=== PATIENT | male | born 1940 | race Caucasian/White ===

== ENCOUNTER 2023-07-31 11:50 | Outpatient (REF) | payer MEDICARE, SELFPAY ==
[2023-07-31 13:52] LABS: Anion Gap 11 (12-20); Blood Urea Nitrogen 22 mg/dL (9-16); Calcium 8.9 mg/dL (8.4-10.2); Carbon Dioxide 36 mmol/L (22-29); Chloride 100 mmol/L (96-108); Estimated Glomerular Filt Rate 47; Glucose Random 103 mg/dL (60-115); Potassium 3.1 mmol/L (3.3-5.1); Sodium 144 mmol/L (135-145)
== END 2023-07-31 11:51 | disposition home or self-care (01) ==
LOC: HO.HMGCLDS 11:50
PROVIDERS: PCP Internal Medicine; Visit Provider Nurse Practitioner Family
DX: N18.2 Chronic kidney disease, stage 2 (mild) (principal)
CPT/HCPCS: 36415; 80048

== ENCOUNTER 2023-11-15 10:14 | Outpatient (REF) | payer MEDICARE, SELFPAY ==
[2023-11-15 13:12] LABS: MANUAL DIFF FLAG NO
[2023-11-15 13:29] LABS: Basophils Absolute Auto 0.1 X10*3/uL (0.0-0.2); Basophils Percent Auto 1.1 % (0-2); Eosinophils Absolute Auto 0.1 X10*3/uL (0.0-0.4); Eosinophils Percent Auto 1.8 % (0-4); Hematocrit 43.6 % (42.0-52.0); Hemoglobin 14.3 g/dl (14.0-18.0); Imm Gran Abs Auto 0.01 X10*3/uL (0.00-0.03); Imm Gran Pct Auto 0.2 % (0.0-0.4); Lymphocytes Absolute Auto 1.7 X10*3/uL (1.2-4.9); Lymphocytes Percent Auto 38.5 % (20-40); Mean Corpuscular HGB Conc 32.8 g/dl (31.0-36.0); Mean Corpuscular Hemoglobin 28.9 pg (27.0-33.0); Mean Corpuscular Volume 88.3 fL (80.0-98.0); Mean Platelet Volume 10.6 fL (9.4-12.4); Monocytes Absolute Auto 0.5 X10*3/uL (0.1-1.2); Monocytes Percent Auto 11.1 % (2-11); Neutrophils Absolute Auto 2.1 x10*3/uL (2.0-8.3); Neutrophils Percent Auto 47.3 % (45-73); Platelet Count 214 X10*3/uL (160-400); Red Blood Count 4.94 X10*6/uL (4.60-5.80); White Blood Count 4.5 X10*3/uL (4.8-10.8)
[2023-11-15 13:40] LABS: Estimated Average Glucose 117 mg/dL; Hemoglobin A1c % 5.7 % (<6.0)
[2023-11-15 13:43] LABS: Anion Gap 12 (12-20); Blood Urea Nitrogen 27 mg/dL (9-16); Calcium 9.5 mg/dL (8.4-10.2); Carbon Dioxide 31 mmol/L (22-29); Chloride 104 mmol/L (96-108); Estimated Glomerular Filt Rate 31; Glucose Random 97 mg/dL (60-115); Potassium 4.5 mmol/L (3.3-5.1); Sodium 142 mmol/L (135-145)
== END 2023-11-15 10:15 | disposition home or self-care (01) ==
LOC: HO.HMGCLDS 10:14
PROVIDERS: PCP Internal Medicine; Visit Provider Internal Medicine
DX: E11.22 Type 2 diabetes mellitus with diabetic chronic kidney disease (principal); N18.9 Chronic kidney disease, unspecified; R53.83 Other fatigue
CPT/HCPCS: 36415; 80048; 83036; 85025

== ENCOUNTER 2024-08-04 06:41 | Outpatient (REF) | payer MEDICARE, SELFPAY ==
[2024-08-04 10:01] LABS: MANUAL DIFF FLAG NO
[2024-08-04 10:08] LABS: Basophils Absolute Auto 0.1 X10*3/uL (0.0-0.2); Basophils Percent Auto 1.4 % (0-2); Eosinophils Absolute Auto 0.2 X10*3/uL (0.0-0.4); Eosinophils Percent Auto 4.3 % (0-4); Hematocrit 41.9 % (42.0-52.0); Hemoglobin 13.5 g/dl (14.0-18.0); Imm Gran Abs Auto 0.01 X10*3/uL (0.00-0.03); Imm Gran Pct Auto 0.2 % (0.0-0.4); Lymphocytes Absolute Auto 1.9 X10*3/uL (1.2-4.9); Mean Corpuscular HGB Conc 32.2 g/dl (31.0-36.0); Mean Corpuscular Hemoglobin 29.2 pg (27.0-33.0); Mean Corpuscular Volume 90.5 fL (80.0-98.0); Monocytes Absolute Auto 0.5 X10*3/uL (0.1-1.2); Monocytes Percent Auto 9.9 % (2-11); Neutrophils Absolute Auto 2.5 x10*3/uL (2.0-8.3); Neutrophils Percent Auto 48.2 % (45-73); Platelet Count 294 X10*3/uL (160-400); Red Blood Count 4.63 X10*6/uL (4.60-5.80); Red Cell Distribution Width 13.3 % (11.0-16.0); White Blood Count 5.2 X10*3/uL (4.8-10.8)
[2024-08-04 10:32] LABS: Alanine Aminotransferase 11 U/L (0-40); Albumin Level 3.7 g/dL (3.5-5.0); Alkaline Phosphatase 80 U/L (39-117); Anion Gap 13 (12-20); Aspartate Amino Transferase 23 U/L (5-37); Bilirubin Total 0.6 mg/dL (0.0-1.0); Blood Urea Nitrogen 30 mg/dL (9-16); Calcium 8.8 mg/dL (8.4-10.2); Carbon Dioxide 31 mmol/L (22-29); Chloride 103 mmol/L (96-108); Cholesterol 155 mg/dL (<200); Estimated Glomerular Filt Rate 36; Glucose Fasting 109 mg/dL (60-99); HDL Cholesterol 37 mg/dL (>40); LDL Cholesterol Calculated 101 mg/dL (<100); Potassium 4.1 mmol/L (3.3-5.1); Sodium 143 mmol/L (135-145); Total Protein 7.5 g/dL (6.5-8.0); Triglycerides 87 mg/dL (<150)
[2024-08-04 10:40] LABS: Prostate Specific Antigen 2.93 ng/mL (<0.05-4.0)
[2024-08-04 10:47] LABS: Estimated Average Glucose 120 mg/dL; Hemoglobin A1C 138.1743 umol/L; Hemoglobin A1c % 5.8 % (<6.0); Total Hemoglobin (HGBA1C) 3475.3078 umol/L
== END 2024-08-04 06:42 | disposition home or self-care (01) ==
LOC: HO.HMGCLDS 06:41
PROVIDERS: PCP Internal Medicine; Visit Provider Internal Medicine
DX: E78.5 Hyperlipidemia, unspecified (principal); R53.83 Other fatigue; Z12.5 Encounter for screening for malignant neoplasm of prostate; Z13.1 Encounter for screening for diabetes mellitus
CPT/HCPCS: 36415; 80053; 80061; 83036; 84153; 85025

== ENCOUNTER 2024-10-14 09:29 | Outpatient (AMB) | payer MEDICARE, SELFPAY ==
--- NOTE | 2024-10-14 09:30 | MHC.PC.OV ---
Vital Signs 10/14/24 09:39 10/14/24 09:56 Height 5 ft 8.5 in Weight 222 lb BMI 33.3 BP 187/90 H 148/84 H Respiration 14 Pulse 70 Pulse Source Pulse Oximeter Temp 98.0 F Temp Source Temporal Artery Scan Pulse Oximetry (%) 95 Oxygen Delivery Method Room Air Intake Visit Reasons: establish care Septic Tank Installer Required: No Accompanied by: Spouse Allergies cephalexin (From KEFLEX) Allergy (Unknown, Unverified 10/14/24 09:30) UNKNOWN metformin (METFORMIN) Allergy (Unknown, Unverified 10/14/24 09:30) SHAKY , swelling silodosin (From RAPAFLO) Allergy (Unknown, Unverified 10/14/24 09:30) UNKNOWN tamsulosin (From FLOMAX) Allergy (Unknown, Unverified 10/14/24 09:30) UNKNOWN Pt states no known allergy to Allergy (Mild, Uncoded 10/14/24 09:30) Unknown Rapaflo Allergy (Unknown, Uncoded 10/14/24 09:30) hives Tobacco use date assessed: 10/14/24 Fall risk assessment: No Falls in past year Dental Screening Dental Screen Date: 10/14/24 Did you have a dental visit in the last 12 months?: Yes Did you have a dental problem in the last 6 months where you did not have access to dental care?: No Was dental information given to patient?: Patient has dentist [facility] Medical History (Updated 10/14/24 @ 10:16 by Kane Plunkett MD) Chronic pain syndrome Family History (Updated 10/14/24 @ 09:49 by CINDY Whittington) Father Prostate cancer Bone cancer Mother BP (high blood pressure) Social History (Updated 10/14/24 @ 09:48 by CINDY Whittington) Housing: House Alcohol intake: current Alcohol intake frequency: does not drink Patient Tobacco Use Status: Never used Tobacco service: Yes Current occupational status: retired Cognitive needs: No Hearing needs: No Vision needs: No Questionnaire PHQ-9 Over the last 2 weeks, how often have you been bothered by any of the following problems? 1. Little interest or pleasure in doing things: not at all 2. Feeling down, depressed, or hopeless: not at all 3. Trouble falling or staying asleep, or sleeping too much: not at all 4. Feeling tired or having little energy: not at all 5. Poor appetite or overeating: not at all 6. Feeling bad about yourself - or that you are a failure or have let yourself or your family down: not at all 7. Trouble concentrating on things, such as reading the newspaper or watching television: not at all 8. Moving or speaking so slowly that other people could have noticed. Or the opposite - being so fidgety or restless that you have been moving around a lot more than usual: not at all 9. Thoughts that you would be better off or of hurting yourself in some way: not at all Total score: 0 Depression Screening Interpretation: Negative Depression Screening Done: Yes Source: Developed by Drs. Chad Garcia, Yadira Abbasi, Ramon Sneed and colleagues, with an educational lee from [employer]. Thrive Questionnaire Date Thrive assessed: 10/14/24 I am a: Patient What is your living situation today?: I have a steady place to live Within the past 12 months, did the food you bought not last and you didn't have the money to get more?: Never true Within the past 12 months, did you worry whether your food would run out before you got money to buy more?: Never true Do you have trouble paying for medicines?: No Do you have trouble getting transportation to medical appointments?: No Do you have trouble paying your heating and electricity bill?: No Do you have trouble taking care of your child, family member or friend?: No Do you have trouble with day-to-day activities such as bathing, preparing meals, shopping, managing finances, etc.?: No Are you currently unemployed and looking for a job?: No Are you interested in more education?: No Please select the resources that you would like help with: None THRIVE Score: 0 AUDIT C Alcohol Use Questionnaire (AUDIT-C) 1. How often do you have a drink containing alcohol?: Never 3. How often do you have six or more drinks on one occasion?: Never Total Score: 0 TRESA-7 AMB Questionnaire TRESA-7 Date TRESA - 7 assessed: 10/14/24 Feeling nervous, anxious, or on edge: 0 = Not at all Not being able to stop or control worryin = Not at all Worrying too much about different things: 0 = Not at all Trouble relaxin = Not at all Being so restless that it is hard to sit still: 0 = Not at all Becoming easily annoyed or irritable: 0 = Not at all Feeling afraid as if something awful might happen: 0 = Not at all Total TRESA-7 score (0-4 normal; 5-9 mild; 10-14 moderate; 15-21 severe): 0 Source: Developed by Drs. Chad Garcia, Yadira Abbasi, Ramon Sneed and colleagues, with an educational lee from [employer]. Physical exam (Primary Care) Vital Signs: Last Vital Signs Temp 98.0 F 10/14/24 09:39 Pulse 70 10/14/24 09:39 Resp 14 10/14/24 09:39 BP 187/90 H 10/14/24 09:39 Pulse Ox 95 10/14/24 09:39 Oxygen Delivery Method Room Air 10/14/24 09:39 BMI result Body Mass Index 33.3 Tobacco/Smoking Status: Tobacco use Status Tobacco use date assessed 10/14/24 10/14/24 09:36 Patient Tobacco Use Status Never used Tobacco 10/14/24 09:48 PHQ-9: PHQ-9 Score PHQ-9: Total score 0 10/14/24 09:36 Depression Screening Interpretation: Negative Thrive Assessment: Date of Thrive Assessment Date Thrive assessed 10/14/24 10/14/24 09:36 Advance Care Planning discussion: Exists, not on file Date of discussion: 10/14/24 Forms completed: Health Care Proxy and MOLST Time spent: 1-15 minutes, not on file Coding Level of Care Code New Pt Level 4 (55612) Complex EM visit Add On G2211 Diagnoses Chronic pain syndrome G89.4 Additional Codes Vital Signs *Quality* - Advance Care Planning discussion: Exists, not on file ([id number]) Vital Signs *Quality* - Time spent: 1-15 minutes, not on file ([id number]) Assessment & Plan Assessment & Plan (1) Chronic pain syndrome: Code(s): G89.4 - Chronic pain syndrome Category: Medical Plan: Patient has been taking 300 mg a day in divided doses of Tramadol. The dosage has been reduced to 150 mg in divided doses. Patient has agreed. Will continue the diazepam an gabapentin at same dosage for now. Plan History of Present Illness - The patient is an 83-year-old male presenting with medication management and review. - Neuropathy: The patient has been experiencing neuropathy for approximately 10 years, primarily affecting his feet, causing pain and numbness. - He has been taking tramadol, 6 pills a day, for neuropathy management, but the dosage is being reduced to 3 pills a day due to concerns about addiction and age-related risks. - Type 2 Diabetes Mellitus: The patient has a history of type 2 diabetes, which may contribute to his neuropathy. - Back Pain: The patient has a history of multiple back surgeries and continues to experience back pain. - He has received epidural injections in the past, which were ineffective. - Dry Eye Syndrome: The patient has dry eyes and is under the care of Dr. Villegas for this condition. - History of Heart Attack: The patient has experienced two heart attacks in the past year and is on multiple heart medications. 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 Review of Systems - Neurological: Reports numbness and pain in feet due to neuropathy. - Cardiovascular: Reports history of heart attacks; denies current chest pain. - Ophthalmologic: Reports dry eyes. Physical Exam General: Cooperative and healthy appearing Nutritional Appearance: Well nourished Orientation/consciousness: Patient oriented x3 Limitations: No limitations Head: Normal to inspection General: Appearance normal, both eyes and all related structures Neck: Normal visual inspection Chest: Normal palpation of entire chest wall Respiratory: N ormal respiratory effort Neurology: Patient oriented x3, but reports neuropathy and back pain. Results Plan 1. Neuropathy - Reduce tramadol dosage to 3 pills per day due to concerns about addiction and age-related risks. 2. Type 2 Diabetes Mellitus - Continue current management and monitor for neuropathy progression. 3. Back Pain - No new interventions discussed; continue current management. 4. Dry Eye Syndrome - Continue care under Dr. Villegas. 5. History Of Heart Attack - Continue current heart medications as prescribed. Discussion Notes During the visit, we discussed the need to reduce the tramadol dosage to three pills per day due to concerns about addiction and age-related risks. We also reviewed the patient's current heart medications and confirmed that they should be continued as prescribed. The patient was advised to continue care for dry eye syndrome under Dr. Villegas. No new interventions were discussed for back pain, and current management for type 2 diabetes mellitus should continue with monitoring for neuropathy progression. Patient Instructions - Take tramadol three times a day as prescribed. - Continue taking heart medications as directed. - Follow up with Dr. Villegas for dry eye management. - Monitor blood sugar levels and report any changes in neuropathy symptoms. Orders: Orders Thyroid Stimulating Hormone Today G89.4 - Chronic pain syndrome UA and rflx microscopic Today G89.4 - Chronic pain syndrome Basic Metabolic Panel Today G89.4 - Chronic pain syndrome Complete Blood Count no Diff Today G89.4 - Chronic pain syndrome Lipid Panel Today G89.4 - Chronic pain syndrome Liver Panel Today G89.4 - Chronic pain syndrome Prostate Specific Antigen Scr Today G89.4 - Chronic pain syndrome Medications: New tramadol 50 mg PO Q8H 90 tabs 0RF 30 days gabapentin 200 mg (2 x 100 mg) PO TID 540 tabs 1RF 90 days
[2024-10-14 09:39] VITALS: BP 187/90; PULSE 70; RESP 14; TEMP 36.7; O2SAT 95; BMI 33.3
--- OUTSIDE RECORDS SUMMARY | 2024-10-14 09:55 | XMS_ITS | Patient Health Record ---
Author Organization [facility] Address [address] [place] [address] Care Team Providers Care Program Clerk Name Role Phone Donald Mayberry MD Primary Care Provider Unavailab Michela Tubbs Unavailable [phone] Jason Treviño Unavailable [phone] Allergies No Known Allergies Results Component Value Reference Range Notes HEMOGLOBIN A1C (GLYCOHEMOGLO BIN) Reviewed date:07/31/2024 11:03:22 AM Interpretation: Performing Lab: Notes/Report: HEMOGLOBIN A1C % (HH) 5.9 Reason For Referral No Information Medications Medication SIG (Take, Route, Frequency, Duration) Notes Start Date End Date Status Vitamin D3 Not-Ian Goss Active Extra Depth Orthopedic Shoes (1 Pair) with Customized Heat Molded Multidensity Innersoles (3 Pair) as directed Dx: NIDDM/Polyneuropathy (E11.42), Hammertoe Foot Deformity (M20.41,M20.42), Preulcerative Skin Lesion(s) (L85.1 06/20/2017 Not-Taking Extra Depth Orthopedic Shoes (1 Pair) with Customized Heat Molded Multidensity Innersoles (3 Pair) as directed Dx: NIDDM/Polyneuropathy (E11.42), Hammertoe Foot Deformity (M20.41,M20.42), Preulcerative Skin Lesion(s) (L85.1 06/26/2016 Not-Taking PreserVision AREDS A ctive Farxiga 10 MG 1 tablet Orally Once a day; Duration: 30 day(s) Active Enalapril Maleate 20 MG 1 tablet Orally Twice a day Not-Taking Potassium 1 tab Oral; Duration : 14 days Active Extra-Depth Diabetic Shoes with 3 Pair Custom heat-molded multi-density innersoles . for 1 year . Dx:Niddm with neuropathy, foot deformity and preulcerative skin lesions; Duration: . 05/04/2014 Not-Taking Eliquis 2.5 MG as directed Orally Active diazePAM Not-Taking Metoprolol Tartrate 50 MG 1 tablet with food Orally Twice a day; Duration: 30 day(s) Active Pantoprazole Sodium Not-Taking Centrum Silver Activ e Valium Not-Taking CeleBREX 200 MG Orally Acti ve Nifedical XL 60 MG 1 tablet Orally Once a day Not-Taking Gabapentin 100 MG Orally Ac tive Detrol LA 4 MG 1 capsule Orally Onc e a day Active Eye Lubricant Not-Ta nickie Omeprazole Not-Takin g Cephalexin Not-Takin g Restasis Active Aspir-81 Not-Taking traMADol HCl 50 MG Orally A ctive Vitamin B Complex No t-Taking Furosemide 20 MG 2 mL Orally Once a day Active Enulose Not-Taking Extra Depth Orthopedic Shoes (1 Pair) with Customized Heat Molded Multidensity Innersoles (3 Pair) as directed Dx: NIDDM/Polyneuropathy (E11.42), Hammertoe Foot Deformity (M20.41,M20.42), Preulcerative Skin Lesion(s) (L85.1 06/16/2019 Active Clobetasol Propionate Not-Taking Ciclopirox Olamine 0.77 % 1 application Externally Twice a day to skin of feet including between the toes; Duration: 30 days Active metFORMIN HCl Not-Ta nickie Extra Depth Orthopedic Shoes (1 Pair) with Customized Heat Molded Multidensity Innersoles (3 Pair) as directed Dx: NIDDM/Polyneuropathy (E11.42), Hammertoe Foot Deformity (M20.41,M20.42), Preulcerative Skin Lesion(s) (L85.1 03/26/2024 Active oxyCODONE HCl Not-Ta nickie NIFEdipine 60mg Not- Taking zzzExtra Depth Orthopedic Shoes (1 Pair) with Customized Heat Molded Multidensity Innersoles (3 Pair) . . . Dx: NIDDM (E11.9), Hammertoe Foot Deformity (M20.41,M20.42), Preulcerative Skin Lesion(s) (L85.1); Duration: . 06/03/2015 Not-Taking glipiZIDE Not-Taking OxyCONTIN Not-Taking Vitamin B 12 Not-Alexandre ing Vitamin B1 Not-Takin g Immunizations Vaccine Route Administration Date Status Comme nts COVID-19 Moderna Vaccine Unknown 12/09/2021 Administere d 1st 06/03/2020,07/01/2020 02/08/2021, Flu vaccine no Preserv 3 and > Unknown 01/18/2015 Administered Influenza Unknown 01/10/2016 Administered Influenza Unknown 12/18/2016 Administered Influenza Unknown 01/07/2018 Administered Influenza Unknown 12/08/2021 Administered Influenza Unknown 12/08/2022 Administered Pneumococcal Unknown 02/07/2017 Administered Social History Tobacco Use: Social History Observation Description Date Details (start date - stop date) Never Smoker NA - NA Tobacco use other than smoking: Question Answer Notes Are you an other tobacco user? No Tobacco Control (Standard) Question Answer Notes Tobacco use: Nonsmoker Additional Findings: Tobacco non-user Current no nsmoker AUDIT-C (Standard) Question Answer Notes Did you have a drink containing alcohol in the p ast year? No Points 0 Interpretation Negative Problems Problem Type SNOMED Code ICD Code Onset Dates Problem Status W/U Status Risk Notes Problem Acquired hammer toe of right foot (4004167152769941 ) Other hammer toe(s) (acquired), right foot (M20.41) Active confirmed Response to treatment, Improvemen t Problem Acquired hammer toe of left foot (2845198615721577 ) Other hammer toe(s) (acquired), left foot (M20.42) Active confirmed Response to treatment, Improvemen t Problem Polyneuropathy due to type 2 diabetes mellitus (661761140) Type 2 diabetes mellitus with diabetic polyneuropathy (E11.42) Active confirmed Vital Signs Blood pressure diastolic 80 mm Hg 07/31/2024 Height 5 ft 10 in in 07/31/2024 Blood pressure systolic 130 mm Hg 07/31/2024 Weight 218 lbs 07/31/2024 BMI 31.28 kg/m2 07/31/2024 Procedures Procedure Date Ordered Date Performed Result Body Sit e 00544-DADBRVH NAIL, 6 OR MORE 03/26/2024 N/A 54013-JXLF SKIN LESIONS, OVER 4 03/26/2024 N/A 90126-MIWDIYG NAIL, 6 OR MORE 07/31/2024 N/A 53555-HAPA SKIN LESIONS, OVER 4 07/31/2024 N/A Encounters Encounter Location Date Provider Diagnosis [address] [address] 12/20/2023 Jason Treviño Tinea unguium B35.1 ; Ingrowing nail L60.0 ; Type 2 diabetes mellitus with diabetic polyneuropathy E11.42 ; Pain in right toe(s) M79.674 ; Pain in left toe(s) M79.675 ; Hallux valgus (acquired), right foot M20.11 ; Other hammer toe(s) (acquired), left foot M20.42 ; Other hammer toe(s) (acquired), right foot M20.41 ; Venous insufficiency of both lower extremities I87.2 and Subungual hematoma of toenail of left foot, initial encounter S90.222A [address] [address] 03/26/2024 Michela Hirsch Other hammer toe(s) (acquired), right foot M20.41 ; Other hammer toe(s) (acquired), left foot M20.42 ; Type 2 diabetes mellitus with diabetic polyneuropathy E11.42 ; Tinea unguium B35.1 and Tinea pedis of both feet B35.[address] [address] 07/31/2024 Michela Hirsch Type 2 diabetes mellitus with diabetic polyneuropathy E11.42 ; Tinea unguium B35.1 ; Other hammer toe(s) (acquired), right foot M20.41 and Other hammer toe(s) (acquired), left foot M20.[address] [address] 03/27/2024 Michela Hirsch Assessments Encounter Date Diagnosis (ICD Code) Assessment Notes Treatment Notes Treatment Clinical Notes Section Notes 12/20/2023 Tinea unguium (ICD-10 - B35.1) 12/20/2023 Ingrowing nail (ICD-10 - L60.0) 03/26/2024 Other hammer toe(s) (acquired), right foot (ICD-10 - M20.41) Patient Educated with: DIABETIC FOOT CARE INSTRUCTIONS. pdf (DIABETIC FOOT CARE INSTRUCTIONS. pdf) 03/26/2024 Other hammer toe(s) (acquired), left foot (ICD-10 - M20.42) 07/31/2024 Type 2 diabetes mellitus with diabetic polyneuropathy (ICD-10 - E11.42) 07/31/2024 Tinea unguium (ICD-10 - B35.1) 07/31/2024 Other hammer toe(s) (acquired), right foot (ICD-10 - M20.41) Response to treatment,Impro vement 03/26/2024 Type 2 diabetes mellitus with diabetic polyneuropathy (ICD-10 - E11.42) 12/20/2023 Type 2 diabetes mellitus with diabetic polyneuropathy (ICD-10 - E11.42) 12/20/2023 Pain in right toe(s) (ICD-10 - M79.674) 03/26/2024 Tinea unguium (ICD-10 - B35.1) 07/31/2024 Other hammer toe(s) (acquired), left foot (ICD-10 - M20.42) Response to treatment,Impro vement 12/20/2023 Pain in left toe(s) (ICD-10 - M79.675) 12/20/2023 Hallux valgus (acquired), right foot (ICD-10 - M20.11) 03/26/2024 Tinea pedis of both feet (ICD-10 - B35.3) 12/20/2023 Other hammer toe(s) (acquired), left foot (ICD-10 - M20.42) 12/20/2023 Other hammer toe(s) (acquired), right foot (ICD-10 - M20.41) 12/20/2023 Venous insufficiency of both lower extremities (ICD-10 - I87.2) 12/20/2023 Subungual hematoma of toenail of left foot, initial encounter (ICD-10 - S90.222A) Plan Of Treatment Pending Test Test Name Order Date 01968-PGVGENX NAIL, 6 OR MORE 05/04/2014 66808-RORJMWH NAIL, 6 OR MORE 07/22/2014 69884-UBFVDOP NAIL, 6 OR MORE 10/21/2014 65351-SDGSXTJ NAIL, 6 OR MORE 12/30/2014 93363-UOGHGEZ NAIL, 6 OR MORE 03/03/2015 68757-YGSKVQO NAIL, 6 OR MORE 06/03/2015 36618-SCGWCPS NAIL, 6 OR MORE 08/16/2015 87469-HQTZAPS NAIL, 6 OR MORE 11/08/2015 98252-UZKKNLP NAIL, 6 OR MORE 01/31/2016 74729-DJUALYG NAIL, 6 OR MORE 04/17/2016 85740-JLXCLAG NAIL, 6 OR MORE 06/26/2016 81891-POQVAWT NAIL, 6 OR MORE 09/18/2016 95387-JBOUXCF NAIL, 6 OR MORE 11/27/2016 67859-ZLXTEUT NAIL, 6 OR MORE 01/29/2017 53863-AWYPXYP NAIL, 6 OR MORE 04/11/2017 21151-SVWGTFA NAIL, 6 OR MORE 06/20/2017 65401-EVHKVLC NAIL, 6 OR MORE 08/29/2017 12193-SQWPUKO NAIL, 6 OR MORE 11/19/2017 88234-SFUAYKN NAIL, 6 OR MORE 02/13/2018 46360-YGZIIKL NAIL, 6 OR MORE 03/26/2024 15491-EQHQNNO NAIL, 6 OR MORE 07/31/2024 72357-Egcimnzq Plate 12/30/2014 81102-CDTS SKIN LESIONS, OVER 4 10/01/19 19 32590-NYRJ SKIN LESIONS, OVER 4 08/01/19 25 68711-EGDJ SKIN LESIONS, OVER 4 03/26/20 24 18477-EYSD SKIN LESIONS, OVER 4 05/08/19 19 10020-TOPZ SKIN LESIONS, OVER 4 07/11/19 19 00658-GVRV SKIN LESIONS, OVER 4 02/14/20 18 74529-IDES SKIN LESIONS, OVER 4 11/20/19 18 67160-DKFW SKIN LESIONS, OVER 4 12/26/19 19 89784-HDPP SKIN LESIONS, OVER 4 03/24/20 19 17864-TISN SKIN LESIONS, OVER 4 06/16/19 20 19007-KJKA SKIN LESIONS, OVER 4 08/17/19 21 12205-OARD SKIN LESIONS, OVER 4 10/26/19 21 05210-FOPY SKIN LESIONS, OVER 4 12/28/19 21 58161-QLPI SKIN LESIONS, OVER 4 02/29/20 21 92823-HXNH SKIN LESIONS, OVER 4 05/09/19 22 69059-DNYQ SKIN LESIONS, OVER 4 08/30/19 18 28309-TUOE SKIN LESIONS, OVER 4 06/21/19 18 35003-CASK SKIN LESIONS, OVER 4 04/11/19 18 94567-TNVS SKIN LESIONS, OVER 4 01/30/20 17 90802-JCNV SKIN LESIONS, OVER 4 11/28/19 17 15843-ZFMF SKIN LESIONS, OVER 4 06/27/19 17 83953-TCZE SKIN LESIONS, OVER 4 09/19/19 17 32343-OCSV SKIN LESIONS, OVER 4 04/17/19 17 99004-SKSZ SKIN LESIONS, OVER 4 01/31/20 16 70272-YLIK SKIN LESIONS, OVER 4 11/08/19 16 94771-EFWD SKIN LESIONS, OVER 4 08/16/19 16 13481-SIWO SKIN LESIONS, OVER 4 06/03/19 16 38601-AVYG SKIN LESIONS, OVER 4 03/03/20 15 58656-MKPQ SKIN LESIONS, OVER 4 12/31/19 15 52049-DQQT SKIN LESIONS, OVER 4 10/22/19 15 25639-UBZR SKIN LESIONS, OVER 4 07/23/19 15 58838-DJQX SKIN LESIONS, OVER 4 05/04/19 15 21525-Asbz. Subungual Hematoma 4 68201-BTYAGCMP OF HEMATOMA/FLUID 019 75524-YWZUFTRA OF HEMATOMA/FLUID 022 30615-WVSPELOB OF HEMATOMA/FLUID 023 99035-PILFYHPX OF HEMATOMA/FLUID 021 55837-ELZHEPGO OF HEMATOMA/FLUID 019 HEMOGLOBIN A1C (GLYCOHEMOGLOBIN) 024 Next Appt Details Provider Name:Michela Ceballos nuris, 10/23/2024 03:45:00 PM, [address], [place], [address], Insurance Providers Payer Name Payer Address Payer Phone Subscriber Number Group Number Insured Name Patient Relationship to Insured Coverage Start Date Coverage End Date [employer] Medicare [id number] [address] [address] [place] [address] [id number] [employer], Aaron Self - patient is the insured Medical (General) History Medical History History ICD Code Arthritis Back,Hip,and Knee pain type II diabetes High blood pressure Neuropathy Chicken pox Surgical History Surgery Date(Month/Year) lumbar surgery 06/20/2013 cervical 11/29/2009 knee surgery, left 09/15/2015 gastric sleeve 03/08/17 cataract surgery- Bilateral 10/2017 Hospitalization History Reason Date(Month/Year) Heart attack- [facility] 08/2023
[2024-10-14 09:56] VITALS: BP 148/84
== END 2024-10-14 10:38 | disposition home or self-care (01) ==
LOC: HO.HMCSH 09:29
PROVIDERS: PCP Internal Medicine; Visit Provider Internal Medicine
DX: G89.4 Chronic pain syndrome (principal); Z00.00 Encounter for general adult medical examination without abnormal findings

== ENCOUNTER → 2024-10-14 09:29 | Outpatient (BNVA) | payer MEDICARE, SELFPAY | PROVIDERS: PCP Internal Medicine; Visit Provider Internal Medicine | DX: G89.4 Chronic pain syndrome (principal) | CPT/HCPCS: 99202 ==

== ENCOUNTER 2024-10-15 10:42 | Outpatient (REF) | payer MEDICARE, SELFPAY ==
--- OUTSIDE RECORDS SUMMARY | 2024-10-15 11:44 | XMS_ITS | Patient Health Record ---
[facility] Organization [facility] brijesh Michele Address [address] [facility] [place] [address] Care Team Providers Care Senior Media Planner Name Role Phone Donald Mayberry MD Primary Care Provider Unavailab Michela Tubbs Unavailable [phone] Jason Treviño Unavailable [phone] Allergies No Known Allergies Results Component Value [...] Problem Acquired hammer toe of right foot (7568611007958752 ) Other hammer toe(s) (acquired), right foot (M20.41) Active confirmed Response to treatment, Improvemen t Problem Acquired hammer toe of left foot (4286069306958266 ) Other hammer toe(s) (acquired), left foot (M20.42) Active confirmed Response to treatment, Improvemen t Problem Polyneuropathy due to type 2 diabetes mellitus (053207534) Type 2 diabetes mellitus with diabetic polyneuropathy (E11.42) Active confirmed Vital Signs Blood pressure diastolic 80 mm Hg 07/31/2024 Height 5 ft 10 in in 07/31/2024 Blood pressure systolic 130 mm Hg 07/31/2024 Weight 218 lbs 07/31/2024 BMI 31.28 kg/m2 07/31/2024 Procedures Procedure Date Ordered Date Performed Result Body Sit e 85415-FSADVQA NAIL, 6 OR MORE 03/26/2024 N/A 88759-LMEQ SKIN LESIONS, OVER 4 03/26/2024 N/A 33786-YMBHVPS NAIL, 6 OR MORE 07/31/2024 N/A 72035-LWSW SKIN LESIONS, OVER 4 07/31/2024 N/A Encounters Encounter Location Date Provider Diagnosis [address] [address] 12/20/2023 Jason Treviño Tinea unguium B35.1 ; [...] toenail of left foot, initial encounter S90.222A [address] [address] 03/26/2024 Mcihela Hirsch Other hammer toe(s) (acquired), right foot M20.41 ; Other hammer toe(s) (acquired), left foot M20.42 ; Type 2 diabetes mellitus with diabetic polyneuropathy E11.42 ; Tinea unguium B35.1 and Tinea pedis of both feet B35.[address] [address] 07/31/2024 Michela Hirsch Type 2 diabetes mellitus with diabetic polyneuropathy E11.42 ; Tinea unguium B35.1 ; Other hammer toe(s) (acquired), right foot M20.41 and Other hammer toe(s) (acquired), left foot M20.[address] [address] 03/27/2024 Michela Hirsch Assessments Encounter Date Diagnosis [...] Treatment Pending Test Test Name Order Date 16317-VJZCJRQ NAIL, 6 OR MORE 05/04/2014 47802-VMSWEGJ NAIL, 6 OR MORE 07/22/2014 74129-EZVVREK NAIL, 6 OR MORE 10/21/2014 64991-GKUZBON NAIL, 6 OR MORE 12/30/2014 66695-FDVATGP NAIL, 6 OR MORE 03/03/2015 36606-YOSSUOT NAIL, 6 OR MORE 06/03/2015 38607-YSZKQKF NAIL, 6 OR MORE 08/16/2015 45136-PEXRFBV NAIL, 6 OR MORE 11/08/2015 33463-UZMAZJP NAIL, 6 OR MORE 01/31/2016 71498-BDZQHWC NAIL, 6 OR MORE 04/17/2016 93541-KBQBCUG NAIL, 6 OR MORE 06/26/2016 33297-OGESUFB NAIL, 6 OR MORE 09/18/2016 36198-PLQJVTD NAIL, 6 OR MORE 11/27/2016 22158-SNUXLIG NAIL, 6 OR MORE 01/29/2017 83844-YRMPBHB NAIL, 6 OR MORE 04/11/2017 18562-ZGYKYXV NAIL, 6 OR MORE 06/20/2017 99062-PKSFGMT NAIL, 6 OR MORE 08/29/2017 18856-EPWEJBO NAIL, 6 OR MORE 11/19/2017 65042-UYCKJCB NAIL, 6 OR MORE 02/13/2018 18055-SWOTUGD NAIL, 6 OR MORE 03/26/2024 51601-UHQBLJC NAIL, 6 OR MORE 07/31/2024 48110-Itssjgpe Plate 12/30/2014 14980-MGNJ SKIN LESIONS, OVER 4 10/01/19 19 42111-XXKT SKIN LESIONS, OVER 4 08/01/19 25 92678-SAKN SKIN LESIONS, OVER 4 03/26/20 24 09174-CORP SKIN LESIONS, OVER 4 05/08/19 19 89080-WTDG SKIN LESIONS, OVER 4 07/11/19 19 30813-EIFQ SKIN LESIONS, OVER 4 02/14/20 18 14301-NIPC SKIN LESIONS, OVER 4 11/20/19 18 14102-OLCR SKIN LESIONS, OVER 4 12/26/19 19 06232-EDMD SKIN LESIONS, OVER 4 03/24/20 19 00977-RQRT SKIN LESIONS, OVER 4 06/16/19 20 29188-NTKE SKIN LESIONS, OVER 4 08/17/19 21 24754-CRKA SKIN LESIONS, OVER 4 10/26/19 21 06513-ZKCK SKIN LESIONS, OVER 4 12/28/19 21 81157-JHGL SKIN LESIONS, OVER 4 02/29/20 21 62136-JDOC SKIN LESIONS, OVER 4 05/09/19 22 91022-FDCN SKIN LESIONS, OVER 4 08/30/19 18 82130-OJXW SKIN LESIONS, OVER 4 06/21/19 18 77246-BSIP SKIN LESIONS, OVER 4 04/11/19 18 12254-JBPL SKIN LESIONS, OVER 4 01/30/20 17 83642-SYDG SKIN LESIONS, OVER 4 11/28/19 17 43319-FQCF SKIN LESIONS, OVER 4 06/27/19 17 70501-WFSQ SKIN LESIONS, OVER 4 09/19/19 17 69008-FBOC SKIN LESIONS, OVER 4 04/17/19 17 14200-HRVJ SKIN LESIONS, OVER 4 01/31/20 16 37714-VFCD SKIN LESIONS, OVER 4 11/08/19 16 32847-QWDP SKIN LESIONS, OVER 4 08/16/19 16 59669-SJUZ SKIN LESIONS, OVER 4 06/03/19 16 60358-OJCL SKIN LESIONS, OVER 4 03/03/20 15 56893-DAIE SKIN LESIONS, OVER 4 12/31/19 15 28978-FHFB SKIN LESIONS, OVER 4 10/22/19 15 85498-OJGO SKIN LESIONS, OVER 4 07/23/19 15 98892-YLFG SKIN LESIONS, OVER 4 05/04/19 15 25734-Wtfy. Subungual Hematoma 4 67369-LNYGRHBG OF HEMATOMA/FLUID 019 13197-WRBNGCPD OF HEMATOMA/FLUID 022 43329-IOZXOTKF OF HEMATOMA/FLUID 023 20469-ZEOBYXNA OF HEMATOMA/FLUID 021 48578-VCQVNAGU OF HEMATOMA/FLUID 019 HEMOGLOBIN A1C (GLYCOHEMOGLOBIN) 024 Next Appt Details Provider Name:Michela Ceballos nuris, 10/23/2024 03:45:00 PM, [address], [place], [address], Insurance Providers Payer Name Payer Address Payer Phone Subscriber Number Group Number Insured Name Patient Relationship to Insured Coverage Start Date Coverage End Date [employer] Medicare [id number] [address] [address] [place] [address] [phone] [id number] [employer], Aaron Self - patient is the insured Medical (General) History Medical History History ICD Code Arthritis Back,Hip,and Knee pain type II diabetes High blood pressure Neuropathy Chicken pox Surgical History Surgery Date(Month/Year) lumbar surgery 06/20/2013 cervical 11/29/2009 knee surgery, left 09/15/2015 gastric sleeve 03/08/17 cataract surgery- Bilateral 10/2017 Hospitalization History Reason Date(Month/Year) Heart attack- [facility] 08/2023
[2024-10-15 16:18] LABS: Appearance Urine Cloudy; Glucose Urine UA 500 mg/dL (Negative); PH 6.5 (5.0-9.0); Specific Gravity - Urine 1.015 (1.005-1.025); UMIC TRIGGER UA YES
[2024-10-15 16:20] LABS: Hematocrit 39.2 % (42.0-52.0); Hemoglobin 13.0 g/dl (14.0-18.0); Mean Corpuscular HGB Conc 33.2 g/dl (31.0-36.0); Mean Corpuscular Hemoglobin 29.4 pg (27.0-33.0); Mean Corpuscular Volume 88.7 fL (80.0-98.0); NRBC Abs Auto 0.000 X10*3/uL (0.0-0.012); NRBC Pct Auto 0.0 /100WBC (0.0-0.2); Platelet Count 309 X10*3/uL (160-400); Red Blood Count 4.42 X10*6/uL (4.60-5.80); White Blood Count 6.8 X10*3/uL (4.8-10.8)
[2024-10-15 16:42] LABS: Hemoglobin A1C 136.2891 umol/L; Total Hemoglobin (HGBA1C) 3511.0709 umol/L
[2024-10-15 16:47] LABS: Alanine Aminotransferase < 6 U/L (0-40); Albumin Level 3.8 g/dL (3.5-5.0); Alkaline Phosphatase 75 U/L (39-117); Anion Gap 13 (12-20); Aspartate Amino Transferase 26 U/L (5-37); Blood Urea Nitrogen 33 mg/dL (9-16); Calcium 9.1 mg/dL (8.4-10.2); Carbon Dioxide 28 mmol/L (22-29); Chloride 104 mmol/L (96-108); Cholesterol 139 mg/dL (<200); Estimated Glomerular Filt Rate 36; HDL Cholesterol 33 mg/dL (>40); Potassium 4.5 mmol/L (3.3-5.1); Sodium 140 mmol/L (135-145); Total Protein 7.9 g/dL (6.5-8.0); Triglycerides 59 mg/dL (<150)
[2024-10-15 16:51] LABS: Thyroid Stimulating Hormone 0.97 uIU/mL (0.32-4.0)
== END 2024-10-15 10:43 | disposition home or self-care (01) ==
LOC: HO.HMGCLDS 10:42
PROVIDERS: PCP Internal Medicine; Visit Provider Internal Medicine
DX: G89.4 Chronic pain syndrome (principal)
CPT/HCPCS: 36415; 80048; 80061; 80076; 81001; 83036; 84153; 84443; 85027

== ENCOUNTER 2024-11-13 14:51 | Outpatient (AMB) | payer MEDICARE, SELFPAY ==
[2024-11-13 14:51] VITALS: BP 162/90; PULSE 75; O2SAT 96; BMI 33.1
--- NOTE | 2024-11-13 14:51 | HO.NEPHOV ---
Vital Signs 11/13/24 14:51 Height 5 ft 8.5 in Weight 221 lb BMI 33.1 BP 162/90 H Blood Pressure Location Lt brachial Position Sitting Pulse 75 Pulse Source Pulse Oximeter Pulse Oximetry (%) 96 Oxygen Delivery Method Room Air Intake Visit Reasons: INP: CKD-Conf Student Life Dean Required: No Accompanied by: Spouse Allergies cephalexin (From KEFLEX) Allergy (Unknown, Verified 11/13/24 14:54) UNKNOWN metformin (METFORMIN) Allergy (Unknown, Verified 11/13/24 14:54) SHAKY , swelling silodosin (From RAPAFLO) Allergy (Unknown, Verified 11/13/24 14:54) UNKNOWN tamsulosin (From FLOMAX) Allergy (Unknown, Verified 11/13/24 14:54) UNKNOWN Pt states no known allergy to Allergy (Mild, Uncoded 10/14/24 09:30) Unknown Rapaflo Allergy (Unknown, Uncoded 10/14/24 09:30) hives Medication List - Last Reconciled 11/13/24 by Franklyn Pearl MD apixaban (Eliquis) 2.5 mg PO BID aspirin 81 mg PO DAILY blood sugar diagnostic (Accu-Chek Guide test strips) As directed- daily blood sugar diagnostic (OneTouch Ultra Test strips) As directed blood-glucose meter (Accu-Chek Guide Me Glucose Meter) As directed- daily dapagliflozin propanediol (Farxiga) 10 mg PO QAM diazepam 10 mg (2 x 5 mg) PO BEDTIME furosemide 20 mg PO DAILY gabapentin 200 mg (2 x 100 mg) PO TID 90 days lancets (Accu-Chek Softclix Lancets) As directed- daily lancets (OneTouch UltraSoft 2 Lancet) As directed metoprolol succinate ER 100 mg (2 x 50 mg) PO DAILY potassium chloride ER 10 mEq PO DAILY sacubitril-valsartan 97-103 mg (Entresto) 1 tab PO BID tolterodine ER 4 mg PO BID tramadol 50 mg PO Q8H 30 days triamcinolone acetonide 0.025% topical BID HPI Comments Details: The patient is an 84-year-old male referred for evaluation of chronic kidney disease. He has a longstanding history of diabetes mellitus. History of congestive heart failure status post DC. He has multiple somatic complaints. He reports a decline in balance and leg strength since the spring, with symptoms worsening over time, leading to difficulty walking and increased fatigue. He experiences dyspnea with minimal exertion, such as walking to the mailbox or climbing stairs, and reports a heavy sensation in his lungs. The patient has a history of heart failure, He underwent cardioversion for atrial fibrillation and has been hospitalized for cardiac care. The patient has a longstanding history of type 2 diabetes mellitus, which has contributed to his chronic kidney disease and peripheral neuropathy. He reports dizziness and neuropathic symptoms, which are attributed to diabetes. The patient has a history of prostate surgery complications, including a staph infection and prolonged catheter use, which have resolved. He also reports a history of hypertension, which is currently being managed with medication adjustments. [facility] Medical History (Updated 11/13/24 @ 15:16 by Franklyn Pearl MD) Chronic renal failure Chronic pain syndrome Family History Father Prostate cancer Bone cancer Mother BP (high blood pressure) Social History Housing: House Alcohol intake: current Alcohol intake frequency: does not drink Patient Tobacco Use Status: Never used Tobacco service: Yes Current occupational status: retired Cognitive needs: No Hearing needs: No Vision needs: No Review of Systems Const Denies anorexia, Denies fever(s) and Reports weakness Eyes Denies blurry vision Card Denies no additional complaints Resp Denies cough GI Denies melena and Denies diarrhea Denies hematuria and Reports difficulty urinating Musc Reports arthralgias and Denies tingling Skin/Breast Denies rash Neuro Denies focal weakness, Denies tingling, Denies tremor(s) and Reports weakness Physical Exam Vital Signs: Last Vital Signs Pulse 75 11/13/24 14:51 BP 162/90 H 11/13/24 14:51 Pulse Ox 96 11/13/24 14:51 Oxygen Delivery Method Room Air 11/13/24 14:51 BMI result Body Mass Index 33.1 Const General: comfortable Nutritional Appearance: well nourished Orientation/consciousness: patient oriented x3 HEENT Head: No normal to inspection Mouth: moist mucous membranes Neck Neck: Yes supple and Yes no JVD Resp Auscultation: clear to auscultation bilaterally, no rales and rub present Cardio Jugular venous distension: no JVD Palpation: no palpable S3 and no palpable S4 Heart sounds: no rubs GI Palpation (GI): Soft to palpation and nontender Percussion: No Fluid wave present General: Yes no CVA tenderness Back/Spine/Pelvis Back: no CVA tenderness Skin General skin exam: no rashes or lesions noted Neuro General: patient oriented x3 Extrem General: Yes no pedal edema and No clubbing Results Reviewed Nephrology Results: Hgb, (14.0-18.0) 13.0 g/dl L 10/15/24 WBC, (4.8-10.8) 6.8 X10*3/uL 10/15/24 Plt Count, (160-400) 309 X10*3/uL 10/15/24 Sodium, (135-145) 140 mmol/L 10/15/24 Potassium, (3.3-5.1) 4.5 mmol/L 10/15/24 Chloride, (96-108) 104 mmol/L 10/15/24 Carbon Dioxide, (22-29) 28 mmol/L 10/15/24 BUN, (9-16) 33 mg/dL H 10/15/24 Creatinine, (0.5-1.4) 1.83 mg/dL H 10/15/24 Calcium, (8.4-10.2) 9.1 mg/dL 10/15/24 Urine Protein, (Neg-Trace) 30 (1+) mg/dL H 10/15/24 Assessment & Plan Assessment & Plan (1) Chronic renal failure: Code(s): N18.9 - Chronic kidney disease, unspecified Category: Medical (2) CHF (congestive heart failure): Code(s): I50.9 - Heart failure, unspecified Category: Medical Plan 84-year-old man with stage III CKD in the setting of longstanding diabetes mellitus and congestive heart failure. Over the last 6 months renal function has been relatively stable with a creatinine of 1.8 Na EGFR about 36 mL/minute. At the present time fluid status seems acceptable. No evidence of overt fluid overload. No signs or symptoms of uremia. 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 Obstructive uropathy should be ruled out. No reason to believe that he has any active glomerular nephritis or interstitial disease at this time. Recommendations Renal ultrasonogram Chest x-ray Basic urine studies including urine protein creatinine ratio. Optimize blood pressure. With your permission I will add amlodipine 5 mg once a day. Continue with the Entresto. Continue to avoid nephrotoxic agents including NSAIDs. Encouraged him to stay on a low-sodium diet. I have answered all his questions he returned to the office in the next few weeks. Orders: Orders Comprehensive Met. Panel 4 Weeks N18.9 - Chronic kidney disease, unspecified Parathyroid Hormone Intact 4 Weeks N18.9 - Chronic kidney disease, unspecified US renal BI Today I50.9 - Heart failure, unspecified, N18.9 - Chronic kidney disease, unspecified XR chest 2V Today I50.9 - Heart failure, unspecified, N18.9 - Chronic kidney disease, unspecified Complete Blood Count Auto Diff 4 Weeks N18.9 - Chronic kidney disease, unspecified Total Protein Urine Random 4 Weeks N18.9 - Chronic kidney disease, unspecified UA and rflx microscopic 4 Weeks N18.9 - Chronic kidney disease, unspecified Creatinine Urine 4 Weeks N18.9 - Chronic kidney disease, unspecified Medications: New amlodipine 5 mg PO DAILY 30 tabs 1RF Coding Level of Care Code New Pt Level 4 (81569) Diagnoses Chronic renal failure N18.9 CHF (congestive heart failure) I50.9
--- OUTSIDE RECORDS SUMMARY | 2024-11-13 14:55 | XMS_ITS | Encounter Summary ---
Author Organization [facility] Address [address] [facility] [address] [place] [id number] Phone Care Team Providers Care Pasteurizing Supervisor Name Role Phone Donald Mayberry MD Primary Care Provider [phone] Kane Plunkett MD Primary Care Provid er Encounter Details Date Type Department Care Team (Late st Contact Info) Description 07/25/2023 Procedure Pass Echo [facility] [address] [place] [address] Social History Tobacco Use Types Packs/Day Years Used Date Smoking Tobacco: Never Assessed Education Answer Date Recorded Are you interested in more education? Not on geovanny e 07/25/2023 Are you concerned about learning? Not on file 07/25/2023 No 07/25/2023 No 07/25/2023 Digital Access Answer Date Recorded No 07/25/2023 No 07/25/2023 Reliable internet access at home? Not on file 07/25/2023 Device with a working camera? Not on file Sex and Gender Information Value Date Recorded Sex Assigned at Not on file Legal Sex Male 10:12 PM EDT Gender Identity Not on file Sexual Orientation Not on file documented as of this encounter Plan of Treatment Upcoming Encounters Date Type Department Care Team (Late st Contact Info) Description 08/27/2024 Procedure Pass Echo Lab [place] [address] [place] [address] 01/01/2025 10:15 AM EDT Appointment [facility] [place] [address] [place] [address] Harriet Yang PA-C [address] [place] [phone] 02/11/2025 11:00 AM EST Office Visit [facility] [address] [facility] [address], [address] [place] [address] Hood Breen MD [address] [facility], [address] [place] [address] [email or web address] documented as of this encounter Visit Diagnoses Not on filedocumented in this encounter Care Teams Pasteurizing Supervisor Relationship Specialty Start Date End Date Donald Mayberry MD [address] [place] [id number] PCP - General Internal Medicine 08/07/23 10/15/24 Kane Plunkett MD [address] [place] [address] PCP - General Internal Medicine 10/16/24 documented as of this encounter Additional Source Comments The information contained in this document represents components of the legal health record. It is not the complete legal health record.[facility]
--- OUTSIDE RECORDS SUMMARY | 2024-11-13 14:55 | XMS_ITS | Patient Health Record ---
[facility] Organization [facility] brijesh Michele Address [address] [facility] [place] [address] Care Team Providers Care Narrow [employer]oom Fixer Name Role Phone Kane Plunkett Primary Care Provider Michela Hirsch Unavailable [phone] Jason Treviño Unavailable [phone] Allergies No Known Allergies Results Component Value Reference Range Notes HEMOGLOBIN A1C (GLYCOHEMOGLO BIN) Reviewed date:07/31/2024 11:03:22 AM Interpretation: Performing Lab: Notes/Report: HEMOGLOBIN A1C % (HH) 5.9 Reason For Referral No Information Medications Medication SIG (Take, Route, Frequency, Duration) Notes Start Date End Date Status Detrol LA 4 MG 1 capsule Orally Onc e a day Active Centrum Silver Activ e CeleBREX 200 MG Orally Acti ve Nifedical XL 60 MG 1 tablet Orally Once a day Not-Taking Eliquis 2.5 MG as directed Orally Active diazePAM Not-Taking Ciclopirox Olamine 0.77 % 1 application Externally Twice a day to skin of feet including between the toes; Duration: 30 days Active zzzExtra Depth Orthopedic Shoes (1 Pair) with Customized Heat Molded Multidensity Innersoles (3 Pair) . . . Dx: NIDDM (E11.9), Hammertoe Foot Deformity (M20.41,M20.42), Preulcerative Skin Lesion(s) (L85.1); Duration: . 06/03/2015 Not-Taking OxyCONTIN Not-Taking Metoprolol Tartrate 50 MG 1 tablet with food Orally Twice a day; Duration: 30 day(s) Active Pantoprazole Sodium Not-Taking Farxiga 10 MG 1 tablet Orally Once a day; Duration: 30 day(s) Active Enalapril Maleate 20 MG 1 tablet Orally Twice a day Not-Taking Potassium 1 tab Oral; Duration : 14 days Active Extra-Depth Diabetic Shoes with 3 Pair Custom heat-molded multi-density innersoles . for 1 year . Dx:Niddm with neuropathy, foot deformity and preulcerative skin lesions; Duration: . 05/04/2014 Not-Taking Entresto Active Extra Depth Orthopedic Shoes (1 Pair) with Customized Heat Molded Multidensity Innersoles (3 Pair) as directed Dx: NIDDM/Polyneuropathy (E11.42), Hammertoe Foot Deformity (M20.41,M20.42), Preulcerative Skin Lesion(s) (L85.1 06/20/2017 Not-Taking Extra Depth Orthopedic Shoes (1 Pair) with Customized Heat Molded Multidensity Innersoles (3 Pair) as directed Dx: NIDDM/Polyneuropathy (E11.42), Hammertoe Foot Deformity (M20.41,M20.42), Preulcerative Skin Lesion(s) (L85.1 06/26/2016 Not-Taking Vitamin D3 Not-Takin g Vitamin B 12 Not-Alexandre ing Vitamin B1 Not-Takin g NIFEdipine 60mg Not- Taking glipiZIDE Not-Taking metFORMIN HCl Not-Ta nickie Valium Not-Taking Extra Depth Orthopedic Shoes (1 Pair) with Customized Heat Molded Multidensity Innersoles (3 Pair) as directed Dx: NIDDM/Polyneuropathy (E11.42), Hammertoe Foot Deformity (M20.41,M20.42), Preulcerative Skin Lesion(s) (L85.1 03/26/2024 Active oxyCODONE HCl Not-Ta nickie Furosemide 20 MG 2 mL Orally Once a day Active Enulose Not-Taking Extra Depth Orthopedic Shoes (1 Pair) with Customized Heat Molded Multidensity Innersoles (3 Pair) as directed Dx: NIDDM/Polyneuropathy (E11.42), Hammertoe Foot Deformity (M20.41,M20.42), Preulcerative Skin Lesion(s) (L85.1 06/16/2019 Active Clobetasol Propionate Not-Taking Restasis Active Aspir-81 Not-Taking traMADol HCl 50 MG Orally A ctive Vitamin B Complex No t-Taking PreserVision AREDS A ctive Omeprazole Not-Takin g Gabapentin 100 MG Orally Ac tive Cephalexin Not-Takin g Eye Lubricant Not-Ta nickie Immunizations Vaccine Route Administration Date Status Comme nts Influenza Unknown 01/10/2016 Administered Influenza Unknown 12/18/2016 Administered Influenza Unknown 01/07/2018 Administered Influenza Unknown 12/08/2021 Administered Influenza Unknown 12/08/2022 Administered Influenza Unknown 01/08/2024 Administered Pneumococcal Unknown 02/07/2017 Administered Flu vaccine no Preserv 3 and > Unknown 01/18/2015 Administered COVID-19 Moderna Vaccine Unknown 12/09/2021 Administere d 1st 06/03/2020,07/01/2020 02/08/2021, Social History Tobacco Use: Social History Observation [...] Problem Acquired hammer toe of right foot (2561419330366851 ) Other hammer toe(s) (acquired), right foot (M20.41) Active confirmed Response to treatment, Improvemen t Problem Acquired hammer toe of left foot (4330697578971634 ) Other hammer toe(s) (acquired), left foot (M20.42) Active confirmed Response to treatment, Improvemen t Problem Polyneuropathy due to type 2 diabetes mellitus (606117286) Type 2 diabetes mellitus with diabetic polyneuropathy (E11.42) Active confirmed Vital Signs Blood pressure diastolic 65 mm Hg 10/23/2024 Height 5 ft 10 in in 10/23/2024 Blood pressure systolic 128 mm Hg 10/23/2024 Weight 218 lbs 10/23/2024 BMI 31.28 kg/m2 10/23/2024 Procedures Procedure Date Ordered Date Performed Result Body Sit e 75650-ZAOMLII NAIL, 6 OR MORE 03/26/2024 N/A 65817-WOLW SKIN LESIONS, OVER 4 03/26/2024 N/A 51615-AOGJYYD NAIL, 6 OR MORE 07/31/2024 N/A 28987-XNSC SKIN LESIONS, OVER 4 07/31/2024 N/A Encounters Encounter Location Date Provider Diagnosis [address] [address] 12/20/2023 Jason Treviño Tinea unguium B35.1 ; [...] toenail of left foot, initial encounter S90.222A [address] [address] 03/26/2024 Michela Hirsch Other hammer toe(s) (acquired), right foot M20.41 ; Other hammer toe(s) (acquired), left foot M20.42 ; Type 2 diabetes mellitus with diabetic polyneuropathy E11.42 ; Tinea unguium B35.1 and Tinea pedis of both feet B35.[address] [address] 07/31/2024 Michela Hirsch Type 2 diabetes mellitus with diabetic polyneuropathy E11.42 ; Tinea unguium B35.1 ; Other hammer toe(s) (acquired), right foot M20.41 and Other hammer toe(s) (acquired), left foot M20.[address] [address] 10/23/2024 Michela Hirsch Type 2 diabetes mellitus with diabetic polyneuropathy E11.42 and Tinea unguium B35.[address] [address] 03/27/2024 [facility] [address] [address] 11/04/2024 Michela Hirsch Tinea pedis of both feet B35.3 Assessments Encounter Date Diagnosis (ICD Code) Assessment [...] E11.42) 07/31/2024 Tinea unguium (ICD-10 - B35.1) 10/23/2024 Type 2 diabetes mellitus with diabetic polyneuropathy (ICD-10 - E11.42) 10/23/2024 Tinea unguium (ICD-10 - B35.1) 11/04/2024 Tinea pedis of both feet (ICD-10 - B35.3) 03/26/2024 Type 2 diabetes mellitus with diabetic polyneuropathy (ICD-10 - E11.42) 07/31/2024 Other hammer toe(s) (acquired), right foot (ICD-10 - M20.41) Response to treatment,Impro vement 12/20/2023 Type 2 diabetes mellitus with diabetic polyneuropathy (ICD-10 - E11.42) 12/20/2023 Pain in right toe(s) (ICD-10 - M79.674) 07/31/2024 Other hammer toe(s) (acquired), left foot (ICD-10 - M20.42) Response to treatment,Impro vement 03/26/2024 Tinea unguium (ICD-10 - B35.1) 12/20/2023 Pain in left toe(s) (ICD-10 - [...] Treatment Pending Test Test Name Order Date 68254-VDTUMIM NAIL, 6 OR MORE 05/04/2014 46187-MAARJZB NAIL, 6 OR MORE 07/22/2014 96622-PHLIAFC NAIL, 6 OR MORE 10/21/2014 91186-ZTWUZJS NAIL, 6 OR MORE 12/30/2014 06970-IPWVBFN NAIL, 6 OR MORE 03/03/2015 46936-WNILERV NAIL, 6 OR MORE 06/03/2015 21305-WYRDPOO NAIL, 6 OR MORE 08/16/2015 14845-PMSKVOK NAIL, 6 OR MORE 11/08/2015 69578-PULDLUO NAIL, 6 OR MORE 01/31/2016 45289-BBGXPSQ NAIL, 6 OR MORE 04/17/2016 21482-LOSWCQA NAIL, 6 OR MORE 06/26/2016 01753-PETGFSO NAIL, 6 OR MORE 09/18/2016 72077-DZWYCDM NAIL, 6 OR MORE 11/27/2016 57935-JUMNYTP NAIL, 6 OR MORE 01/29/2017 23671-ORMBHCL NAIL, 6 OR MORE 04/11/2017 96353-PFTNMFB NAIL, 6 OR MORE 06/20/2017 87849-NTEQBOS NAIL, 6 OR MORE 08/29/2017 76559-TXBHAYN NAIL, 6 OR MORE 11/19/2017 89657-UDWFWDE NAIL, 6 OR MORE 02/13/2018 91032-QPBXPUY NAIL, 6 OR MORE 03/26/2024 80387-ZXMJODS NAIL, 6 OR MORE 07/31/2024 20015-Myfbqwfg Plate 12/30/2014 73287-VZVI SKIN LESIONS, OVER 4 10/01/19 19 85476-LCZR SKIN LESIONS, OVER 4 04/24/20 25 25622-IAEX SKIN LESIONS, OVER 4 03/26/20 24 14326-HSZP SKIN LESIONS, OVER 4 05/08/19 19 26741-EABK SKIN LESIONS, OVER 4 07/11/19 19 18394-RGCQ SKIN LESIONS, OVER 4 02/14/20 18 98828-AZQH SKIN LESIONS, OVER 4 11/20/19 18 74676-QPBU SKIN LESIONS, OVER 4 12/26/19 19 93745-ONDR SKIN LESIONS, OVER 4 03/24/20 19 27670-RRUQ SKIN LESIONS, OVER 4 06/16/19 37007-RGUR SKIN LESIONS, OVER 4 08/17/19 72845-GYYN SKIN LESIONS, OVER 4 10/26/19 33733-VENG SKIN LESIONS, OVER 4 12/28/19 59840-CLBK SKIN LESIONS, OVER 4 02/29/20 21 40530-ALTV SKIN LESIONS, OVER 4 05/09/19 11846-LGTD SKIN LESIONS, OVER 4 08/30/19 18 08217-WCUH SKIN LESIONS, OVER 4 06/21/19 18 29925-JQEH SKIN LESIONS, OVER 4 04/11/19 18 07119-FJOE SKIN LESIONS, OVER 4 01/30/20 17 94859-FXHE SKIN LESIONS, OVER 4 11/28/19 17 84043-DLZF SKIN LESIONS, OVER 4 06/27/19 17 84686-AOYB SKIN LESIONS, OVER 4 09/19/19 17 12742-NYXW SKIN LESIONS, OVER 4 04/17/19 17 34355-NKMH SKIN LESIONS, OVER 4 01/31/20 16 58976-HITA SKIN LESIONS, OVER 4 11/08/19 16 14982-OIMT SKIN LESIONS, OVER 4 08/16/19 16 81779-RLWD SKIN LESIONS, OVER 4 06/03/19 16 04174-JRIC SKIN LESIONS, OVER 4 03/03/20 15 16695-GMUP SKIN LESIONS, OVER 4 12/31/19 15 23430-QHXQ SKIN LESIONS, OVER 4 10/22/19 15 92996-XKIL SKIN LESIONS, OVER 4 07/23/19 15 71483-PEXR SKIN LESIONS, OVER 4 05/04/19 15 64162-Fkuy. Subungual Hematoma 4 01391-QRXLEXSF OF HEMATOMA/FLUID 019 02230-ORQQMADP OF HEMATOMA/FLUID 022 25036-XTUBGPGB OF HEMATOMA/FLUID 023 91909-PAUVLDBR OF HEMATOMA/FLUID 021 93009-MQXDRATJ OF HEMATOMA/FLUID 019 HEMOGLOBIN A1C (GLYCOHEMOGLOBIN) 024 Next Appt Details Provider Name:Michela lawler, 01/22/2025 02:45:00 PM, [address] [place], [address], Insurance Providers Payer Name Payer Address Payer Phone Subscriber Number Group Number Insured Name Patient Relationship to Insured Coverage Start Date Coverage End Date [employer] Medicare Adv-[id number] [address] [address] [place] [address] [id number] Aaron Huston Self - patient is the insured Medical (General) History Medical History History ICD Code Arthritis Back,Hip,and Knee pain type II diabetes High blood pressure Neuropathy Chicken pox Surgical History Surgery Date(Month/Year) lumbar surgery 06/20/2013 cervical 11/29/2009 knee surgery, left 09/15/2015 gastric sleeve 03/08/17 cataract surgery- Bilateral 10/2017 Hospitalization History Reason Date(Month/Year) Heart attack- [facility] 08/2023
== END 2024-11-13 15:30 | disposition home or self-care (01) ==
LOC: HO.HKA 14:52
PROVIDERS: PCP Internal Medicine; Referring Provider Internal Medicine; Visit Provider Internal Medicine Hypertension Specialist
DX: N18.9 Chronic kidney disease, unspecified (principal); I50.9 Heart failure, unspecified
CPT/HCPCS: 99204

== ENCOUNTER 2024-11-13 14:51 | Outpatient (REF) | payer MEDICARE, SELFPAY ==
--- NOTE | ~2024-11-13 | XR_ITS ---
EXAMINATION: XR CHEST CLINICAL INFORMATION: N18.9 - Chronic kidney disease, unspecified COMPARISON: Chest x-ray 03/09/2017. TECHNIQUE: 2 views of the chest were obtained. FINDINGS: There is moderate opacity of left lung base secondary to pleural effusion and underlying atelectasis. Rest of lungs are clear. The heart size and pulmonary vascularity is normal. No gross bony abnormality seen. XR/XR chest 2V IMPRESSION: New moderate left pleural effusion with underlying atelectasis, less likely consolidation. If clinically indicated ultrasound guided diagnostic thoracentesis can be performed. Electronically signed by: Natan Brady MD 11/13/2024 04:31 PM EDT
== END 2024-11-13 14:52 | disposition home or self-care (01) ==
LOC: HO.XRAY 14:51
PROVIDERS: PCP Internal Medicine; Referring Provider Internal Medicine; Visit Provider Internal Medicine Hypertension Specialist
DX: E11.22 Type 2 diabetes mellitus with diabetic chronic kidney disease (principal); N18.30 Chronic kidney disease, stage 3 unspecified; I13.0 Hypertensive heart and chronic kidney disease with heart failure and stage 1 through stage 4 chronic kidney disease, or unspecified chronic kidney disease; E11.40 Type 2 diabetes mellitus with diabetic neuropathy, unspecified; I50.9 Heart failure, unspecified; Z79.82 Long term (current) use of aspirin; Z79.1 Long term (current) use of non-steroidal anti-inflammatories (NSAID); Z79.899 Other long term (current) drug therapy; I25.2 Old myocardial infarction; Z79.84 Long term (current) use of oral hypoglycemic drugs
CPT/HCPCS: 71046; 99202

== ENCOUNTER → 2024-11-13 15:57 | Outpatient (BNV) | payer MEDICARE, SELFPAY | PROVIDERS: PCP Internal Medicine; Referring Provider Internal Medicine; Visit Provider Radiology Diagnostic Radiology | DX: J18.9 Pneumonia, unspecified organism (principal); I25.10 Atherosclerotic heart disease of native coronary artery without angina pectoris; J90 Pleural effusion, not elsewhere classified | CPT/HCPCS: 71046; 71250 ==

== ENCOUNTER 2024-11-13 16:35 | Inpatient (IN) | payer MEDICARE, SELFPAY ==
[2024-11-13] VITALS (10 sets, daily range): BP systolic 149–229; BP diastolic 84–129; PULSE 64–94; RESP 11–22; TEMP 36.7–36.8; O2SAT 94–97; BMI 30.9
--- NOTE | ~2024-11-13 | US_ITS ---
EXAMINATION: US KIDNEY BILATERAL HISTORY: CKD TECHNIQUE: Real-time grayscale ultrasound imaging of the kidneys was performed and images were reviewed. COMPARISON: Correlation is made with a CT of the abdomen with contrast dated 03/13/2017. FINDINGS: Right kidney: The right kidney measures 10.6 x 5.1 x 6.6 cm. There is renal cortical thinning. There is a 4.6 x 5.8 x 4.7 cm simple cyst at the lower pole. There is no hydronephrosis or renal calculi. Left Kidney: The left kidney measures 9.9 x 6.8 x 6.3 cm. There is renal cortical thinning. There is a 1.9 x 1.5 x 1.5 cm hypoechoic lesion at the upper pole which may represent a cyst. There is no hydronephrosis or renal calculi. US/US renal BI IMPRESSION: 1. Bilateral renal cortical thinning. 2. 4.6 x 5.8 x 4.7 cm right lower pole renal cyst. 3. 1.9 x 1.5 x 1.5 cm possible cyst at the upper pole of the left kidney. Follow-up is recommended. Electronically signed by: Chad Rosario MD 11/17/2024 07:01 AM EDT
--- NOTE | ~2024-11-13 | CT_ITS ---
EXAMINATION: CT CHEST WITHOUT CONTRAST CLINICAL INFORMATION: Headache. Pneumonia and effusion, left-sided. COMPARISON: November 13, 2024, one day apart. TECHNIQUE: Multidetector volumetric CT imaging of the chest was done. Axial MIP volume rendering provided. Sagittal and coronal reformatted images were obtained. This CT examination was performed using dose optimization techniques as appropriate, variously including the following: *Automated exposure control *Adjustment of mA and/or kV according to patient size (this includes techniques or standardized protocols for targeted exams where dose is matched to indication/reason for exam; i.e. extremities or head) *Use of iterative reconstruction technique DLP: 471.81 mGy centimeter. FINDINGS: TAR DISTILLATION SUPERVISOR: S shaped opacity left lower hemithorax. Hyperinflated lungs. Cardiomediastinal silhouette shifted towards the medial aspect left hemithorax. Multilevel spondylosis. LUNGS: There is a confluent opacity with minimal air bronchograms, left lower lung lobe and to a lesser extent lingula. Linear attenuation abnormalities in the right lower lung lobe, lingula and right upper lung lobe. No bronchiectasis. No honeycombing. No gross pulmonary nodules. No gross secretions within the airway. There is a nodularity of the wall of the trachea. MEDIASTINUM: No gross lymphadenopathy. Calcified plaques throughout the thoracic aorta wall and its main branches. No gross aneurysm, thoracic aorta. Calcified plaques in the coronary arteries. Small trace pericardial effusion. No hemopericardium. No pneumomediastinum. The heart is not enlarged. Probable heart valve, aorta. The thyroid gland is not enlarged. CORONARY ARTERY CALCIFICATION: Calcifications PLEURA: There is a lobulated slightly increased density moderate volume left-sided pleural effusion with questionable thickened wall. Focal calcified pleural plaques, left hemithorax. No pneumothorax. AXILLA: No lymphadenopathy. UPPER ABDOMEN: Postsurgical changes in the gastroesophageal junction. Abundant stool, large intestine. Gas and fluid-filled mildly prominent small bowel loops. Renal cortical thinning, bilaterally. Cystic lesions in the kidneys. Calcified plaques in the abdominal aorta wall mesenteric arteries and main renal arteries. No gross ascites in the upper abdomen. No gross pneumoperitoneum, upper abdomen. OSSEOUS STRUCTURES: Multilevel spondylosis with syndesmophyte formation and marginal osteophyte formation incomplete ankylosis from T7 T9. No acute cortical disruption or gross malalignment. There is a focal skin breakthrough/volume loss in the posterior left hemithorax at T8-9 level without extending into the muscular plane. CT/CT chest wo IV con IMPRESSION: Concerning loculated empyema versus hemothorax, left side. Compression atelectasis versus pneumonia, left lung base. 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 Electronically signed by: Jhoan Espinosa MD 11/14/2024 10:36 AM EDT
--- NOTE | ~2024-11-13 | CT_ITS ---
EXAMINATION: CT HEAD WITHOUT CONTRAST CLINICAL INFORMATION: Headaches COMPARISON: None available. TECHNIQUE: Contiguous axial imaging was performed from the skull base to vertex without intravenous administration of contrast. This CT examination was performed using dose optimization techniques as appropriate, variously including the following: *Automated exposure control *Adjustment of mA and/or kV according to patient size (this includes techniques or standardized protocols for targeted exams where dose is matched to indication/reason for exam; i.e. extremities or head) *Use of iterative reconstruction technique DLP: 666.08 mGy-cm FINDINGS: Prominence of the extra-axial CSF spaces cerebral sulci and ventricles likely central volume loss. Extra-axial CSF prominence along the frontotemporal convexities probably related to volume loss versus chronic subdural hemorrhage/hygromas. No acute intracranial hemorrhage, mass effect, midline shift, hydrocephalus or herniation. Bilateral multifocal patchy and confluent deep periventricular white matter hypodensities involving centrum semiovale and alvarado radiata most conspicuous in the right frontal lobe. Calcified plaques in the cavernous supraclinoid segments both ICAs. Shields-white matter differentiation is normal. Sellar/suprasellar region demonstrated no gross masses. Normal position of the cerebellar tonsils. No air-fluid levels in the paranasal sinuses. Questionable 9 dehiscence the versus bone defect versus artifact and the anterior inferior left nasal cavity/anterior hard palate. Tympanic cavities and mastoid cells are aerated. Pneumatized left petrous apex, congenital. CT/CT head/brain wo IV con IMPRESSION: No acute intracranial hemorrhage. Extensive white matter disease likely related to small vessel occlusive disease. Superimposed acute nonhemorrhagic ischemia right frontal lobe cannot be excluded. Global cerebral atrophy. Electronically signed by: Jhoan Espinosa MD 11/14/2024 10:21 AM EDT
--- NOTE | ~2024-11-13 | US_ITS ---
EXAMINATION: ULTRASOUND-GUIDED THORACENTESIS CLINICAL INFORMATION: Left moderate pleural effusion with hypoxia. COMPARISON: CT chest with and without contrast and chest x-ray 11/13/2024. TECHNIQUE: Following explaining ultrasound-guided left thoracentesis procedure, benefits and risk, a written consent was obtained. Patient was placed sitting upright on TR bed and preliminary ultrasound imaging was obtained through left posterior chest. An optimal site was selected on the skin and marked for thoracentesis . The marked site was cleaned and draped in usual sterile manner. 1% lidocaine was administered puncture site. Through a small skin incision a short 4 Maori catheter was advanced from the skin into the left pleural space. After observing fluid return, stylet was withdrawn and catheter connected to vacuum bottle. After obtaining as with air-fluid and patient observing some left chest pain, the catheter was withdrawn making sure no airleak been. Sterile applied complete hemostasis was achieved at puncture site and a sterile dressing applied. Patient tolerated procedure well. Patient was monitored by ER nurse during exam. FINDINGS: Preliminary ultrasound imaging imaging there is moderate left pleural effusion with echogenic debris. Approximately 1.3 L of hemorrhagic fluid was drained from left pleural space. Part of this fluid was sent to lab for cytology and other things as requested by referring physician. US/US thoracentesis IMPRESSION: Successful ultrasound-guided left thoracentesis performed without immediate complications. Electronically signed by: Natan Brady MD 11/14/2024 10:39 AM EDT
--- NOTE | ~2024-11-13 | MR_ITS ---
CLINICAL HISTORY: ? CVA MR Brain without gadolinium Comparison: CT/SR - CT HEAD WITHOUT IV CONTRAST - 11/14/24 10:00 EDT Findings: No restricted diffusion. No intra-axial mass or hemorrhage. Age appropriate cerebral volume loss. Patchy high FLAIR signal within the periventricular and subcortical white matter. No midline shift. No hydrocephalus. Vascular flow voids are intact. The orbits are normal. The sinuses and mastoid air cells are clear. No focal bone lesion. IMPRESSION: Unremarkable brain MRI. This document has been electronically signed by: Lucy Hernandez MD on 11/14/2024 18:27:50
--- NOTE | ~2024-11-13 | CT_ITS ---
CLINICAL HISTORY: large L pl effusion, sob CT chest without contrast Comparison: None provided Findings: The heart is normal size. Calcification of the coronary vasculature. The visualized thyroid and mediastinum are unremarkable. Moderate left pleural effusion which appears partially loculated and thick walled. Moderate airspace opacity within the left lung base. The visualized upper abdomen is unremarkable. No acute fractures. IMPRESSION: 1. Left basilar pneumonia with parapneumonic effusion as described above, possibly indicating an empyema. 2. Coronary artery disease. This document has been electronically signed by: Lucy Hernandez MD on 11/13/2024 19:33:21
--- NOTE | ~2024-11-13 | XR_ITS ---
CLINICAL HISTORY: Status post thoracentesis 1 view chest x-ray Comparison: CT/REG/MI/SR - CT CHEST WITHOUT IV CONTRAST - 11/14/24 10:00 EDT Findings: Continued dense consolidation of the left lung base with left pleural effusion. The appearance is similar to that seen on the patient's chest CT from 1 day prior. Right lung is clear. Overall heart size within normal limits. IMPRESSION: Unchanged left basilar consolidation with left pleural effusion. This document has been electronically signed by: Manny Tristan MD on 11/15/2024 12:00:18
--- NOTE | 2024-11-13 16:44 | ED.GENADULT ---
HPI - General Adult General Chief complaint: Recheck/Abnormal Lab/Rx Stated complaint: fluid in left lung sent from xray Time Seen by Provider: 11/13/24 17:22 History of Present Illness ED Provider: Damir Reece MD HPI narrative: 84-year-old male sent in after large left pleural effusion noted. The patient himself is a poor historian him and his report some increased shortness of breath occasional unsteadiness due to shortness of breath on exertion. No cough no fever reported Related Data Home Medications ?Medication ?Instructions ?Recorded ?Confirmed apixaban 2.5 mg tablet (Eliquis) 2.5 mg PO BID 10/14/24 11/13/24 aspirin 81 mg tablet 81 mg PO DAILY 10/14/24 11/13/24 blood sugar diagnostic (OneTouch #10 ea 10/14/24 Ultra Test strips) dapagliflozin propanediol 10 mg 10 mg PO DAILY 10/14/24 11/13/24 tablet (Farxiga) lancets 30 gauge (OneTouch #100 ea 10/14/24 UltraSoft 2 Lancet) potassium chloride 10 mEq 10 meq PO DAILY 10/14/24 11/13/24 tablet,extended release sacubitril 97 mg-valsartan 103 mg 1 tab PO BID 10/14/24 11/13/24 tablet (Entresto) tolterodine 4 mg capsule,extended 4 mg PO BID 10/14/24 11/13/24 release 24 hr triamcinolone acetonide 0.025 % 1 appl topical BID 10/14/24 11/13/24 lotion ciclopirox 0.77 % topical cream 1 appl topical BID 11/13/24 11/13/24 cyclosporine 0.05 % eye drops in a 1 drp ophthalmic (eye) Q12H 11/13/24 11/13/24 dropperette (Restasis) furosemide 20 mg tablet 20 mg PO DAILY 11/13/24 11/13/24 vitamins A,C,P-dqsb-jfxwpm 2,148 1 tab PO BID 11/13/24 11/13/24 mcg-113 mg-45 mg-17.4 mg tablet (PreserVision AREDS) Previous Rx's ?Medication ?Instructions ?Recorded gabapentin 100 mg capsule 200 mg (2 x 100 mg) PO TID 90 days 10/15/24 #540 caps blood sugar diagnostic (Accu-Chek #100 ea 10/28/24 Guide test strips) blood-glucose meter (Accu-Chek #1 ea 10/28/24 Guide Me Glucose Meter) diazepam 5 mg tablet 10 mg (2 x 5 mg) PO BEDTIME #60 10/28/24 tabs lancets (Accu-Chek Softclix #100 ea 10/28/24 Lancets) metoprolol succinate 50 mg 100 mg (2 x 50 mg) PO DAILY #90 10/28/24 tablet,extended release 24 hr tabs tramadol 50 mg tablet 50 mg PO Q8H 30 days #90 tabs 10/28/24 Allergies Allergy/AdvReac Type Severity Reaction Status Date / Time cephalexin (From KEFLEX) Allergy Unknown UNKNOWN Verified 11/13/24 16:47 metformin (METFORMIN) Allergy Unknown SHAKY , Verified 11/13/24 16:47 swelling silodosin (From RAPAFLO) Allergy Unknown UNKNOWN Verified 11/13/24 16:47 tamsulosin (From FLOMAX) Allergy Unknown UNKNOWN Verified 11/13/24 16:47 Pt states no known allergy to Allergy Mild Unknown Uncoded 11/13/24 16:47 Rapaflo Allergy Unknown hives Uncoded 11/13/24 16:47 [facility] Past Medical History Medical History CKD (chronic kidney disease) stage 3, GFR 30-59 ml/min NSTEMI (non-ST elevated myocardial infarction) Failed total left knee replacement HFrEF (heart failure with reduced ejection fraction) GERD (gastroesophageal reflux disease) Chronic renal failure Chronic pain syndrome Surgical History H/O gastric bypass Previous back surgery H/O inguinal hernia repair Family History Family History Father Prostate cancer Bone cancer Mother BP (high blood pressure) Social History Social History Housing: House Alcohol intake: current Alcohol intake frequency: does not drink Patient Tobacco Use Status: Never used Tobacco Advance Directives: No Advance Directives Information Provided: No Nutrition Risks: No Nutritional Risk service: Yes Current occupational status: retired Cognitive needs: No Hearing needs: No Vision needs: No Physical Exam ED Exam Exam: EXAM: Gen: Alert, awake, well appearing, well hydrated. Head: Atraumatic Eyes: Anicteric, Normal conjunctiva. ENT: Moist mucosa, no pallor. ? Neck: Supple. Skin: ?No observable rash or bruising on exposed or examined skin Respiratory: Breathing comfortably, No distress. Decreased air entry left side no wheeze no rales Cardiovascular: Regular rate and rhythm. No murmurs or rub. Well perfused periphery, warm extremities. No edema. ? Abdominal: No focal tenderness. Soft, no objective distension. No palpable masses or obvious organomegaly. ?No guarding, no rebound tenderness or other peritoneal findings. : No flank tenderness. Neuro: Alert. Gross movement of all extremities intact. ? Psych: Calm. Cooperative. MSK: No grossly visible deformity. Vital signs: See flowsheet Vital Signs: Vital Signs - 24 hr 11/13/24 16:46 11/13/24 17:17 Temperature 98.1 F 98.3 F Pulse Rate 73 70 Respiratory Rate 16 11 L Blood Pressure 209/103 H 176/91 H Pulse Oximetry 95 96 Oxygen Delivery Method Room Air Room Air BMI result Body Mass Index 30.9 Course Course Course Narrative: This is a rapid medical exam performed by Wan Moreno NP: Additional HPI, ROS, PE not included below will be deferred to primary provider. Patient is an 84-year-old male with history of T2DM, CHF, chronic renal failure, chronic pain syndrome presenting from x-ray after he was noted to have a new moderate L pleural effusion. Patient complains of fatigue, dizziness, and left sided chest pain. Plan: EKG, labs Medications Administered Generic Name Dose Route Start Last Admin Trade Name Freq PRN Reason Stop Dose Admin Diazepam 10 mg 11/13/24 21:15 11/13/24 21:46 Diazepam 5 Mg Tablet PO 10 mg BEDTIME KANWAL Administration Gabapentin 200 mg 11/13/24 21:00 11/13/24 21:46 Gabapentin 100 Mg Capsule PO 200 mg TID KANWAL Administration Hydralazine HCl 10 mg 11/13/24 20:06 11/13/24 20:52 Hydralazine Hcl 20 Mg/Ml Vial IVPUSH 10 mg Q6H PRN Administration SBP > 160 Protocol Ampicillin Sodium/Sulbactam 100 mls @ 200 mls/hr 11/13/24 21:00 11/13/24 21:38 Sodium 3 gm/ Sodium Chloride IV Infused Q6H KANWAL Infusion Insulin Human Lispro 0 unit 11/13/24 21:00 11/13/24 20:00 Insulin Lispro 100 Unit/Ml 3 Ml Vial SUBCUT Not Given QIDACHS KANWAL Protocol Metoprolol Succinate 100 mg 11/13/24 21:00 11/13/24 23:11 Metoprolol Succinate Er 100 Mg Tab.Er.24h PO 100 mg DAILY KANWAL Administration Protocol Sacubitril/Valsartan 1 tab 11/13/24 21:00 11/13/24 21:54 Sacubitril/Valsartan 97/103 1 Tab Tablet PO 1 tab BID KANWAL Administration Protocol Senna 17.2 mg 11/13/24 21:00 11/13/24 20:51 Sennosides 8.6 Mg Tablet PO 17.2 mg BEDTIME KANWAL Administration Sodium Chloride 3 ml 11/14/24 00:00 11/13/24 23:12 0.9 % Sodium Chloride Flush 3 Ml Syringe IVFLUSH 3 ml QSHIFT KANWAL Administration Tolterodine Tartrate 4 mg 11/13/24 21:00 11/13/24 21:54 Tolterodine Tartrate La 4 Mg Cap.Er.24h PO 4 mg BID KANWAL Administration Procedures Procedure Narrative Procedure Narrative: EMERGENCY ULTRASOUND INTERPRETATION-Point of Care Thoracic: IMPRESSION: Large left simple appearing pleural effusion Indication: Dyspnea Findings: Left PLAPS: Large left simple appearing effusion Performed by: Damir Reece MD ? Images were stored CPT: 34535,33030,[id number]] Medical Decision Making Medical Decision Making MDM Narrative: Medical Decision Making: [age] male with CHF prior ND with atraumatic moderate to large left pleural effusion seen on outpatient x-ray sent here. Apparently plan has been established for IR guided thoracentesis for tomorrow morning. No distress here no emergent or actionable findings on workup. Preliminary Favored Differential Diagnosis: CHF exacerbation, simple reactive pleural effusion, malignant pleural effusion among additional considered etiologies Testing Interpreted Independently: Sinus rhythm rate 67 QTC 450 no acute ischemic changes. Artifact in V4 Radiology or Lab testing Results Reviewed: CT reading possible parapneumonic effusion left side. Patient however has no cough fever or leukocytosis to suggest infectious etiology Consults: Not Applicable Independent Historians/External Chart Reviews: Not Applicable Social Determinants of Health Impacting MDM/Planning: Not Applicable Lab Data 11/13/24 17:33 11/13/24 17:33 Labs: Lab Results 11/13/24 11/13/24 Range/Units 17:33 17:50 WBC 6.1 (4.8-10.8) X10*3/uL RBC 4.38 L (4.60-5.80) X10*6/uL Hgb 13.0 L (14.0-18.0) g/dl Hct 38.5 L (42.0-52.0) % MCV 87.9 (80.0-98.0) fL MCH 29.7 (27.0-33.0) pg MCHC 33.8 (31.0-36.0) g/dl RDW 14.1 (11.0-16.0) % Plt Count 245 (160-400) X10*3/uL MPV 9.4 (9.4-12.4) fL Immature Gran % (Auto) 0.3 (0.0-0.4) % Neut % (Auto) 66.0 (45-73) % Lymph % (Auto) 21.9 (20-40) % [place] % (Auto) 8.9 (2-11) % Eos % (Auto) 2.1 (0-4) % Baso % (Auto) 0.8 (0-2) % Lymph # (Auto) 1.3 (1.2-4.9) X10*3/uL [place] # (Auto) 0.5 (0.1-1.2) X10*3/uL Eos # (Auto) 0.1 (0.0-0.4) X10*3/uL Baso # (Auto) 0.1 (0.0-0.2) X10*3/uL Abs Immat Gran (auto) 0.02 (0.00-0.03) X10*3/uL Absolute Neuts (auto) 4.0 (2.0-8.3) x10*3/uL Absolute Nucleated RBC 0.000 (0.0-0.012) X10*3/uL Nucleated RBC % (auto) 0.0 (0.0-0.2) /100WBC PT 15.1 H (10.9-12.4) SEC INR 1.3 H (0.9-1.1) Sodium 141 (135-145) mmol/L Potassium 3.8 (3.3-5.1) mmol/L Chloride 104 (96-108) mmol/L Carbon Dioxide 28 (22-29) mmol/L Anion Gap 13 (12-20) BUN 26 H (9-16) mg/dL Creatinine 1.80 H (0.5-1.4) mg/dL Estim Creat Clear Calc 36.8 Estimated GFR 36 Random Glucose 112 (60-115) mg/dL Calcium 8.5 D (8.4-10.2) mg/dL Magnesium 2.2 (1.6-2.6) mg/dL Total Bilirubin 0.5 (0.0-1.0) mg/dL AST 29 (5-37) U/L ALT 9 (0-40) U/L Alkaline Phosphatase 79 (39-117) U/L Troponin I High Sens 8.5 (<3.5-35.0) ng/L B-Natriuretic Peptide 299 H (<100) pg/mL Total Protein 7.5 (6.5-8.0) g/dL Albumin 3.5 (3.5-5.0) g/dL Influenza Type A (PCR) NEGATIVE (Negative) Influenza Type B (PCR) NEGATIVE (Negative) RSV RNA Qual (PCR) NEGATIVE (Negative) SARS-CoV-2 RNA (RT-PCR) NEGATIVE (Negative) Discharge Plan Discharge Patient Disposition: Admitted As Inpatient Interventions: Admission Worksheet (ED) Last Done: 11/13/24 23:28
--- NOTE | 2024-11-13 16:48 | ECG_ITS ---
Test Reason : DYSPNEA Blood Pressure : */* mmHG Vent. Rate : 67 BPM Atrial Rate : 67 BPM P-R Int : 182 ms QRS Dur : 100 ms QT Int : 426 ms P-R-T Axes : 29 5 25 degrees QTcB Int : 450 ms Normal sinus rhythm Septal infarct , age undetermined Abnormal ECG When compared with ECG of 10-Nov-2016 09:39, Septal infarct is now Present Nonspecific T wave abnormality now evident in Inferior leads Nonspecific T wave abnormality now evident in Anterolateral leads Referred By: Mayra Moreno Electronically Signed By: JENSEN EARL
[2024-11-13 17:39] LABS: MANUAL DIFF FLAG NO
[2024-11-13 17:57] LABS: INTERNATIONAL NORM RATIO 1.3 (0.9-1.1); Prothrombin Time 15.1 SEC (10.9-12.4)
[2024-11-13 17:58] LABS: Hematocrit 38.5 % (42.0-52.0); Hemoglobin 13.0 g/dl (14.0-18.0); Imm Gran Abs Auto 0.02 X10*3/uL (0.00-0.03); Imm Gran Pct Auto 0.3 % (0.0-0.4); Lymphocytes Absolute Auto 1.3 X10*3/uL (1.2-4.9); Mean Corpuscular HGB Conc 33.8 g/dl (31.0-36.0); Mean Corpuscular Hemoglobin 29.7 pg (27.0-33.0); Mean Corpuscular Volume 87.9 fL (80.0-98.0); NRBC Abs Auto 0.000 X10*3/uL (0.0-0.012); NRBC Pct Auto 0.0 /100WBC (0.0-0.2); Platelet Count 245 X10*3/uL (160-400); Red Blood Count 4.38 X10*6/uL (4.60-5.80); White Blood Count 6.1 X10*3/uL (4.8-10.8)
[2024-11-13 17:59] LABS: Alanine Aminotransferase 9 U/L (0-40); Albumin Level 3.5 g/dL (3.5-5.0); Alkaline Phosphatase 79 U/L (39-117); Anion Gap 13 (12-20); Aspartate Amino Transferase 29 U/L (5-37); Blood Urea Nitrogen 26 mg/dL (9-16); Calcium 8.5 mg/dL (8.4-10.2); Carbon Dioxide 28 mmol/L (22-29); Chloride 104 mmol/L (96-108); Creatinine Clr Calc Pharmacy 36.8; Estimated Glomerular Filt Rate 36; Magnesium 2.2 mg/dL (1.6-2.6); Potassium 3.8 mmol/L (3.3-5.1); Sodium 141 mmol/L (135-145); Total Protein 7.5 g/dL (6.5-8.0)
[2024-11-13 18:00] LABS: B Type Natriuretic Peptide 299 pg/mL (<100)
[2024-11-13 18:01] LABS: Troponin-I High Sensitivity 8.5 ng/L (<3.5-35.0)
--- NOTE | 2024-11-13 18:07 | PC.NURSE ---
patient present with pleural effusion confirmed by xray. patient states that he has been having increased weakness and chest pressure, and today has been the worse day of them all. patient states that he can normally ambulate without assistive devices, and he has been having weakness causing him not to be able to ambulate. patient placed on tele monitor, IV placed in the right AC#20
[2024-11-13 18:33] LABS: Resp Syncy Virus RNA Qual PCR NEGATIVE (Negative); SARS COV2 PCR INHOUSE NEGATIVE (Negative)
--- NOTE | 2024-11-13 19:03 | PM.IMHP ---
History of Present Illness Date of Service: 11/13/24 Attending physician on admission: Shira Davey Chief Complaint: dyspnea Pt is an 84 yo male with PMH HFrEF, , hypertension, GERD, KS, CAD, pleural effusion, chronic kidney disease, inguinal hernia status post repair, back disease with back surgical history, left knee replacement, gastric bypass, left collar bone removed presents to the emergency department from his delivery engineer outpatient appointment for concerns of diminished lung sounds with generalized weakness and shortness of breath with the chest heaviness that has been persisting over the last 2 weeks. Patient states he can not understand why his health has declined since last summer when he had an KS. Patient denies hx of PCI or open heart surgery. Patient states that he understands he has heart failure but does not understand how heart failure can cause some of the symptoms he has been having overall.Patient's takes care of all of his medications and patient has no insight into the medications and indications. Patient is on a blood thinner and patient denies any recent fall. But patient he has a checklist of goals to include gardening and mowing the lawn outside but by the time he tries to get into the house he is so weak that he feels like he is going to pass out. Patient denies any actual syncopal episodes or fainting spells. Patient has been drinking at least a gallon of water per day and patient complains of dry mouth which prompted him to drink more fluid. Patient is a nonsmoker and does not use oxygen at home. Workup though in the ED included a CT of the chest that identified a left parapneumonic effusion with possible empyema. Chest x-ray identified a moderate left pleural effusion which was possibly secondary to his CHF. Patient currently is on room air and denies chest pain but has continuous left-sided chest heaviness. Troponin is negative, BNP is 299. Dr. Marie is aware of patient from IR and plans to perform a thoracentesis in the a.m.. Review of Systems Review of Systems: Patient currently denies any chest pain but reports continued left-sided chest heaviness with no shortness of breath at rest. Patient denies any abdominal pain, nausea or vomiting. Patient has sometimes has swelling more so in the left leg in the right leg but currently swelling is controlled when he has his legs up. Patient denies any headaches or visual changes. Patient denies any spontaneous bleeding issues or bruising. Yes all other systems are reviewed and are negative [facility] Medical History CKD (chronic kidney disease) stage 3, GFR 30-59 ml/min NSTEMI (non-ST elevated myocardial infarction) Failed total left knee replacement HFrEF (heart failure with reduced ejection fraction) GERD (gastroesophageal reflux disease) Chronic renal failure Chronic pain syndrome Cognitive capacity: Alert and orientated x3 Functional capacity: independent ambulation Family History Father Prostate cancer Bone cancer Mother BP (high blood pressure) Surgical History H/O gastric bypass Previous back surgery H/O inguinal hernia repair Social History Housing: House Alcohol intake: current Alcohol intake frequency: does not drink Patient Tobacco Use Status: Never used Tobacco Advance Directives: No Advance Directives Information Provided: No Nutrition Risks: No Nutritional Risk service: Yes Current occupational status: retired Cognitive needs: No Hearing needs: No Vision needs: No Ebola Risk: Travel/Contact With Anyone From Affected Area/s: No Has Patient Experienced Ebola Symptoms: No Meds Allergies Allergy/AdvReac Type Severity Reaction Status Date / Time cephalexin (From KEFLEX) Allergy Unknown UNKNOWN Verified 11/13/24 16:47 metformin (METFORMIN) Allergy Unknown SHAKY , Verified 11/13/24 16:47 swelling silodosin (From RAPAFLO) Allergy Unknown UNKNOWN Verified 11/13/24 16:47 tamsulosin (From FLOMAX) Allergy Unknown UNKNOWN Verified 11/13/24 16:47 Pt states no known allergy to Allergy Mild Unknown Uncoded 11/13/24 16:47 Rapaflo Allergy Unknown hives Uncoded 11/13/24 16:47 Active Medications: Current Medications Acetaminophen (Acetaminophen 325 Mg Tablet) 650 mg PO Q6H PRN PRN Reason: Pain, Mild 1-3,fever,headache Albuterol/Ipratropium (Albuterol/Iprat 2.5/0.5mg 3 Ml Ampul.Neb) 3 ml INHALE Q4H PRN PRN Reason: Shortness of Breath/Wheezing Calcium Carbonate (Calcium Carbonate 750 Mg Tab.Chew) 750 mg PO Q4H PRN PRN Reason: Heartburn Magnesium Hydroxide (Milk Of Magnesia 30 Ml Oral.Susp) 30 ml PO DAILY PRN PRN Reason: Constipation Melatonin (Melatonin 3 Mg Tablet) 6 mg PO BEDTIME PRN PRN Reason: Insomnia Ondansetron HCl (Ondansetron Hcl 4 Mg/2 Ml Vial) 4 mg IVPUSH Q8H PRN PRN Reason: Nausea and Vomiting Polyethylene Glycol (Polyethylene Glycol 3350 17 Gm Powd.Pack) 17 gm PO DAILY PRN PRN Reason: Constipation Senna (Sennosides 8.6 Mg Tablet) 17.2 mg PO BEDTIME KANWAL Sodium Chloride (0.9 % Sodium Chloride Flush 3 Ml Syringe) 3 ml IVFLUSH QSHIFT KANWAL Home Medications ?Medication ?Instructions ?Recorded ?Confirmed ?Last Taken ?Type apixaban 2.5 mg tablet (Eliquis) 2.5 mg PO BID 10/14/24 11/13/24 11/13/24 History aspirin 81 mg tablet 81 mg PO DAILY 10/14/24 11/13/24 11/13/24 History blood sugar diagnostic (OneTouch #10 ea 10/14/24 Unknown History Ultra Test strips) dapagliflozin propanediol 10 mg 10 mg PO DAILY 10/14/24 11/13/24 11/13/24 History tablet (Farxiga) lancets 30 gauge (OneTouch #100 ea 10/14/24 Unknown History UltraSoft 2 Lancet) potassium chloride 10 mEq 10 meq PO DAILY 10/14/24 11/13/24 11/13/24 History tablet,extended release sacubitril 97 mg-valsartan 103 mg 1 tab PO BID 10/14/24 11/13/24 11/13/24 History tablet (Entresto) tolterodine 4 mg capsule,extended 4 mg PO BID 10/14/24 11/13/24 11/13/24 History release 24 hr triamcinolone acetonide 0.025 % 1 appl topical BID 10/14/24 11/13/24 11/13/24 History lotion ciclopirox 0.77 % topical cream 1 appl topical BID 11/13/24 11/13/24 11/13/24 History cyclosporine 0.05 % eye drops in a 1 drp ophthalmic (eye) Q12H 11/13/24 11/13/24 11/13/24 History dropperette (Restasis) furosemide 20 mg tablet 20 mg PO DAILY 11/13/24 11/13/24 11/13/24 History vitamins A,C,X-hzyg-molydc 2,148 1 tab PO BID 11/13/24 11/13/24 Unknown History mcg-113 mg-45 mg-17.4 mg tablet (PreserVision AREDS) Physical Exam Vital Signs and Narrative: Vital Signs: Last Vital Signs Temp 98.3 F 11/13/24 17:17 Pulse 70 11/13/24 17:17 Resp 11 L 11/13/24 17:17 BP 176/91 H 11/13/24 17:17 Pulse Ox 96 11/13/24 17:17 O2 Del Method Room Air 11/13/24 17:17 BMI result Body Mass Index 30.9 Alert and orientated X3, able to give good history. Neuro: CN II-X11 intact, no deficits, visual acuity intact EYES: PERRLA, EOM intact, sclerae nonicteric, conjunctiva pink ENT: hearing intact, no issues with swallowing, uvula midline, lips moist, nares patent no epistaxis Cardiac: S1 S2 RRR, no murmur, no JVD, mild edema in Lower ext Pulmonary: lungs diminished bilaterally, L>R Abdominal: BS active in all 4 quadrants, no guarding, tenderness, rebounding MSK: strength 5/5 upper and lower extremities : no CVA tenderness no bladder distension Extremities: mild edema in lower extremities, PT and DP pulses palpable +2 Psych: mood stable, judgement and insight fair Skin: intact, reports no new wounds Results Labs 11/13/24 17:33 11/13/24 17:33 Labs: Laboratory Results - last 24 hr 11/13/24 11/13/24 17:33 17:50 MCV 87.9 MCH 29.7 MCHC 33.8 RDW 14.1 Plt Count 245 MPV 9.4 Immature Gran % (Auto) 0.3 Neut % (Auto) 66.0 Lymph % (Auto) 21.9 [place] % (Auto) 8.9 Eos % (Auto) 2.1 Baso % (Auto) 0.8 Lymph # (Auto) 1.3 [place] # (Auto) 0.5 Eos # (Auto) 0.1 Baso # (Auto) 0.1 Abs Immat Gran (auto) 0.02 Absolute Neuts (auto) 4.0 Absolute Nucleated RBC 0.000 Nucleated RBC % (auto) 0.0 PT 15.1 H INR 1.3 H Anion Gap 13 Estim Creat Clear Calc 36.8 Estimated GFR 36 Random Glucose 112 Calcium 8.5 D Magnesium 2.2 Total Bilirubin 0.5 AST 29 ALT 9 Alkaline Phosphatase 79 B-Natriuretic Peptide 299 H Total Protein 7.5 Albumin 3.5 Influenza Type A (PCR) NEGATIVE Influenza Type B (PCR) NEGATIVE RSV RNA Qual (PCR) NEGATIVE SARS-CoV-2 RNA (RT-PCR) NEGATIVE ECG Attestation: I personally reviewed and interpreted this ECG as follows: (Normal sinus rhythm Septal infarct , age undetermined Qtc 450 ) Imaging Radiologist's Impressions: CT CHEST IMPRESSION: 1. Left basilar pneumonia with parapneumonic effusion as described above, possibly indicating an empyema. 2. Coronary artery disease. CXR IMPRESSION: New moderate left pleural effusion with underlying atelectasis, less likely consolidation. If clinically indicated ultrasound guided diagnostic thoracentesis can be performed. Assessment and Plan (1) Parapneumonic effusion: Status: Acute (2) Empyema of left pleural space: Status: Acute Plan Pt is an 84 yo male with PMH HFrEF, , hypertension, GERD, KS, CAD, pleural effusion, chronic kidney disease, inguinal hernia status post repair, back disease with back surgical history, left knee replacement, gastric bypass, left collar bone removed presents to the emergency department from his delivery engineer outpatient appointment for concerns of diminished lung sounds with generalized weakness and shortness of breath with the chest heaviness that has been persisting over the last 2 weeks. Left parapneumonic effusion with possible empyema Plan for IR in the a.m. for thoracentesis and intervention Hold Eliquis Unasyn started 3 g q.12 Oxygen p.r.n., patient currently on room air Duo nebs p.r.n. Hemodynamics stable Telemetry and continuous pulse ox Blood cultures drawn before antibiotics started but no evidence of sepsis at this time Hypertension Systolic 200's intermittently, pt asymptomatic Hydralazine PRN, systolic down to 149 Resuming patient's home medications Low-salt diet CHF exacerbation Med rec completed patient's medications resumed Daily weights, strict I's and O's, fluid allowance 1500 Echo ordered CKD Creatinine 1.8, creatinine clearance 36.8, GFR 36, these labs are baseline compared to labs back in July of 2024 Patient follows with delivery engineer in the outpatient setting Avoid hypotension and nephrotoxic medications BMP daily UA pending AFIB History of AFib currently in sinus rhythm Hold Eliquis in anticipation of procedure in the a.m. for thoracentesis Continue telemetry DVT prophylaxis: On hold due to procedure plan for the a.m., thoracentesis Med rec completed Full Code status Quality Stroke Does the patient have a stroke diagnosis?: No Reason for No Anti-thrombotic by Day Two: Contraindicated VTE Prior VTE?: No VTE Risk Level:: Medical - moderate - high VTE Device Contraindication: N/A - Device Ordered VTE Drug Contraindication: N/A - Med Ordered
--- NOTE | 2024-11-13 19:33 | PHA.MEDREC ---
Addendum entered by Melissa Mcmahon RPh 11/13/24 19:43: [facility] reviewed Original Note: Pharmacy Consult ? Medication Reconciliation Pharmacy has completed the medication reconciliation. Patient had a list of his medications with him. Utilized claims and list to confirm med list. Patient had all his morning medications today.
--- NOTE | 2024-11-13 19:52 | PC.NURSE ---
Notified about hypertension from veterinary surgery technician, wrote to KESHA Milian regarding hypertension and home blood pressure medications. Patient stating he usually takes something from blood pressure. Med list states its metoprolol. Awaiting BP med order.
[2024-11-13 19:53] LABS: Glucose, Whole Blood 96 mg/dL (60-115)
--- NOTE | 2024-11-13 21:12 | PC.NURSE ---
Let patient know he was due for two sets of blood cultures and explained to him what they were for. Patient was very willing, first drawn on the right side, second drawn on the left side. Lactic placed on ice. Patients blood pressure was elevated, per inpatient MD, meds given with positive effects of decreased blood pressure.
--- NOTE | 2024-11-13 21:19 | PC.NURSE ---
Spoke with Pharmacy, some medications are not in stock, unable to give due to lack of having in hospital. is unable to bring medications into the hosptial as she cannot drive at night. does not want her to attempt. OK without having the medication until brings them in the morning. Will call and ask if shes able.
[2024-11-13] MEDS: Sacubitril/Valsartan 97/103 1 TAB TABLET PO (21:54)
[2024-11-13] MEDS: Metoprolol Succinate ER 100 MG TAB.ER.24H PO (23:11)
[2024-11-13] MEDS: 0.9 % Sodium Chloride Flush 3 ML SYRINGE IVFLUSH (23:12)
[2024-11-14] VITALS (18 sets, daily range): BP systolic 152–193; BP diastolic 77–104; PULSE 63–78; RESP 13–21; TEMP 36.6–36.9; O2SAT 95–98; BMI 30.7
[2024-11-14 03:40] LABS: MANUAL DIFF FLAG NO
[2024-11-14 03:43] LABS: Hematocrit 38.7 % (42.0-52.0); Hemoglobin 12.8 g/dl (14.0-18.0); Imm Gran Abs Auto 0.02 X10*3/uL (0.00-0.03); Imm Gran Pct Auto 0.4 % (0.0-0.4); Lymphocytes Absolute Auto 1.8 X10*3/uL (1.2-4.9); Mean Corpuscular HGB Conc 33.1 g/dl (31.0-36.0); Mean Corpuscular Hemoglobin 29.0 pg (27.0-33.0); Mean Corpuscular Volume 87.8 fL (80.0-98.0); NRBC Abs Auto 0.000 X10*3/uL (0.0-0.012); NRBC Pct Auto 0.0 /100WBC (0.0-0.2); Platelet Count 240 X10*3/uL (160-400); Red Blood Count 4.41 X10*6/uL (4.60-5.80); White Blood Count 5.4 X10*3/uL (4.8-10.8)
[2024-11-14 04:02] LABS: Anion Gap 12 (12-20); Blood Urea Nitrogen 24 mg/dL (9-16); Calcium 8.3 mg/dL (8.4-10.2); Carbon Dioxide 31 mmol/L (22-29); Chloride 104 mmol/L (96-108); Creatinine Clr Calc Pharmacy 39.9; Estimated Glomerular Filt Rate 40; Potassium 3.4 mmol/L (3.3-5.1); Sodium 144 mmol/L (135-145)
--- NOTE | 2024-11-14 07:00 | CA_ITS ---
Transthoracic Echocardiogram Patient (Last, First, Middle): Aaron Morgan, Gender: Male Date of : 1940 Age: 84 Procedure Date: 11/14/2024 Procedure Type: Transthoracic Echocardiogram Location: ER Height: 180.34 cm Weight: 100.25 kg BSA: 2.20 m2 Heart Rate: 72 bpm BP: 158 / 77 mmHg Relations Liaison: SHANNEN Referring MD: Rosemary SALESPSOFIA Symptoms: CHF exacerbation, elevated BNP Study Quality: Adequate w contrast ECG Rhythm: Sinus Conclusions: - The left ventricular systolic function is hyperdynamic. The visually estimated ejection fraction is >70%. - The aortic valve was not well visualized. Based on gradients, no more than [id number] aortic stenosis. Findings Procedure Information Contrast agent, definity, is being given per protocol without apparent complications. Left Ventricle Normal left ventricular cavity size. The left ventricular systolic function is hyperdynamic. The visually estimated ejection fraction is >70%. Diastolic function is normal for age. There is mild septal asymmetric hypertrophy. Right Ventricle Mildly increased right ventricular cavity size. There is normal right ventricular systolic function. Atria Both atria are normal in size. Aortic Valve The aortic valve was not well visualized. There is no aortic valve regurgitation. Based on gradients, no more than [id number] aortic stenosis. Mitral Valve There is mild anterior mitral leaflet thickening. There is no mitral valve regurgitation. There is no mitral valve stenosis. Pulmonic Valve The pulmonic valve is likely normal. Tricuspid Valve There is trace tricuspid valve regurgitation. There is no evidence of pulmonary hypertension. Great Vessels The sinuses of valsalva is normal in size. Venous The inferior vena cava is normal in size and collapses greater than 50% with inspiration. Pericardium/Pleural There is a trivial pericardial effusion. There is a pleural effusion. Prior Study Comparison No significant change compared to prior study dated: 11/10/2016. Measurements 2D Linear Measurements IVSd: 0.82 0.6-0.9/0.6-1.0 cm LVIDd: 4.17 3.9-5.3/4.2-5.9 cm LVIDd Index: 1.90 2.4-3.2/2.2-3.1 cm/m2 LVIDs: 2.61 2.0-3.6 cm LVPWd: 0.81 0.7-1.1 cm Ao Root: 3.00 2.1-3.5 cm LA Diam: 2.60 2.7-3.8/3.0-4.0 cm LAIDs Index: 1.18 1.5-2.3 cm/m2 LV Mass: 126.77 67-162/88-224 g LV Mass Index: 57.62 43-95/49-115 g/m2 LVOT Diam: 1.80 3.0+(-)1.3 cm 2D Systolic Function EF 4C: 72.20 >55% EF 2C: 75.00 >55% EF BiP: 74.10 >55% Mitral Valve MV Pk E: 0.51 MV PK A: 0.98 MV Decel Time: 280.00 E/A: 0.50 E'Lateral: 4.90 E'Medial: 4.24 E/E' Med: 12.10 E/E' Lat: 10.50 PHT: 82.00 MVA PHT: 2.68 Decel [place]: 1.83 Aortic Valve AoV Pk Ricky: 2.35 AoV Mn Ricky: 1.77 AoV VTI: 0.51 AoV Pk Grad: 22.00 Aov Mn Grad: 15.00 KILEY Cont.VTI: 0.93 LVOT LVOT Pk Ricky: 0.82 LVOT Mn Ricky: 0.65 LVOT VTI: 0.19 LVOT Pk Grad: 3.00 LVOT Mn Grad: 2.00 LVOT Diam: 1.80 LVOT Area: 2.54 Diastolic Function MV Pk E: 0.51 MV Pk A: 0.98 E/A: 0.50 E'Medial: 4.24 E/E' Med: 12.10 E' Laterial: 4.90 E/E' Lat: 10.50 Right Ventricle TAPSE (mm): 27.60 TVS' Ricky: 18.10 Tricuspid Valve RA Press: 3.00 Great Vessels Aorta Ao Root-2D: 3.00 2.0-3.7 cm Updated in Other Vendor System with Status of Final Chaparro Leong MD electronically signed on 11/14/2024 2:35:15 PM with status of Final
[2024-11-14 07:22] LABS: Glucose, Whole Blood 102 mg/dL (60-115)
--- NOTE | 2024-11-14 07:36 | PC.NURSE ---
notified by tech that patient wants to leave AMA. situation immediately assessed. pt reports that he wants to leave AMA/get placed on the curb and get picked up by his . pt educated on importance of completing tx so he can have procedure completed today. pt becoming increasingly agitated. pt states that he is uncomfortable in the bed d/t previous back surgeries. pt notified that transport was made aware that a hospital bed will be supplied to him when one becomes available. pt more agreeable to plan of care. plan of care ongoing. call lizama placed within reach.
--- NOTE | 2024-11-14 08:31 | MHC.EDTECH ---
pt provided with hospital bed, unsteady gait with assistance, pt resting in hospital bed rubina.
--- NOTE | 2024-11-14 09:00 | PC.NURSE ---
pt transitioned to hospital bed to promote comfort.
[2024-11-14] MEDS: Potassium Chloride ER 10 MEQ TABLET.ER PO (09:33)
[2024-11-14] MEDS: Sacubitril/Valsartan 97/103 1 TAB TABLET PO (09:34)
--- NOTE | 2024-11-14 09:40 | PC.NURSE ---
at bedside performing left sided thoracentesis. Time out completed at 0933. Per MD, thoracentesis is hemorrhagic/will need CT s/p procedure. 1.3L obtained. Pt also c/o headache. MD recommending head CT as well. Admitting hospitalist notified/aware. VS remain stable throughout procedure. Pt remains on RA without difficulty. POC ongoing.
[2024-11-14] MEDS: Lidocaine HCl 1 % MPF 5 ML VIAL SUBCUT (09:55)
--- NOTE | 2024-11-14 10:22 | PC.NURSE ---
Pt returned from CT. Placed on monitor. US at bedside. at bedside. NAD at this time.
--- NOTE | 2024-11-14 10:44 | PC.NURSE ---
pt seemingly more somnolent at this time. difficult to arouse. provider bedside to assess. no new orders at this time. vss and up to date. nsr on the hall monitor. pt remains on RA w/o difficulty. no sob/wob noted. respirations even/unlabored. plan of care ongoing. call lizama placed within reach.
[2024-11-14 11:16] LABS: MANUAL DIFF FLAG NO
[2024-11-14 11:17] LABS: Hematocrit 41.9 % (42.0-52.0); Hemoglobin 14.1 g/dl (14.0-18.0); Imm Gran Abs Auto 0.01 X10*3/uL (0.00-0.03); Imm Gran Pct Auto 0.2 % (0.0-0.4); Lymphocytes Absolute Auto 0.5 X10*3/uL (1.2-4.9); Mean Corpuscular HGB Conc 33.7 g/dl (31.0-36.0); Mean Corpuscular Hemoglobin 29.3 pg (27.0-33.0); Mean Corpuscular Volume 87.1 fL (80.0-98.0); NRBC Abs Auto 0.000 X10*3/uL (0.0-0.012); NRBC Pct Auto 0.0 /100WBC (0.0-0.2); Platelet Count 239 X10*3/uL (160-400); Red Blood Count 4.81 X10*6/uL (4.60-5.80); White Blood Count 6.6 X10*3/uL (4.8-10.8)
--- NOTE | 2024-11-14 11:36 | PC.NURSE ---
Pt alert and oriented x4. Pt talking to who is at bedside. BG POC 132. Per MD Bryan ok to give PO metoprolol. Will continue to monitor. NAD at present.
[2024-11-14] MEDS: Metoprolol Succinate ER 100 MG TAB.ER.24H PO (11:55)
--- NOTE | 2024-11-14 12:04 | PM.CNNEP ---
History of Present Illness Reason for Consult Consult date: 11/14/24 Chief Complaint Chief complaint: chf History of Present Illness Narrative: 84 y/o male with HFrEF, HTN, GERD, ND, CAD, pleural effusion, CKD, inguinal hernia, gastric bypass. 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 Nephrology consulted for CKD, pleural effusion malignant- might need IV contrast imaging Creatinine between 1.4-1.8. Today is within baseline at 1.66. GFR 31-40. does have some mild proteinuria on UA. patient reports breathing has improved since thoracentesis this morning (1.3L of hemorrhagic fluid removed). He states he was drinking 2 gallons of water daily for the last few weeks due to excessive thirst- states side effects of some of his medications dries his mouth out. He is making urine. He denies other new concerns/complaints at this time. Review of Systems Constitutional: Reports fatigue and Reports weakness Cardiovascular: Denies chest pain, Denies leg edema, Denies lightheadedness and Denies dyspnea Respiratory: Denies dyspnea Gastrointestinal: Denies abdominal pain, Denies diarrhea, Denies nausea and Denies vomiting Genitourinary: Reports no additional male genitourinary complaints Musculoskeletal: Reports no additional musculoskeletal complaints Skin/Breast: Denies rash Reports weakness Endocrine: Reports fatigue PMFSH Past Medical History Medical History CKD (chronic kidney disease) stage 3, GFR 30-59 ml/min NSTEMI (non-ST elevated myocardial infarction) Failed total left knee replacement HFrEF (heart failure with reduced ejection fraction) GERD (gastroesophageal reflux disease) Chronic renal failure Chronic pain syndrome Family History Family History Father Prostate cancer Bone cancer Mother BP (high blood pressure) Surgical History Surgical History H/O gastric bypass Previous back surgery H/O inguinal hernia repair Social History Social History Housing: House Alcohol intake: current Alcohol intake frequency: does not drink Patient Tobacco Use Status: Never used Tobacco Advance Directives: No Advance Directives Information Provided: No Nutrition Risks: No Nutritional Risk service: Yes Current occupational status: retired Cognitive needs: No Hearing needs: No Vision needs: No Travel History Ebola Risk: Travel/Contact With Anyone From Affected Area/s: No Has Patient Experienced Ebola Symptoms: No Meds Allergies Allergy/AdvReac Type Severity Reaction Status Date / Time cephalexin (From KEFLEX) Allergy Unknown UNKNOWN Verified 11/13/24 16:47 metformin (METFORMIN) Allergy Unknown SHAKY , Verified 11/13/24 16:47 swelling silodosin (From RAPAFLO) Allergy Unknown UNKNOWN Verified 11/13/24 16:47 tamsulosin (From FLOMAX) Allergy Unknown UNKNOWN Verified 11/13/24 16:47 Pt states no known allergy to Allergy Mild Unknown Uncoded 11/13/24 16:47 Rapaflo Allergy Unknown hives Uncoded 11/13/24 16:47 Active Medications: Current Medications Acetaminophen (Acetaminophen 325 Mg Tablet) 650 mg PO Q6H PRN PRN Reason: Pain, Mild 1-3,fever,headache Last Admin: 11/14/24 09:35 Dose: 650 mg Albuterol/Ipratropium (Albuterol/Iprat 2.5/0.5mg 3 Ml Ampul.Neb) 3 ml INHALE Q4H PRN PRN Reason: Shortness of Breath/Wheezing Amlodipine Besylate (Amlodipine Besylate 2.5 Mg Tablet) 2.5 mg PO DAILY KANWAL; Protocol Calcium Carbonate (Calcium Carbonate 750 Mg Tab.Chew) 750 mg PO Q4H PRN PRN Reason: Heartburn Dextrose (Dextrose 50 % 25 Gm/50 Ml Syringe) 25 gm IVPUSH Q15M PRN; Protocol PRN Reason: per Hypoglycemia Standing Ord. Diazepam (Diazepam 5 Mg Tablet) 10 mg PO BEDTIME KANWAL Last Admin: 11/13/24 21:46 Dose: 10 mg Empagliflozin (Empagliflozin 10 Mg Tablet) 10 mg PO DAILY KANWAL Last Admin: 11/14/24 09:33 Dose: 10 mg Furosemide (Furosemide 20 Mg Tablet) 20 mg PO DAILY KANWAL; Protocol Last Admin: 11/14/24 09:32 Dose: 20 mg Gabapentin (Gabapentin 100 Mg Capsule) 200 mg PO TID KANWAL On Hold: 11/14/24 11:04 Last Admin: 11/14/24 09:34 Dose: 200 mg Glucose (Glucose Gel 15 Gm Gel..Gram.) 15 gm PO Q15M PRN; Protocol PRN Reason: per Hypoglycemia Standing Ord. Hydralazine HCl (Hydralazine Hcl 20 Mg/Ml Vial) 10 mg IVPUSH Q6H PRN; Protocol PRN Reason: SBP > 160 Last Admin: 11/14/24 03:37 Dose: 10 mg Ampicillin Sodium/Sulbactam (Sodium 3 gm/ Sodium Chloride) 100 mls @ 200 mls/hr IV Q6H [facility] Last Infusion: 11/14/24 11:15 Dose: Infused Insulin Human Lispro (Insulin Lispro 100 Unit/Ml 3 Ml Vial) 0 unit SUBCUT QIDACHS [facility]; Protocol Last Admin: 11/14/24 07:25 Dose: Not Given Magnesium Hydroxide (Milk Of Magnesia 30 Ml Oral.Susp) 30 ml PO DAILY PRN PRN Reason: Constipation Melatonin (Melatonin 3 Mg Tablet) 6 mg PO BEDTIME PRN PRN Reason: Insomnia Metoprolol Succinate (Metoprolol Succinate Er 100 Mg Tab.Er.24h) 100 mg PO DAILY [facility]; Protocol Last Admin: 11/14/24 11:55 Dose: 100 mg Multivitamins/Vitamin C (Multivitamin Tablet) 1 tab PO DAILY [facility] Last Admin: 11/14/24 09:34 Dose: 1 tab Non-Formulary Medication (Cyclosporine [Restasis]) 1 drop EYE-BOTH Q12H [facility] Ondansetron HCl (Ondansetron Hcl 4 Mg/2 Ml Vial) 4 mg IVPUSH Q8H PRN PRN Reason: Nausea and Vomiting Polyethylene Glycol (Polyethylene Glycol 3350 17 Gm Powd.Pack) 17 gm PO DAILY PRN PRN Reason: Constipation Potassium Chloride (Potassium Chloride Er 10 Meq Tablet.Er) 10 meq PO DAILY [facility] Last Admin: 11/14/24 09:33 Dose: 10 meq Sacubitril/Valsartan (Sacubitril/Valsartan 97/103 1 Tab Tablet) 1 tab PO BID [facility]; Protocol On Hold: 11/14/24 11:09 Last Admin: 11/14/24 09:34 Dose: 1 tab Senna (Sennosides 8.6 Mg Tablet) 17.2 mg PO BEDTIME [facility] Last Admin: 11/13/24 20:51 Dose: 17.2 mg Sodium Chloride (0.9 % Sodium Chloride Flush 3 Ml Syringe) 3 ml IVFLUSH QSHIFT [facility] Last Admin: 11/14/24 07:35 Dose: Not Given Tolterodine Tartrate (Tolterodine Tartrate La 4 Mg Cap.Er.24h) 4 mg PO BID [facility] Last Admin: 11/14/24 09:34 Dose: 4 mg Home Medications ?Medication ?Instructions ?Recorded ?Confirmed ?Last Taken ?Type apixaban 2.5 mg tablet (Eliquis) 2.5 mg PO BID 10/14/24 11/13/24 11/13/24 History aspirin 81 mg tablet 81 mg PO DAILY 10/14/24 11/13/24 11/13/24 History blood sugar diagnostic (OneTouch #10 ea 10/14/24 Unknown History Ultra Test strips) dapagliflozin propanediol 10 mg 10 mg PO DAILY 10/14/24 11/13/24 11/13/24 History tablet (Farxiga) lancets 30 gauge (OneTouch #100 ea 10/14/24 Unknown History UltraSoft 2 Lancet) potassium chloride 10 mEq 10 meq PO DAILY 10/14/24 11/13/24 11/13/24 History tablet,extended release sacubitril 97 mg-valsartan 103 mg 1 tab PO BID 10/14/24 11/13/24 11/13/24 History tablet (Entresto) tolterodine 4 mg capsule,extended 4 mg PO BID 10/14/24 11/13/24 11/13/24 History release 24 hr triamcinolone acetonide 0.025 % 1 appl topical BID 10/14/24 11/13/24 11/13/24 History lotion ciclopirox 0.77 % topical cream 1 appl topical BID 11/13/24 11/13/24 11/13/24 History cyclosporine 0.05 % eye drops in a 1 drp ophthalmic (eye) Q12H 11/13/24 11/13/24 11/13/24 History dropperette (Restasis) furosemide 20 mg tablet 20 mg PO DAILY 11/13/24 11/13/24 11/13/24 History vitamins A,C,E-pood-dtjfyu 2,148 1 tab PO BID 11/13/24 11/13/24 Unknown History mcg-113 mg-45 mg-17.4 mg tablet (PreserVision AREDS) Physical Exam Vital Signs: Last Vital Signs Temp 98.1 F 11/13/24 22:00 Pulse 69 11/14/24 11:55 Resp 17 11/14/24 10:44 BP 175/103 H 11/14/24 11:55 Pulse Ox 96 11/14/24 10:44 O2 Del Method Room Air 11/14/24 10:44 BMI result Body Mass Index 30.9 Const General: no acute distress, alert and awake Resp Effort & Inspection: normal respiratory effort and able to speak in complete sentences Auscultation: clear to auscultation bilaterally (anterior lung sounds clear.) Cardio Rate: regular rate Rhythm: regular rhythm Heart sounds: S1 normal heart sound present and S2 normal heart sound present GI Palpation (GI): Soft to palpation and nontender Skin Rashes: no rashes Extrem General: No edema Results Lab Results 11/14/24 11:07 11/14/24 03:16 Lab results: Chemistry 11/13/24 11/14/24 17:33 03:16 Sodium 141 144 Potassium 3.8 3.4 Carbon Dioxide 28 31 H BUN 26 H 24 H Creatinine 1.80 H 1.66 H Calcium 8.5 D 8.3 L Hematology 11/13/24 11/14/24 11/14/24 17:33 03:16 11:07 WBC 6.1 5.4 6.6 Hgb 13.0 L 12.8 L 14.1 Plt Count 245 240 239 Assessment and Plan (1) CKD (chronic kidney disease) stage 3, GFR 30-59 ml/min: Qualifiers: Chronic kidney disease stage 3 subtype: stage 3b (GFR 30-44) Qualified Code(s): N18.32 - Chronic kidney disease, stage 3b Status: Acute Plan Patient with CKD3b with potential need for imaging with IV contrast. Would recommend weighing risks vs benefits of imaging study as patient is at high risk for contrast nephropathy. Recommend daily electrolyte and renal function studies. Recommend regular blood pressure checks, close I&O monitoring Recommend avoiding nephrotoxins continue supportive care Discussed with Dr Martinez. Procedures Date of Service Date of Service: 11/14/24
[2024-11-14 12:49] LABS: MN% 88.9 %; PMN% 11.1 %; WBC Pleural Fluid 2.221 X10*3/uL
--- NOTE | 2024-11-14 13:44 | MHC.CM.PN ---
IMM 11/14/24, Pt. lives with his , he does not use home health services or DME. PCP is confirmed: Dr. Plunkett, HCP is his , copy requested. to transport him home at [place], DCP: home, self care. CM to follow for DC needs.
[2024-11-14 14:02] LABS: BF Shift QC OK YES; Basophils Pleural Fluid 1 %; Eosinophils Pleural Fluid 1 %; Lymphocytes Pleural Fluid 92 %; Man Diluent Bkgrd OK YES; Other Cells Plerual Fl 6 %
[2024-11-14 14:24] LABS: Glucose, Whole Blood 132 mg/dL (60-115)
[2024-11-14 14:25] LABS: Glucose, Whole Blood 115 mg/dL (60-115)
--- NOTE | 2024-11-14 17:42 | P.PNIM_ITS ---
Subjective Subjective Date of Service: 11/15/24 Interval History: Left parapneumonic effusion s/p pleural tap(1.3 L of hemorrhagic fluid ) Had episode of generalized weakness this early afternoon, but his says that he gets usually sleepy/takes nap at early afternoon at home too, very brief afterwards patient improved significantly Denies any pain except at tapping area Sats are stable Does not seem to be in short of breath No fever Review of Systems Review of Systems: Yes all other systems are reviewed and are negative Physical Exam 2 Exam: Exam: Appearance: Alert.? Oriented X3. cvs: [id number], [id number]. res: air entry diminshed left sided >right. abd: no rebound or guarding ,nt, bs present. ext pulses present , no cyanosis . neuro: axo3 , moves all ext. Vital Signs: Vital Signs: Last Vital Signs Temp 98.1 F 11/13/24 22:00 Pulse 66 11/14/24 14:15 Resp 21 H 11/14/24 14:15 BP 170/99 H 11/14/24 14:18 Pulse Ox 97 11/14/24 14:15 O2 Del Method Room Air 11/14/24 14:15 BMI result Body Mass Index 30.9 Objective Data Active Medications Acetaminophen (Acetaminophen 325 Mg Tablet) 650 mg PO Q6H PRN PRN Reason: Pain, Mild 1-3,fever,headache Last Admin: 11/14/24 09:35 Dose: 650 mg Documented By: DISHA Albuterol/Ipratropium (Albuterol/Iprat 2.5/0.5mg 3 Ml Ampul.Neb) 3 ml INHALE Q4H PRN PRN Reason: Shortness of Breath/Wheezing Amlodipine Besylate (Amlodipine Besylate 2.5 Mg Tablet) 2.5 mg PO DAILY [facility]; Protocol Last Admin: 11/14/24 14:18 Dose: 2.5 mg Documented By: DISHA Calcium Carbonate (Calcium Carbonate 750 Mg Tab.Chew) 750 mg PO Q4H PRN PRN Reason: Heartburn Dextrose (Dextrose 50 % 25 Gm/50 Ml Syringe) 25 gm IVPUSH Q15M PRN; Protocol PRN Reason: per Hypoglycemia Standing Ord. Diazepam (Diazepam 5 Mg Tablet) 10 mg PO BEDTIME [facility] Last Admin: 11/13/24 21:46 Dose: 10 mg Documented By: ROLA Empagliflozin (Empagliflozin 10 Mg Tablet) 10 mg PO DAILY [facility] Last Admin: 11/14/24 09:33 Dose: 10 mg Documented By: DISHA Furosemide (Furosemide 20 Mg Tablet) 20 mg PO DAILY [facility]; Protocol Last Admin: 11/14/24 09:32 Dose: 20 mg Documented By: DISHA Gabapentin (Gabapentin 100 Mg Capsule) 200 mg PO TID [facility] On Hold: 11/14/24 11:04 Last Admin: 11/14/24 09:34 Dose: 200 mg Documented By: DISHA Glucose (Glucose Gel 15 Gm Gel..Gram.) 15 gm PO Q15M PRN; Protocol PRN Reason: per Hypoglycemia Standing Ord. Hydralazine HCl (Hydralazine Hcl 20 Mg/Ml Vial) 10 mg IVPUSH Q6H PRN; Protocol PRN Reason: SBP > 160 Last Admin: 11/14/24 03:37 Dose: 10 mg Documented By: ROLA Ampicillin Sodium/Sulbactam (Sodium 3 gm/ Sodium Chloride) 100 mls @ 200 mls/hr IV Q6H [facility] Last Infusion: 11/14/24 11:15 Dose: Infused Documented By: DISHA Insulin Human Lispro (Insulin Lispro 100 Unit/Ml 3 Ml Vial) 0 unit SUBCUT QIDACHS [facility]; Protocol Last Admin: 11/14/24 14:23 Dose: Not Given Documented By: DISHA Non-Admin Reason: No Insulin Coverage Magnesium Hydroxide (Milk Of Magnesia 30 Ml Oral.Susp) 30 ml PO DAILY PRN PRN Reason: Constipation Melatonin (Melatonin 3 Mg Tablet) 6 mg PO BEDTIME PRN PRN Reason: Insomnia Metoprolol Succinate (Metoprolol Succinate Er 100 Mg Tab.Er.24h) 100 mg PO DAILY [facility]; Protocol Last Admin: 11/14/24 11:55 Dose: 100 mg Documented By: DISHA Multivitamins/Vitamin C (Multivitamin Tablet) 1 tab PO DAILY [facility] Last Admin: 11/14/24 09:34 Dose: 1 tab Documented By: DISHA Non-Formulary Medication (Cyclosporine [Restasis]) 1 drop EYE-BOTH Q12H [facility] Ondansetron HCl (Ondansetron Hcl 4 Mg/2 Ml Vial) 4 mg IVPUSH Q8H PRN PRN Reason: Nausea and Vomiting Polyethylene Glycol (Polyethylene Glycol 3350 17 Gm Powd.Pack) 17 gm PO DAILY PRN PRN Reason: Constipation Potassium Chloride (Potassium Chloride Er 10 Meq Tablet.Er) 10 meq PO DAILY [facility] Last Admin: 11/14/24 09:33 Dose: 10 meq Documented By: DISHA Sacubitril/Valsartan (Sacubitril/Valsartan 97/103 1 Tab Tablet) 1 tab PO BID [facility]; Protocol On Hold: 11/14/24 11:09 Last Admin: 11/14/24 09:34 Dose: 1 tab Documented By: DISHA Senna (Sennosides 8.6 Mg Tablet) 17.2 mg PO BEDTIME [facility] Last Admin: 11/13/24 20:51 Dose: 17.2 mg Documented By: ROLA Sodium Chloride (0.9 % Sodium Chloride Flush 3 Ml Syringe) 3 ml IVFLUSH QSHIFT [facility] Last Admin: 11/14/24 07:35 Dose: Not Given Documented By: REAGAN Non-Admin Reason: Patient Refused Tolterodine Tartrate (Tolterodine Tartrate La 4 Mg Cap.Er.24h) 4 mg PO BID [facility] Last Admin: 11/14/24 09:34 Dose: 4 mg Documented By: DISHA Labs 11/15/24 08:20 11/15/24 08:20 Labs: Laboratory Results - last 24 hr 11/13/24 11/13/24 11/13/24 17:33 17:50 19:47 MCV 87.9 MCH 29.7 MCHC 33.8 RDW 14.1 Plt Count 245 MPV 9.4 Immature Gran % (Auto) 0.3 Neut % (Auto) 66.0 Lymph % (Auto) 21.9 Evans % (Auto) 8.9 Eos % (Auto) 2.1 Baso % (Auto) 0.8 Lymph # (Auto) 1.3 Evans # (Auto) 0.5 Eos # (Auto) 0.1 Baso # (Auto) 0.1 Abs Immat Gran (auto) 0.02 Absolute Neuts (auto) 4.0 Absolute Nucleated RBC 0.000 Nucleated RBC % (auto) 0.0 PT 15.1 H INR 1.3 H Anion Gap 13 Estim Creat Clear Calc 36.8 Estimated GFR 36 POC Glucose 96 Random Glucose 112 Lactic Acid Calcium 8.5 D Magnesium 2.2 Total Bilirubin 0.5 AST 29 ALT 9 Alkaline Phosphatase 79 B-Natriuretic Peptide 299 H Total Protein 7.5 Albumin 3.5 Pleural WBC Pleural RBC Pleural Lymphocytes Pleural Eosinophils Pleural Basophils Pleural Other Cells Influenza Type A (PCR) NEGATIVE Influenza Type B (PCR) NEGATIVE RSV RNA Qual (PCR) NEGATIVE SARS-CoV-2 RNA (RT-PCR) NEGATIVE 11/13/24 11/14/24 11/14/24 20:35 03:16 07:18 MCV 87.8 MCH 29.0 MCHC 33.1 RDW 14.2 Plt Count 240 MPV 9.3 L Immature Gran % (Auto) 0.4 Neut % (Auto) 50.4 Lymph % (Auto) 32.9 Evans % (Auto) 12.3 H Eos % (Auto) 3.3 Baso % (Auto) 0.7 Lymph # (Auto) 1.8 Evans # (Auto) 0.7 Eos # (Auto) 0.2 Baso # (Auto) 0.0 Abs Immat Gran (auto) 0.02 Absolute Neuts (auto) 2.7 Absolute Nucleated RBC 0.000 Nucleated RBC % (auto) 0.0 PT INR Anion Gap 12 Estim Creat Clear Calc 39.9 Estimated GFR 40 POC Glucose 102 Random Glucose 108 Lactic Acid 1.0 Calcium 8.3 L Magnesium Total Bilirubin AST ALT Alkaline Phosphatase B-Natriuretic Peptide Total Protein Albumin Pleural WBC Pleural RBC Pleural Lymphocytes Pleural Eosinophils Pleural Basophils Pleural Other Cells Influenza Type A (PCR) Influenza Type B (PCR) RSV RNA Qual (PCR) SARS-CoV-2 RNA (RT-PCR) 11/14/24 11/14/24 11/14/24 11:07 11:13 12:27 MCV 87.1 MCH 29.3 MCHC 33.7 RDW 14.2 Plt Count 239 MPV 9.2 L Immature Gran % (Auto) 0.2 Neut % (Auto) 87.2 H Lymph % (Auto) 7.4 L Evans % (Auto) 4.5 Eos % (Auto) 0.2 Baso % (Auto) 0.5 Lymph # (Auto) 0.5 L Evans # (Auto) 0.3 Eos # (Auto) 0.0 Baso # (Auto) 0.0 Abs Immat Gran (auto) 0.01 Absolute Neuts (auto) 5.8 Absolute Nucleated RBC 0.000 Nucleated RBC % (auto) 0.0 PT INR Anion Gap Estim Creat Clear Calc Estimated GFR POC Glucose 132 H Random Glucose Lactic Acid Calcium Magnesium Total Bilirubin AST ALT Alkaline Phosphatase B-Natriuretic Peptide Total Protein Albumin Pleural WBC 2.221 Pleural RBC 1.876 Pleural Lymphocytes 92 Pleural Eosinophils 1 Pleural Basophils 1 Pleural Other Cells 6 Influenza Type A (PCR) Influenza Type B (PCR) RSV RNA Qual (PCR) SARS-CoV-2 RNA (RT-PCR) 11/14/24 14:12 MCV MCH MCHC RDW Plt Count MPV Immature Gran % (Auto) Neut % (Auto) Lymph % (Auto) Evans % (Auto) Eos % (Auto) Baso % (Auto) Lymph # (Auto) Evans # (Auto) Eos # (Auto) Baso # (Auto) Abs Immat Gran (auto) Absolute Neuts (auto) Absolute Nucleated RBC Nucleated RBC % (auto) PT INR Anion Gap Estim Creat Clear Calc Estimated GFR POC Glucose 115 Random Glucose Lactic Acid Calcium Magnesium Total Bilirubin AST ALT Alkaline Phosphatase B-Natriuretic Peptide Total Protein Albumin Pleural WBC Pleural RBC Pleural Lymphocytes Pleural Eosinophils Pleural Basophils Pleural Other Cells Influenza Type A (PCR) Influenza Type B (PCR) RSV RNA Qual (PCR) SARS-CoV-2 RNA (RT-PCR) Microbiology Microbiology Results: Microbiology 11/14/24 12:27 Gram Stain - Final Thoracentesis Fluid Assessment and Plan (1) Hypertension: Status: Acute (2) Pleural effusion, left: Status: Acute Assessment and Plan: 84 yo male with PMH HFrEF, , hypertension, GERD, [place], CAD, pleural effusion, chronic kidney disease, inguinal hernia status post repair, back disease with back surgical history, left knee replacement, gastric bypass, left collar bone removed presents 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 Left parapneumonic effusion with possible empyema Plan for IR - fluid seems 1.3 liter removed. Hemodynamics stable, moniter Telemetry and continuous pulse ox.ct chest: Repeated after thoracentesis:Concerning loculated empyema versus hemothorax, left side. 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 Episode of generalized weakness/lethargy: Improved quickly, no new episodes CTA head-No acute intracranial hemorrhage.Extensive white matter disease likely related to small vessel occlusive disease. Superimposed acute nonhemorrhagic ischemia right frontal lobe cannot be excluded. mri-pending hold eliquis-s,moniter bp closely neurology Hypertension : continue home meds Low-salt diet Chf ch(Hfp EF): euvolemic Daily weights, strict I's and O's, fluid allowance 1500 Echo ordered CKD Creatinine 1.8, creatinine clearance 36.8, GFR 36, these labs are baseline compared to labs back in July of 2024 Patient follows with adjunct teacher in the outpatient setting Avoid hypotension and nephrotoxic medications BMP daily UA has pyuria /bacteruria , urine culture added ,patient denies any urinary complaints currently ch. AFIB History of AFib currently in sinus rhythm Hold Eliquis -due to hemorrhagic pleural effusion Continue telemetry DVT prophylaxis: On hold due to procedure plan for the a.m., thoracentesis Quality Stroke Does the patient have a stroke diagnosis?: No Reason for No Anti-thrombotic by Day Two: Contraindicated VTE Prior VTE?: No VTE Risk Level:: Medical - moderate - high VTE Device Contraindication: N/A - Device Ordered VTE Drug Contraindication: N/A - Med Ordered
[2024-11-14 18:53] LABS: Glucose, Whole Blood 154 mg/dL (60-115)
[2024-11-14 21:22] LABS: Glucose, Whole Blood 146 mg/dL (60-115)
[2024-11-14] MEDS: 0.9 % Sodium Chloride Flush 3 ML SYRINGE IVFLUSH (21:22)
[2024-11-15] VITALS (7 sets, daily range): BP systolic 136–180; BP diastolic 69–92; PULSE 65–76; RESP 16–18; TEMP 36.4–37.1; O2SAT 80–98
[2024-11-15 07:47] LABS: Glucose, Whole Blood 134 mg/dL (60-115)
[2024-11-15] MEDS: Potassium Chloride ER 10 MEQ TABLET.ER PO (08:36)
[2024-11-15] MEDS: Metoprolol Succinate ER 100 MG TAB.ER.24H PO (08:37)
[2024-11-15] MEDS: 0.9 % Sodium Chloride Flush 3 ML SYRINGE IVFLUSH ×3 (08:49→20:17)
[2024-11-15 08:56] LABS: Hematocrit 42.5 % (42.0-52.0); Hemoglobin 14.1 g/dl (14.0-18.0)
[2024-11-15 09:14] LABS: Anion Gap 14 (12-20); Blood Urea Nitrogen 28 mg/dL (9-16); Calcium 9.0 mg/dL (8.4-10.2); Carbon Dioxide 29 mmol/L (22-29); Chloride 102 mmol/L (96-108); Creatinine Clr Calc Pharmacy 37.0; Estimated Glomerular Filt Rate 36; Potassium 3.1 mmol/L (3.3-5.1); Sodium 142 mmol/L (135-145)
[2024-11-15] MEDS: Lidocaine 4 % Patch ADH..PATCH 2 PATCH TRANSDERMA (11:02)
[2024-11-15 11:47] LABS: Glucose, Whole Blood 116 mg/dL (60-115)
--- NOTE | 2024-11-15 11:48 | HO.PM.IMPN ---
Subjective Subjective Date of Service: 11/15/24 Interval History: Pleural effusion,htn,ckd Review of Systems Shortness of breaths somewhat improving, more comfortable H&H stable Has some soreness at pleural fluid tapping site. Review of Systems: Yes all other systems are reviewed and are negative Physical Exam Exam: Exam: Appearance: Alert.? Oriented X3. cvs: [id number], [id number]. res: air entry diminshed left sided >right. abd: no rebound or guarding ,nt, bs present. ext pulses present , no cyanosis . neuro: axo3 , moves all ext. Vital Signs: Vital Signs: Last Vital Signs Temp 97.6 F 11/15/24 11:41 Pulse 76 11/15/24 11:41 Resp 18 11/15/24 11:41 BP 136/69 11/15/24 11:41 Pulse Ox 98 11/15/24 11:41 O2 Del Method Room Air 11/15/24 11:41 BMI result Body Mass Index 30.7 Objective Data Active Medications Acetaminophen (Acetaminophen 325 Mg Tablet) 975 mg PO Q6H PRN PRN Reason: Pain, Mild 1-3,fever,headache Last Admin: 11/15/24 08:46 Dose: 975 mg Documented By: VERONICA Albuterol/Ipratropium (Albuterol/Iprat 2.5/0.5mg 3 Ml Ampul.Neb) 3 ml INHALE Q4H PRN PRN Reason: Shortness of Breath/Wheezing Amlodipine Besylate (Amlodipine Besylate 2.5 Mg Tablet) 2.5 mg PO DAILY [facility]; Protocol Last Admin: 11/15/24 08:37 Dose: 2.5 mg Documented By: VERONICA Calcium Carbonate (Calcium Carbonate 750 Mg Tab.Chew) 750 mg PO Q4H PRN PRN Reason: Heartburn Dextrose (Dextrose 50 % 25 Gm/50 Ml Syringe) 25 gm IVPUSH Q15M PRN; Protocol PRN Reason: per Hypoglycemia Standing Ord. Diazepam (Diazepam 5 Mg Tablet) 10 mg PO BEDTIME [facility] Last Admin: 11/14/24 21:18 Dose: 10 mg Documented By: BUSSILES Empagliflozin (Empagliflozin 10 Mg Tablet) 10 mg PO DAILY [facility] Last Admin: 11/15/24 08:36 Dose: 10 mg Documented By: VERONICA Furosemide (Furosemide 20 Mg Tablet) 20 mg PO DAILY [facility]; Protocol On Hold: 11/15/24 11:42 Last Admin: 11/15/24 08:36 Dose: 20 mg Documented By: VERONICA Gabapentin (Gabapentin 100 Mg Capsule) 200 mg PO TID [facility] On Hold: 11/14/24 11:04 Last Admin: 11/14/24 09:34 Dose: 200 mg Documented By: DISHA Glucose (Glucose Gel 15 Gm Gel..Gram.) 15 gm PO Q15M PRN; Protocol PRN Reason: per Hypoglycemia Standing Ord. Heparin Sodium (Porcine) (Heparin Sodium,Porcine 5,000 Unit/Ml Vial) 4,000 unit 40 unit/kg (4000 unit) IVPUSH PROTOCOL BOLUS PRN; Protocol PRN Reason: 40 unit/kg - Heparin Protocol Heparin Sodium (Porcine) (Heparin Sodium,Porcine 5,000 Unit/Ml Vial) 8,000 unit 80 unit/kg (8000 unit) IVPUSH PROTOCOL BOLUS PRN; Protocol PRN Reason: 80 unit/kg - Heparin Protocol Hydralazine HCl (Hydralazine Hcl 20 Mg/Ml Vial) 10 mg IVPUSH Q6H PRN; Protocol PRN Reason: SBP > 160 Last Admin: 11/14/24 03:37 Dose: 10 mg Documented By: ROLA Ampicillin Sodium/Sulbactam (Sodium 3 gm/ Sodium Chloride) 100 mls @ 200 mls/hr IV Q6H [facility] Last Infusion: 11/15/24 09:07 Dose: Infused Documented By: VERONICA Heparin Sodium/Sodium Chloride (Heparin Sodium,Porcine/1/2ns) 25,000 unit in 250 mls @ 0 mls/hr IVCONT .Q0M [facility]; Protocol Insulin Human Lispro (Insulin Lispro 100 Unit/Ml 3 Ml Vial) 0 unit SUBCUT QIDACHS [facility]; Protocol Last Admin: 11/15/24 07:44 Dose: Not Given Documented By: VERONICA Non-Admin Reason: No Insulin Coverage Comments: BG 134 Lidocaine (Lidocaine 4 % Patch Adh..Patch) 2 patch TRANSDERMA DAILY [facility]; Protocol Last Admin: 11/15/24 11:02 Dose: 2 patch Documented By: VERONICA Magnesium Hydroxide (Milk Of Magnesia 30 Ml Oral.Susp) 30 ml PO DAILY PRN PRN Reason: Constipation Melatonin (Melatonin 3 Mg Tablet) 6 mg PO BEDTIME PRN PRN Reason: Insomnia Metoprolol Succinate (Metoprolol Succinate Er 100 Mg Tab.Er.24h) 100 mg PO DAILY [facility]; Protocol Last Admin: 11/15/24 08:37 Dose: 100 mg Documented By: VERONICA Multivitamins/Vitamin C (Multivitamin Tablet) 1 tab PO DAILY [facility] Last Admin: 11/15/24 08:36 Dose: 1 tab Documented By: VERONICA Non-Formulary Medication (Cyclosporine [Restasis]) 1 drop EYE-BOTH Q12H [facility] Ondansetron HCl (Ondansetron Hcl 4 Mg/2 Ml Vial) 4 mg IVPUSH Q8H PRN PRN Reason: Nausea and Vomiting Polyethylene Glycol (Polyethylene Glycol 3350 17 Gm Powd.Pack) 17 gm PO DAILY PRN PRN Reason: Constipation Potassium Chloride (Potassium Chloride Er 10 Meq Tablet.Er) 10 meq PO DAILY [facility] Last Admin: 11/15/24 08:36 Dose: 10 meq Documented By: VERONICA Potassium Chloride (Potassium Chloride Er 20 Meq Tab.Er.Prt) 20 meq PO ONCE ONE Stop: 11/15/24 11:41 Sacubitril/Valsartan (Sacubitril/Valsartan 97/103 1 Tab Tablet) 1 tab PO BID [facility]; Protocol On Hold: 11/14/24 11:09 Last Admin: 11/14/24 09:34 Dose: 1 tab Documented By: BUCKLEA Senna (Sennosides 8.6 Mg Tablet) 17.2 mg PO BEDTIME [facility] Last Admin: 11/14/24 21:19 Dose: 17.2 mg Documented By: BUSSILES Sodium Chloride (0.9 % Sodium Chloride Flush 3 Ml Syringe) 3 ml IVFLUSH QSHIFT [facility] Last Admin: 11/15/24 08:49 Dose: 3 ml Documented By: VERONICA Tolterodine Tartrate (Tolterodine Tartrate La 4 Mg Cap.Er.24h) 4 mg PO BID [facility] Last Admin: 11/15/24 08:36 Dose: 4 mg Documented By: VERONICA Labs 11/15/24 08:20 11/15/24 08:20 Labs: Laboratory Results - last 24 hr 11/14/24 11/14/24 11/14/24 11:13 12:27 14:12 Anion Gap Estim Creat Clear Calc Estimated GFR POC Glucose 132 H 115 Random Glucose Calcium Pleural WBC 2.221 Pleural RBC 1.876 Pleural Lymphocytes 92 Pleural Eosinophils 1 Pleural Basophils 1 Pleural Other Cells 6 11/14/24 11/14/24 11/15/24 18:47 20:50 07:42 Anion Gap Estim Creat Clear Calc Estimated GFR POC Glucose 154 H 146 H 134 H Random Glucose Calcium Pleural WBC Pleural RBC Pleural Lymphocytes Pleural Eosinophils Pleural Basophils Pleural Other Cells 11/15/24 11/15/24 08:20 11:40 Anion Gap 14 Estim Creat Clear Calc 37.0 Estimated GFR 36 POC Glucose 116 H Random Glucose 133 H Calcium 9.0 D Pleural WBC Pleural RBC Pleural Lymphocytes Pleural Eosinophils Pleural Basophils Pleural Other Cells Microbiology Microbiology Results: Microbiology 11/14/24 12:27 Gram Stain - Final Thoracentesis Fluid Anaerobic Culture - Preliminary No growth to date. Body Fluid Culture - Preliminary No growth to date. 11/13/24 20:35 Blood Culture - Preliminary Blood - Venous No growth after 24 hours. 11/13/24 20:35 Blood Culture - Preliminary Blood - Venous No growth after 24 hours. 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 Left pleural effusion -unclear etiology Plan for IR - fluid seems 1.3 liter removed on11/14/24. Hemodynamics stable, moniter Telemetry and continuous pulse ox.ct chest: Repeated after thoracentesis:Concerning loculated empyema versus hemothorax, left side. 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 Episode of generalized weakness/lethargy: Improved quickly, no new episodes CTA head-No acute intracranial hemorrhage.Extensive white matter disease likely related to small vessel occlusive disease. Superimposed acute nonhemorrhagic ischemia right frontal lobe cannot be excluded. mri-pending hold eliquis switched to iv heparin,moniter bp closely neurology Hypertension : continue home meds Low-salt diet Chf ch(Hfp EF): euvolemic Daily weights, strict I's and O's, fluid allowance 1500 Echo :The left ventricular systolic function is hyperdynamic. The visually estimated ejection fraction is >70%. - The aortic valve was not well visualized. Based on gradients, no more than [id number] aortic stenosis. 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 ch. AFIB History of AFib currently in sinus rhythm Hold Eliquis -due to hemorrhagic pleural effusion-will switch to iv heaprin and moniter . Continue telemetry DVT prophylaxis:iv heaprin ongoing need :Left pleural effusion -unclear etiology-still symptomatic , pleural labs pending , need iv heparin/pt/ptt monitering Quality Stroke Does the patient have a stroke diagnosis?: No Reason for No Anti-thrombotic by Day Two: Contraindicated VTE Prior VTE?: No VTE Risk Level:: Medical - moderate - high VTE Device Contraindication: N/A - Device Ordered VTE Drug Contraindication: N/A - Med Ordered
--- NOTE | 2024-11-15 12:00 | P.CONPL_ITS ---
History of Present Illness History of Present Illness Consult date: 11/15/24 Chief complaint: Pleural effusion Narrative: 84-year-old gentleman with underlying coronary artery disease status post [place], systolic cardiomyopathy, CKD admitted on 11/13/2024 after patient had an outpatient imaging showing left-sided pleural effusion and also with worsening dyspnea on exertional with the last several weeks. Patient denies any trauma to the left side of his chest. Patient did have prior bilateral effusions about a year ago around the time of his myocardial infarction. Thoracentesis was performed with drainage of 1.3 L of sanguinous pleural fluid with part of of pleural studies pending and fluid cytology showing a lymphocyte-predominant effusion. Patient had significant improvement in his dyspnea symptoms after the thoracentesis. Review of Systems 2 Constitutional: Constitutional: Denies daytime sleepiness, Denies excessive sweating, Denies fatigue, Denies fever(s), Denies lethargy, Denies malaise, Denies night sweats, Denies snoring and Denies weight loss Eyes: Eyes: Denies blurry vision and Denies itchy eyes ENT: Denies nasal congestion, Denies post nasal drip, Denies sinus pain, Denies sinus pressure and Denies other ( Thrush) Cardiovascular: Cardiovascular: Denies chest pain, Denies pedal edema, Denies dyspnea, Reports dyspnea on exertion, Denies orthopnea and Denies paroxysmal nocturnal dyspnea Respiratory: Respiratory: Denies cough, Denies hemoptysis, Denies excessive phlegm production, Denies dyspnea, Reports dyspnea on exertion, Denies snoring and Denies wheezing Gastrointestinal: Gastrointestinal: Denies abdominal pain and Denies heartburn Musculoskeletal: Musculoskeletal: Denies myalgias, Denies arthralgias and Denies joint swelling Integumentary/Breasts: Skin/Breast: Denies rash Neurologic: Denies memory loss and Denies seizure-like activity Psychiatric: Psychiatric: Denies abnormal sleep pattern, Denies anxiety and Denies memory loss Endocrine: Endocrine: Denies excessive sweating, Denies fatigue and Denies heat intolerance Hematologic/Lymphatic: Hematologic/Lymphatic: Denies easy bruising Allergic/Immunologic: Allergic/Immunologic: Denies itchy eyes, Denies seasonal rhinorrhea and Denies wheezing PMFSH Past Medical History Medical History CKD (chronic kidney disease) stage 3, GFR 30-59 ml/min NSTEMI (non-ST elevated myocardial infarction) Failed total left knee replacement HFrEF (heart failure with reduced ejection fraction) GERD (gastroesophageal reflux disease) Chronic renal failure Chronic pain syndrome Family History Family History Father Prostate cancer Bone cancer Mother BP (high blood pressure) Surgical History Surgical History H/O gastric bypass Previous back surgery H/O inguinal hernia repair Social History Social History Household Members: Spouse Housing: House Do you presently have visiting nurse or other home services: No Alcohol intake: current Alcohol intake frequency: does not drink Patient Tobacco Use Status: Never used Tobacco service: No Current occupational status: retired Cognitive needs: No Hearing needs: No Vision needs: No Travel History Ebola Risk: Travel/Contact With Anyone From Affected Area/s: No Has Patient Experienced Ebola Symptoms: No Meds Allergies Allergy/AdvReac Type Severity Reaction Status Date / Time cephalexin (From KEFLEX) Allergy Unknown UNKNOWN Verified 11/13/24 16:47 metformin (METFORMIN) Allergy Unknown MASON , Verified 11/13/24 16:47 swelling silodosin (From RAPAFLO) Allergy Unknown UNKNOWN Verified 11/13/24 16:47 tamsulosin (From FLOMAX) Allergy Unknown UNKNOWN Verified 11/13/24 16:47 Pt states no known allergy to Allergy Mild Unknown Uncoded 11/13/24 16:47 Rapaflo Allergy Unknown hives Uncoded 11/13/24 16:47 Active Medications: Current Medications Acetaminophen (Acetaminophen 325 Mg Tablet) 975 mg PO Q6H PRN PRN Reason: Pain, Mild 1-3,fever,headache Last Admin: 11/15/24 08:46 Dose: 975 mg Albuterol/Ipratropium (Albuterol/Iprat 2.5/0.5mg 3 Ml Ampul.Neb) 3 ml INHALE Q4H PRN PRN Reason: Shortness of Breath/Wheezing Amlodipine Besylate (Amlodipine Besylate 2.5 Mg Tablet) 2.5 mg PO DAILY [facility]; Protocol Last Admin: 11/15/24 08:37 Dose: 2.5 mg Calcium Carbonate (Calcium Carbonate 750 Mg Tab.Chew) 750 mg PO Q4H PRN PRN Reason: Heartburn Dextrose (Dextrose 50 % 25 Gm/50 Ml Syringe) 25 gm IVPUSH Q15M PRN; Protocol PRN Reason: per Hypoglycemia Standing Ord. Diazepam (Diazepam 5 Mg Tablet) 10 mg PO BEDTIME [facility] Last Admin: 11/14/24 21:18 Dose: 10 mg Empagliflozin (Empagliflozin 10 Mg Tablet) 10 mg PO DAILY [facility] Last Admin: 11/15/24 08:36 Dose: 10 mg Furosemide (Furosemide 20 Mg Tablet) 20 mg PO DAILY [facility]; Protocol On Hold: 11/15/24 11:42 Last Admin: 11/15/24 08:36 Dose: 20 mg Gabapentin (Gabapentin 100 Mg Capsule) 200 mg PO TID [facility] On Hold: 11/14/24 11:04 Last Admin: 11/14/24 09:34 Dose: 200 mg Glucose (Glucose Gel 15 Gm Gel..Gram.) 15 gm PO Q15M PRN; Protocol PRN Reason: per Hypoglycemia Standing Ord. Heparin Sodium (Porcine) (Heparin Sodium,Porcine 5,000 Unit/Ml Vial) 4,000 unit 40 unit/kg (4000 unit) IVPUSH PROTOCOL BOLUS PRN; Protocol PRN Reason: 40 unit/kg - Heparin Protocol Heparin Sodium (Porcine) (Heparin Sodium,Porcine 5,000 Unit/Ml Vial) 8,000 unit 80 unit/kg (8000 unit) IVPUSH PROTOCOL BOLUS PRN; Protocol PRN Reason: 80 unit/kg - Heparin Protocol Hydralazine HCl (Hydralazine Hcl 20 Mg/Ml Vial) 10 mg IVPUSH Q6H PRN; Protocol PRN Reason: SBP > 160 Last Admin: 11/14/24 03:37 Dose: 10 mg Ampicillin Sodium/Sulbactam (Sodium 3 gm/ Sodium Chloride) 100 mls @ 200 mls/hr IV Q6H [facility] Last Infusion: 11/15/24 09:07 Dose: Infused Heparin Sodium/Sodium Chloride (Heparin Sodium,Porcine/1/2ns) 25,000 unit in 250 mls @ 0 mls/hr IVCONT .Q0M [facility]; Protocol Insulin Human Lispro (Insulin Lispro 100 Unit/Ml 3 Ml Vial) 0 unit SUBCUT QIDACHS [facility]; Protocol Last Admin: 11/15/24 07:44 Dose: Not Given Lidocaine (Lidocaine 4 % Patch Adh..Patch) 2 patch TRANSDERMA DAILY [facility]; Protocol Last Admin: 11/15/24 11:02 Dose: 2 patch Magnesium Hydroxide (Milk Of Magnesia 30 Ml Oral.Susp) 30 ml PO DAILY PRN PRN Reason: Constipation Melatonin (Melatonin 3 Mg Tablet) 6 mg PO BEDTIME PRN PRN Reason: Insomnia Metoprolol Succinate (Metoprolol Succinate Er 100 Mg Tab.Er.24h) 100 mg PO DAILY [facility]; Protocol Last Admin: 11/15/24 08:37 Dose: 100 mg Multivitamins/Vitamin C (Multivitamin Tablet) 1 tab PO DAILY [facility] Last Admin: 11/15/24 08:36 Dose: 1 tab Non-Formulary Medication (Cyclosporine [Restasis]) 1 drop EYE-BOTH Q12H [facility] Ondansetron HCl (Ondansetron Hcl 4 Mg/2 Ml Vial) 4 mg IVPUSH Q8H PRN PRN Reason: Nausea and Vomiting Polyethylene Glycol (Polyethylene Glycol 3350 17 Gm Powd.Pack) 17 gm PO DAILY PRN PRN Reason: Constipation Potassium Chloride (Potassium Chloride Er 10 Meq Tablet.Er) 10 meq PO DAILY [facility] Last Admin: 11/15/24 08:36 Dose: 10 meq Sacubitril/Valsartan (Sacubitril/Valsartan 97/103 1 Tab Tablet) 1 tab PO BID [facility]; Protocol On Hold: 11/14/24 11:09 Last Admin: 11/14/24 09:34 Dose: 1 tab Senna (Sennosides 8.6 Mg Tablet) 17.2 mg PO BEDTIME [facility] Last Admin: 11/14/24 21:19 Dose: 17.2 mg Sodium Chloride (0.9 % Sodium Chloride Flush 3 Ml Syringe) 3 ml IVFLUSH QSHIFT [facility] Last Admin: 11/15/24 08:49 Dose: 3 ml Tolterodine Tartrate (Tolterodine Tartrate La 4 Mg Cap.Er.24h) 4 mg PO BID [facility] Last Admin: 11/15/24 08:36 Dose: 4 mg Home Medications ?Medication ?Instructions ?Recorded ?Confirmed ?Last Taken ?Type apixaban 2.5 mg tablet (Eliquis) 2.5 mg PO BID 5 11/13/24 11/13/24 History aspirin 81 mg tablet 81 mg PO DAILY 10/14/24 08/10/3111/13/24 History blood sugar diagnostic (OneTouch #10 ea 10/14/24 Unkn own History Ultra Test strips) dapagliflozin propanediol 10 mg 10 mg PO DAILY 5 11/13/24 11/13/24 History tablet (Farxiga) lancets 30 gauge (OneTouch #100 ea 10/14/24 Unknown H istory UltraSoft 2 Lancet) potassium chloride 10 mEq 10 meq PO DAILY 10/14/2410/3111/13/24 History tablet,extended release sacubitril 97 mg-valsartan 103 mg 1 tab PO BID 5 11/13/24 11/13/24 History tablet (Entresto) tolterodine 4 mg capsule,extended 4 mg PO BID 10/14/24 11/13/24 11/13/24 History release 24 hr triamcinolone acetonide 0.025 % 1 appl topical BID 12/0111/13/24 11/13/24 History lotion ciclopirox 0.77 % topical cream 1 appl topical BID 10/3111/13/24 11/13/24 History cyclosporine 0.05 % eye drops in a 1 drp ophthalmic (e ye) Q12H 11/13/24 11/13/24 11/13/24 History dropperette (Restasis) furosemide 20 mg tablet 20 mg PO DAILY 11/13/24 0810/3111/13/24 History vitamins A,C,W-xnbj-[id number] 2,148 1 tab PO BID 11/13/24 11/13/24 Unknown History mcg-113 mg-45 mg-17.4 mg tablet (PreserVision AREDS) Physical Exam 2 Vital Signs: Vital Signs: Last Vital Signs Temp 97.6 F 11/15/24 11:41 Pulse 76 11/15/24 11:41 Resp 18 11/15/24 11:41 BP 136/69 11/15/24 11:41 Pulse Ox 98 11/15/24 11:41 O2 Del Method Room Air 11/15/24 11:41 BMI result Body Mass Index 30.7 Const: General: no acute distress and alert Nutritional Appearance: not obese Orientation/consciousness: Other orientation findings ( oriented) HEENT: Head: Yes atraumatic Eyes: General: appearance normal, both eyes and all related structures S clerae: sclerae normal EOM: EOMs intact bilaterally Neck: Neck: Yes supple Lymphatic: no lymphadenopathy noted Resp: Effort & Inspection: normal respiratory effort and no use of accessory muscles Auscultation: clear to auscultation bilaterally Cardio: Rate: regular rate Rhythm: regular rhythm Heart sounds: no gallops, no murmurs and no rubs Skin: General skin exam: other ( warm) Extrem: General: No clubbing, No cyanosis and No edema Results Laboratory Findings 11/15/24 08:20 11/15/24 08:20 Abnormal lab findings: Abnormal Labs 11/13/24 11/14/24 11/14/24 17:33 03:16 11:07 RBC 4.38 L 4.41 L Hgb 13.0 L 12.8 L Hct 38.5 L 38.7 L 41.9 L MPV 9.3 L 9.2 L Neut % (Auto) 87.2 H Lymph % (Auto) 7.4 L [place] % (Auto) 12.3 H Lymph # (Auto) 0.5 L PT 15.1 H INR 1.3 H Potassium Carbon Dioxide 31 H BUN 26 H 24 H Creatinine 1.80 H 1.66 H POC Glucose Random Glucose Calcium 8.3 L B-Natriuretic Peptide 299 H 11/14/24 11/14/24 11/14/24 11:13 18:47 20:50 RBC Hgb Hct MPV Neut % (Auto) Lymph % (Auto) [place] % (Auto) Lymph # (Auto) PT INR Potassium Carbon Dioxide BUN Creatinine POC Glucose 132 H 154 H 146 H Random Glucose Calcium B-Natriuretic Peptide 11/15/24 11/15/24 11/15/24 07:42 08:20 11:40 RBC Hgb Hct MPV Neut % (Auto) Lymph % (Auto) [place] % (Auto) Lymph # (Auto) PT INR Potassium 3.1 L Carbon Dioxide BUN 28 H Creatinine 1.79 H POC Glucose 134 H 116 H Random Glucose 133 H Calcium B-Natriuretic Peptide Microbiology: Microbiology 11/14/24 12:27 Thoracentesis Fluid Gram Stain - Final 11/14/24 12:27 Thoracentesis Fluid Anaerobic Culture - Preliminary No growth to date. 11/14/24 12:27 Thoracentesis Fluid Body Fluid Culture - Preliminary No growth to date. 11/13/24 20:35 Blood - Venous Blood Culture - Preliminary No growth after 24 hours. 11/13/24 20:35 Blood - Venous Blood Culture - Preliminary No growth after 24 hours. Assessment and Plan (1) Pleural effusion, left: Status: Acute (2) Dyspnea on exertion: Status: Acute Plan Impression: 84-year-old gentleman admitted with moderate left-sided pleural effusion and dyspnea on exertional, now status post thoracentesis with drainage of 1.3 L of sanguinous locking fluid that is lymphocyte predominant and further fluid studies pending. No history of recent trauma. Lymphocyte predominance sanguinous effusion would be concern for malignant etiology. Cytology is pending. Though, a longstanding transudative effusion from underlying systolic heart failure may acquire exudative features. Recommendation: At this time would wait for the rest of of pleural studies to resolved. No concern for empyema requiring urgent decortication at this time. Procedures Date of Service Date of Service: 11/15/24
[2024-11-15 12:01] LABS: INTERNATIONAL NORM RATIO 1.2 (0.9-1.1); Prothrombin Time 14.1 SEC (10.9-12.4)
[2024-11-15 12:04] LABS: PTT Heparin Drip 38.3 SEC (53-77.9)
[2024-11-15] MEDS: Potassium Chloride ER 20 MEQ TAB.ER.PRT PO (12:12)
[2024-11-15] MEDS: Heparin Sodium,Porcine/1/2NS 25,000 UNIT/250 ML IV.SOLN 10 UNIT IVCONT (12:46)
--- NOTE | 2024-11-15 12:53 | P.CNNE_ITS ---
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 He was found to have consolidation in a large volume of fluid was removed from left side. Now he was feeling much better. Apparently he had cardiomyopathy in the past and was admitted [facility] with somewhat similar circumstances. During this time, he was noted to be generally weak lethargic and somewhat confused. Now he was feeling better. An MRI of brain was done to rule out any stroke, which was negative for any acute lesion. Review of Systems 2 Review of Systems: No recent headache or seizure-like activity PMFSH Past Medical History Medical History CKD (chronic kidney disease) stage 3, GFR 30-59 ml/min NSTEMI (non-ST elevated myocardial infarction) Failed total left knee replacement HFrEF (heart failure with reduced ejection fraction) GERD (gastroesophageal reflux disease) Chronic renal failure Chronic pain syndrome Family History Family History Father Prostate cancer Bone cancer Mother BP (high blood pressure) Surgical History Surgical History H/O gastric bypass Previous back surgery H/O inguinal hernia repair Social History Social History Household Members: Spouse Housing: House Do you presently have visiting nurse or other home services: No Alcohol intake: current Alcohol intake frequency: does not drink Patient Tobacco Use Status: Never used Tobacco service: No Current occupational status: retired Cognitive needs: No Hearing needs: No Vision needs: No Travel History Ebola Risk: Travel/Contact With Anyone From Affected Area/s: No Has Patient Experienced Ebola Symptoms: No Meds Allergies Allergy/AdvReac Type Severity Reaction Status Date / Time cephalexin (From KEFLEX) Allergy Unknown UNKNOWN Verified 11/13/24 16:47 metformin (METFORMIN) Allergy Unknown SHAKY , Verified 11/13/24 16:47 swelling silodosin (From RAPAFLO) Allergy Unknown UNKNOWN Verified 11/13/24 16:47 tamsulosin (From FLOMAX) Allergy Unknown UNKNOWN Verified 11/13/24 16:47 Pt states no known allergy to Allergy Mild Unknown Uncoded 11/13/24 16:47 Rapaflo Allergy Unknown hives Uncoded 11/13/24 16:47 Active Medications: Current Medications Acetaminophen (Acetaminophen 325 Mg Tablet) 975 mg PO Q6H PRN PRN Reason: Pain, Mild 1-3,fever,headache Last Admin: 11/15/24 08:46 Dose: 975 mg Albuterol/Ipratropium (Albuterol/Iprat 2.5/0.5mg 3 Ml Ampul.Neb) 3 ml INHALE Q4H PRN PRN Reason: Shortness of Breath/Wheezing Amlodipine Besylate (Amlodipine Besylate 2.5 Mg Tablet) 2.5 mg PO DAILY [facility]; Protocol Last Admin: 11/15/24 08:37 Dose: 2.5 mg Calcium Carbonate (Calcium Carbonate 750 Mg Tab.Chew) 750 mg PO Q4H PRN PRN Reason: Heartburn Dextrose (Dextrose 50 % 25 Gm/50 Ml Syringe) 25 gm IVPUSH Q15M PRN; Protocol PRN Reason: per Hypoglycemia Standing Ord. Diazepam (Diazepam 5 Mg Tablet) 10 mg PO BEDTIME [facility] Last Admin: 11/14/24 21:18 Dose: 10 mg Empagliflozin (Empagliflozin 10 Mg Tablet) 10 mg PO DAILY [facility] Last Admin: 11/15/24 08:36 Dose: 10 mg Furosemide (Furosemide 20 Mg Tablet) 20 mg PO DAILY [facility]; Protocol On Hold: 11/15/24 11:42 Last Admin: 11/15/24 08:36 Dose: 20 mg Gabapentin (Gabapentin 100 Mg Capsule) 200 mg PO TID [facility] On Hold: 11/14/24 11:04 Last Admin: 11/14/24 09:34 Dose: 200 mg Glucose (Glucose Gel 15 Gm Gel..Gram.) 15 gm PO Q15M PRN; Protocol PRN Reason: per Hypoglycemia Standing Ord. Heparin Sodium (Porcine) (Heparin Sodium,Porcine 5,000 Unit/Ml Vial) 4,000 unit 40 unit/kg (4000 unit) IVPUSH PROTOCOL BOLUS PRN; Protocol PRN Reason: 40 unit/kg - Heparin Protocol Heparin Sodium (Porcine) (Heparin Sodium,Porcine 5,000 Unit/Ml Vial) 8,000 unit 80 unit/kg (8000 unit) IVPUSH PROTOCOL BOLUS PRN; Protocol PRN Reason: 80 unit/kg - Heparin Protocol Hydralazine HCl (Hydralazine Hcl 20 Mg/Ml Vial) 10 mg IVPUSH Q6H PRN; Protocol PRN Reason: SBP > 160 Last Admin: 11/14/24 03:37 Dose: 10 mg Ampicillin Sodium/Sulbactam (Sodium 3 gm/ Sodium Chloride) 100 mls @ 200 mls/hr IV Q6H [facility] Last Infusion: 11/15/24 09:07 Dose: Infused Heparin Sodium/Sodium Chloride (Heparin Sodium,Porcine/1/2ns) 25,000 unit in 250 mls @ 0 mls/hr IVCONT .Q0M [facility]; Protocol Last Admin: 11/15/24 12:46 Dose: 10 units/kg/hr, 10 mls/hr Insulin Human Lispro (Insulin Lispro 100 Unit/Ml 3 Ml Vial) 0 unit SUBCUT QIDACHS [facility]; Protocol Last Admin: 11/15/24 12:11 Dose: Not Given Lidocaine (Lidocaine 4 % Patch Adh..Patch) 2 patch TRANSDERMA DAILY [facility]; Protocol Last Admin: 11/15/24 11:02 Dose: 2 patch Magnesium Hydroxide (Milk Of Magnesia 30 Ml Oral.Susp) 30 ml PO DAILY PRN PRN Reason: Constipation Melatonin (Melatonin 3 Mg Tablet) 6 mg PO BEDTIME PRN PRN Reason: Insomnia Metoprolol Succinate (Metoprolol Succinate Er 100 Mg Tab.Er.24h) 100 mg PO DAILY [facility]; Protocol Last Admin: 11/15/24 08:37 Dose: 100 mg Multivitamins/Vitamin C (Multivitamin Tablet) 1 tab PO DAILY [facility] Last Admin: 11/15/24 08:36 Dose: 1 tab Non-Formulary Medication (Cyclosporine [Restasis]) 1 drop EYE-BOTH Q12H [facility] Ondansetron HCl (Ondansetron Hcl 4 Mg/2 Ml Vial) 4 mg IVPUSH Q8H PRN PRN Reason: Nausea and Vomiting Polyethylene Glycol (Polyethylene Glycol 3350 17 Gm Powd.Pack) 17 gm PO DAILY PRN PRN Reason: Constipation Potassium Chloride (Potassium Chloride Er 10 Meq Tablet.Er) 10 meq PO DAILY [facility] Last Admin: 11/15/24 08:36 Dose: 10 meq Sacubitril/Valsartan (Sacubitril/Valsartan 97/103 1 Tab Tablet) 1 tab PO BID [facility]; Protocol On Hold: 11/14/24 11:09 Last Admin: 11/14/24 09:34 Dose: 1 tab Senna (Sennosides 8.6 Mg Tablet) 17.2 mg PO BEDTIME [facility] Last Admin: 11/14/24 21:19 Dose: 17.2 mg Sodium Chloride (0.9 % Sodium Chloride Flush 3 Ml Syringe) 3 ml IVFLUSH QSHIFT [facility] Last Admin: 11/15/24 08:49 Dose: 3 ml Tolterodine Tartrate (Tolterodine Tartrate La 4 Mg Cap.Er.24h) 4 mg PO BID [facility] Last Admin: 11/15/24 08:36 Dose: 4 mg Home Medications ?Medication ?Instructions ?Recorded ?Confirmed ?Last Taken ?Type apixaban 2.5 mg tablet (Eliquis) 2.5 mg PO BID 5 11/13/24 11/13/24 History aspirin 81 mg tablet 81 mg PO DAILY 10/14/24 0810/3111/13/24 History blood sugar diagnostic (OneTouch #10 ea 10/14/24 Unkn own History Ultra Test strips) dapagliflozin propanediol 10 mg 10 mg PO DAILY 5 11/13/24 11/13/24 History tablet (Farxiga) lancets 30 gauge (OneTouch #100 ea 10/14/24 Unknown H istory UltraSoft 2 Lancet) potassium chloride 10 mEq 10 meq PO DAILY 10/14/2410/3111/13/24 History tablet,extended release sacubitril 97 mg-valsartan 103 mg 1 tab PO BID 5 11/13/24 11/13/24 History tablet (Entresto) tolterodine 4 mg capsule,extended 4 mg PO BID 10/14/24 11/13/24 11/13/24 History release 24 hr triamcinolone acetonide 0.025 % 1 appl topical BID 12/0111/13/24 11/13/24 History lotion ciclopirox 0.77 % topical cream 1 appl topical BID 10/3111/13/24 11/13/24 History cyclosporine 0.05 % eye drops in a 1 drp ophthalmic (e ye) Q12H 11/13/24 11/13/24 11/13/24 History dropperette (Restasis) furosemide 20 mg tablet 20 mg PO DAILY 11/13/24 08/10/3111/13/24 History vitamins A,C,N-hgpq-ddyfnv 2,148 1 tab PO BID 11/13/24 11/13/24 Unknown History mcg-113 mg-45 mg-17.4 mg tablet (PreserVision AREDS) Physical Exam 2 Vital Signs: Vital Signs: Last Vital Signs Temp 97.6 F 11/15/24 11:41 Pulse 76 11/15/24 11:41 Resp 18 11/15/24 11:41 BP 136/69 11/15/24 11:41 Pulse Ox 98 11/15/24 11:41 O2 Del Method Room Air 11/15/24 11:41 BMI result Body Mass Index 30.7 Neuro: Other: He is alert and awake with normal spontaneity of speech fluency comprehension and affect. Face is symmetrical. Visual mix are full. There was no focal arm or leg weakness. Deep tendon reflexes are absent with flexor plantars. Speech is normal. Results Labs 11/15/24 08:20 11/15/24 08:20 Labs: Short CBC 11/15/24 Range/Units 08: Hgb 14.1 (14.0-18.0) g/dl Hct 42.5 (42.0-52.0) % BMP 11/15/24 08:20 Sodium 142 Potassium 3.1 L Chloride 102 Carbon Dioxide 29 BUN 28 H Creatinine 1.79 H Calcium 9.0 D MRI of brain did not reveal any acute lesion. [id number] diffuse cerebral atrophy and [id number] chronic microvascular ischemic changes were noted. Microbiology Microbiology Results: Microbiology 11/14/24 12:27 Thoracentesis Fluid Gram Stain - Final 11/14/24 12:27 Thoracentesis Fluid Anaerobic Culture - Preliminary No growth to date. 11/14/24 12:27 Thoracentesis Fluid Body Fluid Culture - Preliminary No growth to date. 11/13/24 20:35 Blood - Venous Blood Culture - Preliminary No growth after 24 hours. 11/13/24 20:35 Blood - Venous Blood Culture - Preliminary No growth after 24 hours. Assessment and Plan (1) Encephalopathy: Qualifiers: Encephalopathy type: toxic metabolic Qualified Code(s): G92.8 - Other toxic encephalopathy Status: Acute 84 years old man who presented with generalized weakness and confusion with large amount of left-sided pleural effusion, which was removed. He was feeling much better now. There was no acute lesion in his on his brain MRI and no clinical symptoms or signs suggestive of stroke. Mainstay of management is attention to cardiac and pulmonary issues. Procedures Date of Service Date of Service: 11/15/24
[2024-11-15 16:18] LABS: Glucose, Whole Blood 110 mg/dL (60-115)
[2024-11-15 19:05] LABS: PTT Heparin Drip 62.1 SEC (53-77.9)
[2024-11-15 21:12] LABS: Glucose, Whole Blood 128 mg/dL (60-115)
[2024-11-16] VITALS (8 sets, daily range): BP systolic 139–179; BP diastolic 73–94; PULSE 70–87; RESP 16–20; TEMP 36.2–37.3; O2SAT 94–98
[2024-11-16 01:02] LABS: PTT Heparin Drip 64.9 SEC (53-77.9)
[2024-11-16 07:30] LABS: PTT Heparin Drip 78.8 SEC (53-77.9)
[2024-11-16 07:44] LABS: Glucose, Whole Blood 118 mg/dL (60-115)
[2024-11-16] MEDS: Lidocaine 4 % Patch ADH..PATCH 2 PATCH TRANSDERMA (08:02)
[2024-11-16] MEDS: Metoprolol Succinate ER 100 MG TAB.ER.24H PO (08:05)
[2024-11-16] MEDS: Potassium Chloride ER 10 MEQ TABLET.ER PO (08:05)
[2024-11-16] MEDS: 0.9 % Sodium Chloride Flush 3 ML SYRINGE IVFLUSH ×2 (08:05→15:56)
[2024-11-16 10:21] LABS: Hematocrit 40.8 % (42.0-52.0); Hemoglobin 13.6 g/dl (14.0-18.0)
[2024-11-16 10:32] LABS: Anion Gap 14 (12-20); Blood Urea Nitrogen 29 mg/dL (9-16); Calcium 8.4 mg/dL (8.4-10.2); Carbon Dioxide 29 mmol/L (22-29); Chloride 105 mmol/L (96-108); Creatinine Clr Calc Pharmacy 38.2; Estimated Glomerular Filt Rate 38; Potassium 3.6 mmol/L (3.3-5.1); Sodium 144 mmol/L (135-145)
--- NOTE | 2024-11-16 11:02 | P.PNIM_ITS ---
Subjective Subjective Date of Service: 11/16/24 Interval History: pleural effusion Review of Systems no sob or chest pain has some soarness at tap area. Review of Systems: Yes all other systems are reviewed and are negative Physical Exam 2 Exam: Exam: Appearance: Alert.? Oriented X3. cvs: [id number], [id number]. res: air entry diminshed left sided >right. abd: no rebound or guarding ,nt, bs present. ext pulses present , no cyanosis . neuro: axo3 , moves all ext. Vital Signs: Vital Signs: Last Vital Signs Temp 97.6 F 11/16/24 07:30 Pulse 76 11/16/24 07:30 Resp 16 11/16/24 07:30 BP 139/84 11/16/24 07:30 Pulse Ox 98 11/16/24 07:30 O2 Del Method Room Air 11/16/24 07:30 BMI result Body Mass Index 30.7 Objective Data Active Medications Acetaminophen (Acetaminophen 325 Mg Tablet) 975 mg PO Q6H PRN PRN Reason: Pain, Mild 1-3,fever,headache Last Admin: 11/16/24 03:17 Dose: 975 mg Documented By: JOSE ANTONIO Albuterol/Ipratropium (Albuterol/Iprat 2.5/0.5mg 3 Ml Ampul.Neb) 3 ml INHALE Q4H PRN PRN Reason: Shortness of Breath/Wheezing Amlodipine Besylate (Amlodipine Besylate 2.5 Mg Tablet) 2.5 mg PO DAILY [facility]; Protocol Last Admin: 11/16/24 08:05 Dose: 2.5 mg Documented By: JORDAN Calcium Carbonate (Calcium Carbonate 750 Mg Tab.Chew) 750 mg PO Q4H PRN PRN Reason: Heartburn Dextrose (Dextrose 50 % 25 Gm/50 Ml Syringe) 25 gm IVPUSH Q15M PRN; Protocol PRN Reason: per Hypoglycemia Standing Ord. Diazepam (Diazepam 5 Mg Tablet) 10 mg PO BEDTIME [facility] Last Admin: 11/15/24 20:16 Dose: 10 mg Documented By: JOSE ANTONIO Empagliflozin (Empagliflozin 10 Mg Tablet) 10 mg PO DAILY [facility] Last Admin: 11/16/24 08:05 Dose: 10 mg Documented By: JORDAN Furosemide (Furosemide 20 Mg Tablet) 20 mg PO DAILY [facility]; Protocol On Hold: 11/15/24 11:42 Last Admin: 11/15/24 08:36 Dose: 20 mg Documented By: VERONICA Gabapentin (Gabapentin 100 Mg Capsule) 200 mg PO TID [facility] On Hold: 11/14/24 11:04 Last Admin: 11/14/24 09:34 Dose: 200 mg Documented By: DISHA Glucose (Glucose Gel 15 Gm Gel..Gram.) 15 gm PO Q15M PRN; Protocol PRN Reason: per Hypoglycemia Standing Ord. Heparin Sodium (Porcine) (Heparin Sodium,Porcine 5,000 Unit/Ml Vial) 4,000 unit 40 unit/kg (4000 unit) IVPUSH PROTOCOL BOLUS PRN; Protocol PRN Reason: 40 unit/kg - Heparin Protocol Heparin Sodium (Porcine) (Heparin Sodium,Porcine 5,000 Unit/Ml Vial) 8,000 unit 80 unit/kg (8000 unit) IVPUSH PROTOCOL BOLUS PRN; Protocol PRN Reason: 80 unit/kg - Heparin Protocol Hydralazine HCl (Hydralazine Hcl 20 Mg/Ml Vial) 10 mg IVPUSH Q6H PRN; Protocol PRN Reason: SBP > 160 Last Admin: 11/14/24 03:37 Dose: 10 mg Documented By: ROLA Ampicillin Sodium/Sulbactam (Sodium 3 gm/ Sodium Chloride) 100 mls @ 200 mls/hr IV Q6H [facility] Last Infusion: 11/16/24 08:34 Dose: Infused Documented By: JORDAN Heparin Sodium/Sodium Chloride (Heparin Sodium,Porcine/1/2ns) 25,000 unit in 250 mls @ 0 mls/hr IVCONT .Q0M [facility]; Protocol Last Titration: 11/16/24 07:47 Dose: 8 units/kg/hr, 8 mls/hr Documented By: JORDAN Co-signed By: BRANDAN Insulin Human Lispro (Insulin Lispro 100 Unit/Ml 3 Ml Vial) 0 unit SUBCUT QIDACHS [facility]; Protocol Last Admin: 11/16/24 07:57 Dose: Not Given Documented By: JORDAN Non-Admin Reason: POC= 118 Lidocaine (Lidocaine 4 % Patch Adh..Patch) 2 patch TRANSDERMA DAILY [facility]; Protocol Last Admin: 11/16/24 08:02 Dose: 2 patch Documented By: JORDAN Lidocaine (Lidocaine 4 % Patch Adh..Patch) 2 patch TRANSDERMA DAILY [facility]; Protocol Last Admin: 11/16/24 09:39 Dose: Not Given Documented By: JORDAN Non-Admin Reason: Duplicate Order Magnesium Hydroxide (Milk Of Magnesia 30 Ml Oral.Susp) 30 ml PO DAILY PRN PRN Reason: Constipation Melatonin (Melatonin 3 Mg Tablet) 6 mg PO BEDTIME PRN PRN Reason: Insomnia Metoprolol Succinate (Metoprolol Succinate Er 100 Mg Tab.Er.24h) 100 mg PO DAILY [facility]; Protocol Last Admin: 11/16/24 08:05 Dose: 100 mg Documented By: JORDAN Multivitamins/Vitamin C (Multivitamin Tablet) 1 tab PO DAILY [facility] Last Admin: 11/16/24 08:05 Dose: 1 tab Documented By: JORDAN Non-Formulary Medication (Cyclosporine [Restasis]) 1 drop EYE-BOTH Q12H [facility] Ondansetron HCl (Ondansetron Hcl 4 Mg/2 Ml Vial) 4 mg IVPUSH Q8H PRN PRN Reason: Nausea and Vomiting Polyethylene Glycol (Polyethylene Glycol 3350 17 Gm Powd.Pack) 17 gm PO DAILY PRN PRN Reason: Constipation Potassium Chloride (Potassium Chloride Er 10 Meq Tablet.Er) 10 meq PO DAILY [facility] Last Admin: 11/16/24 08:05 Dose: 10 meq Documented By: JORDAN Sacubitril/Valsartan (Sacubitril/Valsartan 97/103 1 Tab Tablet) 1 tab PO BID [facility]; Protocol On Hold: 11/14/24 11:09 Last Admin: 11/14/24 09:34 Dose: 1 tab Documented By: BUCKLEA Senna (Sennosides 8.6 Mg Tablet) 17.2 mg PO BEDTIME [facility] Last Admin: 11/15/24 20:16 Dose: 17.2 mg Documented By: JOSE ANTONIO Sodium Chloride (0.9 % Sodium Chloride Flush 3 Ml Syringe) 3 ml IVFLUSH QSHIFT [facility] Last Admin: 11/16/24 08:05 Dose: 3 ml Documented By: JORDAN Tolterodine Tartrate (Tolterodine Tartrate La 4 Mg Cap.Er.24h) 4 mg PO BID [facility] Last Admin: 11/16/24 08:05 Dose: 4 mg Documented By: JORDAN Labs 11/16/24 09:40 11/16/24 09:40 Labs: Laboratory Results - last 24 hr 11/15/24 11/15/24 11/15/24 11:40 11:49 16:04 PT 14.1 H INR 1.2 H aPTT Heparin Protocol 38.3 L Anion Gap Estim Creat Clear Calc Estimated GFR POC Glucose 116 H 110 Random Glucose Calcium Blood Type AB Negative Antibody Screen NEGATIVE 11/15/24 11/15/24 11/16/24 18:50 21:08 00:32 PT INR aPTT Heparin Protocol 62.1 D 64.9 Anion Gap Estim Creat Clear Calc Estimated GFR POC Glucose 128 H Random Glucose Calcium Blood Type Antibody Screen 11/16/24 11/16/24 11/16/24 07:11 07:28 09:40 PT INR aPTT Heparin Protocol 78.8 H D Anion Gap 14 Estim Creat Clear Calc 38.2 Estimated GFR 38 POC Glucose 118 H Random Glucose 112 Calcium 8.4 D Blood Type Antibody Screen Microbiology Microbiology Results: Microbiology 11/14/24 12:27 Gram Stain - Final Thoracentesis Fluid Anaerobic Culture - Preliminary No growth to date. Body Fluid Culture - Final No growth after 2 days 11/13/24 20:35 Blood Culture - Preliminary Blood - Venous No growth after 48 hours. 11/13/24 20:35 Blood Culture - Preliminary Blood - Venous No growth after 48 hours. 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 Left pleural effusion -unclear etiology Plan for IR - fluid seems 1.3 liter removed on11/14/24. Hemodynamics stable, moniter Telemetry and continuous pulse ox.ct chest: Repeated after thoracentesis:Concerning loculated empyema versus hemothorax, left side. 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 Episode of generalized weakness/lethargy: Improved quickly, no new episodes CTA head-No acute intracranial hemorrhage.Extensive white matter disease likely related to small vessel occlusive disease. Superimposed acute nonhemorrhagic ischemia right frontal lobe cannot be excluded. mri-pending hold eliquis switched to iv heparin,moniter bp closely neurology-no new rec , no cva Hypertension : continue home meds Low-salt diet Chf ch(Hfp EF): euvolemic Daily weights, strict I's and O's, fluid allowance 1500 Echo :The left ventricular systolic function is hyperdynamic. The visually estimated ejection fraction is >70%. - The aortic valve was not well visualized. Based on gradients, no more than [id number] aortic stenosis. hold lasix CKD Creatinine 1.7 Patient follows with pool table operator in the outpatient setting Avoid hypotension and nephrotoxic medications BMP daily ua-no urinary c/o ,no need ua needed. added renal us. ch. AFIB History of AFib currently in sinus rhythm Hold Eliquis -due to hemorrhagic pleural effusion-will switch to iv heaprin and moniter . Continue telemetry DVT prophylaxis:iv heaprin ongoing need :Left pleural effusion -unclear etiology-still symptomatic , pleural labs pending , need iv heparin/pt/ptt monitering Quality Stroke Does the patient have a stroke diagnosis?: No Reason for No Anti-thrombotic by Day Two: Contraindicated VTE Prior VTE?: No VTE Risk Level:: Medical - moderate - high VTE Device Contraindication: N/A - Device Ordered VTE Drug Contraindication: N/A - Med Ordered
[2024-11-16 11:20] LABS: Glucose, Whole Blood 116 mg/dL (60-115)
[2024-11-16] MEDS: Heparin Sodium,Porcine/1/2NS 25,000 UNIT/250 ML IV.SOLN 8 UNIT IVCONT (12:26)
[2024-11-16 14:16] LABS: PTT Heparin Drip 56.2 SEC (53-77.9)
[2024-11-16 16:19] LABS: Glucose, Whole Blood 112 mg/dL (60-115)
[2024-11-16 20:20] LABS: PTT Heparin Drip 51.9 SEC (53-77.9)
[2024-11-16 20:53] LABS: Glucose, Whole Blood 141 mg/dL (60-115)
[2024-11-17] VITALS (7 sets, daily range): BP systolic 130–176; BP diastolic 71–86; PULSE 73–86; RESP 16–20; TEMP 36.3–36.9; O2SAT 95–97
[2024-11-17 03:33] LABS: PTT Heparin Drip 131.0 SEC (53-77.9)
[2024-11-17 05:18] LABS: PTT Heparin Drip 45.7 SEC (53-77.9)
--- NOTE | 2024-11-17 07:22 | PC.NURSE ---
0332 aPTT 131 received as a critical result via tiger. Heparin drip titrated per protocol. Next aPTT order placed to be drawn at 0345 which did not result until 0459. Result obtained was 45.7 which was discussed with pharmacy. Pharmacy recommenced to stick to protocol. Heparin gtt was restarted at 6units/kg/hr and next aPTT order put in for 1134 stat per protocol.
[2024-11-17 07:24] LABS: Albumin Pleural Fluid 2.8
[2024-11-17 07:31] LABS: Glucose, Whole Blood 104 mg/dL (60-115)
[2024-11-17] MEDS: Lidocaine 4 % Patch ADH..PATCH 2 PATCH TRANSDERMA (08:03)
[2024-11-17] MEDS: Potassium Chloride ER 10 MEQ TABLET.ER PO (08:06)
[2024-11-17] MEDS: Metoprolol Succinate ER 100 MG TAB.ER.24H PO (08:06)
[2024-11-17 09:11] LABS: Hematocrit 41.9 % (42.0-52.0); Hemoglobin 13.8 g/dl (14.0-18.0)
[2024-11-17 09:29] LABS: Anion Gap 15 (12-20); Blood Urea Nitrogen 28 mg/dL (9-16); Calcium 8.6 mg/dL (8.4-10.2); Carbon Dioxide 26 mmol/L (22-29); Chloride 106 mmol/L (96-108); Creatinine Clr Calc Pharmacy 40.3; Estimated Glomerular Filt Rate 40; Potassium 3.1 mmol/L (3.3-5.1); Sodium 144 mmol/L (135-145)
--- NOTE | 2024-11-17 11:22 | MHC.SLORD ---
Speech Language Pathology Order Status: RN consulted, pt is tolerating diet, pt denies dysphagia other than avoiding eating rice and corn flakes. Pt and provided with education, recc to contact PCP if dysphagia occurs in the future. [employer]IST texted MD, swallow evaluation not needed, order d/c'd.
[2024-11-17 11:39] LABS: Glucose, Whole Blood 141 mg/dL (60-115)
--- NOTE | 2024-11-17 12:33 | P.PNNP_ITS ---
Subjective Subjective Date of Service: 11/17/24 Interval history: 84 y/o male with HFrEF, HTN, GERD, [place], CAD, pleural effusion, CKD, inguinal hernia, gastric bypass. Presented to ED due to weakness and shortness of breath x2 weeks. Nephrology consulted for CKD, pleural effusion malignant- might need IV contrast imaging Creatinine between 1.4-1.8. Today is within baseline at 1.66. GFR 31-40. does have some mild proteinuria on UA. patient reports breathing has improved since thoracentesis (1.3L of hemorrhagic fluid removed on 11/14). He states he was drinking 2 gallons of water daily for the last few weeks due to excessive thirst- states side effects of some of his medications dries his mouth out. He is making urine. He denies other new concerns/complaints at this time. Physical Exam 2 Vital Signs: Vital Signs: Last Vital Signs Temp 97.9 F 11/17/24 12:00 Pulse 85 11/17/24 12:00 Resp 18 11/17/24 12:00 BP 170/86 H 11/17/24 12:00 Pulse Ox 96 11/17/24 12:00 O2 Del Method Room Air 11/17/24 12:00 BMI result Body Mass Index 30.7 Const: General: no acute distress, alert and awake Resp: Effort & Inspection: normal respiratory effort and able to speak in complete sentences Auscultation: clear to auscultation bilaterally (anterior lung sounds clear.) Cardio: Rate: regular rate Rhythm: regular rhythm Heart sounds: S1 normal heart sound present and S2 normal heart sound present GI: Palpation (GI): Soft to palpation and nontender Skin: Rashes: no rashes Extrem: General: No edema Objective Data Labs 11/17/24 08:21 11/17/24 08:21 Labs: Laboratory Results - last 24 hr 11/14/24 11/16/24 11/16/24 12:27 13:49 15:50 Hgb Hct aPTT Heparin Protocol 56.2 D Sodium Potassium Chloride Carbon Dioxide Anion Gap BUN Creatinine Estim Creat Clear Calc Estimated GFR POC Glucose 112 Random Glucose Calcium Pleural pH 7.46 Pleural Total Protein 5.1 Pleural Albumin 2.8 Pleural LDH 255 Pleural Glucose 97 Pleural Amylase 37 11/16/24 11/16/24 11/17/24 19:52 20:49 02:48 Hgb Hct aPTT Heparin Protocol 51.9 L 131.0 H* D Sodium Potassium Chloride Carbon Dioxide Anion Gap BUN Creatinine Estim Creat Clear Calc Estimated GFR POC Glucose 141 H Random Glucose Calcium Pleural pH Pleural Total Protein Pleural Albumin Pleural LDH Pleural Glucose Pleural Amylase 11/17/24 11/17/24 11/17/24 04:59 07:27 08:21 Hgb 13.8 L Hct 41.9 L aPTT Heparin Protocol 45.7 L D Sodium 144 Potassium 3.1 L Chloride 106 Carbon Dioxide 26 Anion Gap 15 BUN 28 H Creatinine 1.64 H Estim Creat Clear Calc 40.3 Estimated GFR 40 POC Glucose 104 Random Glucose 107 Calcium 8.6 Pleural pH Pleural Total Protein Pleural Albumin Pleural LDH Pleural Glucose Pleural Amylase 11/17/24 11:35 Hgb Hct aPTT Heparin Protocol Sodium Potassium Chloride Carbon Dioxide Anion Gap BUN Creatinine Estim Creat Clear Calc Estimated GFR POC Glucose 141 H Random Glucose Calcium Pleural pH Pleural Total Protein Pleural Albumin Pleural LDH Pleural Glucose Pleural Amylase Microbiology Microbiology Results: Microbiology 11/14/24 12:27 Pleura Fungal Identification - Preliminary No growth to date. 11/14/24 12:27 Thoracentesis Fluid Gram Stain - Final 11/14/24 12:27 Thoracentesis Fluid Anaerobic Culture - Preliminary No growth to date. 11/14/24 12:27 Thoracentesis Fluid Body Fluid Culture - Final No growth after 2 days 11/13/24 20:35 Blood - Venous Blood Culture - Preliminary No growth after 48 hours. 11/13/24 20:35 Blood - Venous Blood Culture - Preliminary No growth after 48 hours. Procedures Date of Service Date of Service: 11/17/24 Assessment & Plan Assessment and plan (1) CKD (chronic kidney disease) stage 3, GFR 30-59 ml/min: Status: Acute Plan Patient with CKD3b Would recommend weighing risks vs benefits of imaging study with contrast as patient is at high risk for contrast nephropathy. Recommend avoiding nephrotoxins continue supportive care patient is ok for discharge from a renal standpoint. May continue current diuretic regimen as creatinine remains stable. Discussed with Dr Pearl. Time Spent With Patient Time: Total time managing care of this patient today ____ minutes. Progress Note: Quality Stroke Does the patient have a stroke diagnosis?: No Reason for No Anti-thrombotic by Day Two: Contraindicated
--- NOTE | 2024-11-17 13:07 | HO.PM.IMPN ---
Subjective Subjective Date of Service: 11/17/24 Interval History: pleural effusiion Review of Systems sob seems improving no new symptoms Physical Exam Exam: Exam: Appearance: Alert.? Oriented X3. cvs: [id number], [id number]. res: air entry diminshed left sided >right. abd: no rebound or guarding ,nt, bs present. ext pulses present , no cyanosis . neuro: axo3 , moves all ext. Vital Signs: Vital Signs: Last Vital Signs Temp 97.9 F 11/17/24 12:00 Pulse 85 11/17/24 12:00 Resp 18 11/17/24 12:00 BP 170/86 H 11/17/24 12:00 Pulse Ox 96 11/17/24 12:00 O2 Del Method Room Air 11/17/24 12:00 BMI result Body Mass Index 30.7 Objective Data Active Medications Acetaminophen (Acetaminophen 325 Mg Tablet) 975 mg PO Q6H PRN PRN Reason: Pain, Mild 1-3,fever,headache Last Admin: 11/17/24 08:04 Dose: 975 mg Documented By: DEL Albuterol/Ipratropium (Albuterol/Iprat 2.5/0.5mg 3 Ml Ampul.Neb) 3 ml INHALE Q4H PRN PRN Reason: Shortness of Breath/Wheezing Amlodipine Besylate (Amlodipine Besylate 2.5 Mg Tablet) 2.5 mg PO DAILY [facility]; Protocol Last Admin: 11/17/24 08:06 Dose: 2.5 mg Documented By: DEL Calcium Carbonate (Calcium Carbonate 750 Mg Tab.Chew) 750 mg PO Q4H PRN PRN Reason: Heartburn Dextrose (Dextrose 50 % 25 Gm/50 Ml Syringe) 25 gm IVPUSH Q15M PRN; Protocol PRN Reason: per Hypoglycemia Standing Ord. Diazepam (Diazepam 5 Mg Tablet) 10 mg PO BEDTIME [facility] Last Admin: 11/16/24 20:53 Dose: 10 mg Documented By: JANET Empagliflozin (Empagliflozin 10 Mg Tablet) 10 mg PO DAILY [facility] On Hold: 11/17/24 13:05 Last Admin: 11/17/24 08:06 Dose: 10 mg Documented By: DEL Furosemide (Furosemide 20 Mg Tablet) 20 mg PO DAILY [facility]; Protocol Last Admin: 11/15/24 08:36 Dose: 20 mg Documented By: VERONICA Gabapentin (Gabapentin 100 Mg Capsule) 200 mg PO TID [facility] On Hold: 11/14/24 11:04 Last Admin: 11/14/24 09:34 Dose: 200 mg Documented By: DISHA Glucose (Glucose Gel 15 Gm Gel..Gram.) 15 gm PO Q15M PRN; Protocol PRN Reason: per Hypoglycemia Standing Ord. Heparin Sodium (Porcine) (Heparin Sodium,Porcine 5,000 Unit/Ml Vial) 4,000 unit 40 unit/kg (4000 unit) IVPUSH PROTOCOL BOLUS PRN; Protocol PRN Reason: 40 unit/kg - Heparin Protocol Last Admin: 11/16/24 20:41 Dose: 4,000 unit Documented By: JANET Heparin Sodium (Porcine) (Heparin Sodium,Porcine 5,000 Unit/Ml Vial) 8,000 unit 80 unit/kg (8000 unit) IVPUSH PROTOCOL BOLUS PRN; Protocol PRN Reason: 80 unit/kg - Heparin Protocol Hydralazine HCl (Hydralazine Hcl 20 Mg/Ml Vial) 10 mg IVPUSH Q6H PRN; Protocol PRN Reason: SBP > 160 Last Admin: 11/16/24 15:55 Dose: 10 mg Documented By: JORDAN Ampicillin Sodium/Sulbactam (Sodium 3 gm/ Sodium Chloride) 100 mls @ 200 mls/hr IV Q6H [facility] Last Infusion: 11/17/24 08:37 Dose: Infused Documented By: DEL Insulin Human Lispro (Insulin Lispro 100 Unit/Ml 3 Ml Vial) [address] [facility]; Protocol Last Admin: 11/17/24 11:43 Dose: Not Given Documented By: DEL Non-Admin Reason: No Insulin Coverage Lidocaine (Lidocaine 4 % Patch Adh..Patch) [address] [facility]; Protocol Last Admin: 11/17/24 08:03 Dose: 2 patch Documented By: DEL Magnesium Hydroxide (Milk Of Magnesia 30 Ml Oral.Susp) 30 ml PO DAILY PRN PRN Reason: Constipation Melatonin (Melatonin 3 Mg Tablet) 6 mg PO BEDTIME PRN PRN Reason: Insomnia Metoprolol Succinate (Metoprolol Succinate Er 100 Mg Tab.Er.24h) [address] [facility]; Protocol Last Admin: 11/17/24 08:06 Dose: 100 mg Documented By: DEL Multivitamins/Vitamin C (Multivitamin Tablet) [address] [facility] Last Admin: 11/17/24 08:06 Dose: 1 tab Documented By: DEL Non-Formulary Medication (Cyclosporine [Restasis]) 1 drop EYE-BOTH Q12H [facility] Ondansetron HCl (Ondansetron Hcl 4 Mg/2 Ml Vial) 4 mg IVPUSH Q8H PRN PRN Reason: Nausea and Vomiting Polyethylene Glycol (Polyethylene Glycol 3350 17 Gm Powd.Pack) 17 gm PO DAILY PRN PRN Reason: Constipation Potassium Chloride (Potassium Chloride Er 10 Meq Tablet.Er) [address] [facility] Last Admin: 11/17/24 08:06 Dose: 10 meq Documented By: DEL Sacubitril/Valsartan (Sacubitril/Valsartan 97/103 1 Tab Tablet) [address] [facility]; Protocol On Hold: 11/14/24 11:09 Last Admin: 11/14/24 09:34 Dose: 1 tab Documented By: DISHA Senna (Sennosides 8.6 Mg Tablet) 17.[address] [facility] Last Admin: 11/16/24 19:59 Dose: 17.2 mg Documented By: JANET Sodium Chloride (0.9 % Sodium Chloride Flush 3 Ml Syringe) [address] [facility] Last Admin: 11/17/24 08:06 Dose: Not Given Documented By: DEL Non-Admin Reason: IV Running Tolterodine Tartrate (Tolterodine Tartrate La 4 Mg Cap.Er.24h) [address] [facility] Last Admin: 11/17/24 08:06 Dose: 4 mg Documented By: DEL Labs 11/17/24 08:21 11/17/24 08:21 Labs: Laboratory Results - last 24 hr 11/14/24 11/16/24 11/16/24 12:27 13:49 15:50 aPTT Heparin Protocol 56.2 D Anion Gap Estim Creat Clear Calc Estimated GFR POC Glucose 112 Random Glucose Calcium Pleural pH 7.46 Pleural Total Protein 5.1 Pleural Albumin 2.8 Pleural LDH 255 Pleural Glucose 97 Pleural Amylase 37 11/16/24 11/16/24 11/17/24 19:52 20:49 02:48 aPTT Heparin Protocol 51.9 L 131.0 H* D Anion Gap Estim Creat Clear Calc Estimated GFR POC Glucose 141 H Random Glucose Calcium Pleural pH Pleural Total Protein Pleural Albumin Pleural LDH Pleural Glucose Pleural Amylase 11/17/24 11/17/24 11/17/24 04:59 07:27 08:21 aPTT Heparin Protocol 45.7 L D Anion Gap 15 Estim Creat Clear Calc 40.3 Estimated GFR 40 POC Glucose 104 Random Glucose 107 Calcium 8.6 Pleural pH Pleural Total Protein Pleural Albumin Pleural LDH Pleural Glucose Pleural Amylase 11/17/24 11:35 aPTT Heparin Protocol Anion Gap Estim Creat Clear Calc Estimated GFR POC Glucose 141 H Random Glucose Calcium Pleural pH Pleural Total Protein Pleural Albumin Pleural LDH Pleural Glucose Pleural Amylase Microbiology Microbiology Results: Microbiology 11/14/24 12:27 Fungal Identification - Preliminary Pleura No growth to date. 11/14/24 12:27 Gram Stain - Final Thoracentesis Fluid Anaerobic Culture - Preliminary No growth to date. 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 Left pleural effusion -unclear etiology Plan for IR - fluid seems 1.3 liter removed on11/14/24. Hemodynamics stable, moniter Telemetry and continuous pulse ox.ct chest: Repeated after thoracentesis:Concerning loculated empyema versus hemothorax, left side. 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 Episode of generalized weakness/lethargy: Improved quickly, no new episodes CTA head-No acute intracranial hemorrhage.Extensive white matter disease likely related to small vessel occlusive disease. Superimposed acute nonhemorrhagic ischemia right frontal lobe cannot be excluded. mri-negative ,moniter bp closely neurology-no new rec , no cva switched to eliquis Hypertension : continue home meds Low-salt diet Chf ch(Hfp EF): euvolemic Daily weights, strict I's and O's, fluid allowance 1500 Echo :The left ventricular systolic function is hyperdynamic. The visually estimated ejection fraction is >70%. - The aortic valve was not well visualized. Based on gradients, no more than [id number] aortic stenosis. 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 added renal us. ch. AFIB History of AFib currently in sinus rhythm continue eliquis and moniter . Continue telemetry DVT prophylaxis:eliquis. ongoing need :Left pleural effusion -unclear etiology-still symptomatic , pleural labs pending ,moniter 24 hours on eliquis -if no new symptoms ,plan dispo. Quality Stroke Does the patient have a stroke diagnosis?: No Reason for No Anti-thrombotic by Day Two: Contraindicated VTE Prior VTE?: No VTE Risk Level:: Medical - moderate - high VTE Device Contraindication: N/A - Device Ordered VTE Drug Contraindication: N/A - Med Ordered
[2024-11-17] MEDS: Potassium Chloride ER 20 MEQ TAB.ER.PRT PO (14:27)
[2024-11-17] MEDS: 0.9 % Sodium Chloride Flush 3 ML SYRINGE IVFLUSH ×2 (14:34→23:40)
[2024-11-17 14:37] LABS: Magnesium 2.5 mg/dL (1.6-2.6)
[2024-11-17 16:15] LABS: Glucose, Whole Blood 111 mg/dL (60-115)
--- NOTE | 2024-11-17 16:45 | MHC.CM.PN ---
Per MD rounds no discharge today. Heparin stopped, Eliquis restarted.
[2024-11-17 19:47] LABS: Glucose, Whole Blood 133 mg/dL (60-115)
[2024-11-18 03:24] VITALS: BP 148/72; PULSE 65; RESP 16; TEMP 36.2; O2SAT 93
[2024-11-18 07:17] LABS: Glucose, Whole Blood 106 mg/dL (60-115)
[2024-11-18 07:36] VITALS: BP 186/82; PULSE 78; RESP 18; TEMP 36.4; O2SAT 97
[2024-11-18 08:10] LABS: Hematocrit 38.6 % (42.0-52.0); Hemoglobin 12.9 g/dl (14.0-18.0)
[2024-11-18 08:29] LABS: Anion Gap 14 (12-20); Blood Urea Nitrogen 28 mg/dL (9-16); Calcium 8.5 mg/dL (8.4-10.2); Carbon Dioxide 27 mmol/L (22-29); Chloride 106 mmol/L (96-108); Creatinine Clr Calc Pharmacy 40.3; Estimated Glomerular Filt Rate 40; Potassium 3.4 mmol/L (3.3-5.1); Sodium 144 mmol/L (135-145)
[2024-11-18] MEDS: Lidocaine 4 % Patch ADH..PATCH 2 PATCH TRANSDERMA (08:44)
[2024-11-18] MEDS: 0.9 % Sodium Chloride Flush 3 ML SYRINGE IVFLUSH (08:44)
[2024-11-18] MEDS: Potassium Chloride ER 10 MEQ TABLET.ER PO (08:48)
[2024-11-18] MEDS: Metoprolol Succinate ER 100 MG TAB.ER.24H PO (08:48)
[2024-11-18] MEDS: Sacubitril/Valsartan 97/103 1 TAB TABLET PO (08:48)
[2024-11-18 10:00] VITALS: BP 144/68
[2024-11-18 11:08] LABS: Glucose, Whole Blood 121 mg/dL (60-115)
[2024-11-18 11:52] VITALS: BP 140/74; PULSE 86; RESP 18; TEMP 36.3; O2SAT 96
--- NOTE | 2024-11-18 14:30 | P.DS_ITS ---
DS: Providers Provider Date of Service: 11/18/24 Date of admission: 11/13/24 18:20 Date of discharge: 11/18/24 Primary care physician: Kane Plunkett MD Consults: 11/13/24 20:03 Consult to Pulmonology Routine Consulting Provider: [facility] Reason for consultation: L sided parapneumic effusion, empyema Has provider been notified: No 11/14/24 10:00 Consult to Nephrology Routine Consulting Provider: [facility] Reason for consultation: Ckd , pleural effusion malignant - might need iv contrast imaging Has provider been notified: No 11/14/24 16:29 Consult to Neurology Routine Consulting Provider: [facility] Reason for consultation: possible cva Attending physician on discharge: Rodrigo Bryan Discharging clinician: Rodrigo Bryan DS: Diagnosis Discharge Diagnosis (1) Hypertension: Status: Acute (2) Pleural effusion, left: Status: Acute DS: Summary Hospital Course Hospital Course: HPI:84 yo male with PMH HFrEF, , hypertension, GERD, MA, CAD, pleural effusion, chronic kidney disease, inguinal hernia status post repair, back disease with back surgical history, left knee replacement, gastric bypass, left collar bone removed presents to the emergency department from his personalized living manager nurse outpatient appointment for concerns of diminished lung sounds with generalized weakness and shortness of breath with the chest heaviness that has been persisting over the last 2 weeks. Patient states he can not understand why his health has declined since last summer when he had an MA. Patient denies hx of PCI or open heart surgery. Patient states that he understands he has heart failure but does not understand how heart failure can cause some of the symptoms he has been having overall.Patient's takes care of all of his medications and patient has no insight into the medications and indications. Patient is on a blood thinner and patient denies any recent fall. But patient he has a checklist of goals to include gardening and mowing the lawn outside but by the time he tries to get into the house he is so weak that he feels like he is going to pass out. Patient denies any actual syncopal episodes or fainting spells. Patient has been drinking at least a gallon of water per day and patient complains of dry mouth which prompted him to drink more fluid. Patient is a nonsmoker and does not use oxygen at home. Workup though in the ED included a CT of the chest that identified a left parapneumonic effusion with possible empyema. Chest x-ray identified a moderate left pleural effusion which was possibly secondary to his CHF. Patient currently is on room air and denies chest pain but has continuous left-sided chest heaviness. Troponin is negative, BNP is 299. Dr. Marie is aware of patient from and plans to perform a thoracentesis in the a.m.. Hospital course: Pleural effusion-unclear etiology, status post thoracentesis-removed 1.3 L hemorrhagic fluid. His breathing seems to be improved, pleuritic fluid was as you know was lymphocytic predominance, his cultures from regular pleural fluid negative, AFP pending, blood culture negative ,fungal culture also preliminary from the fluid is also negative. echo seems fine , spoke to pathology : hemorrhagic with few atypical cells ( they will not have final report until tomorrow) -does not look like empyema ,so stopped antibiotics , i was thinking planning dispo-should we wait until final report of cytology . Patient is to follow-up out patiently with PCP and Pulmonary for further management as well as follow-up with pathology report outpatient, patient was taken off antibiotics since less likely pneumonia. echo also seems fine(please see imaging section below.) Patient is on Eliquis due to AFib: Initially was given IV heparin after the pleural tap because of hemorrhagic fluid subsequently monitor on IV heparin no new symptoms, H&H stable 12.9/38.6. Discussed with the Pulmonary switched back to p.o. Eliquis. Episode of generalized weakness/lethargy:Improved quickly, no new episodes . CTA head-No acute intracranial hemorrhage.Extensive white matter disease likely related to small vessel occlusive disease. Superimposed acute nonhemorrhagic ischemia right frontal lobe cannot be excluded, mri negative : patient is asymptomatic, as per patient's he always take nap during the afternoon time so he gets little sleepy that time. CKD: Seen by Nephrology currently recommended to continue home medications including Entresto Lasix, monitor BMP outpatient. Incidental finding monitor renal ultrasound-has bilateral renal cyst(please see detailed report below in imaging section)-also need outpatient follow up with Nephro for that. Avoid nephrotoxic medications. plan: Follow-up with the pleural fluid cytology results out patiently with PCP and Pulmonary. Follow up with Pulmonary office. Monitor renal function electrolytes outpatient and follow-up with Nephrology outpatient. If any new symptoms including shortness of breaths chest pain or any new symptoms go to nearest emergency room for further evaluation. Patient and her his -both refused for SNf as well as home services. Of note: Patient is otherwise walking better per staff. Assessment plan coordination time spent 45 minute. Plan is discussed with patient and his in detail length. All questions answered. Staff was present during conversation including the case management. Time Attestation Total time managing care of this patient today: 45 mintues. Discharge Coordination Time (in mins): 45 min Quality: Safe Use of Opioids Does Pt have an Active Cancer Diagnosis on the Problem List?: No Quality: Stroke Does the patient have a stroke diagnosis?: No Physical Exam Exam: Exam: Appearance: Alert.? Oriented X3. cvs: rrr, [id number]. res: air entry improving ,but somewhat diminshed at left base. abd: no rebound or guarding ,nt, bs present. ext pulses present , no cyanosis . neuro: axo3 , moves all ext. Vital Signs: Vital Signs: Last Vital Signs Temp 97.4 F 11/18/24 11:52 Pulse 86 11/18/24 11:52 Resp 18 11/18/24 11:52 BP 140/74 H 11/18/24 11:52 Pulse Ox 96 11/18/24 11:52 O2 Del Method Room Air 11/18/24 11:52 BMI result Body Mass Index 30.7 DS: Data Data Completed and Pending Pending studies at discharge: Pending at discharge 11/14/24 10:52 Cytology [PTH] Routine Labs on day of discharge: Laboratory Results - last 24 hr 11/17/24 11/17/24 11/17/24 08:21 16:10 19:42 Hgb Hct Sodium Potassium Chloride Carbon Dioxide Anion Gap BUN Creatinine Estim Creat Clear Calc Estimated GFR POC Glucose 111 133 H Random Glucose Calcium Magnesium 2.5 11/18/24 11/18/24 11/18/24 07:11 07:51 11:04 Hgb 12.9 L Hct 38.6 L Sodium 144 Potassium 3.4 Chloride 106 Carbon Dioxide 27 Anion Gap 14 BUN 28 H Creatinine 1.64 H Estim Creat Clear Calc 40.3 Estimated GFR 40 POC Glucose 106 121 H Random Glucose 114 Calcium 8.5 Magnesium Preliminary micro results at discharge 11/14/24 12:27 Anaerobic Culture - Preliminary Thoracentesis Fluid No growth to date. 11/14/24 12:27 Fungal Identification - Preliminary Pleura No growth to date. 11/13/24 20:35 Blood Culture - Preliminary Blood - Venous No growth after 48 hours. 11/13/24 20:35 Blood Culture - Preliminary Blood - Venous No growth after 48 hours. Imaging Chest x-ray: Radiologist's impression: ITS Impressions Chest CT 11/14/24 09:00 IMPRESSION: Concerning loculated empyema versus hemothorax, left side. Compression atelectasis versus pneumonia, left lung base. 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 Electronically signed by: Jhoan Espinosa MD 11/14/2024 10:36 AM EDT RP Head CT 11/14/24 09:00 IMPRESSION: No acute intracranial hemorrhage. Extensive white matter disease likely related to small vessel occlusive disease. Superimposed acute nonhemorrhagic ischemia right frontal lobe cannot be excluded. Global cerebral atrophy. Electronically signed by: Jhoan Espinosa MD 11/14/2024 10:21 AM EDT RP Thoracentesis Ultrasound 11/14/24 09:25 IMPRESSION: Successful ultrasound-guided left thoracentesis performed without immediate complications. Electronically signed by: Natan Brady MD 11/14/2024 10:39 AM EDT RP Renal Ultrasound 11/16/24 10:00 IMPRESSION: 1. Bilateral renal cortical thinning. 2. 4.6 x 5.8 x 4.7 cm right lower pole renal cyst. 3. 1.9 x 1.5 x 1.5 cm possible cyst at the upper pole of the left kidney. Follow-up is recommended. echo: Conclusions: - The left ventricular systolic function is hyperdynamic. The visually estimated ejection fraction is >70%. - The aortic valve was not well visualized. Based on gradients, no more than kdlz-is-mcilnrop aortic stenosis Discharge Plan Discharge Anticipated Discharge Date/Time: 11/18/24 14:15 Patient Disposition: Home, Self-Care Discharge Diagnosis: pleural effusion haemorragic unclear etiology Referrals: Franklyn Pearl MD [Physician, Nephrology] - 1 Week Antonio Douglas MD [Physician, Pulmonology] - 1 Week Kane Plunkett MD [Primary Care Provider, Internal Medicine] - 1 Week Discharge Medications: New lidocaine [Lidocaine Pain Relief] 4 % Adhesive Patch,Medicated 2 patch transdermal DAILY Qty: 20 0RF Protocol: Apply to: Apply to: Affected area Continued gabapentin 100 mg capsule 200 mg PO TID 90 Days Qty: 540 0RF diazepam 5 mg tablet 10 mg PO BEDTIME Qty: 60 0RF metoprolol succinate 50 mg tablet extended release 24 hr 100 mg PO DAILY Qty: 90 0RF (DME) blood-glucose meter [Accu-Chek Guide Me Glucose Mtr] Misc See Rx Instructions .Route Qty: 1 0RF Rx Instructions: As directed- daily (DME) Accu-Chek Guide test strips Strip See Rx Instructions .Route Qty: 100 0RF Rx Instructions: As directed- daily (DME) lancets [Accu-Chek Softclix Lancets] Misc See Rx Instructions .Route Qty: 100 0RF Rx Instructions: As directed- daily tramadol 50 mg tablet 50 mg PO Q8H 30 Days Qty: 90 0RF ciclopirox 0.77 % cream 1 appl topical BID Rx Instructions: APPLY ONE APPLICATION EXTERNAL TWICE A DAY TO SKIN OF FEET INCLUDING BETWEEN THE TOES cyclosporine [Restasis] 0.05 % Dropperette 1 drp OPHTHALMIC (EYE) Q12H Rx Instructions: Both Eyes PreserVision AREDS 2,148 mcg-113 mg-45 mg-17.4mg Tablet 1 tab PO BID Rx Instructions: administer with AM and PM meals tolterodine 4 mg capsule,extended release 24hr 4 mg PO BID triamcinolone acetonide 0.025 % lotion 1 appl topical BID potassium chloride 10 mEq tablet extended release 10 meq PO DAILY (DME) OneTouch Ultra Test Strip See Rx Instructions .ROUTE DAILY Qty: 10 Rx Instructions: As directed aspirin 81 mg tablet 81 mg PO DAILY (DME) lancets [OneTouch UltraSoft 2 Lancet] 30 gauge misc See Rx Instructions .ROUTE DAILY Qty: 100 Rx Instructions: As directed Eliquis 2.5 mg tablet 2.5 mg PO BID dapagliflozin propanediol [Farxiga] 10 mg tablet 10 mg PO DAILY Entresto 97-103 mg tablet 1 tab PO BID furosemide 20 mg tablet 20 mg PO DAILY Discharge Orders: Discharge Order (Routine); Ordered 11/18/24 Ordered By: Rodrigo Bryan Diet: Advance to usual diet Activity on Discharge: As tolerated Stand Alone Forms: Patient Portal Discharge page Print Language: Arabic Other Ambulatory Orders: Basic Metabolic Panel (Routine) Timeframe: 1 Week Facility: [facility] - Location: Laboratory Ordered By: Rodrigo Bryan Complete Blood Count no Diff (Routine) Timeframe: 1 Week Facility: [facility] - Location: Laboratory Ordered By: Rodrigo Bryan Care Plan Goals: as below. Health Concerns: As above. Plan of Treatment: Follow-up with the pleural fluid cytology results out patiently with PCP and Pulmonary. Follow up with Pulmonary office. Monitor renal function electrolytes outpatient and follow-up with Nephrology outpatient. If any new symptoms including shortness of breaths chest pain or any new symptoms go to nearest emergency room for further evaluation. Assessment: As above. Discharge Date/Time: 11/18/24 15:25
--- NOTE | 2024-11-18 14:43 | MHC.CM.PN ---
IMM 11/18/24 Patient is discharged to home today self care. His will provide transportation home.
[2024-11-19 18:22] LABS: Adenosine Deaminase Peritonl F 37.0 U/L (<7.6)
== END 2024-11-18 15:25 | disposition home or self-care (01) | DRG 187 ==
LOC: HO.ED 17:22 → HO.EDOVER 19:09 → HO.IMC 11-14 18:24
PROVIDERS: Nurse Practitioner Family; Physician Assistant; Registered Nurse Emergency; Student in an Organized Health Care Education/Training Program; Admitting Provider Internal Medicine; Emergency Provider Emergency Medicine; PCP Internal Medicine; Visit Provider Internal Medicine
DX: J90 Pleural effusion, not elsewhere classified (principal); I13.0 Hypertensive heart and chronic kidney disease with heart failure and stage 1 through stage 4 chronic kidney disease, or unspecified chronic kidney disease; I50.22 Chronic systolic (congestive) heart failure; I48.20 Chronic atrial fibrillation, unspecified; J98.11 Atelectasis; N18.30 Chronic kidney disease, stage 3 unspecified; I25.10 Atherosclerotic heart disease of native coronary artery without angina pectoris; Z98.84 Bariatric surgery status; Z20.822 Contact with and (suspected) exposure to COVID-19; Z79.01 Long term (current) use of anticoagulants; Z79.82 Long term (current) use of aspirin; Z79.899 Other long term (current) drug therapy
CPT/HCPCS: 32555; 36415; 70450; 70551; 71045; 71250; 76775; 80048; 80053; 82042; 82150; 82945; 82947; 83605; 83615; 83735; 83880; 83986; 84157; 84311; 84484; 85014; 85018; 85025; 85610; 85730; 86850; 86900; 86901; 87040; 87070; 87073; 87102; 87116; 87205; 87206; 87637; 88112; 88305; 88341; 88342; 89051; 93005; 93306; 97162; 97530; 99222; 99285; J0295; J0360; J1644; J2003; Q9957

== ENCOUNTER → 2024-11-13 16:48 | Outpatient (BNV) | payer MEDICARE, SELFPAY | PROVIDERS: Admitting Provider Internal Medicine; Emergency Provider Emergency Medicine; PCP Internal Medicine; Visit Provider Internal Medicine | DX: R94.31 Abnormal electrocardiogram [ECG] [EKG] (principal); R06.00 Dyspnea, unspecified | CPT/HCPCS: 93010 ==

== ENCOUNTER 2024-11-13 18:20 | Outpatient (BNV) | payer MEDICARE, SELFPAY | END 2024-11-15 11:00 | PROVIDERS: Admitting Provider Internal Medicine; Emergency Provider Emergency Medicine; PCP Internal Medicine; Visit Provider Radiology Diagnostic Radiology | DX: J90 Pleural effusion, not elsewhere classified (principal) | CPT/HCPCS: 71045 ==

== ENCOUNTER 2024-11-13 18:20 | Outpatient (BNV) | payer MEDICARE, SELFPAY | END 2024-11-14 07:00 | PROVIDERS: Admitting Provider Internal Medicine; Emergency Provider Emergency Medicine; PCP Internal Medicine; Visit Provider Internal Medicine | DX: I51.89 Other ill-defined heart diseases (principal) | CPT/HCPCS: 93306 ==

== ENCOUNTER 2024-11-13 18:20 | Outpatient (BNV) | payer MEDICARE, SELFPAY | END 2024-11-16 10:00 | PROVIDERS: Admitting Provider Internal Medicine; Emergency Provider Emergency Medicine; PCP Internal Medicine; Visit Provider Radiology Diagnostic Radiology | DX: N18.9 Chronic kidney disease, unspecified (principal); N28.1 Cyst of kidney, acquired | CPT/HCPCS: 76775 ==

== ENCOUNTER 2024-11-13 18:20 | Outpatient (BNV) | payer MEDICARE, SELFPAY | END 2024-11-14 07:00 | PROVIDERS: Admitting Provider Internal Medicine; Emergency Provider Emergency Medicine; PCP Internal Medicine; Visit Provider Radiology Diagnostic Radiology | DX: J90 Pleural effusion, not elsewhere classified (principal); R90.82 White matter disease, unspecified; J18.9 Pneumonia, unspecified organism; R51.9 Headache, unspecified | CPT/HCPCS: 32555; 70450; 70551; 71250 ==

== ENCOUNTER → 2024-11-13 18:20 | Outpatient (BNV) | payer MEDICARE, SELFPAY | PROVIDERS: Admitting Provider Internal Medicine; Emergency Provider Emergency Medicine; PCP Internal Medicine; Visit Provider Nurse Practitioner Family | DX: I10 Essential (primary) hypertension (principal); J90 Pleural effusion, not elsewhere classified | CPT/HCPCS: 99223; 99231 ==

== ENCOUNTER → 2024-11-13 18:20 | Outpatient (BNV) | payer MEDICARE, SELFPAY | PROVIDERS: Admitting Provider Internal Medicine; Emergency Provider Emergency Medicine; PCP Internal Medicine; Visit Provider Nurse Practitioner Family | DX: N18.32 Chronic kidney disease, stage 3b (principal) | CPT/HCPCS: 99231 ==

== ENCOUNTER → 2024-11-13 18:20 | Outpatient (BNV) | payer MEDICARE, SELFPAY | PROVIDERS: Admitting Provider Internal Medicine; Emergency Provider Emergency Medicine; PCP Internal Medicine; Visit Provider Psychiatry & Neurology Neurology | DX: G92.8 Other toxic encephalopathy (principal) | CPT/HCPCS: 99222 ==

== ENCOUNTER → 2024-11-13 18:20 | Outpatient (BNV) | payer MEDICARE, SELFPAY | PROVIDERS: Admitting Provider Internal Medicine; Emergency Provider Emergency Medicine; PCP Internal Medicine; Visit Provider Internal Medicine Pulmonary Disease | DX: J90 Pleural effusion, not elsewhere classified (principal); R06.09 Other forms of dyspnea | CPT/HCPCS: 99222 ==

== ENCOUNTER 2024-11-21 08:20 | Outpatient (REF) | payer MEDICARE, SELFPAY ==
[2024-11-21 10:17] LABS: Appearance Urine Cloudy; Glucose Urine UA >=1000 mg/dL (Negative); PH 5.0 (5.0-9.0); Specific Gravity - Urine 1.020 (1.005-1.025); UMIC TRIGGER UA YES
[2024-11-21 10:18] LABS: MANUAL DIFF FLAG NO
[2024-11-21 10:29] LABS: Hematocrit 39.1 % (42.0-52.0); Hemoglobin 12.7 g/dl (14.0-18.0); Imm Gran Abs Auto 0.01 X10*3/uL (0.00-0.03); Imm Gran Pct Auto 0.2 % (0.0-0.4); Lymphocytes Absolute Auto 1.5 X10*3/uL (1.2-4.9); Mean Corpuscular HGB Conc 32.5 g/dl (31.0-36.0); Mean Corpuscular Hemoglobin 29.5 pg (27.0-33.0); Mean Corpuscular Volume 90.9 fL (80.0-98.0); NRBC Abs Auto 0.000 X10*3/uL (0.0-0.012); NRBC Pct Auto 0.0 /100WBC (0.0-0.2); Platelet Count 270 X10*3/uL (160-400); Red Blood Count 4.30 X10*6/uL (4.60-5.80); White Blood Count 6.2 X10*3/uL (4.8-10.8)
[2024-11-21 10:31] LABS: Other Crystals Urine Present
[2024-11-21 10:53] LABS: Alanine Aminotransferase 18 U/L (0-40); Albumin Level 3.6 g/dL (3.5-5.0); Alkaline Phosphatase 69 U/L (39-117); Anion Gap 13 (12-20); Aspartate Amino Transferase 30 U/L (5-37); Blood Urea Nitrogen 34 mg/dL (9-16); Calcium 8.7 mg/dL (8.4-10.2); Carbon Dioxide 26 mmol/L (22-29); Chloride 106 mmol/L (96-108); Estimated Glomerular Filt Rate 34; Potassium 4.4 mmol/L (3.3-5.1); Sodium 141 mmol/L (135-145); Total Protein 7.3 g/dL (6.5-8.0)
[2024-11-21 10:57] LABS: Total Protein Urine Random 18 mg/dL (<12)
[2024-11-21 11:01] LABS: Parathyroid Hormone Intact 105.8 pg/mL (8.7-77.1)
== END 2024-11-21 08:21 | disposition home or self-care (01) ==
LOC: HO.HMGCLDS 08:20
PROVIDERS: PCP Internal Medicine; Visit Provider Internal Medicine Hypertension Specialist
DX: E11.22 Type 2 diabetes mellitus with diabetic chronic kidney disease (principal); I13.0 Hypertensive heart and chronic kidney disease with heart failure and stage 1 through stage 4 chronic kidney disease, or unspecified chronic kidney disease; N18.30 Chronic kidney disease, stage 3 unspecified; I50.9 Heart failure, unspecified; Z79.82 Long term (current) use of aspirin; Z79.84 Long term (current) use of oral hypoglycemic drugs; Z79.899 Other long term (current) drug therapy
CPT/HCPCS: 36415; 80053; 81001; 82570; 83970; 84156; 85025; 99212

== ENCOUNTER 2024-11-21 13:01 | Outpatient (AMB) | payer MEDICARE, SELFPAY ==
--- OUTSIDE RECORDS SUMMARY | 2024-11-21 13:03 | XMS_ITS | Encounter Summary ---
Author Organization [facility] Address [address] [address] [facility] [address] [place] [address] Phone Care Team Providers Care Machine Operator Slitter Technician Name Role Phone Donald Mayberry MD Primary Care Provider [phone] Kane Plunkett MD Primary Care Provid er Encounter Details Date Type Department Care Team (Late st Contact Info) Description 07/25/2023 Procedure Pass Echo Lab [address] [place] [address] Social History Tobacco Use Types Packs/Day Years [...] Info) Description 08/27/2024 Procedure Pass Echo Lab [place] [address] [place] [address] 01/01/2025 10:15 AM EDT Appointment [facility] [place] [address] [place] [address] Harriet Yang PA-C [address] [place] [address] 02/11/2025 11:00 AM EST Office Visit [facility] [address] [facility] 3rd Floor, [address] [place] [address] Hood Breen MD [address] [facility], [address] [place] [address] [email or web address] documented as of this encounter Visit Diagnoses Not on filedocumented in this encounter Care Teams Machine Operator Slitter Technician Relationship Specialty Start Date End Date Donald Mayberry MD [address] [place] [address] PCP - General Internal Medicine 08/07/23 10/15/24 Kane Plunkett MD [address] [place] [id number] PCP - General Internal Medicine 10/16/24 documented as of this encounter Additional Source Comments The information contained in this document represents components of the legal health record. It is not the complete legal health record.[facility]
--- OUTSIDE RECORDS SUMMARY | 2024-11-21 13:03 | XMS_ITS | Patient Health Record ---
[facility] brijesh [facility] Address [address] [facility] [place] [address] Care Team Providers Care Transportation Economics Teacher Name Role Phone Kane Plunkett Primary Care Provider Michela Hirsch Unavailable [phone] Jason Treviño Unavailable [phone] Allergies No Known Allergies Results Component Value [...] Problem Acquired hammer toe of right foot (1884991215970712 ) Other hammer toe(s) (acquired), right foot (M20.41) Active confirmed Response to treatment, Improvemen t Problem Acquired hammer toe of left foot (9450209501164020 ) Other hammer toe(s) (acquired), left foot (M20.42) Active confirmed Response to treatment, Improvemen t Problem Polyneuropathy due to type 2 diabetes mellitus (634299844) Type 2 diabetes mellitus with diabetic polyneuropathy (E11.42) Active confirmed Vital Signs Blood pressure diastolic 65 mm Hg 10/23/2024 Height 5 ft 10 in in 10/23/2024 Blood pressure systolic 128 mm Hg 10/23/2024 Weight 218 lbs 10/23/2024 BMI 31.28 kg/m2 10/23/2024 Procedures Procedure Date Ordered Date Performed Result Body Sit e 43396-BFMEPEG NAIL, 6 OR MORE 03/26/2024 N/A 63833-BVOT SKIN LESIONS, OVER 4 03/26/2024 N/A 08947-JGHRALQ NAIL, 6 OR MORE 07/31/2024 N/A 73886-LZFY SKIN LESIONS, OVER 4 07/31/2024 N/A Encounters Encounter Location Date Provider Diagnosis [address] [address] 12/20/2023 Jason Treviño Tinea unguium B35.1 ; [...] toenail of left foot, initial encounter S90.222A [address] [address] 03/26/2024 Michela Hirsch Other hammer toe(s) (acquired), right foot M20.41 ; Other hammer toe(s) (acquired), left foot M20.42 ; Type 2 diabetes mellitus with diabetic polyneuropathy E11.42 ; Tinea unguium B35.1 and Tinea pedis of both feet B35.[address] [address] 07/31/2024 Michela Hirsch Type 2 diabetes mellitus with diabetic polyneuropathy E11.42 ; Tinea unguium B35.1 ; Other hammer toe(s) (acquired), right foot M20.41 and Other hammer toe(s) (acquired), left foot M20.[address] [address] 10/23/2024 Michela Hirsch Type 2 diabetes mellitus with diabetic polyneuropathy E11.42 and Tinea unguium B35.[address] [address] 03/27/2024 [facility] [address] [address] 11/04/2024 Michela Hirsch Tinea pedis of both [...] Treatment Pending Test Test Name Order Date 64657-TOEZQDC NAIL, 6 OR MORE 05/04/2014 59130-QIKLLQP NAIL, 6 OR MORE 07/22/2014 77934-MZWEOEC NAIL, 6 OR MORE 10/21/2014 56530-HSBKYLO NAIL, 6 OR MORE 12/30/2014 53488-KRTFFEV NAIL, 6 OR MORE 03/03/2015 36797-WIMZFDT NAIL, 6 OR MORE 06/03/2015 11676-BGPQJVB NAIL, 6 OR MORE 08/16/2015 21233-ANGDDNB NAIL, 6 OR MORE 11/08/2015 96128-LRZUBJR NAIL, 6 OR MORE 01/31/2016 75476-TEPPAMM NAIL, 6 OR MORE 04/17/2016 85344-GKFVWKS NAIL, 6 OR MORE 06/26/2016 44970-TGJEDWK NAIL, 6 OR MORE 09/18/2016 35387-CVUYODN NAIL, 6 OR MORE 11/27/2016 39442-JVYSIRK NAIL, 6 OR MORE 01/29/2017 61113-IIXIUME NAIL, 6 OR MORE 04/11/2017 20910-IBVHTSA NAIL, 6 OR MORE 06/20/2017 66530-JOJBAIT NAIL, 6 OR MORE 08/29/2017 63890-ESQHWQG NAIL, 6 OR MORE 11/19/2017 11943-BWMUPQJ NAIL, 6 OR MORE 02/13/2018 15368-ZOLZTDW NAIL, 6 OR MORE 03/26/2024 11918-OWHZOFK NAIL, 6 OR MORE 07/31/2024 12215-Nlnmekmt Plate 12/30/2014 12691-QOWQ SKIN LESIONS, OVER 4 10/01/19 19 93962-EXSV SKIN LESIONS, OVER 4 04/24/20 25 25488-FLHI SKIN LESIONS, OVER 4 03/26/20 24 96664-VSIV SKIN LESIONS, OVER 4 05/08/19 19 69965-XRYZ SKIN LESIONS, OVER 4 07/11/19 19 02156-IFQI SKIN LESIONS, OVER 4 02/14/20 18 88015-JTGA SKIN LESIONS, OVER 4 11/20/19 18 28957-LBSO SKIN LESIONS, OVER 4 12/26/19 19 96146-VVVC SKIN LESIONS, OVER 4 03/24/20 19 48164-FJPW SKIN LESIONS, OVER 4 06/16/19 59290-MDXB SKIN LESIONS, OVER 4 08/17/19 09894-OPWS SKIN LESIONS, OVER 4 10/26/19 64661-HSLV SKIN LESIONS, OVER 4 12/28/19 70912-WUXA SKIN LESIONS, OVER 4 02/29/20 21 78059-MAXH SKIN LESIONS, OVER 4 05/09/19 25228-VEDJ SKIN LESIONS, OVER 4 08/30/19 18 81606-UHYW SKIN LESIONS, OVER 4 06/21/19 18 35726-FKFG SKIN LESIONS, OVER 4 04/11/19 18 18868-FBEN SKIN LESIONS, OVER 4 01/30/20 17 61100-XXYY SKIN LESIONS, OVER 4 11/28/19 17 69762-OOYA SKIN LESIONS, OVER 4 06/27/19 17 59739-PERQ SKIN LESIONS, OVER 4 09/19/19 17 50506-PRDM SKIN LESIONS, OVER 4 04/17/19 17 23938-RLVK SKIN LESIONS, OVER 4 01/31/20 16 26442-RUGI SKIN LESIONS, OVER 4 11/08/19 16 51749-ZBUZ SKIN LESIONS, OVER 4 08/16/19 16 39694-OMWR SKIN LESIONS, OVER 4 06/03/19 16 96885-GBMD SKIN LESIONS, OVER 4 03/03/20 15 77524-VXSE SKIN LESIONS, OVER 4 12/31/19 15 23972-QUPE SKIN LESIONS, OVER 4 10/22/19 15 49273-BFTV SKIN LESIONS, OVER 4 07/23/19 15 58439-ZKHK SKIN LESIONS, OVER 4 05/04/19 15 83958-Xouh. Subungual Hematoma 4 68330-XREYQDLP OF HEMATOMA/FLUID 019 87459-EFITLCPX OF HEMATOMA/FLUID 022 07496-NYNRTDEI OF HEMATOMA/FLUID 023 91938-LXTRZJLL OF HEMATOMA/FLUID 021 11995-UZRBIAHN OF HEMATOMA/FLUID 019 HEMOGLOBIN A1C (GLYCOHEMOGLOBIN) 024 Next Appt Details Provider Name:Michela lawler, 01/22/2025 02:45:00 PM, [address] [place], [address], Insurance Providers Payer Name Payer Address Payer Phone Subscriber Number Group Number Insured Name Patient Relationship to Insured Coverage Start Date Coverage End Date [employer] Medicare Adv-[id number] [address] [address] [place] [address] [id number] Aaron Huston Self - patient is the insured Medical (General) History Medical History History ICD Code Arthritis Back,Hip,and Knee pain type II diabetes High blood pressure Neuropathy Chicken pox Surgical History Surgery Date(Month/Year) lumbar surgery 06/20/2013 cervical 11/29/2009 knee surgery, left 09/15/2015 gastric sleeve 03/08/17 cataract surgery- Bilateral 10/2017 Hospitalization History Reason Date(Month/Year) Heart attack- [facility] 08/2023
[2024-11-21 13:10] VITALS: BP 122/74; PULSE 75; O2SAT 96; BMI 30.1
--- NOTE | 2024-11-21 13:10 | HO.NEPHOV_ITS ---
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 Accompanied by: Spouse Allergies cephalexin (From KEFLEX) Allergy (Unknown, Verified 11/21/24 13:14) UNKNOWN metformin (METFORMIN) Allergy (Unknown, Verified 11/21/24 13:14) SHAKY , swelling silodosin (From RAPAFLO) Allergy (Unknown, Verified 11/21/24 13:14) UNKNOWN tamsulosin (From FLOMAX) Allergy (Unknown, Verified 11/21/24 13:14) UNKNOWN Pt states no known allergy to Allergy (Mild, Uncoded 11/13/24 16:47) Unknown Rapaflo Allergy (Unknown, Uncoded 11/13/24 16:47) hives Medication List - Last Reconciled 11/21/24 by Franklyn Pearl MD amlodipine 5 mg PO DAILY apixaban (Eliquis) 2.5 mg PO BID aspirin 81 mg PO DAILY blood sugar diagnostic (Accu-Chek Guide test strips) As directed- daily blood sugar diagnostic (OneTouch Ultra Test strips) As directed blood-glucose meter (Accu-Chek Guide Me Glucose Meter) As directed- daily ciclopirox 0.77% 1 appl topical BID cyclosporine 0.05% (Restasis) 1 drp ophthalmic (eye) Q12H dapagliflozin propanediol (Farxiga) 10 mg PO DAILY diazepam 10 mg (2 x 5 mg) PO BEDTIME furosemide 20 mg PO DAILY gabapentin 200 mg (2 x 100 mg) PO TID 90 days lancets (Accu-Chek Softclix Lancets) As directed- daily lancets (OneTouch UltraSoft 2 Lancet) As directed lidocaine 4% (Lidocaine Pain Relief) 2 patches See Protocol transdermal DAILY metoprolol succinate ER 100 mg (2 x 50 mg) PO DAILY potassium chloride ER 10 mEq PO DAILY sacubitril-valsartan 97-103 mg (Entresto) 1 tab PO BID tolterodine ER 4 mg PO BID tramadol 50 mg PO Q8H 30 days triamcinolone acetonide 0.025% 1 appl topical BID vitamins A,C,M-cava-fltkvi 2,148 mcg-113 mg-45 mg-17.4mg (PreserVision AREDS) 1 tab PO BID HPI Comments Details: The patient is an 84-year-old male referred for evaluation of chronic kidney disease. He has a longstanding history of diabetes mellitus. History of congestive heart failure status post ME. He has multiple somatic complaints. He reports a decline in balance and leg strength since the spring, with symptoms worsening over time, leading to diffi culty walking and increased fatigue. He experiences dyspnea with minimal exertion, such as walking to the mailbox or climbing stairs, and reports a heavy sensation in his lungs. The patient has a history of heart failure, He underwent cardioversion for atrial fibrillation and has been hospitalized for cardiac care. The patient has a longstanding history of type 2 diabetes mellitus, which has c ontributed to his chronic kidney disease and peripheral neuropathy. He reports dizziness and neuropathic symptoms, which are attributed to diabetes. The patient has a history of prostate surgery complications, including a staph infection and prolonged catheter use, which have resolved. He also reports a history of hypertension, which is currently being managed with medication adjustments. 11/21/24 The patient is an 84-year-old male presenting with concerns regarding his kidney function and overall health status following a recent hospitalization. He was hospitalized for five days due to pleural effusion, during which fluid was removed from his lungs. The fluid analysis showed no evidence of malignancy, which was a significant concern initially. The patient's kidney function is currently at 34%, which is stable compared to previous levels fluctuating between 34% and 40%. He has a history of chronic kidney disease and is on multiple medications, including furosemide, amlodipine, Entresto, and metoprolol, to manage his condition and associated hypertension. The patient reports urinary incontinence, which he attributes to complications from previous prostate surgery that damaged his sphincter muscle. He has experienced episodes of urinary leakage and has been managing this with the use of a leg bag and night bag. His past medical history includes a significant staph infection following a surgical procedure, which led to hospitalization and subsequent pneumonia. He also underwent hernia repair and has a history of weight loss, having lost approximately 80 pounds through a structured program, which enabled him to undergo knee replacement surgery. Recent imaging showed a simple renal cyst, which does not require intervention. The patient's heart failure with reduced ejection fraction is being managed with Entresto, and improvement in heart function is expected to benefit his renal function over time. [facility] Medical History CKD (chronic kidney disease) stage 3, GFR 30-59 ml/min NSTEMI (non-ST elevated myocardial infarction) Failed total left knee replacement HFrEF (heart failure with reduced ejection fraction) GERD (gastroesophageal reflux disease) Chronic renal failure Chronic pain syndrome Surgical History H/O gastric bypass Previous back surgery H/O inguinal hernia repair Family History Father Prostate cancer Bone cancer Mother BP (high blood pressure) Social History Household Members: Spouse Housing: House Do you presently have visiting nurse or other home services: No Alcohol intake: current Alcohol intake frequency: does not drink Comment: pt refuse bed alarm Patient Tobacco Use Status: Never used Tobacco service: No Current occupational status: retired Cognitive needs: No Hearing needs: No Vision needs: No Physical Exam Vital Signs: Last Vital Signs Pulse 75 11/21/24 13:10 BP 122/74 11/21/24 13:10 Pulse Ox 96 11/21/24 13:10 Oxygen Delivery Method Room Air 11/21/24 13:10 BMI result Body Mass Index 30.1 Comfortable Neck supple no JVD. Lungs decreased air entry in left base Heart S1-S2 heard no gallop or rub. Abdomen soft nontender. Neuro alert awake oriented. No asterixis. Extremities no edema. Results Reviewed Results Reviewed: Au USG Right kidney: The right kidney measures 10.6 x 5.1 x 6.6 cm. There is renal cortical thinning. There is a 4.6 x 5.8 x 4.7 cm simple cyst at the lower pole. There is no hydronephrosis or renal calculi. Left Kidney: The left kidney measures 9.9 x 6.8 x 6.3 cm. There is renal cortical thinning. There is a 1.9 x 1.5 x 1.5 cm hypoechoic lesion at the upper pole which may represent a cyst. There is no hydronephrosis or renal calculi. Nephrology Results: Hgb, (14.0-18.0) 12.7 g/dl L Today WBC, (4.8-10.8) 6.2 X10*3/uL Today Plt Count, (160-400) 270 X10*3/uL Today Sodium, (135-145) 141 mmol/L Today Potassium, (3.3-5.1) 4.4 mmol/L Δ Today Chloride, (96-108) 106 mmol/L Today Carbon Dioxide, (22-29) 26 mmol/L Today BUN, (9-16) 34 mg/dL H Today Creatinine, (0.5-1.4) 1.90 mg/dL H Today Calcium, (8.4-10.2) 8.7 mg/dL Today PTH Intact, (8.7-77.1) 105.8 pg/mL H Today Urine Protein, (Neg-Trace) Trace mg/dL Today Urine Creatinine 97.09 mg/dL Today Renal US 11/16/24 Assessment & Plan Assessment & Plan (1) Chronic renal failure: Code(s): N18.9 - Chronic kidney disease, unspecified Category: Medical (2) CHF (congestive heart failure): Code(s): I50.9 - Heart failure, unspecified Category: Medical Plan 84-year-old man with stage III CKD in the setting of longstanding diabetes mellitus and congestive heart failure. Renal function is close to baseline At the present time fluid status seems acceptable. No evidence of overt fluid overload. No signs or symptoms of uremia. 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 No evidence of Obstructive uropathy or active glomerular nephritis or interstitial disease at this time. Recommendations Optimize fluid status Optimize blood pressure. Continue amlodipine 5 mg once a day. Continue with the Entresto. Continue to avoid nephrotoxic agents including NSAIDs. Encouraged him to stay on a low-sodium diet. Orders: Orders Basic Metabolic Panel 3 Months I50.9 - Heart failure, unspecified, N18.9 - Chronic kidney disease, unspecified Complete Blood Count no Diff 3 Months I50.9 - Heart failure, unspecified, N18.9 - Chronic kidney disease, unspecified Coding Level of Care Code Est Pt Level 4 (50518) Diagnoses Chronic renal failure N18.9 CHF (congestive heart failure) I50.9
== END 2024-11-21 13:29 | disposition home or self-care (01) ==
LOC: HO.HKA 13:01
PROVIDERS: PCP Internal Medicine; Visit Provider Internal Medicine Hypertension Specialist
DX: N18.9 Chronic kidney disease, unspecified (principal); I50.9 Heart failure, unspecified
CPT/HCPCS: 99214

== ENCOUNTER 2024-11-25 13:14 | Outpatient (AMB) | payer MEDICARE, SELFPAY ==
--- NOTE | 2024-11-25 13:15 | A.OFFPC_ITS ---
Vital Signs 11/25/24 13:16 Height 5 ft 11 in Weight 220 lb BMI 30.7 BP 166/96 H Blood Pressure Location Lt brachial Position Sitting Respiration 16 Pulse 66 Pulse Source Pulse Oximeter Temp 98.1 F Temp Source Temporal Artery Scan Pulse Oximetry (%) 96 Oxygen Delivery Method Room Air Intake Visit Reasons: [facility] [place] discharge on 11/18 Intake Note: Visit Reason: TCM Intake Note: Patient is here for hospital discharge follow up. Patient was discharged from [facility] Concert Pianist Required: No Education Manager: Not Required per policy Accompanied by: Self / Same As Patient Allergies cephalexin (From KEFLEX) Allergy (Unknown, Verified 11/25/24 13:17) UNKNOWN metformin (METFORMIN) Allergy (Unknown, Verified 11/25/24 13:17) SHAKY , swelling silodosin (From RAPAFLO) Allergy (Unknown, Verified 11/25/24 13:17) UNKNOWN tamsulosin (From FLOMAX) Allergy (Unknown, Verified 11/25/24 13:17) UNKNOWN Pt states no known allergy to Allergy (Mild, Uncoded 11/13/24 16:47) Unknown Rapaflo Allergy (Unknown, Uncoded 11/13/24 16:47) hives Medication List - Last Reconciled 11/25/24 by Kati Garg PA-C amlodipine 5 mg PO DAILY apixaban (Eliquis) 2.5 mg PO BID aspirin 81 mg PO DAILY blood sugar diagnostic (Accu-Chek Guide test strips) As directed- daily blood sugar diagnostic (OneTouch Ultra Test strips) As directed blood-glucose meter (Accu-Chek Guide Me Glucose Meter) As directed- daily ciclopirox 0.77% 1 appl topical BID cyclosporine 0.05% (Restasis) 1 drp ophthalmic (eye) Q12H dapagliflozin propanediol (Farxiga) 10 mg PO DAILY diazepam 10 mg (2 x 5 mg) PO BEDTIME furosemide 20 mg PO DAILY gabapentin 200 mg (2 x 100 mg) PO TID 90 days lancets (Accu-Chek Softclix Lancets) As directed- daily lancets (OneTouch UltraSoft 2 Lancet) As directed lidocaine 4% (Lidocaine Pain Relief) 2 patches See Protocol transdermal DAILY metoprolol succinate ER 100 mg (2 x 50 mg) PO DAILY potassium chloride ER 10 mEq PO DAILY sacubitril-valsartan 97-103 mg (Entresto) 1 tab PO BID tolterodine ER 4 mg PO BID tramadol 50 mg PO Q8H 30 days triamcinolone acetonide 0.025% 1 appl topical BID vitamins A,C,F-nffd-iakqzj 2,148 mcg-113 mg-45 mg-17.4mg (PreserVision AREDS) 1 tab PO BID Tobacco use date assessed: 10/14/24 Fall risk assessment: No Falls in past year Last assessed Fall Risk: 10/14/24 Dental Screening Dental Screen Date: 10/14/24 Did you have a dental visit in the last 12 months?: Yes Did you have a dental problem in the last 6 months where you did not have access to dental care?: No Was dental information given to patient?: Patient has dentist HPI HPI Comments History of Present Illness Details Patient presents to the office for a TCM visit. Date of admission: 11/13/24 Date of discharge: 11/18/24 This is a Follow-up from admission at [facility] HPI/hospital course/discharge summary: The patient is an 84-year-old male presenting for a transitional care management appointment following a recent hospitalization. He was admitted to [facility] on 11/13/2024 and discharged on 11/18/2024 for evaluation of diminished lung sounds, generalized weakness, and dyspnea with chest heaviness persisting for two weeks. A CT scan identified a left parapneumonic effusion with possible empyema, and a chest X-ray showed a moderate left pleural effusion, possibly secondary to congestive heart failure. While the patient was admitted he had a thoracentesis which was sent to pathology and was negative. He was discontinued off on antibiotics. He was we continued back on his Eliquis. He was offered short-term rehab which he declined and is currently at home. The patient has a history of heart failure with reduced ejection fraction, hypertension, gastroesophageal reflux disease, myocardial infarction, coronary artery disease, pleural effusion, chronic kidney disease, inguinal hernia status post repair, back disease with surgical history, left knee replacement, gastric bypass, and left clavicle removal. He denies a history of percutaneous coronary intervention or open-heart surgery. The patient reports that his kidney function was said to have improved during a recent nephrology appointment, although lab results indicated a mild worsening compared to his admission and discharge labs. He is currently on blood thinners and denies any recent falls. He experiences weakness and near-syncope when engaging in activities such as gardening and mowing the lawn, although he denies actual syncopal episodes. The patient lives with his , who is his main caregiver and manages his medications. He drinks at least a gallon of water per day due to dry mouth and is a nonsmoker who does not use oxygen at home. He has a checklist of goals, including gardening, but feels weak after exertion. Discharged to/Current Location: Home Lives with: Diagnosis: Hypertension; pleural effusion left-sided Procedures performed: Patient had thoracentesis of left side to drain pleural fluid and had cytology along with blood cultures, chest x-ray, CT of chest New medications: Patient was started on lidocaine although patient reports his insurance did not cover and he will buy [id number] if he feels like he needs it Discontinued medications: No medications were discontinued Change medications/dosing: No change in medications were done Pending labs: Patient's pleural fluid pathology report was pending which is negative for malignant cells and patient was given a copy of this report today Pending diagnostic test: No additional pending diagnostic test Any Follow-up Labs required? Patient is kidney function will be monitored and he is being followed closely by Dr. Pearl and has follow-up on Sunday Any Follow-up Diagnostic test required? No follow-up diagnostic test required at this time How are you feeling? Okay and wants to get back to normal house duties although not allowing Are you in any pain or discomfort? None Do you have any questions about your condition or discharge instructions? Patient only had questions on his pathology report which was answered at this time he denies any additional questions Were you able to get your medications filled? yes Do you have any questions about your medications? Not the lidoderm patches Any referrals required? Patient denies needing any additional referral Were you able to schedule your follow-up appointment? Patient was able to schedule all his follow-up visits with Cardiology, Urology, Neurology and Nephrology If home health was ordered, have they contact you? Patient not interested in VNA services, home health aide service, meals on wheels and does not need any additional transportation at this time he reports Any outpatient services, if so, are you scheduled? Patient not interested Are there any additional resources like transportation you might need during her recovery? Patient not interested - VNA? Patient not interested - [employer]? Patient not interested - Meals on wheels? Patient not interest ed Educational need/resources: What support system do you have? , Daughter Nancy, Son from [place] Social History - Family status: Lives with , who is the main caregiver and manages medications. - Exercise: Engages in activities such a s gardening and mowing the lawn, but experiences weakness and near-syncope. - Substance use: Nonsmoker, does not use oxygen at home. - Hydration: Drinks at least a gallon of water per day due to dry mouth. [facility] Medical History (Updated 11/25/24 @ 17:49 by Kati Garg PA-C) Hospital discharge follow-up Empyema of left pleural space CKD (chronic kidney disease) stage 3, GFR 30-59 ml/min NSTEMI (non-ST elevated myocardial infarction) Failed total left knee replacement HFrEF (heart failure with reduced ejection fraction) GERD (gastroesophageal reflux disease) Chronic renal failure Chronic pain syndrome Surgical History H/O gastric bypass Previous back surgery H/O inguinal hernia repair Family History Father Prostate cancer Bone cancer Mother BP (high blood pressure) Social History Household Members: Spouse Housing: House Do you presently have visiting nurse or other home services: No Alcohol intake: current Alcohol intake frequency: does not drink Comment: pt refuse bed alarm Patient Tobacco Use Status: Never used Tobacco service: No Current occupational status: retired Cognitive needs: No Hearing needs: No Vision needs: No Questionnaire PHQ-9 Over the last 2 weeks, how often have you been bothered by any of the following problems? 1. Little interest or pleasure in doing things: not at all 2. Feeling down, depressed, or hopeless: not at all 3. Trouble falling or staying asleep, or sleeping too much: not at all 4. Feeling tired or having little energy: not at all 5. Poor appetite or overeating: not at all 6. Feeling bad about yourself - or that you are a failure or have let yourself or your family down: not at all 7. Trouble concentrating on things, such as reading the newspaper or watching television: not at all 8. Moving or speaking so slowly that other people could have noticed. Or the opposite - being so fidgety or restless that you have been moving around a lot more than usual: not at all 9. Thoughts that you would be better off or of hurting yourself in some way: not at all Total score: 0 Depression Screening Interpretation: Negative Depression Screening Done: Yes Source: Developed by Drs. Chad Garcia, Yadira Abbasi, Ramon Sneed and colleagues, with an educational lee from [employer]. Thrive Questionnaire Date Thrive assessed: 11/14/24 I am a: Patient What is your living situation today?: I have a steady place to live Within the past 12 months, did the food you bought not last and you didn't have the money to get more?: Never true Within the past 12 months, did you worry whether your food would run out before you got money to buy more?: Never true Do you have trouble paying for medicines?: No Do you have trouble getting transportation to medical appointments?: No Do you have trouble paying your heating and electricity bill?: No Do you have trouble taking care of your child, family member or friend?: No Do you have trouble with day-to-day activities such as bathing, preparing meals, shopping, managing finances, etc.?: No Are you currently unemployed and looking for a job?: No Are you interested in more education?: No Please select the resources that you would like help with: None Currently or been in a relationship where the following occur: No concerns reported THRIVE Score: 0 AUDIT C Alcohol Use Questionnaire (AUDIT-C) 1. How often do you have a drink containing alcohol?: Never 3. How often do you have six or more drinks on one occasion?: Never Total Score: 0 Score Reviewed/Action Taken: No TRESA-7 AMB Questionnaire TRESA-7 Date TRESA - 7 assessed: 10/14/24 Feeling nervous, anxious, or on edge: 0 = Not at all Not being able to stop or control worryin = Not at all Worrying too much about different things: 0 = Not at all Trouble relaxin = Not at all Being so restless that it is hard to sit still: 0 = Not at all Becoming easily annoyed or irritable: 0 = Not at all Feeling afraid as if something awful might happen: 0 = Not at all Total TRESA-7 score (0-4 normal; 5-9 mild; 10-14 moderate; 15-21 severe): 0 Source: Developed by Drs. Chad Garcia, Yadira Abbasi, Ramon Sneed and colleagues, with an educational lee from [employer]. TRESA-7 Assessment Billing TRESA-7 Assessment Tool: TRESA-7 Assessment 71686 Review of Systems Const Details: - Respiratory: Reports resolved dyspnea with chest heaviness, denies cough or wheezing. - Cardiovascular: Denies chest pain - Neurological: Denies syncope denies any new weakness or any near syncopal episode - General: Reports improved generalized weakness, denies recent falls. - Gastrointestinal: Denies nausea or vomiting. - Genitourinary: Denies dysuria or hematuria. All systems reviewed & are unremarkable except as noted in HPI and below Physical exam (Primary Care) Vital Signs: Last Vital Signs Temp 98.1 F 11/25/24 13:16 Pulse 66 11/25/24 13:16 Resp 16 11/25/24 13:16 BP 166/96 H 11/25/24 13:16 Pulse Ox 96 11/25/24 13:16 Oxygen Delivery Method Room Air 11/25/24 13:16 Vitals signs have been reviewed. Care Plan Goal for BP management: <140/90 patient to monitor his blood pressure and bring blood pressure diary in 1 month with blood pressure BMI result Body Mass Index 30.7 BMI Assessment/Plan discussion: High BMI High, discussed plan: lifestyle, weight reduction, dietary, physical activity and alcohol moderation Tobacco/Smoking Status: Tobacco use Status Tobacco use date assessed 10/14/24 11/25/24 13:16 Patient Tobacco Use Status Never used Tobacco 11/25/24 13:16 PHQ-9: PHQ-9 Score PHQ-9: Total score 0 11/25/24 13:50 Depression Screening Interpretation: Negative Thrive Assessment: Date of Thrive Assessment Date Thrive assessed 11/14/24 11/25/24 13:16 Currently or been in a relationship where the following occur: No concerns reported Const Other: Appearance: Alert. Oriented X3. No acute distress. Head: Normal external exam. Normocephalic. Atraumatic. Eyes: Pupils are equal, round, and reactive to light. Extraocular movements intact. Conjunctiva and sclera normal. Eyelids normal. Ears: External auditory canal normal. Tympanic membranes normal. Throat: Pharynx normal. Uvula midline. Moist mucous membranes. Neck: Normal inspection. Neck supple. Full range of motion. Cardiovascular: Normal heart rate and rhythm. Heart sound normal. No murmurs noted. Pulses normal throughout. Respiratory: No respiratory distress. Painless inspiration. Breath sounds d iminished on the left side. No wheezes/rales/rhonchi noted. Chest nontender. No accessory muscle usage noted or decreased air movement noted. Abdomen: Soft and nontender. Bowel sounds normal in all 4 quadrants. No distention noted. No organomegaly noted. Back: No costovertebral angle tenderness. Full range of motion noted. Skin: Skin warm and dry. Normal skin color. Normal skin turgor. No rashes/ lesions/lacerations noted. Extremities: Extremities exhibit normal range of motion. Neuro: Oriented X 3. No motor deficit. No sensory deficit. Reflexes normal. Results Reviewed Results Reviewed: - Labs: BMP was 299, H and H was stable at 12.9 and 38.6. - Imaging: CT scan of the chest identified a left parapneumonic effusion with possible empyema; chest X-ray showed a moderate left pleural effusion. - Procedures: Thoracentesis removed 1.3 liters of hemorrhagic fluid, pleural fluid cytology negative for malignant cells. - Other: Blood culture and fungal culture negative, echo seemed fine, MRI negative. Coding Level of Care Code TCM High MDM <= 7 Days Complex EM visit Add On G2211 Diagnoses HFrEF (heart failure with reduced ejection fraction) I50.20 Stage 3b chronic kidney disease N18.32 Chronic kidney disease stage 3 subtype: stage 3b (GFR 30-44) Pleural effusion, left J90 Hypertension I10 Hospital discharge follow-up Z09 Additional Codes TRESA-7 Assessment Billing - TRESA-7 Assessment Tool: TRESA-7 Assessment 52232 ([id number]) Time Spent (min) 55 Assessment & Plan Assessment & Plan (1) HFrEF (heart failure with reduced ejection fraction): Code(s): I50.20 - Unspecified systolic (congestive) heart failure Category: Medical Plan: The patient is advised to continue monitoring symptoms of heart failure, including dyspnea and chest heaviness. He should follow up with cardiology for further management and medication adjustments as needed. (2) CKD (chronic kidney disease) stage 3, GFR 30-59 ml/min: Code(s): N18.30 - Chronic kidney disease, stage 3 unspecified Category: Medical Qualifiers: Chronic kidney disease stage 3 subtype: stage 3b (GFR 30-44) Qualified Code(s): N18.32 - Chronic kidney disease, stage 3b Plan: The patient should continue follow-up with nephrology to monitor kidney function and manage chronic kidney disease. Avoidance of nephrotoxic medications is recommended, and renal ultrasound findings of bilateral renal cysts should be monitored. (3) Pleural effusion, left: Code(s): J90 - Pleural effusion, not elsewhere classified Category: Medical Plan: The patient underwent thoracentesis, which removed 1.3 liters of hemorrhagic fluid, and pleural fluid cytology was negative for malignant cells. Follow-up with pulmonology is advised for further management of pleural effusion. (4) Hypertension: Code(s): I10 - Essential (primary) hypertension Category: Medical Plan: The patient should maintain a blood pressure diary and follow up in one month with blood pressure readings. No changes to the current antihypertensive regimen are planned at this time. (5) Hospital discharge follow-up: Code(s): Z09 - Encounter for follow-up examination after completed treatment for conditions other than malignant neoplasm Category: Medical Plan Plan Patient was informed and verbally consented to the use of an ambient scribe for clinic note documentation during this visit. 1. Heart Failure With Reduced Ejection Fraction The patient is advised to continue monitoring symptoms of heart failure, including dyspnea and chest heaviness. He should follow up with cardiology for further management and medication adjustments as needed. 2. Chronic Kidney Disease The patient should continue follow-up with nephrology to monitor kidney function and manage chronic kidney disease. Avoidance of nephrotoxic medications is recommended, and renal ultrasound findings of bilateral renal cysts should be monitored. 3. Pleural Effusion The patient underwent thoracentesis, which removed 1.3 liters of hemorrhagic fluid, and pleural fluid cytology was negative for malignant cells. Follow-up with pulmonology is advised for further management of pleural effusion. 4. Hypertension The patient should maintain a blood pressure diary and follow up in one month with blood pressure readings. No changes to the current antihypertensive regimen are planned at this time. I discussed with the patient and his the results of the pleural fluid cytology, which were negative for malignant cells, and they expressed relief and understanding of the findings. We reviewed the importance of following up with nephrology and pulmonology for ongoing management of chronic kidney disease and pleural effusion, respectively. I advised maintaining a blood pressure diary and returning in one month for further evaluation of hypertension. Patient Instructions: - Follow up with nephrology and pulmonology as scheduled. - Maintain a blood pressure diary and bring it to the next appointment. - Monitor for any new symptoms such as chest pain or shortness of breath and seek emergency care if they occur. - Continue current medications as prescribed and discuss any concerns with your healthcare providers.
[2024-11-25 13:16] VITALS: BP 166/96; PULSE 66; RESP 16; TEMP 36.7; O2SAT 96; BMI 30.7
--- OUTSIDE RECORDS SUMMARY | 2024-11-25 14:25 | XMS_ITS | Patient Health Record ---
[facility] brijesh Michele Address [address] [place] [address] Care Team Providers Care Trimmer Tailer Name Role Phone Kane Plunkett Primary Care Provider Michela Hirsch Unavailable [phone] Jason Treviño Unavailable [phone] Allergies No Known Allergies Results Component Value [...] Problem Acquired hammer toe of right foot (3970041750188436 ) Other hammer toe(s) (acquired), right foot (M20.41) Active confirmed Response to treatment, Improvemen t Problem Acquired hammer toe of left foot (2101909269376401 ) Other hammer toe(s) (acquired), left foot (M20.42) Active confirmed Response to treatment, Improvemen t Problem Polyneuropathy due to type 2 diabetes mellitus (012421780) Type 2 diabetes mellitus with diabetic polyneuropathy (E11.42) Active confirmed Vital Signs Blood pressure diastolic 65 mm Hg 10/23/2024 Height 5 ft 10 in in 10/23/2024 Blood pressure systolic 128 mm Hg 10/23/2024 Weight 218 lbs 10/23/2024 BMI 31.28 kg/m2 10/23/2024 Procedures Procedure Date Ordered Date Performed Result Body Sit e 59653-XJFGSMX NAIL, 6 OR MORE 03/26/2024 N/A 17908-AITN SKIN LESIONS, OVER 4 03/26/2024 N/A 26531-JWQPLBK NAIL, 6 OR MORE 07/31/2024 N/A 97472-IIGR SKIN LESIONS, OVER 4 07/31/2024 N/A Encounters Encounter Location Date Provider Diagnosis [address] [address] 12/20/2023 Jason Treviño Tinea unguium B35.1 ; [...] toenail of left foot, initial encounter S90.222A [address] [address] 03/26/2024 Michela Hirsch Other hammer toe(s) (acquired), right foot M20.41 ; Other hammer toe(s) (acquired), left foot M20.42 ; Type 2 diabetes mellitus with diabetic polyneuropathy E11.42 ; Tinea unguium B35.1 and Tinea pedis of both feet B35.[address] [address] 07/31/2024 Michela Hirsch Type 2 diabetes mellitus with diabetic polyneuropathy E11.42 ; Tinea unguium B35.1 ; Other hammer toe(s) (acquired), right foot M20.41 and Other hammer toe(s) (acquired), left foot M20.[address] [address] 10/23/2024 Michela Hirsch Type 2 diabetes mellitus with diabetic polyneuropathy E11.42 and Tinea unguium B35.[address] [address] 03/27/2024 [facility] [address] [address] 11/04/2024 Michela Hirsch Tinea pedis of both [...] Treatment Pending Test Test Name Order Date 23662-CTXDIMX NAIL, 6 OR MORE 05/04/2014 75875-CLGXHPL NAIL, 6 OR MORE 07/22/2014 19099-EXCCXKV NAIL, 6 OR MORE 10/21/2014 32119-AEXZYTV NAIL, 6 OR MORE 12/30/2014 34684-YRXVOPA NAIL, 6 OR MORE 03/03/2015 82997-UCWXGCM NAIL, 6 OR MORE 06/03/2015 92408-MRKYLAL NAIL, 6 OR MORE 08/16/2015 95332-SCKKKGY NAIL, 6 OR MORE 11/08/2015 34603-EKXGUUZ NAIL, 6 OR MORE 01/31/2016 10089-ZVDISRF NAIL, 6 OR MORE 04/17/2016 08876-BHTTAWI NAIL, 6 OR MORE 06/26/2016 21522-GLIBDOU NAIL, 6 OR MORE 09/18/2016 03931-JGNKHPU NAIL, 6 OR MORE 11/27/2016 60941-XSORILX NAIL, 6 OR MORE 01/29/2017 16007-OZKYSSU NAIL, 6 OR MORE 04/11/2017 70129-UKHXCKC NAIL, 6 OR MORE 06/20/2017 79189-KQCVBYE NAIL, 6 OR MORE 08/29/2017 06960-HDCNGDH NAIL, 6 OR MORE 11/19/2017 78562-MFHMEGI NAIL, 6 OR MORE 02/13/2018 78424-ETFKSIE NAIL, 6 OR MORE 03/26/2024 93681-KCMZERZ NAIL, 6 OR MORE 07/31/2024 93095-Lypzyyrm Plate 12/30/2014 94312-IBDV SKIN LESIONS, OVER 4 10/01/19 19 52761-FKQJ SKIN LESIONS, OVER 4 04/24/20 25 47798-FKZD SKIN LESIONS, OVER 4 03/26/20 24 41928-OIFE SKIN LESIONS, OVER 4 05/08/19 19 80855-YKRS SKIN LESIONS, OVER 4 07/11/19 19 96476-PGTS SKIN LESIONS, OVER 4 02/14/20 18 20304-LUZL SKIN LESIONS, OVER 4 11/20/19 18 92535-SRRR SKIN LESIONS, OVER 4 12/26/19 19 84583-QQGV SKIN LESIONS, OVER 4 03/24/20 19 28950-NAAE SKIN LESIONS, OVER 4 06/16/19 51707-ZSXK SKIN LESIONS, OVER 4 08/17/19 81469-LEYM SKIN LESIONS, OVER 4 10/26/19 22287-ULKA SKIN LESIONS, OVER 4 12/28/19 25297-ZSWD SKIN LESIONS, OVER 4 02/29/20 21 22709-FTQM SKIN LESIONS, OVER 4 05/09/19 46974-YCVR SKIN LESIONS, OVER 4 08/30/19 18 00485-ZWXQ SKIN LESIONS, OVER 4 06/21/19 18 77633-SUQY SKIN LESIONS, OVER 4 04/11/19 18 23862-IUGZ SKIN LESIONS, OVER 4 01/30/20 17 29618-KCPO SKIN LESIONS, OVER 4 11/28/19 17 57348-GOBN SKIN LESIONS, OVER 4 06/27/19 17 47601-KYID SKIN LESIONS, OVER 4 09/19/19 17 47728-JKKD SKIN LESIONS, OVER 4 04/17/19 17 47148-NLZI SKIN LESIONS, OVER 4 01/31/20 16 89978-ZKAS SKIN LESIONS, OVER 4 11/08/19 16 03169-CEGY SKIN LESIONS, OVER 4 08/16/19 16 07462-CMNL SKIN LESIONS, OVER 4 06/03/19 16 92269-NFDQ SKIN LESIONS, OVER 4 03/03/20 15 40693-UTBU SKIN LESIONS, OVER 4 12/31/19 15 01401-BSQX SKIN LESIONS, OVER 4 10/22/19 15 65384-LIXZ SKIN LESIONS, OVER 4 07/23/19 15 79695-OMXH SKIN LESIONS, OVER 4 05/04/19 15 65273-Bxbf. Subungual Hematoma 4 41058-GWIEAGTM OF HEMATOMA/FLUID 019 91192-IAJPCQDF OF HEMATOMA/FLUID 022 70389-SMGCEYMS OF HEMATOMA/FLUID 023 33217-FWFQYSXJ OF HEMATOMA/FLUID 021 84306-URVKEHLA OF HEMATOMA/FLUID 019 HEMOGLOBIN A1C (GLYCOHEMOGLOBIN) 024 Next Appt Details Provider Name:Michela lawler, 01/22/2025 02:45:00 PM, [address] [place], [address], Insurance Providers Payer Name Payer Address Payer Phone Subscriber Number Group Number Insured Name Patient Relationship to Insured Coverage Start Date Coverage End Date [employer] Medicare Adv-[id number] [address] [address] [place] [address] [id number] Aaron Huston Self - patient is the insured Medical (General) History Medical History History ICD Code Arthritis Back,Hip,and Knee pain type II diabetes High blood pressure Neuropathy Chicken pox Surgical History Surgery Date(Month/Year) lumbar surgery 06/20/2013 cervical 11/29/2009 knee surgery, left 09/15/2015 gastric sleeve 03/08/17 cataract surgery- Bilateral 10/2017 Hospitalization History Reason Date(Month/Year) Heart attack- [facility] 08/2023
--- OUTSIDE RECORDS SUMMARY | 2024-11-25 14:25 | XMS_ITS | Encounter Summary ---
Author Organization [facility] Address [address] [place] [phone] Phone Care Team Providers Care Tool Honing Machine Set Up Operator Name Role Phone Donald Mayberry MD Primary Care Provider [phone] Kane Plunkett MD Primary Care Provid er Encounter Details Date Type Department Care Team (Late st Contact Info) Description 07/25/2023 Procedure Pass Echo Lab [address] [place] [address] Social History Tobacco Use Types Packs/Day Years [...] Info) Description 08/27/2024 Procedure Pass Echo Lab [place] [address] [place] [address] 01/01/2025 10:15 AM EDT Appointment [facility] [place] [address] [place] [address] Harriet Yang PA-C [address] [place] [phone] 02/11/2025 11:00 AM EST Office Visit [facility] [address] [facility] [facility] 3rd Floor, [address] [place] [address] Hood Breen MD [address] [facility], [address] [place] [address] [email or web address] documented as of this encounter Visit Diagnoses Not on filedocumented in this encounter Care Teams Tool Honing Machine Set Up Operator Relationship Specialty Start Date End Date Donald Mayberry MD [address] [place] [id number] PCP - General Internal Medicine 08/07/23 10/15/24 Kane Plunkett MD [address] [place] [id number] PCP - General Internal Medicine 10/16/24 documented as of this encounter Additional Source Comments The information contained in this document represents components of the legal health record. It is not the complete legal health record.[facility]
== END 2024-11-25 14:35 | disposition home or self-care (01) ==
LOC: HO.HMCSH 13:14
PROVIDERS: PCP Internal Medicine; Visit Provider Physician Assistant Medical
DX: I12.9 Hypertensive chronic kidney disease with stage 1 through stage 4 chronic kidney disease, or unspecified chronic kidney disease (principal); I50.20 Unspecified systolic (congestive) heart failure; N18.32 Chronic kidney disease, stage 3b; J90 Pleural effusion, not elsewhere classified; Z09 Encounter for follow-up examination after completed treatment for conditions other than malignant neoplasm

== ENCOUNTER → 2024-11-25 13:14 | Outpatient (BNVA) | payer MEDICARE, SELFPAY | PROVIDERS: PCP Internal Medicine; Visit Provider Physician Assistant Medical | DX: Z09 Encounter for follow-up examination after completed treatment for conditions other than malignant neoplasm (principal); I13.0 Hypertensive heart and chronic kidney disease with heart failure and stage 1 through stage 4 chronic kidney disease, or unspecified chronic kidney disease; N18.32 Chronic kidney disease, stage 3b; I50.20 Unspecified systolic (congestive) heart failure; J90 Pleural effusion, not elsewhere classified | CPT/HCPCS: 96127; 99496 ==

== ENCOUNTER 2024-12-02 10:35 | Outpatient (AMB) | payer MEDICARE, SELFPAY ==
[2024-12-02 10:36] VITALS: BP 138/70; PULSE 75; O2SAT 95; BMI 30.8
--- NOTE | 2024-12-02 10:36 | A.OFFVIS_ITS ---
Vital Signs 12/02/24 10:36 Height 5 ft 11 in Weight 221 lb BMI 30.8 BP 138/70 Blood Pressure Location Rt brachial Position Sitting Pulse 75 Pulse Source Pulse Oximeter Pulse Oximetry (%) 95 Oxygen Delivery Method Room Air Intake Visit Reasons: S/p [facility] admit Allergies cephalexin (From KEFLEX) Allergy (Unknown, Verified 12/02/24 10:45) UNKNOWN metformin (METFORMIN) Allergy (Unknown, Verified 12/02/24 10:45) SHAKY , swelling silodosin (From RAPAFLO) Allergy (Unknown, Verified 12/02/24 10:45) UNKNOWN tamsulosin (From FLOMAX) Allergy (Unknown, Verified 12/02/24 10:45) UNKNOWN Pt states no known allergy to Allergy (Mild, Uncoded 11/13/24 16:47) Unknown Rapaflo Allergy (Unknown, Uncoded 11/13/24 16:47) hives HPI HPI S/p [facility] admit: Details: 84-year-old gentleman with underlying coronary artery disease status post SC, systolic cardiomyopathy, aortic stenosis, CKD with recent admission to [facility] with left-sided pleural effusion and also with worsening dyspnea status post thoracentesis was performed with drainage of 1.3 L of sanguinous pleural fluid with negative cytology, lymphocyte-predominant and mild elevated pleural ADA, but under 40 now presents for follow-up patient states that his dyspnea has not recurred. [facility] Medical History (Updated 11/25/24 @ 17:49 by Kati Garg PA-C) Hospital discharge follow-up Empyema of left pleural space CKD (chronic kidney disease) stage 3, GFR 30-59 ml/min NSTEMI (non-ST elevated myocardial infarction) Failed total left knee replacement HFrEF (heart failure with reduced ejection fraction) GERD (gastroesophageal reflux disease) Chronic renal failure Chronic pain syndrome Surgical History H/O gastric bypass Previous back surgery H/O inguinal hernia repair Family History Father Prostate cancer Bone cancer Mother BP (high blood pressure) Social History Household Members: Spouse Housing: House Do you presently have visiting nurse or other home services: No Alcohol intake: current Alcohol intake frequency: does not drink Comment: pt refuse bed alarm Patient Tobacco Use Status: Never used Tobacco service: No Current occupational status: retired Cognitive needs: No Hearing needs: No Vision needs: No Review of Systems Const Denies daytime sleepiness, Denies excessive sweating, Denies fatigue, Denies fever(s), Denies lethargy, Denies malaise, Denies night sweats, Denies snoring and Denies weight loss Eyes Denies blurry vision and Denies itchy eyes ENT Denies nasal congestion, Denies post nasal drip, Denies sinus pain, Denies sinus pressure and Denies other ( Thrush) Card Denies chest pain, Denies pedal edema, Denies dyspnea, Denies orthopnea and Denies paroxysmal nocturnal dyspnea Resp Denies cough, Denies hemoptysis, Denies excessive phlegm production, Denies dyspnea, Denies snoring and Denies wheezing GI Denies abdominal pain and Denies heartburn Musc Denies myalgias, Denies arthralgias and Denies joint swelling Skin/Breast Denies rash Neuro Denies memory loss and Denies seizure-like activity Psych Denies abnormal sleep pattern, Denies anxiety and Denies memory loss Endo Denies excessive sweating, Denies fatigue and Denies heat intolerance Khadar/Lymph Denies easy bruising Aller/Immun Denies itchy eyes, Denies seasonal rhinorrhea and Denies wheezing Physical Exam Vital Signs: Last Vital Signs Pulse 75 12/02/24 10:36 BP 138/70 12/02/24 10:36 Pulse Ox 95 12/02/24 10:36 Oxygen Delivery Method Room Air 12/02/24 10:36 BMI result Body Mass Index 30.8 Const General: no acute distress and alert Nutritional Appearance: not obese Orientation/consciousness: Other orientation findings ( oriented) HEENT Head: Yes atraumatic Eyes General: appearance normal, both eyes and all related structures Sclerae: sclerae normal EOM: EOMs intact bilaterally Neck Neck: Yes supple Lymphatic: no lymphadenopathy noted Resp Effort & Inspection: normal respiratory effort and no use of accessory muscles Auscultation: clear to auscultation bilaterally Cardio Rate: regular rate Rhythm: regular rhythm Heart sounds: no gallops, no murmurs and no rubs Skin General skin exam: other ( warm) Extrem General: No clubbing, No cyanosis and No edema Assessment & Plan Assessment & Plan (1) Pleural effusion, left: Code(s): J90 - Pleural effusion, not elsewhere classified Category: Medical Plan: Cytology negative, appears to be longstanding transudative becoming exudate. Likely secondary to underlying aortic stenosis. Will repeat CT chest in 4 weeks to evaluate for recurrence. (2) Dyspnea on exertion: Code(s): R06.09 - Other forms of dyspnea Category: Medical Plan: Improved after drainage of pleural effusion has not recurred. Orders: Orders CT chest wo IV con 01/07/25 J90 - Pleural effusion, not elsewhere classified Coding Level of Care Code Est Pt Level 4 (44397) Diagnoses Pleural effusion, left J90 Dyspnea on exertion R06.09
--- OUTSIDE RECORDS SUMMARY | 2024-12-02 11:24 | XMS_ITS | Clinical Summary ---
Author Organization [facility] Address [address] [facility] [address] [place] [address] Phone Care Team Providers Care Industrial Locomotive Operator Name Role Phone Kane Plunkett MD Primary Care Provid er Allergies Active Allergy Reactions Criticality Noted Date Comments Canagliflozin Other (See Comments),Tremor,Nausea and/or Vomiting Low 10/18/2023 Metformin Dizziness,Itching,Sh ortn ess Of Breath High 05/11/2014 Other Reaction(s): lighteheaded, muscle aches Medications traMADoL (ULTRAM) 50 mg tablet Take 100 mg by mouth 3 (three) times a day. Active tolterodine (DETROL LA) 4 MG 24 hr capsule Take 4 mg by mouth 2 (two) times a day. Active tolterodine (DETROL LA) 2 MG 24 hr capsule Active potassium chloride (KLOR-CON) 10 MEQ ER tablet Take 10 mEq by mouth. 4 Active ONETOUCH ULTRASOFT lancets TEST BLOOD SUGAR EVERY DAY 4 Active gabapentin (NEURONTIN) 100 MG capsule Take 200 mg by mouth 3 (three) times a day. Active furosemide (LASIX) 20 MG tablet Take 20 mg by mouth daily. 4 Active VITAMIN D2 1,250 mcg (50,000 unit) capsule TAKE 1 CAPSULES BY MOUTH ONCE WEEKLY 4 Active diazePAM (VALIUM) 5 MG tablet Take 10 mg by mouth nightly at bedtime. 4 Active FARXIGA 10 mg tablet Take 10 mg by mouth every morning. Active cycloSPORINE (RESTASIS) 0.05 % suspension INSTILL ONE DROP INTO BOTH EYES TWO TIMES A DAY 4 Active celecoxib (CELEBREX) 200 MG capsule Take 200 mg by mouth 2 (two) times a day. Active aspirin 81 MG EC tablet Take 81 mg by mouth. 4 Active ONETOUCH ULTRA TEST Strp strips daily. 4 Active ELIQUIS 2.5 mg Take 2.5 mg by mouth 2 (two) times a day. Active amoxicillin (AMOXIL) 500 MG capsule TAKE 4 CAPSULES BY MOUTH 1 HOUR PRIOR TO DENTAL APPOINTMENT 4 Active vitamins A,C,U-ncnx-mskyp r (PRESERVISION AREDS) 4,296 mcg-226 mg-90 mg Cap Take 1 capsule by mouth 2 (two) times a day with meals. Active ENTRESTO 97-103 mg per tablet TAKE ONE TABLET BY MOUTH TWICE A DAY 180 tablet 3 5 Active metoprolol succinate (TOPROL-XL) 50 MG 24 hr tabletIndication s:Atrial flutter, unspecified type Take 0.5 tablets (25 mg total) by mouth daily. 180 tablet 3 5 Active Active Problems Problem Noted Date Diagnosed Date Atrial flutter 08/27/2024 Assessment & Plan (10/16/2024 9:24 AM EDT): New onset atrial flutter with RVR 07/2023 now status post cardioversion and has been maintaining sinus rhythm. Denies any clinical recurrence. Has been anticoagulated with Eliquis 2.5 mg twice daily (adequate dosing due to age over 80 and creatinine 1.8). He has no bleeding complaint. Has been taking metoprolol 25 mg daily. Assessment & Plan (08/27/2024 10:04 AM EDT): New onset atrial flutter with RVR 07/2023 now status post cardioversion and has been maintaining sinus rhythm. Denies any clinical recurrence. Has been anticoagulated with Eliquis 2.5 mg twice daily (adequate dosing due to age over 80 and creatinine 2, more updated labs requested). He has no bleeding complaint. Has been taking metoprolol 50 mg daily which we are reducing to 25 mg daily today due to significant fatigue. Continue to follow-up with PCP for noncardiac causes of fatigue that could additionally be contributing. Follow-up in 6 weeks. Benign essential hypertension 08/27/2024 Assessment & Plan (10/16/2024 9:38 AM EDT): BP borderline today 140 systolic in the office. Last year, multiple medication changes were made surrounding patient's new atrial flutter and heart failure diagnoses. Nifedipine and enalapril stopped. We recently reduced metoprolol from 50 mg to 25 mg due to significant fatigue, patient states really no change with this. Patient is on high dose Entresto twice daily. Lasix 20 mg daily. We have been following his renal function which is slightly improved on most recent labs. Lifestyle modifications ongoing. Assessment & Plan (08/27/2024 9:57 AM EDT): BP borderline today. Last year, multiple medication changes were made surrounding patient's new atrial flutter and heart failure diagnoses. We are reducing metoprolol succinate from 50 mg to 25 mg daily today due to fatigue. Patient is on high dose Entresto twice daily. Lasix 20 mg daily. No longer on enalapril or nifedipine. Following up with patient in 4 to 6 weeks and will consider alternate antihypertensive addition pending renal function results and vitals with this change. Lifestyle modifications ongoing. Cardiomyopathy 08/27/2024 Assessment & Plan (10/16/2024 9:37 AM EDT): Question rate related last year around 35% which has since normalized to 60 to 65%. Patient has been maintaining sinus rhythm. Is compliant with his medications including high-dose Entresto twice daily, metoprolol 25 mg, furosemide 20 mg daily, Farxiga 10 mg daily. Patient is euvolemic today and asymptomatic. We considered reducing Entresto back to medium dose but renal function was slightly improved on most recent labs so we will hold off on making this change until patient repeats his echocardiogram 12/2024. SUMMER new rn wound care thereafter. Per [facility] discharge, ischemic evaluation was recommended to be done as an outpatient. Do not see that this has been completed. Plan to complete nuclear stress test should be confirmed no cardiac cath or nuclear stress test was completed through outside institution. Has been ordered. Follow-up in the fall as previously scheduled. Assessment & Plan (08/27/2024 10:01 AM EDT): question rate related last year around 35% which has since normalized to 60 to 65%. Patient has been maintaining sinus rhythm. Is compliant with his medications including high-dose Entresto twice daily, metoprolol, see above which we are reducing slightly due to fatigue, furosemide 20 mg daily, Farxiga 10 mg daily. Patient is euvolemic today. He denies any dyspnea/PND/orthopnea or peripheral edema. He just has this fatigue. Do not commonly see much fatigue with Entresto although did consider reducing this back to medium dose twice daily due to renal function but we will consider making this change at next follow-up in 6 weeks with follow-up echocardiogram in about 3 months. Continue medical therapy. Patient doing well. Acute on chronic systolic heart failure 08/28/19 25 Assessment & Plan (10/16/2024 9:31 AM EDT): See above. Continue current dose of furosemide 20 mg daily. He is euvolemic today. Denying any symptoms. Labs stable. Heart failure teaching points reviewed. Assessment & Plan (08/27/2024 10:03 AM EDT): See above. Continue current dose of furosemide 20 mg daily. He is euvolemic today. Denying any worsening symptoms. Labs have been requested from PCP as states has had more recent blood work than I see. Previous creatinine 2.0 around 01/2024. Heart failure teaching points reviewed. Encounters Date Type Department Care Team Description 10/16/2024 9:00 AM EDT Office Visit [facility] [address], [address] [place] [address] Harriet Yang PA-C Atrial flutter, unspecified type (Primary Dx); Benign essential hypertension; Acute on chronic systolic heart failure 10/12/2024 Refill [facility] [address], [address] [place] [address] Fiona San DNP Medication Refill from Last 3 Months Social History Tobacco Use Types Packs/Day Years Used Date Smoking Tobacco: Never Smokeless Tobacco: Never Tobacco Cessation:Counseling Given: Not Answered Education Answer Date Recorded Are you interested [...] on file Sexual Orientation Not on file Last Filed Vital Signs Vital Sign Reading Time Taken Comments Blood Pressure 150/98 10/16/2024 8:38 AM EDT Pulse 65 10/16/2024 8:38 AM EDT Temperature - - Respiratory Rate 95 08/27/2024 8:40 AM EDT Oxygen Saturation 95% 10/16/2024 8:38 AM EDT Inhaled Oxygen Concentration - - Weight 101.2 kg (223 lb) 10/16/2024 8:38 AM EDT Height 185.4 cm (6' 0.99 ) 10/16/2024 8:38 AM ED T Body Mass Index 29.43 10/16/2024 8:38 AM EDT Plan of Treatment Upcoming Encounters Date Type Department Care Team (Late st Contact Info) Description 08/27/2024 Procedure Pass Echo Lab [address] [place] [address] 01/01/2025 10:15 AM EDT Appointment Echo Lab [address] [place] [address] Harriet Yang PA-C [address] [place] [address] 02/11/2025 11:00 AM EST Office Visit [facility] [address] [place] [address] [address] Floor, [address] [place] [address] Hood Breen MD [address] [place] [address], [address] [address] Health Maintenance Due Date Last Done Comments Adult Td,Tdap Booster 1940 DEPRESSION SCREENING 1952 ZOSTER VACCINES (1 of 2) 1990 PNEUMOCOCCAL VACCINES (50+ years) (2 of 2 - PCV) 03/08/2018 03/08/2017 COVID-19 VACCINE ( season) 2023 02/02/2023, 07/03/2022, 10/06/2021, Additional history exists CREATININE LEVEL 01/31/2025 02/01/2024 POTASSIUM LEVEL 01/31/2025 02/01/2024 BLOOD PRESSURE 04/18/2025 10/16/2024 RSV VACCINE Completed 01/23/2023 HEPATITIS A VACCINES Aged Out No long er eligible based on patient's age to complete this topic HIB VACCINES Aged Out No longer eligi ble based on patient's age to complete this topic MENINGOCOCCAL VACCINES (ACWY) Aged Out No longer eligible based on patient's age to complete this topic MENINGOCOCCAL VACCINES (B) Aged Out N o longer eligible based on patient's age to complete this topic Medical Devices Not on file Procedures Procedure Name Priority Date/Time Associated Diagnosis Comments BASIC METABOLIC PANEL Routine 02/01/2024 8:45 AM EDT Atrial flutter, unspecified type from Last 3 Months or Most Recently Relevant to Health Maintenance Results * (ABNORMAL) Basic metabolic panel (02/01/2024 8:45 AM EDT) SODIUM 141 133 - 146 mmol/L [facility] CHLORIDE 101 96 - 108 mmol/L [facility] POTASSIUM 4.2 3.3 - 5.1 mmol/L [facility] CO2 33 21 - 35 mmol/L [facility] BUN 28(H) 6 - 19 mg/dL [facility] CREATININE 2.00(H) 0.5 - 1.5 mg/dL [facility] GLUCOSE 120(H) 70 - 99 mg/dL [facility] CALCIUM 8.7 8.4 - 10.3 mg/dL [facility] EGFR 33(L) >59 mL/min/1.7 3m2 [facility] Comment:Estimated glomerular filtration rate calculated using the CKD-EPI refit equation. ANION GAP 11 10 - 20 mmol/L [facility] Blood 02/01/2024 8:45 AM EDT 02/01/2024 8:50 AM EDT Derek Luna MD LAB BLOOD ORDERABLES Fin al Result [facility] [address] [place] [address] from Last 3 Months or Most Recently Relevant to Health Maintenance Insurance MEDICARE PART A & B Member Subscriber Plan / Payer (Ef fective 1986-Present) Name:Aaron Morgan Member ID:[id number] Relation to Subscriber:Self Name:Aaron Morgan Subscriber ID:[id number] Payer ID:[id number] Group ID:Not on file Type:Medicare Address: [employer] [facility] [address] [place] [address] [facility] MEDICARE REPLACEMENT MEDICARE PART A & B Member Subscriber Plan / Payer (Ef fective 1986-Present) Name:Aaron Morgan Member ID:[id number] Relation to Subscriber:Self Name:Aaron Morgan Subscriber ID:[id number] Payer ID:[id number] Group ID:Not on file Type:Medicare Address: [employer] [address] MEDICARE REPLACEMENT MEDICARE PART A & B MEDICARE PART A & B MEDICARE PART A & B MEDICARE REPLACEMENT MEDICARE PART A & B MEDICARE PART A & B Member Subscriber Plan / Payer (Ef fective 1986-Present) Name:KarinaAaron vasquez Member ID:[id number] Relation to Subscriber:Self Name:Aaron Morgan Subscriber ID:[id number] Payer ID:[id number] Group ID:Not on file Type:Medicare Address: [employer] [address] MEDICARE REPLACEMENT MEDICARE PART A & B Member Subscriber Plan / Payer (Ef fective 1986-Present) Name:Aaron Morgan Member ID:[id number] Relation to Subscriber:Self Name:EddieAaron Subscriber ID:[id number] Payer ID:[id number] Group ID:Not on file Type:Medicare Address: [employer] [address] MEDICARE REPLACEMENT MEDICARE PART A & B [facility] MEDICARE REPLACEMENT Care Teams Industrial Locomotive Operator Relationship Specialty Start Date End Date Kane Plunkett MD [address] [place] [address] PCP - General Internal Medicine 10/16/24 Additional Source Comments The information contained in this document represents components of the legal health record. It is not the complete legal health record.[facility]
--- OUTSIDE RECORDS SUMMARY | 2024-12-02 11:24 | XMS_ITS | Encounter Summary ---
Author Organization [facility] Address [address] [facility] [address] [place] [address] Phone Care Team Providers Care Outboard Motorboat Operator Name Role Phone Donald Mayberry MD Primary Care Provider [phone]- [phone] Kane Plunkett MD Primary Care Provid er Encounter Details Date Type Department Care Team (Late st Contact Info) Description 10/18/2023 Procedure Pass Echo Lab [address] [place] [address] Social History Tobacco Use Types Packs/Day Years [...] Info) Description 08/27/2024 Procedure Pass Echo Lab [place] [address] [place] [address] 01/01/2025 10:15 AM EDT Appointment [facility] [place] [address] [place] [address] Harriet Yang PA-C [address] [place] [address] 02/11/2025 11:00 AM EST Office Visit [facility] [address] [facility] 3rd Floor, [address] [place] [address] Hood Breen MD [address] [facility], [address] [place] [address] [email or web address] documented as of this encounter Visit Diagnoses Not on filedocumented in this encounter Care Teams Outboard Motorboat Operator Relationship Specialty Start Date End Date Donald Mayberry MD [address] [place] [address] PCP - General Internal Medicine 08/07/23 10/15/24 Kane Plunkett MD [address] [place] [address] PCP - General Internal Medicine 10/16/24 documented as of this encounter Additional Source Comments The information contained in this document represents components of the legal health record. It is not the complete legal health record.[facility]
--- OUTSIDE RECORDS SUMMARY | 2024-12-02 11:24 | XMS_ITS | Encounter Summary ---
Author Organization [facility] Address [address] [facility] [address] [place] [address] Phone Care Team Providers Care Customer Service Operator Name Role Phone Donald Mayberry MD Primary Care Provider [phone]- [phone] Kane Plunkett MD Primary Care Provid er Encounter Details Date Type Department Care Team (Late st Contact Info) Description 07/25/2023 Procedure Pass Echo Lab [address] [place] [address] Social History Tobacco Use Types Packs/Day Years [...] Info) Description 08/27/2024 Procedure Pass Echo Lab [place] [address] [place] [address] 01/01/2025 10:15 AM EDT Appointment Echo [facility] [place] [address] [place] [address] Harriet Yang PA-C [address] [place] [address] 02/11/2025 11:00 AM EST Office Visit [facility] [address] [facility] 3rd Floor, [address] [place] [address] Hood Breen MD [address] [facility], [address] [place] [address] [email or web address] documented as of this encounter Visit Diagnoses Not on filedocumented in this encounter Care Teams Customer Service Operator Relationship Specialty Start Date End Date Donald Mayberry MD [address] [place] [address] PCP - General Internal Medicine 08/07/23 10/15/24 Kane Plunkett MD [address] [place] [address] PCP - General Internal Medicine 10/16/24 documented as of this encounter Additional Source Comments The information contained in this document represents components of the legal health record. It is not the complete legal health record.[facility]
--- OUTSIDE RECORDS SUMMARY | 2024-12-02 11:24 | XMS_ITS | Patient Health Record ---
Author [facility] b[facility]esh [facility] Address [address] [facility] [place] [address] Care Team Providers Care Hadoop Engineer Name Role Phone Kane Plunkett Primary Care Provider [phone] Michela Hirsch Unavailable [phone] Jason Treviño Unavailable [phone] Allergies No Known Allergies Results Component Value [...] Unknown 01/08/2024 Administered Pneumococcal Unknown 02/07/2017 Administered Social History [...] Problem Status W/U Status Risk Notes Problem Other hammer toe(s) (acquired), right foot (M20.41) Active confirmed Response to treatment, Improvemen t Problem Acquired hammer toe of left foot (1302059173023611 ) Other hammer toe(s) (acquired), left foot (M20.42) Active confirmed Response to treatment, Improvemen t Problem Polyneuropathy due to type 2 diabetes mellitus (611662038) Type 2 diabetes mellitus with diabetic polyneuropathy (E11.42) Active confirmed Vital Signs Blood pressure diastolic 65 mm Hg 10/23/2024 Height 5 ft 10 in in 10/23/2024 Blood pressure systolic 128 mm Hg 10/23/2024 Weight 218 lbs 10/23/2024 BMI 31.28 kg/m2 10/23/2024 Procedures Procedure Date Ordered Date Performed Result Body Sit e 39482-GXQYLPR NAIL, 6 OR MORE 03/26/2024 N/A 90564-OZZM SKIN LESIONS, OVER 4 03/26/2024 N/A 60117-CRHJYJA NAIL, 6 OR MORE 07/31/2024 N/A 00008-IJXM SKIN LESIONS, OVER 4 07/31/2024 N/A Encounters Encounter Location Date Provider Diagnosis [address] [address] 12/20/2023 Jason Treviño Tinea unguium B35.1 ; [...] toenail of left foot, initial encounter S90.222A [address] [address] 03/26/2024 Michela Hirsch Other hammer toe(s) (acquired), right foot M20.41 ; Other hammer toe(s) (acquired), left foot M20.42 ; Type 2 diabetes mellitus with diabetic polyneuropathy E11.42 ; Tinea unguium B35.1 and Tinea pedis of both feet B35.[address] [address] 07/31/2024 Michela Hirsch Type 2 diabetes mellitus with diabetic polyneuropathy E11.42 ; Tinea unguium B35.1 ; Other hammer toe(s) (acquired), right foot M20.41 and Other hammer toe(s) (acquired), left foot M20.[address] [address] 10/23/2024 Michela Hirsch Type 2 diabetes mellitus with diabetic polyneuropathy E11.42 and Tinea unguium B35.[address] [address] 03/27/2024 Michela Hirsch [address] [address] 11/04/2024 Michela Hirsch Tinea pedis of both [...] Treatment Pending Test Test Name Order Date 50943-GLPWEOV NAIL, 6 OR MORE 05/04/2014 58635-IABNYCG NAIL, 6 OR MORE 07/22/2014 80286-OYUJZQM NAIL, 6 OR MORE 10/21/2014 14824-DXWQIOC NAIL, 6 OR MORE 12/30/2014 29814-BUUMCCF NAIL, 6 OR MORE 03/03/2015 39832-DZSWGZM NAIL, 6 OR MORE 06/03/2015 40815-TZWYENI NAIL, 6 OR MORE 08/16/2015 06541-QDKIECQ NAIL, 6 OR MORE 11/08/2015 51612-EUUNOUT NAIL, 6 OR MORE 01/31/2016 92799-OGLARNP NAIL, 6 OR MORE 04/17/2016 40881-FLROJEG NAIL, 6 OR MORE 06/26/2016 67333-YZCTFWS NAIL, 6 OR MORE 09/18/2016 28934-QQCJVHE NAIL, 6 OR MORE 11/27/2016 40762-TZUJOKF NAIL, 6 OR MORE 01/29/2017 72540-TYSLZMM NAIL, 6 OR MORE 04/11/2017 68385-LCANAZY NAIL, 6 OR MORE 06/20/2017 36933-AWQIKVZ NAIL, 6 OR MORE 08/29/2017 03671-TMOPWFS NAIL, 6 OR MORE 11/19/2017 35530-QHFXMNB NAIL, 6 OR MORE 02/13/2018 57313-UNRNXUJ NAIL, 6 OR MORE 03/26/2024 77815-ZELHRRJ NAIL, 6 OR MORE 07/31/2024 35834-Rvqdrxob Plate 12/30/2014 81779-CHVO SKIN LESIONS, OVER 4 10/01/19 86337-MNTF SKIN LESIONS, OVER 4 08/01/19 85379-MPXW SKIN LESIONS, OVER 4 12/18/20 24 24175-EXQT SKIN LESIONS, OVER 4 05/08/19 19 65893-OSYQ SKIN LESIONS, OVER 4 07/11/19 19 73706-UZVW SKIN LESIONS, OVER 4 02/14/20 18 01152-VAIS SKIN LESIONS, OVER 4 11/20/19 18 95573-DQFH SKIN LESIONS, OVER 4 12/26/19 19 79969-UNYC SKIN LESIONS, OVER 4 03/24/20 19 38268-ZGTU SKIN LESIONS, OVER 4 06/16/19 13805-VPMJ SKIN LESIONS, OVER 4 08/17/19 21 88014-MQBE SKIN LESIONS, OVER 4 10/26/19 16755-DUXM SKIN LESIONS, OVER 4 12/28/19 27585-HKUL SKIN LESIONS, OVER 4 02/29/20 91416-NDMC SKIN LESIONS, OVER 4 05/09/19 22 40532-ROPT SKIN LESIONS, OVER 4 08/30/19 18 76869-JVQK SKIN LESIONS, OVER 4 06/21/19 18 68711-BKQL SKIN LESIONS, OVER 4 04/11/19 18 01992-RXZS SKIN LESIONS, OVER 4 01/30/20 17 48334-MUNK SKIN LESIONS, OVER 4 11/28/19 17 65825-KGSW SKIN LESIONS, OVER 4 06/27/19 17 17827-PTGU SKIN LESIONS, OVER 4 09/19/19 17 48057-STRO SKIN LESIONS, OVER 4 04/17/19 17 71783-QFHY SKIN LESIONS, OVER 4 01/31/20 16 05622-JBLL SKIN LESIONS, OVER 4 11/08/19 16 31601-RUMJ SKIN LESIONS, OVER 4 08/16/19 16 96514-PGIE SKIN LESIONS, OVER 4 06/03/19 16 26329-ARRU SKIN LESIONS, OVER 4 03/03/20 15 04331-SMLW SKIN LESIONS, OVER 4 12/31/19 15 32031-HAAL SKIN LESIONS, OVER 4 10/22/19 15 11635-WWDF SKIN LESIONS, OVER 4 07/23/19 15 91907-TESI SKIN LESIONS, OVER 4 05/04/19 15 20778-Dlsj. Subungual Hematoma 4 53243-KVVJMFWM OF HEMATOMA/FLUID 019 22894-BKNSQUOR OF HEMATOMA/FLUID 022 00162-KDAFTGAQ OF HEMATOMA/FLUID 023 97777-GFVSAHPS OF HEMATOMA/FLUID 021 57355-FZBFGFEL OF HEMATOMA/FLUID 019 HEMOGLOBIN A1C (GLYCOHEMOGLOBIN) 024 Next Appt Details Provider Name:Michela lawler, 01/22/2025 02:45:00 PM, [address] [place], [address], Insurance Providers Payer Name Payer Address Payer Phone Subscriber Number Group Number Insured Name Patient Relationship to Insured Coverage Start Date Coverage End Date [employer] Medicare [id number] [address] [address] [place] [address] [id number] Aaron Huston Self - patient is the insured Medical (General) History Medical History History ICD Code Arthritis Back,Hip,and Knee pain type II diabetes High blood pressure Neuropathy Chicken pox Surgical History Surgery Date(Month/Year) lumbar surgery 06/20/2013 cervical 11/29/2009 knee surgery, left 09/15/2015 gastric sleeve 03/08/17 cataract surgery- Bilateral 10/2017 Hospitalization History Reason Date(Month/Year) Heart attack- [facility] 08/2023
== END 2024-12-02 11:29 | disposition home or self-care (01) ==
LOC: HO.HPS 10:35
PROVIDERS: PCP Internal Medicine; Visit Provider Internal Medicine Pulmonary Disease
DX: J90 Pleural effusion, not elsewhere classified (principal); R06.09 Other forms of dyspnea
CPT/HCPCS: 99214

== ENCOUNTER → 2024-12-02 10:35 | Outpatient (BNVA) | payer MEDICARE, SELFPAY | PROVIDERS: PCP Internal Medicine; Visit Provider Internal Medicine Pulmonary Disease | DX: J90 Pleural effusion, not elsewhere classified (principal); R06.09 Other forms of dyspnea | CPT/HCPCS: 99212 ==

== ENCOUNTER 2024-12-16 14:51 | Outpatient (REF) | payer MEDICARE, SELFPAY ==
[2024-12-16 15:50] LABS: Hematocrit 41.2 % (42.0-52.0); Hemoglobin 13.1 g/dl (14.0-18.0); Mean Corpuscular HGB Conc 31.8 g/dl (31.0-36.0); Mean Corpuscular Hemoglobin 28.6 pg (27.0-33.0); Mean Corpuscular Volume 90.0 fL (80.0-98.0); NRBC Abs Auto 0.000 X10*3/uL (0.0-0.012); NRBC Pct Auto 0.0 /100WBC (0.0-0.2); Platelet Count 301 X10*3/uL (160-400); Red Blood Count 4.58 X10*6/uL (4.60-5.80); White Blood Count 6.2 X10*3/uL (4.8-10.8)
[2024-12-16 16:39] LABS: Parathyroid Hormone Intact 194.4 pg/mL (8.7-77.1)
[2024-12-16 16:46] LABS: Alanine Aminotransferase 15 U/L (0-40); Albumin Level 3.8 g/dL (3.5-5.0); Alkaline Phosphatase 89 U/L (39-117); Anion Gap 11 (12-20); Aspartate Amino Transferase 23 U/L (5-37); Blood Urea Nitrogen 27 mg/dL (9-16); Calcium 8.3 mg/dL (8.4-10.2); Carbon Dioxide 28 mmol/L (22-29); Chloride 107 mmol/L (96-108); Estimated Glomerular Filt Rate 36; Potassium 4.3 mmol/L (3.3-5.1); Sodium 142 mmol/L (135-145); Total Protein 8.0 g/dL (6.5-8.0)
--- OUTSIDE RECORDS SUMMARY | 2024-12-16 17:23 | XMS_ITS ---
Author Organization [facility] at [facility] Care Team Providers Care Title I Assistant Name Role Phone Elder, Lottie Berrios Unavailable Unavailab le Allergies and adverse reactions Code CodeSystem Substance Reaction Severity StartDate Concern Status Pollen Unknown 09/18/2015 active 6809 RXNORM Metformin Unknown 09/18/2015 active Invokana Unknown 09/18/2015 active Care Team Name Role Address Phone Organization Dates Lottie Berrios Elder [address] [place], [address], [place] (Office): : [facility] 09/18/2015 - 09/24/2015 Mental Status Section Date Assessment Total Score Description 09/24/2015 BIMS 15 cognitively int act PHQ-9 00 09/23/2015 BIMS 15 cognitively int act PHQ-9 00 Problems Problem # Description Date of onset Resolved Date Code CodeSystem Concern Status 1 AFTERCARE FOLLOWING JOINT REPLACEMENT SURGERY 09/19/[address] active 2 DIFFICULTY IN WALKING, NOT ELSEWHERE CLASSIFIED 09/19/[address] active 3 UNSPECIFIED LACK OF COORDINATION 09/19/[address] active 4 BENIGN PROSTATIC HYPERPLASIA WITHOUT LOWER URINARY TRACT SYMPTOMS 09/18/[address] active 5 ESSENTIAL (PRIMARY) HYPERTENSION 09/18/[address] active 6 PRESENCE OF LEFT ARTIFICIAL KNEE JOINT 09/18/[address] active 7 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 09/18/[address] active 8 UNSPECIFIED OSTEOARTHRITIS, UNSPECIFIED SITE 09/18/[address] active Reason for Referral No Reasons for Referral Entered Social History Social History Observation Description Start Date End Date Code Code System Current Smoking Status Tobacco smoking consumption unknown 030199284 SNOMED CT Sex Assigned At Male 1940 97907-1 [facility] Gender Identity Sexual Orientation Vital Signs Code Code System Vitals Name Values and Units Timing Information 8310-5 [facility] Body Temperature Value=96.6 Units= F 09/24/2015 2339-0 [facility] Blood Sugar Vwmys=375.0 Units=mg/dL 09/24/2015 72959-8 [facility] Pain Level Value=6.0 09/24/2015 9279-1 [facility] Respiratory Rate Value=18.0 Units=/m in 09/23/2015 8462-4 [facility] Blood Pressure-Diastolic Value=75 Un its=mmHg 09/23/2015 8480-6 [facility] Blood Pressure-Systolic Cteee=506 Un its=mmHg 09/23/2015 8867-4 [facility] Heart rate Value=95.0 Units=/min 35268-3 [facility] O2 % dC Oximetry Value=96.0 Units= % 09/23/2015 45242-0 LOINC Weight Fhjxs=438.0 Units=Lbs 8302-2 [facility] Height Value=71.0 Units=Inches 09/22/2015
--- OUTSIDE RECORDS SUMMARY | 2024-12-16 17:23 | XMS_ITS | Encounter Summary ---
Author Organization [facility] Address [address] [facility] [address] [place] [address] Phone Care Team Providers Care Loading Machine Operator Helper Name Role Phone Donald Mayberry MD Primary Care Provider [phone]- [phone] Kane Plunkett MD Primary Care Provid er Encounter Details Date Type Department Care Team (Late st Contact Info) Description 07/25/2023 Procedure Pass Echo Lab [place] [place], [place] [id number] Social History Tobacco Use Types Packs/Day Years [...] Info) Description 08/27/2024 Procedure Pass Echo Lab [address] [place] [id number] 12/17/2024 10:00 AM EDT Office Visit [facility] [address], [address] [place] [address] Lety Rahman PA-C, MPH [address] [place] [address] [email or web address] 01/01/2025 10:15 AM EDT Appointment Echo Lab [address] [place] [address] Harriet Yang PA-C [address] [place] [address] 02/11/2025 11:00 AM EST Office Visit [facility] [address] [place] [address] [address]rd Floor, [address] [place] [address] Hood Breen MD [address] [facility], [address] [address] [email or web address] documented as of this encounter Visit Diagnoses Not on filedocumented in this encounter Care Teams Loading Machine Operator Helper Relationship Specialty Start Date End Date Donald Mayberry MD [address] [place] [address] PCP - General Internal Medicine 08/07/23 10/15/24 Kane Plunkett MD [address] [place] [address] PCP - General Internal Medicine 10/16/24 documented as of this encounter Additional Source Comments The information contained in this document represents components of the legal health record. It is not the complete legal health record.[facility]
--- OUTSIDE RECORDS SUMMARY | 2024-12-16 17:23 | XMS_ITS | Patient Health Record ---
Author [facility] b[facility]esh [facility] Address [address] [facility] [place]hele [address] Care Team Providers Care Dental Scheduler Name Role Phone Kane Plunkett Primary Care Provider Michela Hirsch Unavailable [phone] Jason Treviño Unavailable [phone] Allergies No Known Allergies Results Component Value [...] Problem Acquired hammer toe of right foot (2503135108516988 ) Other hammer toe(s) (acquired), right foot (M20.41) Active confirmed Response to treatment, Improvemen t Problem Acquired hammer toe of left foot (9132014841267269 ) Other hammer toe(s) (acquired), left foot (M20.42) Active confirmed Response to treatment, Improvemen t Problem Polyneuropathy due to type 2 diabetes mellitus (077990935) Type 2 diabetes mellitus with diabetic polyneuropathy (E11.42) Active confirmed Vital Signs Blood pressure diastolic 65 mm Hg 10/23/2024 Height 5 ft 10 in in 10/23/2024 Blood pressure systolic 128 mm Hg 10/23/2024 Weight 218 lbs 10/23/2024 BMI 31.28 kg/m2 10/23/2024 Procedures Procedure Date Ordered Date Performed Result Body Sit e 90817-GNAXFSC NAIL, 6 OR MORE 03/26/2024 N/A 94306-FAQY SKIN LESIONS, OVER 4 03/26/2024 N/A 12792-MDENPPO NAIL, 6 OR MORE 07/31/2024 N/A 91417-BUZE SKIN LESIONS, OVER 4 07/31/2024 N/A Encounters Encounter Location Date Provider Diagnosis [address] [address] 12/20/2023 Jason Treviño Tinea unguium B35.1 ; [...] toenail of left foot, initial encounter S90.222A [address] [address] 03/26/2024 Michela Hirsch Other hammer toe(s) (acquired), right foot M20.41 ; Other hammer toe(s) (acquired), left foot M20.42 ; Type 2 diabetes mellitus with diabetic polyneuropathy E11.42 ; Tinea unguium B35.1 and Tinea pedis of both feet B35.[address] [address] 07/31/2024 Michela Hirsch Type 2 diabetes mellitus with diabetic polyneuropathy E11.42 ; Tinea unguium B35.1 ; Other hammer toe(s) (acquired), right foot M20.41 and Other hammer toe(s) (acquired), left foot M20.[address] [address] 10/23/2024 Michela Hirsch Type 2 diabetes mellitus with diabetic polyneuropathy E11.42 and Tinea unguium B35.[address] [address] 03/27/2024 [facility] [address] [address] 11/04/2024 Michela Hirsch Tinea pedis of both [...] Treatment Pending Test Test Name Order Date 88249-DSECJGV NAIL, 6 OR MORE 05/04/2014 83818-KACDUSQ NAIL, 6 OR MORE 07/22/2014 09996-ZLSSGHY NAIL, 6 OR MORE 10/21/2014 15750-JQPOHOX NAIL, 6 OR MORE 12/30/2014 61654-DKOHUUO NAIL, 6 OR MORE 03/03/2015 74478-JXXUUVU NAIL, 6 OR MORE 06/03/2015 24963-GDMQVOU NAIL, 6 OR MORE 08/16/2015 43469-OGCXGQA NAIL, 6 OR MORE 11/08/2015 67108-SKJHZLV NAIL, 6 OR MORE 01/31/2016 01475-PEJQPLT NAIL, 6 OR MORE 04/17/2016 10328-CJOLAZJ NAIL, 6 OR MORE 06/26/2016 40239-JARKCGK NAIL, 6 OR MORE 09/18/2016 69543-GHQNOEV NAIL, 6 OR MORE 11/27/2016 76332-NGUWHDN NAIL, 6 OR MORE 01/29/2017 75974-NNHWJVW NAIL, 6 OR MORE 04/11/2017 26664-MXHOYDC NAIL, 6 OR MORE 06/20/2017 46303-ITJWHQZ NAIL, 6 OR MORE 08/29/2017 60936-AFXWRGY NAIL, 6 OR MORE 11/19/2017 50662-PRZLYVL NAIL, 6 OR MORE 02/13/2018 92156-CSSVEKA NAIL, 6 OR MORE 03/26/2024 40468-IHEZFGJ NAIL, 6 OR MORE 07/31/2024 38926-Vjeefyqp Plate 12/30/2014 79119-GLPM SKIN LESIONS, OVER 4 10/01/19 19 80717-DTHF SKIN LESIONS, OVER 4 04/24/20 25 44900-KLWA SKIN LESIONS, OVER 4 03/26/20 24 32308-WIJK SKIN LESIONS, OVER 4 05/08/19 19 95066-DSFY SKIN LESIONS, OVER 4 07/11/19 19 51088-RKHW SKIN LESIONS, OVER 4 02/14/20 18 88252-POCM SKIN LESIONS, OVER 4 11/20/19 18 41193-VZZL SKIN LESIONS, OVER 4 12/26/19 19 81616-IGYR SKIN LESIONS, OVER 4 03/24/20 19 83917-WJXA SKIN LESIONS, OVER 4 06/16/19 52587-KJZE SKIN LESIONS, OVER 4 08/17/19 46218-QXYN SKIN LESIONS, OVER 4 10/26/19 71973-KIES SKIN LESIONS, OVER 4 12/28/19 12687-HGBO SKIN LESIONS, OVER 4 02/29/20 21 42432-OFBC SKIN LESIONS, OVER 4 05/09/19 82153-TZEH SKIN LESIONS, OVER 4 08/30/19 18 12030-YAAG SKIN LESIONS, OVER 4 06/21/19 18 02065-IZNN SKIN LESIONS, OVER 4 04/11/19 18 74205-FETU SKIN LESIONS, OVER 4 01/30/20 17 33065-HKPW SKIN LESIONS, OVER 4 11/28/19 17 23133-RNYY SKIN LESIONS, OVER 4 06/27/19 17 75669-NREU SKIN LESIONS, OVER 4 09/19/19 17 01969-ABAY SKIN LESIONS, OVER 4 04/17/19 17 73027-ULSO SKIN LESIONS, OVER 4 01/31/20 16 25320-NWLD SKIN LESIONS, OVER 4 11/08/19 16 72694-ZHHG SKIN LESIONS, OVER 4 08/16/19 16 07775-KUCR SKIN LESIONS, OVER 4 06/03/19 16 77663-MSYV SKIN LESIONS, OVER 4 03/03/20 15 97581-VJMX SKIN LESIONS, OVER 4 12/31/19 15 35534-CUKE SKIN LESIONS, OVER 4 10/22/19 15 30383-OOXT SKIN LESIONS, OVER 4 07/23/19 15 09782-COSH SKIN LESIONS, OVER 4 05/04/19 15 84143-Jfbn. Subungual Hematoma 4 78108-SHEIUZRJ OF HEMATOMA/FLUID 019 01226-KXWCZQCI OF HEMATOMA/FLUID 022 05592-ZGMVLDUC OF HEMATOMA/FLUID 023 69538-VTTMPFWE OF HEMATOMA/FLUID 021 69123-GWNULRRP OF HEMATOMA/FLUID 019 HEMOGLOBIN A1C (GLYCOHEMOGLOBIN) 024 Next Appt Details Provider Name:Michela lawler, 01/22/2025 02:45:00 PM, [address] [place], [address], Insurance Providers Payer Name Payer Address Payer Phone Subscriber Number Group Number Insured Name Patient Relationship to Insured Coverage Start Date Coverage End Date [employer] Medicare Adv-[id number] [address] [address] [place] [address] [id number] Aaron Huston Self - patient is the insured Medical (General) History Medical History History ICD Code Arthritis Back,Hip,and Knee pain type II diabetes High blood pressure Neuropathy Chicken pox Surgical History Surgery Date(Month/Year) lumbar surgery 06/20/2013 cervical 11/29/2009 knee surgery, left 09/15/2015 gastric sleeve 03/08/17 cataract surgery- Bilateral 10/2017 Hospitalization History Reason Date(Month/Year) Heart attack- [facility] 08/2023
--- OUTSIDE RECORDS SUMMARY | 2024-12-16 17:23 | XMS_ITS | Encounter Summary ---
Author Organization [facility] Address [address] [facility] [address] [place] [address] Phone Care Team Providers Care Fireworks Inspector Name Role Phone Donald Mayberry MD Primary Care Provider [phone]- [phone] Kane Plunkett MD Primary Care Provid er Encounter Details Date Type Department Care Team (Late st Contact Info) Description 10/18/2023 Procedure Pass Echo Lab [place] [place], [place] [id number] Social History Tobacco Use Types Packs/Day Years [...] Info) Description 08/27/2024 Procedure Pass Echo Lab [address] [place] [id number] 12/17/2024 10:00 AM EDT Office Visit [facility] [address], [address] [place] [address] Lety Rahman PA-C, MPH [address] [place] [address] [email or web address] 01/01/2025 10:15 AM EDT Appointment Echo Lab [address] [place] [address] Harriet Yang PA-C [address] [place] [address] 02/11/2025 11:00 AM EST Office Visit [facility] [address] [place] [address] 3rd Floor, [address] [place] [address] Hood Breen MD 22 [facility], [address] [address] [email or web address] documented as of this encounter Visit Diagnoses Not on filedocumented in this encounter Care Teams Fireworks Inspector Relationship Specialty Start Date End Date Donald Mayberry MD [address] [place] [address] PCP - General Internal Medicine 08/07/23 10/15/24 Kane Plunkett MD [address] [place] [address] PCP - General Internal Medicine 10/16/24 documented as of this encounter Additional Source Comments The information contained in this document represents components of the legal health record. It is not the complete legal health record.[facility]
== END 2024-12-16 14:52 | disposition home or self-care (01) ==
LOC: HO.LAB 14:51
PROVIDERS: PCP Internal Medicine; Visit Provider Internal Medicine Hypertension Specialist
DX: N18.32 Chronic kidney disease, stage 3b (principal)
CPT/HCPCS: 36415; 80053; 83970; 85027

== ENCOUNTER 2024-12-18 14:09 | Outpatient (AMB) | payer MEDICARE, SELFPAY ==
[2024-12-18 14:12] VITALS: BP 150/74; PULSE 79; O2SAT 97; BMI 31.0
--- NOTE | 2024-12-18 14:12 | HO.NEPHOV ---
Vital Signs 12/18/24 14:12 Height 5 ft 11 in Weight 222 lb BMI 31.0 BP 150/74 H Blood Pressure Location Rt brachial Position Sitting Pulse 79 Pulse Source Pulse Oximeter Pulse Oximetry (%) 97 Oxygen Delivery Method Room Air Intake Visit Reasons: 1 [place] FU-Conf Field Research Assistant Required: No Accompanied by: Spouse Allergies cephalexin (From KEFLEX) Allergy (Unknown, Verified 12/18/24 14:14) UNKNOWN metformin (METFORMIN) Allergy (Unknown, Verified 12/18/24 14:14) SHAKY , swelling silodosin (From RAPAFLO) Allergy (Unknown, Verified 12/18/24 14:14) UNKNOWN tamsulosin (From FLOMAX) Allergy (Unknown, Verified 12/18/24 14:14) UNKNOWN Pt states no known allergy to Allergy (Mild, Uncoded 11/13/24 16:47) Unknown Rapaflo Allergy (Unknown, Uncoded 11/13/24 16:47) hives Medication List - Last Reconciled 12/18/24 by Franklyn Pearl MD amlodipine 5 mg PO DAILY apixaban (Eliquis) 2.5 mg PO BID aspirin 81 mg PO DAILY blood sugar diagnostic (Accu-Chek Guide test strips) As directed- daily blood sugar diagnostic (OneTouch Ultra Test strips) As directed blood-glucose meter (Accu-Chek Guide Me Glucose Meter) As directed- daily ciclopirox 0.77% 1 appl topical BID cyclosporine 0.05% (Restasis) 1 drp ophthalmic (eye) Q12H diazepam 10 mg (2 x 5 mg) PO DAILY 30 days Farxiga (dapagliflozin propanediol) 10 mg PO QAM NS furosemide 20 mg PO DAILY gabapentin 200 mg (2 x 100 mg) PO TID 90 days lancets (Accu-Chek Softclix Lancets) As directed- daily lancets (OneTouch UltraSoft 2 Lancet) As directed lidocaine 4% (Lidocaine Pain Relief) 2 patches See Protocol transdermal DAILY metoprolol succinate ER 100 mg (2 x 50 mg) PO DAILY sacubitril-valsartan 97-103 mg (Entresto) 1 tab PO BID spironolactone 25 mg PO DAILY tolterodine ER 4 mg PO BID tramadol 50 mg PO Q8H 30 days triamcinolone acetonide 0.025% 1 appl topical BID vitamins A,C,R-obtj-dpxbex 2,148 mcg-113 mg-45 mg-17.4mg (PreserVision AREDS) 1 tab PO BID HPI Comments Details: The patient is an 84-year-old male referred for evaluation of chronic kidney disease. He has a longstanding history of diabetes mellitus. History of congestive heart failure status post NC. He has multiple somatic complaints. He reports a decline in balance and leg strength since the spring, with symptoms worsening over time, leading to difficulty walking and increased fatigue. He experiences dyspnea with minimal exertion, such as walking to the mailbox or climbing stairs, and reports a heavy sensation in his lungs. The patient has a history of heart failure, He underwent cardioversion for atrial fibrillation and has been hospitalized for cardiac care. The patient has a longstanding history of type 2 diabetes mellitus, which has contributed to his chronic kidney disease and peripheral neuropathy. He reports dizziness and neuropathic symptoms, which are attributed to diabetes. The patient has a history of prostate surgery complications, including a staph infection and prolonged catheter use, which have resolved. He also reports a history of hypertension, which is currently being managed with medication adjustments. 11/21/24 The patient is an 84-year-old male presenting with concerns regarding his kidney function and overall health status following a recent hospitalization. He was hospitalized for five days due to pleural effusion, during which fluid was removed from his lungs. The fluid analysis showed no evidence of malignancy, which was a significant concern initially. The patient's kidney function is currently at 34%, which is stable compared to previous levels fluctuating between 34% and 40%. He has a history of chronic kidney disease and is on multiple medications, including furosemide, amlodipine, Entresto, and metoprolol, to manage his condition and associated hypertension. The patient reports urinary incontinence, which he attributes to complications from previous prostate surgery that damaged his sphincter muscle. He has experienced episodes of urinary leakage and has been managing this with the use of a leg bag and night bag. His past medical history includes a significant staph infection following a surgical procedure, which led to hospitalization and subsequent pneumonia. He also underwent hernia repair and has a history of weight loss, having lost approximately 80 pounds through a structured program, which enabled him to undergo knee replacement surgery. Recent imaging showed a simple renal cyst, which does not require intervention. The patient's heart failure with reduced ejection fraction is being managed with Entresto, and improvement in heart function is expected to benefit his renal function over time. 12/18/24 Doing better Off KCL Aldactone has been added [facility] Medical History (Updated 11/25/24 @ 17:49 by Kati Garg PA-C) Hospital discharge follow-up Empyema of left pleural space CKD (chronic kidney disease) stage 3, GFR 30-59 ml/min NSTEMI (non-ST elevated myocardial infarction) Failed total left knee replacement HFrEF (heart failure with reduced ejection fraction) GERD (gastroesophageal reflux disease) Chronic renal failure Chronic pain syndrome Surgical History H/O gastric bypass Previous back surgery H/O inguinal hernia repair Family History Father Prostate cancer Bone cancer Mother BP (high blood pressure) Social History Household Members: Spouse Housing: House Do you presently have visiting nurse or other home services: No Alcohol intake: current Alcohol intake frequency: does not drink Comment: pt refuse bed alarm Patient Tobacco Use Status: Never used Tobacco service: No Current occupational status: retired Cognitive needs: No Hearing needs: No Vision needs: No Physical Exam Vital Signs: Last Vital Signs Pulse 79 12/18/24 14:12 BP 150/74 H 12/18/24 14:12 Pulse Ox 97 12/18/24 14:12 Oxygen Delivery Method Room Air 12/18/24 14:12 BMI result Body Mass Index 31.0 Comfortable Neck supple no JVD. Lungs decreased air entry in left base Heart S1-S2 heard no gallop or rub. Abdomen soft nontender. Neuro alert awake oriented. No asterixis. Extremities no edema. Results Reviewed Nephrology Results: Hgb, (14.0-18.0) 13.1 g/dl L 12/16/24 WBC, (4.8-10.8) 6.2 X10*3/uL 12/16/24 Plt Count, (160-400) 301 X10*3/uL 12/16/24 Sodium, (135-145) 142 mmol/L 12/16/24 Potassium, (3.3-5.1) 4.3 mmol/L 12/16/24 Chloride, (96-108) 107 mmol/L 12/16/24 Carbon Dioxide, (22-29) 28 mmol/L 12/16/24 BUN, (9-16) 27 mg/dL H 12/16/24 Creatinine, (0.5-1.4) 1.82 mg/dL H 12/16/24 Calcium, (8.4-10.2) 8.3 mg/dL L 12/16/24 PTH Intact, (8.7-77.1) 194.4 pg/mL H 12/16/24 Urine Protein, (Neg-Trace) Trace mg/dL 11/21/24 Urine Creatinine 97.09 mg/dL 11/21/24 Renal US 11/16/24 Assessment & Plan Assessment & Plan (1) Chronic renal failure: Code(s): N18.9 - Chronic kidney disease, unspecified Category: Medical (2) CHF (congestive heart failure): Code(s): I50.9 - Heart failure, unspecified Category: Medical Plan 84-year-old man with stage III CKD in the setting of longstanding diabetes mellitus and congestive heart failure. Renal function is close to baseline At the present time fluid status seems acceptable. No evidence of overt fluid overload. No signs or symptoms of uremia. 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 No evidence of Obstructive uropathy or active glomerular nephritis or interstitial disease at this time. Recommendations Optimize fluid status Optimize blood pressure. Continue amlodipine 5 mg once a day. Continue with the Entresto. Continue to avoid nephrotoxic agents including NSAIDs. Encouraged him to stay on a low-sodium diet. Check CXR today Follow up with Pulm Orders: Orders Basic Metabolic Panel 3 Months N18.32 - Chronic kidney disease, stage 3b Complete Blood Count no Diff 3 Months N18.32 - Chronic kidney disease, stage 3b XR chest 2V Today J18.9 - Pneumonia, unspecified organism, J90 - Pleural effusion, not elsewhere classified, J91.8 - Pleural effusion in other conditions classified elsewhere Coding Level of Care Code Est Pt Level 4 (06461) Diagnoses Chronic renal failure N18.9 CHF (congestive heart failure) I50.9
--- OUTSIDE RECORDS SUMMARY | 2024-12-18 17:57 | XMS_ITS | Patient Health Record ---
Author Organization [facility] brijesh Michele Address [address] [facility] HENRIQUE Michele [address] Care Team Providers Care Entry Level Assistant Manager Name Role Phone Kane Plunkett Primary Care Provider [phone] Michela Hirsch Unavailable [phone] Jason Treviño Unavailable [phone] Allergies No Known Allergies Results Component Value [...] Problem Acquired hammer toe of right foot (5840277974780087 ) Other hammer toe(s) (acquired), right foot (M20.41) Active confirmed Response to treatment, Improvemen t Problem Acquired hammer toe of left foot (6809361443906667 ) Other hammer toe(s) (acquired), left foot (M20.42) Active confirmed Response to treatment, Improvemen t Problem Polyneuropathy due to type 2 diabetes mellitus (347864890) Type 2 diabetes mellitus with diabetic polyneuropathy (E11.42) Active confirmed Vital Signs Blood pressure diastolic 65 mm Hg 10/23/2024 Height 5 ft 10 in in 10/23/2024 Blood pressure systolic 128 mm Hg 10/23/2024 Weight 218 lbs 10/23/2024 BMI 31.28 kg/m2 10/23/2024 Procedures Procedure Date Ordered Date Performed Result Body Sit e 05450-OUTGTFY NAIL, 6 OR MORE 03/26/2024 N/A 28807-PIUJ SKIN LESIONS, OVER 4 03/26/2024 N/A 91276-XWVPCOT NAIL, 6 OR MORE 07/31/2024 N/A 53395-GVYP SKIN LESIONS, OVER 4 07/31/2024 N/A Encounters Encounter Location Date Provider Diagnosis [address] [address] 12/20/2023 Jason Treviño Tinea unguium B35.1 ; [...] toenail of left foot, initial encounter S90.222A [address] [address] 03/26/2024 Michela Hirsch Other hammer toe(s) (acquired), right foot M20.41 ; Other hammer toe(s) (acquired), left foot M20.42 ; Type 2 diabetes mellitus with diabetic polyneuropathy E11.42 ; Tinea unguium B35.1 and Tinea pedis of both feet B35.[address] [address] 07/31/2024 Michela Hirsch Type 2 diabetes mellitus with diabetic polyneuropathy E11.42 ; Tinea unguium B35.1 ; Other hammer toe(s) (acquired), right foot M20.41 and Other hammer toe(s) (acquired), left foot M20.[address] [address] 10/23/2024 Michela Hirsch Type 2 diabetes mellitus with diabetic polyneuropathy E11.42 and Tinea unguium B35.[address] [address] 03/27/2024 [facility] [address] [address] 11/04/2024 Michela Hirsch Tinea pedis of both [...] Treatment Pending Test Test Name Order Date 35516-TSPHLFK NAIL, 6 OR MORE 05/04/2014 19964-FQYDKUH NAIL, 6 OR MORE 07/22/2014 48151-FHGULLJ NAIL, 6 OR MORE 10/21/2014 60148-WLWLWBM NAIL, 6 OR MORE 12/30/2014 86531-GCJENFO NAIL, 6 OR MORE 03/03/2015 72900-MNIPFDW NAIL, 6 OR MORE 06/03/2015 73593-BVBASSI NAIL, 6 OR MORE 08/16/2015 80531-XHOEESY NAIL, 6 OR MORE 11/08/2015 32185-NWOCYHF NAIL, 6 OR MORE 01/31/2016 40948-XCCPMAV NAIL, 6 OR MORE 04/17/2016 89322-UDGLOGL NAIL, 6 OR MORE 06/26/2016 44488-CAPXTUS NAIL, 6 OR MORE 09/18/2016 06033-FBSFEMN NAIL, 6 OR MORE 11/27/2016 19632-IUPVEKS NAIL, 6 OR MORE 01/29/2017 98412-YHWBWOR NAIL, 6 OR MORE 04/11/2017 63134-FUVCZRI NAIL, 6 OR MORE 06/20/2017 55281-DFLOUWR NAIL, 6 OR MORE 08/29/2017 13536-WKOKEQA NAIL, 6 OR MORE 11/19/2017 31959-ELVEAGG NAIL, 6 OR MORE 02/13/2018 67887-SGZTRUR NAIL, 6 OR MORE 03/26/2024 44391-XOENUBP NAIL, 6 OR MORE 07/31/2024 93238-Lbgxhbhj Plate 12/30/2014 95396-UWFG SKIN LESIONS, OVER 4 10/01/19 19 89018-OGOP SKIN LESIONS, OVER 4 04/24/20 25 62117-LTZC SKIN LESIONS, OVER 4 03/26/20 24 14786-GDTE SKIN LESIONS, OVER 4 05/08/19 19 26833-XSAW SKIN LESIONS, OVER 4 07/11/19 19 31705-YNNZ SKIN LESIONS, OVER 4 02/14/20 18 73846-UOGY SKIN LESIONS, OVER 4 11/20/19 18 46189-VJVZ SKIN LESIONS, OVER 4 12/26/19 19 22492-CXZV SKIN LESIONS, OVER 4 03/24/20 19 33483-IGDU SKIN LESIONS, OVER 4 06/16/19 64433-YICY SKIN LESIONS, OVER 4 08/17/19 66566-HRJL SKIN LESIONS, OVER 4 10/26/19 70841-OCSD SKIN LESIONS, OVER 4 12/28/19 38676-KYUG SKIN LESIONS, OVER 4 02/29/20 21 23661-LMEU SKIN LESIONS, OVER 4 05/09/19 91447-NLRS SKIN LESIONS, OVER 4 08/30/19 18 99624-VMCX SKIN LESIONS, OVER 4 06/21/19 18 74608-QZTG SKIN LESIONS, OVER 4 04/11/19 18 73400-DBHB SKIN LESIONS, OVER 4 01/30/20 17 73708-YQQI SKIN LESIONS, OVER 4 11/28/19 17 52929-RVYU SKIN LESIONS, OVER 4 06/27/19 17 48091-RCRB SKIN LESIONS, OVER 4 09/19/19 17 73679-OYWU SKIN LESIONS, OVER 4 04/17/19 17 46843-JIOY SKIN LESIONS, OVER 4 01/31/20 16 15432-ABZP SKIN LESIONS, OVER 4 11/08/19 16 90203-ZQOC SKIN LESIONS, OVER 4 08/16/19 16 92111-ISTQ SKIN LESIONS, OVER 4 06/03/19 16 11414-ULYI SKIN LESIONS, OVER 4 03/03/20 15 28580-UPNV SKIN LESIONS, OVER 4 12/31/19 15 48432-IMDN SKIN LESIONS, OVER 4 10/22/19 15 90310-DZBX SKIN LESIONS, OVER 4 07/23/19 15 86096-GMZE SKIN LESIONS, OVER 4 05/04/19 15 10844-Tpbf. Subungual Hematoma 4 59546-BPORGLKR OF HEMATOMA/FLUID 019 66943-IGPHHNWF OF HEMATOMA/FLUID 022 66304-GKOFNKDH OF HEMATOMA/FLUID 023 37949-OGQCUUOB OF HEMATOMA/FLUID 021 15052-JVBLTRGQ OF HEMATOMA/FLUID 019 HEMOGLOBIN A1C (GLYCOHEMOGLOBIN) 024 Next Appt Details Provider Name:Michela lawler, 01/22/2025 02:45:00 PM, [address] [place], [address], Insurance Providers Payer Name Payer Address Payer Phone Subscriber Number Group Number Insured Name Patient Relationship to Insured Coverage Start Date Coverage End Date [employer] Medicare Adv-[id number] [address] [address] [place] [address] [id number] Aaron Huston Self - patient is the insured Medical (General) History Medical History History ICD Code Arthritis Back,Hip,and Knee pain type II diabetes High blood pressure Neuropathy Chicken pox Surgical History Surgery Date(Month/Year) lumbar surgery 06/20/2013 cervical 11/29/2009 knee surgery, left 09/15/2015 gastric sleeve 03/08/17 cataract surgery- Bilateral 10/2017 Hospitalization History Reason Date(Month/Year) Heart attack- [facility] 08/2023
--- OUTSIDE RECORDS SUMMARY | 2024-12-18 17:57 | XMS_ITS ---
Author Organization [facility] Care Team Providers Care Special Events Driver Name Role Phone Elder, Lottie Berrios Unavailable Unavailab le Allergies and adverse reactions Code CodeSystem Substance Reaction Severity StartDate Concern Status Pollen Unknown 09/18/2015 active 6809 RXNORM Metformin Unknown 09/18/2015 active Invokana Unknown 09/18/2015 active Care Team Name Role Address Phone Organization Dates Lottie Berrios Elder [address] [place], [address], [place] (Office): : [facility] 09/18/2015 - 09/24/2015 Mental Status Section Date Assessment Total Score Description 09/24/2015 BIMS 15 cognitively int act PHQ-9 00 09/23/2015 BIMS 15 cognitively int act PHQ-9 00 Problems Problem # Description Date of onset Resolved Date Code CodeSystem Concern Status 1 AFTERCARE FOLLOWING JOINT REPLACEMENT SURGERY 09/19/[address] active 2 DIFFICULTY IN WALKING, NOT ELSEWHERE CLASSIFIED 09/19/[address] active 3 UNSPECIFIED LACK OF COORDINATION 09/19/[address] active 4 BENIGN PROSTATIC HYPERPLASIA WITHOUT LOWER URINARY TRACT SYMPTOMS 09/18/[address] active 5 ESSENTIAL (PRIMARY) HYPERTENSION 09/18/[address] active 6 PRESENCE OF LEFT ARTIFICIAL KNEE JOINT 09/18/[address] active 7 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 09/18/[address] active 8 UNSPECIFIED OSTEOARTHRITIS, UNSPECIFIED SITE 09/18/[address] active Reason for Referral No Reasons for Referral Entered Social History Social History Observation Description Start Date End Date Code Code System Current Smoking Status Tobacco smoking consumption unknown 268105257 SNOMED CT Sex Assigned At Male 1940 82782-4 [facility] Gender Identity Sexual Orientation Vital Signs Code Code System Vitals Name Values and Units Timing Information 8310-5 [facility] Body Temperature Value=96.6 Units= F 09/24/2015 2339-0 [facility] Blood Sugar Nhvkm=371.0 Units=mg/dL 09/24/2015 45025-5 [facility] Pain Level Value=6.0 09/24/2015 9279-1 [facility] Respiratory Rate Value=18.0 Units=/m in 09/23/2015 8462-4 [facility] Blood Pressure-Diastolic Value=75 Un its=mmHg 09/23/2015 8480-6 [facility] Blood Pressure-Systolic Miaor=397 Un its=mmHg 09/23/2015 8867-4 [facility] Heart rate Value=95.0 Units=/min 78147-6 [facility] O2 % dC Oximetry Value=96.0 Units= % 09/23/2015 76872-5 [facility] Weight Ivxro=019.0 Units=Lbs 8302-2 [facility] Height Value=71.0 Units=Inches 09/22/2015
== END 2024-12-18 14:36 | disposition home or self-care (01) ==
LOC: HO.HKA 14:10
PROVIDERS: PCP Internal Medicine; Visit Provider Internal Medicine Hypertension Specialist
DX: N18.9 Chronic kidney disease, unspecified (principal); I50.9 Heart failure, unspecified
CPT/HCPCS: 99214

== ENCOUNTER 2024-12-18 14:09 | Outpatient (REF) | payer MEDICARE, SELFPAY ==
--- OUTSIDE RECORDS SUMMARY | 2024-12-17 10:00 | XMS_ITS | Encounter Summary ---
Author Organization [facility] Address [address] [facility] [place] [address] Phone Care Team Providers Care Fellmongery Worker Name Role Phone Kane Plunkett MD Primary Care Provid er Encounter Details Date Type Department Care Team (Latest Contact Info) Description 12/17/2024 10:00 AM EDT Office Visit [facility] [address] [place] [address] [address]rd Floor, [address] [place] [address] Lety Rahman PA-C, MPH [address] [place] [address] [email or web address] Paroxysmal atrial fibrillation (Primary Dx) Social History Tobacco Use Types Packs/Day Years [...] on file documented as of this encounter Last Filed Vital Signs Vital Sign Reading Time Taken Comments Blood Pressure 142/92 12/17/2024 9:47 AM EDT Pulse 69 12/17/2024 9:47 AM EDT Temperature - - Respiratory Rate - - Oxygen Saturation 94% 12/17/2024 9:47 AM EDT Inhaled Oxygen Concentration - - Weight 99.3 kg (219 lb) 12/17/2024 9:47 AM EDT Height 185.4 cm (6' 0.99 ) 12/17/2024 9:47 AM ED T Body Mass Index 28.9 12/17/2024 9:47 AM EDT documented in this encounter Patient Instructions * Patient Instructions* Lety Rahman PA-C, MPH - 12/17/2024 10:00 AM EDT Check blood pressure daily. If blood pressure is greater than 140 (top number) notify our office for medication titration Follow up with photographic colorist and academic counselor as scheduled Check daily standing weights. If weight gain > 3lbs in 2 days please notify our office for medication titration. Stop potassium tablet. documented in this encounter Plan of Treatment Upcoming Encounters Date Type Department Care Team (Late st Contact Info) Description 08/27/2024 Procedure Pass Echo Lab [address] [place] [address] 01/01/2025 10:15 AM EDT Appointment Echo Lab [address] [place] [address] Harriet aYng PA-C [address] [place] [address] 02/11/2025 11:00 AM EST Office Visit [facility] [address] [place] Floor, [address] [place] [address] oHod Breen MD 22 [facility], [address] [place] [address] [email or web address] Scheduled Orders Name Type Priority Associated Diagnoses Orde r Schedule ECG 12-LEAD ECG Routine Paroxysmal atrial fibrillation Ordered: 12/17/2024 documented as of this encounter Visit Diagnoses Diagnosis Paroxysmal atrial fibrillation- Primary Atrial fibrillation documented in this encounter Care Teams Fellmongery Worker Relationship Specialty Start Date End Date Kane Plunkett MD [address] [place] [address] PCP - General Internal Medicine 10/16/24 documented as of this encounter Additional Source Comments The information contained in this document represents components of the legal health record. It is not the complete legal health record.[facility]
--- NOTE | ~2024-12-18 | XR_ITS ---
EXAMINATION: XR CHEST CLINICAL INFORMATION: J90 - Pleural effusion, not elsewhere classified COMPARISON: November 15, 2024. Correlated to CT chest dated November 14, 2024 TECHNIQUE: 2 views of the chest were obtained. FINDINGS: Hyperinflated lungs. Opacity in the left mid lower hemithorax. Shifted cardiomediastinal silhouette of the left hemithorax. Low lung volume left upper hemithorax. No pneumothorax. Prominence of the interstitial lung markings. Calcified plaque thoracic aorta. Multilevel spondylosis. Osteopenia versus osteoporosis. XR/XR chest 2V IMPRESSION: Overall no gross change with a combination of left-sided pleural effusion and compression atelectasis with atelectatic component, left lung. Electronically signed by: Jhoan Espinosa MD 12/18/2024 03:20 PM EDT
--- OUTSIDE RECORDS SUMMARY | 2024-12-18 18:22 | XMS_ITS | Clinical Summary ---
Author Organization [facility] Address [address] [facility] [address] [place] [address] Phone Care Team Providers Care Events Associate Name Role Phone Kane Plunkett MD Primary [...] mouth 2 (two) times a day. Active potassium chloride (KLOR-CON) 10 MEQ ER tablet Take 10 mEq by mouth. 4 Active ONETOUCH ULTRASOFT lancets TEST BLOOD SUGAR EVERY DAY 4 Active gabapentin (NEURONTIN) 100 MG capsule Take 200 mg by mouth 3 (three) times a day. Active furosemide (LASIX) 20 MG tablet Take 20 mg by mouth daily. 4 Active diazePAM (VALIUM) 5 MG tablet [...] PRIOR TO DENTAL APPOINTMENT 4 Active vitamins A,C,E-zinc-abdelrahman er (PRESERVISION AREDS) 4,296 mcg-226 mg-90 mg Cap Take 1 capsule by mouth 2 (two) times a day with meals. Active ENTRESTO 97-103 mg per tablet TAKE ONE TABLET BY MOUTH TWICE A DAY 180 tablet 3 5 Active metoprolol succinate (TOPROL-XL) 50 MG 24 hr tabletIndicatio ns:Atrial flutter, unspecified type Take 0.5 tablets (25 mg total) by mouth daily. 180 tablet 3 5 Active metoprolol tartrate (LOPRESSOR) 50 MG tablet 1 tablet with food Orally Twice a day; Duration: 30 day(s) Active spironolactone (ALDACTONE) 25 MG tablet Take 1 tablet (25 mg total) by mouth daily. 30 tablet 3 5 Active tolterodine (DETROL LA) 2 MG 24 hr capsule 025 Discontin ued(No longer taking) VITAMIN D2 1,250 mcg (50,000 unit) capsule TAKE 1 CAPSULES BY MOUTH ONCE WEEKLY 4 025 Discontin ued(No longer taking) Active Problems Problem Noted Date Diagnosed Date [...] patient repeats his echocardiogram 12/2024. 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 Per [facility] discharge, ischemic evaluation was recommended to [...] Encounters Date Type Department Care Team Description 12/17/2024 10:00 AM EDT Office Visit [facility] [address], [address] [place] [address] Lety Rahman PA-C, MPH Paroxysmal atrial fibrillation (Primary Dx) 12/02/2024 Telephone [facility] [address] Floor, [address] [place] [address] Hood Breen MD 10/16/2024 9:00 AM EDT Office Visit [facility] [address] Floor, [address] [place] [address] Harriet Yang PA-C Atrial flutter, unspecified type (Primary Dx); Benign essential hypertension; Acute on chronic systolic heart failure 10/12/2024 Refill [facility] [place] [address], [address] [place] [address] Fiona San, EVANS Medication Refill from Last 3 Months Social [...] 95 08/27/2024 8:40 AM EDT Oxygen Saturation 94% 12/17/2024 9:47 AM EDT Inhaled Oxygen Concentration - - Weight 99.3 kg (219 lb) 12/17/2024 9:47 AM EDT Height 185.4 cm (6' 0.99 ) 12/17/2024 9:47 AM ED T Body Mass Index 28.9 12/17/2024 9:47 AM EDT Plan of Treatment Upcoming Encounters Date Type Department Care Team (Late st Contact Info) Description 08/27/2024 Procedure Pass Echo [facility] [address] [place] [address] 01/01/2025 10:15 AM EDT Appointment Echo [facility] [place] [address] [place] [address] Harriet Yang PA-C [address] [place] [address] [email or web address] 02/11/2025 11:00 AM EST Office Visit [facility] [address] [place] [address] [address]rd Floor, [address] [place] [address] Hood Breen MD [address] [facility], [address] [place] [address] [email or web address] Health Maintenance Due Date Last Done Comments Adult Td,Tdap Booster 1940 DEPRESSION SCREENING 1952 ZOSTER VACCINES (1 of 2) 1990 PNEUMOCOCCAL VACCINES (50+ years) (2 of 2 - PCV) 03/08/2018 03/08/2017 INFLUENZA VACCINE (#1) 2024 , 12/20/2021, 12/16/2020, Additional history exists COVID-19 VACCINE ( season) 2024 02/02/2023, 07/03/2022, 10/06/2021, Additional history exists CREATININE LEVEL 01/31/2025 02/01/2024 POTASSIUM LEVEL 01/31/2025 02/01/2024 BLOOD PRESSURE 06/16/2025 12/17/2024 RSV VACCINE Completed 01/23/2023 HEPATITIS A VACCINES [...] SODIUM 141 133 - 146 mmol/L [facility] CHLORIDE 101 96 - 108 mmol/L [facility] POTASSIUM 4.2 3.3 - 5.1 mmol/L [facility] CO2 33 21 - 35 mmol/L [facility] BUN 28(H) 6 - 19 mg/dL [facility] CREATININE 2.00(H) 0.5 - 1.5 mg/dL [facility] GLUCOSE 120(H) 70 - 99 mg/dL [facility] CALCIUM 8.7 8.4 - 10.3 mg/dL [facility] EGFR 33(L) >59 mL/min/1.7 3m2 [facility] Comment:Estimated glomerular filtration rate calculated using the CKD-EPI refit equation. ANION GAP 11 10 - 20 mmol/L [facility] Blood 02/01/2024 8:45 AM EDT 02/01/2024 8:50 AM EDT us Derek Luna MD LAB BLOOD ORDERABLES Fin al Result [facility] [address] [place], [place] [phone] from Last 3 Months or Most Recently Relevant to Health Maintenance Insurance MEDICARE PART A & B [facility] MEDICARE REPLACEMENT MEDICARE PART A & B [facility] MEDICARE REPLACEMENT [place] [id number] MEDICARE PART A & B MEDICARE PART A & B MEDICARE PART A & B MEDICARE REPLACEMENT MEDICARE PART A & B MEDICARE PART A & B MEDICARE REPLACEMENT MEDICARE PART A & B MEDICARE REPLACEMENT MEDICARE PART A & B MEDICARE REPLACEMENT [place] [id number] Care Teams Events Associate Relationship Specialty Start Date End Date Kane Plunkett MD [address] [place] [id number] PCP - General Internal Medicine 10/16/24 Additional Source Comments The information contained in this document represents components of the legal health record. It is not the complete legal health record.[facility]
--- OUTSIDE RECORDS SUMMARY | 2024-12-18 18:22 | XMS_ITS | Encounter Summary ---
Author Organization [facility] Address [address] [facility] [address] [place] [address] Phone Care Team Providers Care Software Reliability Engineer Name Role Phone Donald Mayberry MD Primary Care Provider [phone] Kane Plunkett MD Primary Care Provid er Encounter Details Date Type Department Care Team (Late st Contact Info) Description 10/18/2023 Procedure Pass Echo Lab [address] [place] [address] Social History Tobacco Use Types Packs/Day Years [...] Info) Description 08/27/2024 Procedure Pass Echo Lab [place] [address] [place] [address] 01/01/2025 10:15 AM EDT Appointment [facility] [place] [address] [place] [address] Harriet Yang PA-C [address] [place] [address] 02/11/2025 11:00 AM EST Office Visit [facility] [address] [facility] 3rd Floor, [address] [place] [address] Hood Breen MD [address] [facility], [address] [place] [address] [email or web address] documented as of this encounter Visit Diagnoses Not on filedocumented in this encounter Care Teams Software Reliability Engineer Relationship Specialty Start Date End Date Donald Mayberry MD [address] [place] [address] PCP - General Internal Medicine 08/07/23 10/15/24 Kane Plunkett MD [address] [place] [phone] PCP - General Internal Medicine 10/16/24 documented as of this encounter Additional Source Comments The information contained in this document represents components of the legal health record. It is not the complete legal health record.[facility]
--- OUTSIDE RECORDS SUMMARY | 2024-12-18 18:22 | XMS_ITS | Encounter Summary ---
Author Organization [facility] Address [address] [facility] [address] [place] [address] Phone Care Team Providers Care Manufacturing Accountant Name Role Phone Donald Mayberry MD Primary Care Provider [phone] Kane Plunkett MD Primary Care Provid er Encounter Details Date Type Department Care Team (Late st Contact Info) Description 07/25/2023 Procedure Pass Echo Lab [address] [place] [address] Social History Tobacco Use Types Packs/Day Years [...] Info) Description 08/27/2024 Procedure Pass Echo Lab [place] [address] [place] [address] 01/01/2025 10:15 AM EDT Appointment [facility] [place] [address] [place] [address] Harriet Yang PA-C [address] [place] [address] 02/11/2025 11:00 AM EST Office Visit [facility] [address] [facility] 3rd Floor, [address] [place] [address] Hood Breen MD [address] [facility], [address] [place] [address] [email or web address] documented as of this encounter Visit Diagnoses Not on filedocumented in this encounter Care Teams Manufacturing Accountant Relationship Specialty Start Date End Date Donald Mayberry MD [address] [place] [address] PCP - General Internal Medicine 08/07/23 10/15/24 Kane Plunkett MD [address] [place] [address] PCP - General Internal Medicine 10/16/24 documented as of this encounter Additional Source Comments The information contained in this document represents components of the legal health record. It is not the complete legal health record.[facility]
== END 2024-12-18 14:10 | disposition home or self-care (01) ==
LOC: HO.XRAY 14:09
PROVIDERS: PCP Internal Medicine; Visit Provider Internal Medicine Hypertension Specialist
DX: I13.0 Hypertensive heart and chronic kidney disease with heart failure and stage 1 through stage 4 chronic kidney disease, or unspecified chronic kidney disease (principal); I50.9 Heart failure, unspecified; E11.22 Type 2 diabetes mellitus with diabetic chronic kidney disease; N18.32 Chronic kidney disease, stage 3b; J18.9 Pneumonia, unspecified organism; J91.8 Pleural effusion in other conditions classified elsewhere; Z79.899 Other long term (current) drug therapy; Z79.82 Long term (current) use of aspirin; Z79.01 Long term (current) use of anticoagulants
CPT/HCPCS: 71046; 99212

== ENCOUNTER → 2024-12-18 14:58 | Outpatient (BNV) | payer MEDICARE, SELFPAY | PROVIDERS: PCP Internal Medicine; Visit Provider Radiology Diagnostic Radiology | DX: J90 Pleural effusion, not elsewhere classified (principal); J98.11 Atelectasis | CPT/HCPCS: 71046 ==

== ENCOUNTER 2024-12-30 10:46 | Outpatient (AMB) | payer MEDICARE, SELFPAY ==
--- NOTE | 2024-12-30 10:50 | A.OFFPC_ITS ---
Vital Signs 12/30/24 10:51 Height 5 ft 8.5 in Weight 221 lb BMI 33.1 BP 153/75 H Respiration 14 Pulse 66 Pulse Source Pulse Oximeter Temp 97.8 F Temp Source Temporal Artery Scan Pulse Oximetry (%) 95 Oxygen Delivery Method Room Air Intake Visit Reasons: 1 month f/u Solution Engineer Required: No Accompanied by: Spouse Allergies cephalexin (From KEFLEX) Allergy (Unknown, Verified 01/01/25 06:25) UNKNOWN metformin (METFORMIN) Allergy (Unknown, Verified 01/01/25 06:25) SHAKY , swelling silodosin (From RAPAFLO) Allergy (Unknown, Verified 01/01/25 06:25) UNKNOWN tamsulosin (From FLOMAX) Allergy (Unknown, Verified 01/01/25 06:25) UNKNOWN Pt states no known allergy to Allergy (Mild, Uncoded 01/01/25 06:25) Unknown Rapaflo Allergy (Unknown, Uncoded 01/01/25 06:25) hives Medication List - Last Reconciled 01/01/25 by Kane Plunkett MD amlodipine 5 mg PO DAILY apixaban (Eliquis) 2.5 mg PO BID aspirin 81 mg PO DAILY blood sugar diagnostic (Accu-Chek Guide test strips) As directed- daily blood sugar diagnostic (OneTouch Ultra Test strips) As directed blood-glucose meter (Accu-Chek Guide Me Glucose Meter) As directed- daily ciclopirox 0.77% 1 appl topical BID cyclosporine 0.05% (Restasis) 1 drp ophthalmic (eye) Q12H diazepam 10 mg (2 x 5 mg) PO DAILY 30 days Farxiga (dapagliflozin propanediol) 10 mg PO QAM NS furosemide 20 mg PO DAILY gabapentin 200 mg (2 x 100 mg) PO TID 90 days lancets (Accu-Chek Softclix Lancets) As directed- daily lancets (OneTouch UltraSoft 2 Lancet) As directed metoprolol succinate ER 100 mg (2 x 50 mg) PO DAILY sacubitril-valsartan 97-103 mg (Entresto) 1 tab PO BID spironolactone 25 mg PO DAILY tolterodine ER 4 mg PO BID tramadol 50 mg PO Q8H 30 days triamcinolone acetonide 0.025% 1 appl topical BID vitamins A,C,L-rsky-bxwjnq 2,148 mcg-113 mg-45 mg-17.4mg (PreserVision AREDS) 1 tab PO BID Tobacco use date assessed: 10/14/24 Dental Screening Dental Screen Date: 10/14/24 HPI 1 month f/u HPI Details 84-year-old male presents to the office for a follow-up visit. Since last office visit patient has reduced his tramadol usage to 3 times a day. He would like to continue to use diazepam twice a day. He has been using these medications for years and has difficulty falling asleep without these medications. He has other chronic conditions are stable. The feet numbness is continuing. Able to function and do activities of daily living. [facility] Medical History Hospital discharge follow-up Empyema of left pleural space CKD (chronic kidney disease) stage 3, GFR 30-59 ml/min NSTEMI (non-ST elevated myocardial infarction) Failed total left knee replacement HFrEF (heart failure with reduced ejection fraction) GERD (gastroesophageal reflux disease) Chronic renal failure Chronic pain syndrome Surgical History H/O gastric bypass Previous back surgery H/O inguinal hernia repair Family History Father Prostate cancer Bone cancer Mother BP (high blood pressure) Social History Household Members: Spouse Housing: House Do you presently have visiting nurse or other home services: No Alcohol intake: current Alcohol intake frequency: does not drink Comment: pt refuse bed alarm Patient Tobacco Use Status: Never used Tobacco service: No Current occupational status: retired Cognitive needs: No Hearing needs: No Vision needs: No Questionnaire PHQ-9 Over the last 2 weeks, how often have you been bothered by any of the following problems? 1. Little interest or pleasure in doing things: not at all 2. Feeling down, depressed, or hopeless: not at all 3. Trouble falling or staying asleep, or sleeping too much: not at all 4. Feeling tired or having little energy: not at all 5. Poor appetite or overeating: not at all 6. Feeling bad about yourself - or that you are a failure or have let yourself or your family down: not at all 7. Trouble concentrating on things, such as reading the newspaper or watching television: not at all 8. Moving or speaking so slowly that other people could have noticed. Or the opposite - being so fidgety or restless that you have been moving around a lot more than usual: not at all 9. Thoughts that you would be better off or of hurting yourself in some way: not at all Total score: 0 Depression Screening Interpretation: Negative Depression Screening Done: Yes Source: Developed by Drs. Chad Garcia, Yadira Abbasi, Ramon Sneed and colleagues, with an educational lee from [employer]. Thrive Questionnaire Date Thrive assessed: 11/25/24 I am a: Patient What is your living situation today?: I have a steady place to live Within the past 12 months, did the food you bought not last and you didn't have the money to get more?: Never true Within the past 12 months, did you worry whether your food would run out before you got money to buy more?: Never true Do you have trouble paying for medicines?: No Do you have trouble getting transportation to medical appointments?: No Do you have trouble paying your heating and electricity bill?: No Do you have trouble taking care of your child, family member or friend?: No Do you have trouble with day-to-day activities such as bathing, preparing meals, shopping, managing finances, etc.?: No Are you currently unemployed and looking for a job?: No Are you interested in more education?: No Please select the resources that you would like help with: None Currently or been in a relationship where the following occur: No concerns reported THRIVE Score: 0 AUDIT C Alcohol Use Questionnaire (AUDIT-C) 1. How often do you have a drink containing alcohol?: Never 3. How often do you have six or more drinks on one occasion?: Never Total Score: 0 Score Reviewed/Action Taken: No TRESA-7 AMB Questionnaire TRESA-7 Date TRESA - 7 assessed: 11/25/24 Feeling nervous, anxious, or on edge: 0 = Not at all Not being able to stop or control worryin = Not at all Worrying too much about different things: 0 = Not at all Trouble relaxin = Not at all Being so restless that it is hard to sit still: 0 = Not at all Becoming easily annoyed or irritable: 0 = Not at all Feeling afraid as if something awful might happen: 0 = Not at all Total TRESA-7 score (0-4 normal; 5-9 mild; 10-14 moderate; 15-21 severe): 0 Source: Developed by Drs. Chad Gracia, Yadira Abbasi, Ramon Sneed and colleagues, with an educational lee from [employer]. TRESA-7 Assessment Billing TRESA-7 Assessment Tool: TRESA-7 Assessment 58477 Physical exam (Primary Care) Vital Signs: Last Vital Signs Temp 97.8 F 12/30/24 10:51 Pulse 66 12/30/24 10:51 Resp 14 12/30/24 10:51 BP 153/75 H 12/30/24 10:51 Pulse Ox 95 12/30/24 10:51 Oxygen Delivery Method Room Air 12/30/24 10:51 BMI result Body Mass Index 33.1 Tobacco/Smoking Status: Tobacco use Status Tobacco use date assessed 10/14/24 12/30/24 10:52 Patient Tobacco Use Status Never used Tobacco 12/30/24 10:52 PHQ-9: PHQ-9 Score PHQ-9: Total score 0 12/30/24 11:40 Depression Screening Interpretation: Negative Thrive Assessment: Date of Thrive Assessment Date Thrive assessed 11/25/24 12/30/24 10:52 Currently or been in a relationship where the following occur: No concerns reported Const General: cooperative and healthy appearing Nutritional Appearance: well nourished Orientation/consciousness: patient oriented x3 Limitations: no limitations HENMT Head: Yes normal to inspection Eyes General: appearance normal, both eyes and all related structures Neck Neck: Yes normal visual inspection Chest Chest palpation & inspection: normal palpation of entire chest wall Resp Effort & Inspection: normal respiratory effort Neuro General: patient oriented x3 Office Procedures Flu Questionnaire Does the patient have a severe egg allergy?: No Does the patient have severe life threatening allergies?: No Does the patient have a fever or illness today?: No Has the patient ever had Guillain-Bunnlevel Syndrome?: No Has the patient ever had any past reaction to a flu shot?: No Immunizations Fluarix [id number] (PF) 45 mcg (15 mcg x 3)/0.5 mL IM syringe Performing Provider: Kane Plunkett MD [facility] Documented (not given) by: CINDY Whittington on 12/30/24 11:41 Reason Not Given: Received Previously Coding Level of Care Code Est Pt Level 3 (28785) Complex EM visit Add On G2211 Diagnoses Chronic pain syndrome G89.4 Additional Codes TRESA-7 Assessment Billing - TRESA-7 Assessment Tool: TRESA-7 Assessment 35721 ([id number]) Assessment & Plan Assessment & Plan (1) Chronic pain syndrome: Code(s): G89.4 - Chronic pain syndrome Category: Medical Plan: I agreed with continuing tramadol 50 mg 3 times a day for pain with no further plans to taper. We will continue using diazepam as a sleeping aid. Orders: Orders Influenza [id number] Immunization 12/30/24 Z23 - Encounter for immunization Medications: New triamcinolone acetonide 0.025% 1 appl topical BID 60 mL 0RF Refilled diazepam 10 mg (2 x 5 mg) PO DAILY 60 tabs 1RF 30 days
[2024-12-30 10:51] VITALS: BP 153/75; PULSE 66; RESP 14; TEMP 36.6; O2SAT 95; BMI 33.1
--- OUTSIDE RECORDS SUMMARY | 2024-12-30 13:13 | XMS_ITS | Clinical Summary ---
Author Organization [facility] Address [address] [facility] [address] [place] [address] Phone Care Team Providers Care Radiologic Electronic Specialist Name Role Phone Kane Plunkett MD Primary [...] patient repeats his echocardiogram 12/2024. 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 Per [facility] discharge, ischemic evaluation was recommended to be [...] Description 12/17/2024 10:00 AM EDT Office Visit [facility] [address] Floor, [address] [place] [address] Lety Rahman PA-C, MPH Paroxysmal atrial fibrillation (Primary Dx) 12/02/2024 Telephone [facility] [address] Floor, [address] [place] [address] Hood Breen MD 10/16/2024 9:00 AM EDT Office Visit [facility] [address] 3[address] Floor, [address] [place] [address] Harriet Yang PA-C Atrial flutter, unspecified type (Primary Dx); Benign essential hypertension; Acute on chronic systolic heart failure 10/12/2024 Refill [facility] [place] [address], [address] [place] [address] Fiona San, EVANS Medication Refill from Last [...] Info) Description 08/27/2024 Procedure Pass [facility] [address] [place] [address] 01/01/2025 10:15 AM EDT Appointment Echo Lab [place] [address] [place] [address] Harriet Yang PA-C [address] [place] [address] [email or web address] 01/15/2025 8:00 AM EDT Appointment Non-Invasive Cardiology [address] [place] [address] [place] [address] Harriet Yang PA-C [address] [place] [address] 02/11/2025 11:00 AM EST Office Visit [facility] [address] [place] [address] 3rd Floor, [address] [place] [address] Hood Breen MD [address] [facility], [address] [place] [address] [email or web address] Health Maintenance Due Date Last Done [...] EDT) SODIUM 141 133 - 146 mmol/L [facility] CHLORIDE 101 96 - 108 mmol/L [facility] POTASSIUM 4.2 3.3 - 5.1 mmol/L [facility] CO2 33 21 - 35 mmol/L [facility] BUN 28(H) 6 - 19 mg/dL [facility] CREATININE 2.00(H) 0.5 - 1.5 mg/dL [facility] GLUCOSE 120(H) 70 - 99 mg/dL [facility] CALCIUM 8.7 8.4 - 10.3 mg/dL [facility] EGFR 33(L) >59 mL/min/1.7 3m2 [facility] Comment:Estimated glomerular filtration rate calculated using the CKD-EPI refit equation. ANION GAP 11 10 - 20 mmol/L [facility] Blood 02/01/2024 8:45 AM EDT 02/01/2024 8:50 AM EDT us Derek Luna MD LAB BLOOD ORDERABLES Fin al Result [facility] [address] [place] [address] from Last 3 Months or Most Recently Relevant to Health Maintenance Insurance MEDICARE PART A & B Member Subscriber Plan / Payer (Ef fective 1986-Present) Name:Aaron Morgan Member ID:[id number] Relation to Subscriber:Self Name:Aaron Morgan Subscriber ID:[id number] Payer ID:[id number] Group ID:Not on file Type:Medicare Address: [facility] [facility] [address] MEDICARE REPLACEMENT MEDICARE PART A & B MEDICARE REPLACEMENT MEDICARE PART A & B MEDICARE PART A & B MEDICARE PART A & B MEDICARE REPLACEMENT MEDICARE PART A & B MEDICARE PART A & B MEDICARE REPLACEMENT MEDICARE PART A & B [employer] MEDICARE REPLACEMENT MEDICARE PART A & B Member Subscriber Plan / Payer (Ef fective 1986-Present) Name:Aaron Morgan Member ID:[id number] Relation to Subscriber:Self Name:Aaron Morgan Subscriber ID:[id number] Payer ID:[id number] Group ID:Not on file Type:Medicare Address: [employer] [facility] [address] [place] [address] [employer] MEDICARE REPLACEMENT Care Teams Radiologic Electronic Specialist Relationship Specialty Start Date End Date Kane Plunkett MD [address] [place] [address] PCP - General Internal Medicine 10/16/24 Additional Source Comments The information contained in this document represents components of the legal health record. It is not the complete legal health record.[facility]
--- OUTSIDE RECORDS SUMMARY | 2024-12-30 13:13 | XMS_ITS | Encounter Summary ---
Author Organization [facility] Address [address] [facility] [address] [place] [address] Phone Care Team Providers Care Traffic Court Referee Name Role Phone Donald Mayberry MD Primary Care Provider +1- [phone] Kane Plunkett MD Primary Care Provid er Encounter Details Date Type Department Care Team (Late st Contact Info) Description 07/25/2023 Procedure Pass Echo Lab [address] [place] [address] Social History Tobacco Use Types Packs/Day Years [...] Info) Description 08/27/2024 Procedure Pass Echo Lab [place] [address] [place] [address] 01/01/2025 10:15 AM EDT Appointment Echo Lab [place] [address] [place] [address] Harriet Yang PA-C [address] [place] [address] 01/15/2025 8:00 AM EDT Appointment Non-Invasive Cardiology [address] [place] [address] Harriet Yang PA-C [address] [place] [address] 02/11/2025 11:00 AM EST Office Visit [facility] [address] [facility] 3rd Floor, [address] [place] [address] Hood Breen MD 22 [facility], [address] [address] documented as of this encounter Visit Diagnoses Not on filedocumented in this encounter Care Teams Traffic Court Referee Relationship Specialty Start Date End Date Donald Mayberry MD [address] [place] [address] PCP - General Internal Medicine 08/07/23 10/15/24 Kane Plunkett MD [address] [place] [address] PCP - General Internal Medicine 10/16/24 documented as of this encounter Additional Source Comments The information contained in this document represents components of the legal health record. It is not the complete legal health record.[facility]
--- OUTSIDE RECORDS SUMMARY | 2024-12-30 13:13 | XMS_ITS | Encounter Summary ---
Author Organization [facility] Address [address] [facility] [address] [place] [address] Phone Care Team Providers Care Poker Supervisor Name Role Phone Donald Mayberry MD Primary Care Provider +1- [phone] Kane Plunkett MD Primary Care Provid er Encounter Details Date Type Department Care Team (Late st Contact Info) Description 10/18/2023 Procedure Pass Echo Lab [address] [place] [address] Social History Tobacco Use Types Packs/Day Years [...] Info) Description 08/27/2024 Procedure Pass Echo Lab [place] [address] [place] [address] 01/01/2025 10:15 AM EDT Appointment Echo Lab [place] [address] [place] [address] Harriet Yang PA-C [address] [place] [address] 01/15/2025 8:00 AM EDT Appointment Non-Invasive Cardiology [address] [place] [address] Harriet Yang PA-C [address] [place] [address] [email or web address] 02/11/2025 11:00 AM EST Office Visit [facility] [address] [facility] 3rd Floor, [address] [place] [address] Hood Breen MD 22 [facility], [address] [address] documented as of this encounter Visit Diagnoses Not on filedocumented in this encounter Care Teams Poker Supervisor Relationship Specialty Start Date End Date Donald Mayberry MD [address] [place] [address] PCP - General Internal Medicine 08/07/23 10/15/24 Kane Plunkett MD [address] [place] [address] PCP - General Internal Medicine 10/16/24 documented as of this encounter Additional Source Comments The information contained in this document represents components of the legal health record. It is not the complete legal health record.[facility]
--- OUTSIDE RECORDS SUMMARY | 2024-12-30 13:13 | XMS_ITS | Patient Health Record ---
Author Organization [facility] brijesh Michele Address [address] [facility] [place] Michele [address] Care Team Providers Care Holistic Nutritionist Name Role Phone Kane Plunkett Primary Care Provider [phone] Michela Hirsch Unavailable [phone] Allergies No Known Allergies Results Component Value [...] Problem Acquired hammer toe of right foot (4210084186390087 ) Other hammer toe(s) (acquired), right foot (M20.41) Active confirmed Response to treatment, Improvemen t Problem Acquired hammer toe of left foot (4486341073563013 ) Other hammer toe(s) (acquired), left foot (M20.42) Active confirmed Response to treatment, Improvemen t Problem Polyneuropathy due to type 2 diabetes mellitus (738939808) Type 2 diabetes mellitus with diabetic polyneuropathy (E11.42) Active confirmed Vital Signs Blood pressure diastolic 65 mm Hg 10/23/2024 Height 5 ft 10 in in 10/23/2024 Blood pressure systolic 128 mm Hg 10/23/2024 Weight 218 lbs 10/23/2024 BMI 31.28 kg/m2 10/23/2024 Procedures Procedure Date Ordered Date Performed Result Body Sit e 55447-UYJBFWO NAIL, 6 OR MORE 03/26/2024 N/A 38299-GXUB SKIN LESIONS, OVER 4 03/26/2024 N/A 26313-GRQOIAS NAIL, 6 OR MORE 07/31/2024 N/A 81790-OZIN SKIN LESIONS, OVER 4 07/31/2024 N/A Encounters Encounter Location Date Provider Diagnosis [address] [address] 03/26/2024 Michela Hirsch Other hammer toe(s) (acquired), right foot M20.41 ; Other hammer toe(s) (acquired), left foot M20.42 ; Type 2 diabetes mellitus with diabetic polyneuropathy E11.42 ; Tinea unguium B35.1 and Tinea pedis of both feet B35.[address] [address] 07/31/2024 Michela Hirsch Type 2 diabetes mellitus with diabetic polyneuropathy E11.42 ; Tinea unguium B35.1 ; Other hammer toe(s) (acquired), right foot M20.41 and Other hammer toe(s) (acquired), left foot M20.[address] [address] 10/23/2024 Michela Hirsch Type 2 diabetes mellitus with diabetic polyneuropathy E11.42 and Tinea unguium B35.[address] [address] 03/27/2024 Michela Ambroseaker [address] [address] 11/04/2024 Michela Hirsch Tinea pedis of both feet B35.3 Assessments Encounter Date Diagnosis (ICD Code) Assessment Notes Treatment Notes Treatment Clinical Notes Section Notes 03/26/2024 Other hammer toe(s) (acquired), right foot [...] (ICD-10 - M20.41) Response to treatment,Impro vement 07/31/2024 Other hammer toe(s) (acquired), left foot (ICD-10 - M20.42) Response to treatment,Impro vement 03/26/2024 Tinea unguium (ICD-10 - B35.1) 03/26/2024 Tinea pedis of both feet (ICD-10 - B35.3) Plan Of Treatment Pending Test Test Name Order Date 35413-HZBMMSW NAIL, 6 OR MORE 05/04/2014 87885-QROVFVK NAIL, 6 OR MORE 07/22/2014 58474-FHAYYIO NAIL, 6 OR MORE 10/21/2014 53313-IDJYZFU NAIL, 6 OR MORE 12/30/2014 46064-UZOHWYL NAIL, 6 OR MORE 03/03/2015 02154-BLHHYQA NAIL, 6 OR MORE 06/03/2015 07797-NIZKFBI NAIL, 6 OR MORE 08/16/2015 20971-QMPUYZY NAIL, 6 OR MORE 11/08/2015 43747-CNESDID NAIL, 6 OR MORE 01/31/2016 15026-AALEJGN NAIL, 6 OR MORE 04/17/2016 28617-WCPSBND NAIL, 6 OR MORE 06/26/2016 32154-CRRQWKF NAIL, 6 OR MORE 09/18/2016 74132-LNUNXAD NAIL, 6 OR MORE 11/27/2016 47967-ALXMLVX NAIL, 6 OR MORE 01/29/2017 47596-SUCZXIZ NAIL, 6 OR MORE 04/11/2017 52719-MVGKLGS NAIL, 6 OR MORE 06/20/2017 37006-DASLHUS NAIL, 6 OR MORE 08/29/2017 92323-KKMLTAJ NAIL, 6 OR MORE 11/19/2017 56935-MZJTPQO NAIL, 6 OR MORE 02/13/2018 19210-KKLVHEN NAIL, 6 OR MORE 03/26/2024 65027-SDDMVJN NAIL, 6 OR MORE 07/31/2024 17232-Tlvvkcec Plate 12/30/2014 18947-YGXW SKIN LESIONS, OVER 4 10/01/19 19 56748-NGLU SKIN LESIONS, OVER 4 08/01/19 25 71516-JPYW SKIN LESIONS, OVER 4 03/26/20 24 45870-YSTS SKIN LESIONS, OVER 4 05/08/19 19 98575-BOBG SKIN LESIONS, OVER 4 07/11/19 19 26850-PZGV SKIN LESIONS, OVER 4 02/14/20 18 34464-WOHO SKIN LESIONS, OVER 4 11/20/19 18 14287-IATO SKIN LESIONS, OVER 4 12/26/19 19 09359-HVKD SKIN LESIONS, OVER 4 03/24/20 19 32417-GNYR SKIN LESIONS, OVER 4 06/16/19 20 05863-XDZR SKIN LESIONS, OVER 4 08/17/19 21 54894-YRIV SKIN LESIONS, OVER 4 10/26/19 76813-JMGU SKIN LESIONS, OVER 4 12/28/19 21 53830-GSLB SKIN LESIONS, OVER 4 02/29/20 21 75084-ULMG SKIN LESIONS, OVER 4 05/09/19 22 96323-QZUT SKIN LESIONS, OVER 4 08/30/19 18 61196-SEIV SKIN LESIONS, OVER 4 06/21/19 18 35493-ZGKU SKIN LESIONS, OVER 4 04/11/19 18 48943-VVAZ SKIN LESIONS, OVER 4 01/30/20 17 91275-NXVD SKIN LESIONS, OVER 4 11/28/19 17 30149-QMZU SKIN LESIONS, OVER 4 06/27/19 17 14039-NUES SKIN LESIONS, OVER 4 09/19/19 17 26166-MSGA SKIN LESIONS, OVER 4 04/17/19 17 66592-XCMA SKIN LESIONS, OVER 4 01/31/20 16 82363-NWFZ SKIN LESIONS, OVER 4 11/08/19 16 71085-TDJR SKIN LESIONS, OVER 4 08/16/19 16 85899-ZTHM SKIN LESIONS, OVER 4 06/03/19 16 03381-ILVO SKIN LESIONS, OVER 4 03/03/20 15 03450-MBZR SKIN LESIONS, OVER 4 12/31/19 15 98994-WROY SKIN LESIONS, OVER 4 10/22/19 15 81564-WSYM SKIN LESIONS, OVER 4 07/23/19 15 65746-FFLX SKIN LESIONS, OVER 4 05/04/19 15 72865-Yigo. Subungual Hematoma 4 30906-BGGMKEKV OF HEMATOMA/FLUID 019 43487-NVQSMUEH OF HEMATOMA/FLUID 022 89537-EXNLENEM OF HEMATOMA/FLUID 023 78031-RRTYJZMQ OF HEMATOMA/FLUID 021 49317-NXKWQXKB OF HEMATOMA/FLUID 019 HEMOGLOBIN A1C (GLYCOHEMOGLOBIN) 024 Next Appt Details Provider Name:Michela Ceballos nuris, 01/22/2025 02:45:00 PM, [address] [place], [address], Insurance Providers Payer Name Payer Address Payer Phone Subscriber Number Group Number Insured Name Patient Relationship to Insured Coverage Start Date Coverage End Date [employer] Medicare [id number] [address] [address] [place] [address] [id number] Aaron Huston Self - patient is the insured Medical (General) History Medical History History ICD Code Arthritis Back,Hip,and Knee pain type II diabetes High blood pressure Neuropathy Chicken pox Surgical History Surgery Date(Month/Year) lumbar surgery 06/20/2013 cervical 11/29/2009 knee surgery, left 09/15/2015 gastric sleeve 03/08/17 cataract surgery- Bilateral 10/2017 Hospitalization History Reason Date(Month/Year) Heart attack- [facility] 08/2023
== END 2024-12-30 12:02 | disposition home or self-care (01) ==
LOC: HO.HMCSH 10:46
PROVIDERS: PCP Internal Medicine; Visit Provider Internal Medicine
DX: Z23 Encounter for immunization (principal)

== ENCOUNTER → 2024-12-30 10:46 | Outpatient (BNVA) | payer MEDICARE, SELFPAY | PROVIDERS: PCP Internal Medicine; Visit Provider Internal Medicine | DX: G89.4 Chronic pain syndrome (principal); Z79.891 Long term (current) use of opiate analgesic; Z28.89 Immunization not carried out for other reason; Z79.899 Other long term (current) drug therapy | CPT/HCPCS: 90471; 96127; 99212 ==

== ENCOUNTER 2025-01-13 10:47 | Outpatient (AMB) | payer MEDICARE, SELFPAY ==
[2025-01-13 10:52] VITALS: BP 109/64; PULSE 73; O2SAT 95; BMI 30.1
--- NOTE | 2025-01-13 10:52 | A.OFFVIS_ITS ---
Vital Signs 01/13/25 10:52 Height 5 ft 11 in Weight 216 lb BMI 30.1 BP 109/64 Blood Pressure Location Rt brachial Position Sitting Pulse 73 Pulse Source Pulse Oximeter Pulse Oximetry (%) 95 Oxygen Delivery Method Room Air Intake Visit Reasons: /CT Follow Up Allergies cephalexin (From KEFLEX) Allergy (Unknown, Verified 01/13/25 10:59) UNKNOWN metformin (METFORMIN) Allergy (Unknown, Verified 01/13/25 10:59) SHAKY , swelling silodosin (From RAPAFLO) Allergy (Unknown, Verified 01/13/25 10:59) UNKNOWN tamsulosin (From FLOMAX) Allergy (Unknown, Verified 01/13/25 10:59) UNKNOWN Pt states no known allergy to Allergy (Mild, Uncoded 01/01/25 06:25) Unknown Rapaflo Allergy (Unknown, Uncoded 01/01/25 06:25) hives HPI HPI /CT Follow Up: Details: 84-year-old gentleman with underlying coronary artery disease status post IL, systolic cardiomyopathy, aortic stenosis, CKD with recent admission to [facility] with left-sided pleural effusion and also with worsening dyspnea status post thoracentesis was performed with drainage of 1.3 L of sanguinous pleural fluid with negative cytology, lymphocyte-predominant and mild elevated pleural ADA, but under 40. Patient had another recurrence of his pleural effusion for which he was admitted to [facility] a quarter of fluid was drained at that time. Patient now with undergoing workup for possible TAVR. [facility] Medical History Hospital discharge follow-up Empyema of left pleural space CKD (chronic kidney disease) stage 3, GFR 30-59 ml/min NSTEMI (non-ST elevated myocardial infarction) Failed total left knee replacement HFrEF (heart failure with reduced ejection fraction) GERD (gastroesophageal reflux disease) Chronic renal failure Chronic pain syndrome Surgical History H/O gastric bypass Previous back surgery H/O inguinal hernia repair Family History Father Prostate cancer Bone cancer Mother BP (high blood pressure) Social History Household Members: Spouse Housing: House Do you presently have visiting nurse or other home services: No Alcohol intake: current Alcohol intake frequency: does not drink Comment: pt refuse bed alarm Patient Tobacco Use Status: Never used Tobacco service: No Current occupational status: retired Cognitive needs: No Hearing needs: No Vision needs: No Review of Systems Const Denies daytime sleepiness, Denies excessive sweating, Reports fatigue, Denies fever(s), Reports lethargy, Denies malaise, Denies night sweats, Denies snoring and Denies weight loss Eyes Denies blurry vision and Denies itchy eyes ENT Denies nasal congestion, Denies post nasal drip, Denies sinus pain, Denies sinus pressure and Denies other ( Thrush) Card Denies chest pain, Denies pedal edema, Denies dyspnea, Reports dyspnea on exertion, Denies orthopnea and Denies paroxysmal nocturnal dyspnea Resp Denies cough, Denies hemoptysis, Denies excessive phlegm production, Denies dyspnea, Reports dyspnea on exertion, Denies snoring and Denies wheezing GI Denies abdominal pain and Denies heartburn Musc Denies myalgias, Denies arthralgias and Denies joint swelling Skin/Breast Denies rash Neuro Denies memory loss and Denies seizure-like activity Psych Denies abnormal sleep pattern, Denies anxiety and Denies memory loss Endo Denies excessive sweating, Reports fatigue and Denies heat intolerance Khadar/Lymph Denies easy bruising Aller/Immun Denies itchy eyes, Denies seasonal rhinorrhea and Denies wheezing Physical Exam Vital Signs: Last Vital Signs Pulse 73 01/13/25 10:52 BP 109/64 01/13/25 10:52 Pulse Ox 95 01/13/25 10:52 Oxygen Delivery Method Room Air 01/13/25 10:52 BMI result Body Mass Index 30.1 Const General: no acute distress and alert Nutritional Appearance: not obese Orientation/consciousness: Other orientation findings ( oriented) HEENT Head: Yes atraumatic Eyes General: appearance normal, both eyes and all related structures Sclerae: sclerae normal EOM: EOMs intact bilaterally Neck Neck: Yes supple Lymphatic: no lymphadenopathy noted Resp Effort & Inspection: normal respiratory effort and no use of accessory muscles Auscultation: clear to auscultation bilaterally Cardio Rate: regular rate Rhythm: regular rhythm Heart sounds: no gallops, no murmurs and no rubs Skin General skin exam: other ( warm) Extrem General: No clubbing, No cyanosis and No edema Assessment & Plan Assessment & Plan (1) Pleural effusion, left: Code(s): J90 - Pleural effusion, not elsewhere classified Category: Medical Plan: Recurrent left-sided pleural effusion on the background of significant aortic stenosis now undergoing workup for possible TAVR. Will reassess symptoms after TAVR. Coding Level of Care Code Est Pt Level 3 (79239) Diagnoses Pleural effusion, left J90
--- OUTSIDE RECORDS SUMMARY | 2025-01-13 13:12 | XMS_ITS | Encounter Summary ---
Author Organization [facility] Address [address] [place] [address] Phone Care Team Providers Care Roller Setter Name Role Phone Kane Plunkett MD Primary Care Provid er Encounter Details Date Type Department Care Team (Late st Contact Info) Description 01/01/2025 Procedure Pass [facility], Ct Scan - [address] [address] Social History Tobacco Use Types Packs/Day Years Used Date Smoking Tobacco: Never Smokeless Tobacco: Never Education Answer Date Recorded Are you interested in more education? Not on geovanny e 07/25/2023 Are you concerned about learning? Not on file 07/25/2023 No 07/25/2023 No 07/25/2023 Food Answer Date Recorded Within the past 6 months we worried whether our food would run out before we got money to buy more. Never True 01/02/2025 Within the past 6 months the food we bought just didn't last and we didn't have enough money to get more. Never True Residential Stability Answer Date Recor ded What is your housing situation today? I have ella sing 01/02/2025 How many times have you move d in the past 12 months? Zero (I did not move) 01/02/2025 Paying for Meds Answer Date Recorded Do you have trouble paying for medicines? No 01/02/2025 Paying Utility Bills Answer Date Record ed Do you have trouble paying your heating or elect ricity bill? No 01/02/2025 Transportation Answer Date Recorded Has the lack of transportati on kept you from medical appointments or from getting medications? No 01/02/2025 Digital Access Answer Date Recorded No 01/02/2025 Yes 01/02/2025 Do you have reliable internet access at home? Ye s 01/02/2025 Do you have a device (e.g., phone, tablet, computer) with a working camera? Yes 01/02/2025 Intimate Partner Violence Answer Date R ecorded Are you denied basic needs s uch as food, clothing, or medical care? No 01/01/2025 In the past 12 months have y ou been in a relationship with a person who hurts, threatens, or tries to control you? No 01/01/2025 Are you denied basic needs s uch as food, clothing, or medical care? No 01/01/2025 In the past 12 months have y ou been in a relationship with a person who hurts, threatens, or tries to control you? No 01/01/2025 Sex and Gender Information Value Date Recorded Sex Assigned at Male 01/01/2025 1:25 PM EDT Legal Sex Male 10:12 PM EDT Gender Identity Male 01/01/2025 1:25 PM EDT Sexual Orientation Straight 01/01/2025 1: 25 PM EDT documented as of this encounter Functional Status * Calculated C-SSRS Risk Score (Lifetime/Recent) Answer Date of Assessment Author No Risk Indicated 01/01/2025 1:25 PM EDT Cherelle Alaniz, AMPARO * [place] Suicide Severity Rating Scale (Screener/Recent Self-Report) Question Answer Date of Assessment Author 1. Wish to be (Past 1 Month) No 025 1:25 PM EDT Cherelle Thomas, RN 2. Non-Specific Active Suici dann Thoughts (Past 1 Month) No 01/01/2025 1:25 PM EDT Cherelle Thomas, RN 6. Suicidal Behavior (Lifetime) No 1:25 PM EDT Cherelle Thomas RN documented as of this encounter Plan of Treatment Upcoming Encounters Date Type Department Care Team (Latest Contact Info) Description 01/15/2025 8:00 AM EDT Hospital Encounter Non-Invasive Cardiology [address] [place] [address] Harriet Yang PA-C [address] [place] [address] [email or web address] 02/11/2025 11:00 AM EST Office Visit [facility] [address] [facility] 3rd Floor, [address] [place] [address] Hood Breen MD 22 [facility] [address] [place] [address] [email or web address] documented as of this encounter Visit Diagnoses Not on filedocumented in this encounter Care Teams Roller Setter Relationship Specialty Start Date End Date Kane Plunkett MD [address] [place] [address] Jean Carlos [address] [place] [id number] PCP - General Internal Medicine 10/16/24 documented as of this encounter Additional Source Comments The information contained in this document represents components of the legal health record. It is not the complete legal health record.[facility]
--- OUTSIDE RECORDS SUMMARY | 2025-01-13 13:12 | XMS_ITS | Encounter Summary ---
Author Organization [facility] Address [address] [place] [address] [place] [address] Phone Care Team Providers Care Hardboard Press Operator Name Role Phone Donald Mayberry MD Primary Care Provider [phone]- [phone] Kane Plunkett MD Primary Care Provid er Encounter Details Date Type Department Care Team (Late st Contact Info) Description 08/27/2024 Procedure Pass [facility] [place] [address] [place] [address] Social History Tobacco Use Types Packs/Day [...] PM EDT documented as of this encounter Plan of Treatment Upcoming Encounters Date Type Department Care Team (Latest Contact Info) Description 01/15/2025 8:00 AM EDT Hospital Encounter Non-Invasive Cardiology [address] [place] [address] Harriet Yang PA-C [address] [place] [phone] [email or web address] 02/11/2025 11:00 AM EST Office Visit [facility] 22 [facility] 3rd Floor, [address] [place] [address] Hood Breen MD 22 [facility], [address] [place] [address] documented as of this encounter Visit Diagnoses Not on filedocumented in this encounter Care Teams Hardboard Press Operator Relationship Specialty Start Date End Date Donald Mayberry MD [address] [place] [phone] PCP - General Internal Medicine 08/07/23 10/15/24 Kane Plunkett MD [address] [place] [address] PCP - General Internal Medicine 10/16/24 documented as of this encounter Additional Source Comments The information contained in this document represents components of the legal health record. It is not the complete legal health record.[facility]
--- OUTSIDE RECORDS SUMMARY | 2025-01-13 13:12 | XMS_ITS | Encounter Summary ---
Author Organization [facility] Address [address] [place] [address] [place] [address] Phone Care Team Providers Care Water Softener Servicer Name Role Phone Donald Mayberry MD Primary Care Provider [phone]- [phone] Kane Plunkett MD Primary Care Provid er Encounter Details Date Type Department Care Team (Late st Contact Info) Description 10/18/2023 Procedure Pass Echo Lab [place] [address] [place] [id number] Social History Tobacco Use Types Packs/Day Years [...] AM EDT Hospital Encounter Non-Invasive Cardiology [address] [place] [address] Harriet Yang PA-C [address] [place] [address] [email or web address] 02/11/2025 11:00 AM EST Office Visit [facility] 22 [facility] 3rd Floor, [address] [place] [address] Hood Breen MD [address] [facility], [address] [place] [address] [email or web address] documented as of this encounter Visit Diagnoses Not on filedocumented in this encounter Care Teams Water Softener Servicer Relationship Specialty Start Date End Date Donald Mayberry MD [address] [place] [phone] PCP - General Internal Medicine 08/07/23 10/15/24 Kane Plunkett MD [address] [place] [address] [address] PCP - General Internal Medicine 10/16/24 documented as of this encounter Additional Source Comments The information contained in this document represents components of the legal health record. It is not the complete legal health record.[facility]
--- OUTSIDE RECORDS SUMMARY | 2025-01-13 13:12 | XMS_ITS | Encounter Summary ---
Author Organization [facility] Address [address] [place] [address] [place] [address] Phone Care Team Providers Care Ecologist Name Role Phone Donald Mayberry MD Primary Care Provider [phone]- [phone] Kane Plunkett MD Primary Care Provid er Encounter Details Date Type Department Care Team (Late st Contact Info) Description 07/25/2023 Procedure Pass [facility] [place] [address] [place] [id number] Social History Tobacco Use Types Packs/Day Years [...] AM EDT Hospital Encounter Non-Invasive Cardiology [address] [place] [address] Harriet Yang PA-C [address] [place] [phone] [email or web address] 02/11/2025 11:00 AM EST Office Visit [facility] 22 [facility] 3rd Floor, [address] [place] [address] Hood Breen MD 22 [facility], [address] [place] [address] [email or web address] documented as of this encounter Visit Diagnoses Not on filedocumented in this encounter Care Teams Ecologist Relationship Specialty Start Date End Date Donald Mayberry MD [address] [place] [address] PCP - General Internal Medicine 08/07/23 10/15/24 Kane Plunkett MD [address] [place] [address] [address] PCP - General Internal Medicine 10/16/24 documented as of this encounter Additional Source Comments The information contained in this document represents components of the legal health record. It is not the complete legal health record.[facility]
--- OUTSIDE RECORDS SUMMARY | 2025-01-13 13:12 | XMS_ITS | Encounter Summary ---
Author Organization [facility] Address [address] [facility] [address] [address] [place] [address] Phone Care Team Providers Care Chief Executive Or Managing Director Name Role Phone Kane Plunkett MD Primary Care Provid er Encounter Details Date Type Department Care Team (Late st Contact Info) Description 01/02/2025 Procedure Pass [facility] [address] [place], [place] [phone] Social History Tobacco Use Types Packs/Day Years [...] 8:00 AM EDT Hospital Encounter Non-Invasive Cardiology [address] [place] [address] Harriet Yang PA-C [address] [place] [phone] [email or web address] 02/11/2025 11:00 AM EST Office Visit [facility] [address] [place] [address] 3rd Floor, [address] [place] [address] Hood Breen MD [address] [place] [address] documented as of this encounter Visit Diagnoses Not on filedocumented in this encounter Care Teams Chief Executive Or Managing Director Relationship Specialty Start Date End Date Kane Plunkett MD [address] [place] [phone] PCP - General Internal Medicine 10/16/24 documented as of this encounter Additional Source Comments The information contained in this document represents components of the legal health record. It is not the complete legal health record.[facility]
--- OUTSIDE RECORDS SUMMARY | 2025-01-13 13:13 | XMS_ITS | Encounter Summary ---
Author Organization [facility] Address [address] [place] [address] Phone Care Team Providers Care Head Of Store Operations Name Role Phone Kane Plunkett MD Primary Care Provid er Encounter Details Date Type Department Care Team (Late st Contact Info) Description 01/05/2025 Telephone [facility] [address], [address] [place], [place] [id number] Hood Breen MD [address], [address] [place], [place] [id number] [email or web address] Social History Tobacco Use Types Packs/Day Years [...] PM EDT documented as of this encounter Progress Notes * Lisa Ramon RN - 01/09/2025 10:25 AM EDT Lft msg for advised current fuv appt are fine and if she has any additional question to call * Hood Breen MD - 01/09/2025 10:14 AM EDT Can you see what her questions are? I think keeping his current appt would be fine, but would like to answer her questions thanks * Tip Chavez MA - 01/05/2025 11:40 AM EDT Called and spoke to the pt's . Informed them they should keep nuclear stress appt prior to follow up. * Melissa Reid - 01/05/2025 8:56 AM EDT Patient's spouse has called in seeking a call back from . She states the patient was released form the hospital and they have two questions to ask. They referenced an ECHO that they had that sent them to the ED. Stress test scheduled for January. Unsure if sooner visit was needed. documented in this encounter Plan of Treatment Upcoming Encounters Date Type Department Care Team (Latest Contact Info) Description 01/15/2025 8:00 AM EDT Hospital Encounter Non-Invasive Cardiology [address] [place] [address] [place] [address] Harriet Yang PA-C [address] [place] [id number] [email or web address] 02/11/2025 11:00 AM EST Office Visit [facility] [address], [address] [place] [address] Hood Breen MD [address], [address] [place] [id number] documented as of this encounter Visit Diagnoses Not on filedocumented in this encounter Care Teams Head Of Store Operations Relationship Specialty Start Date End Date Kane Plunkett MD [address] [place] [phone] PCP - General Internal Medicine 10/16/24 documented as of this encounter Additional Source Comments The information contained in this document represents components of the legal health record. It is not the complete legal health record.[facility]
--- OUTSIDE RECORDS SUMMARY | 2025-01-13 13:13 | XMS_ITS | Clinical Summary ---
Author Organization [facility] Address [address] [place] [address] Phone Care Team Providers Care Emergency Planning And Response Manager Name Role Phone Kane Plunkett MD Primary [...] mouth daily. 180 tablet 3 5 Active spironolactone (ALDACTONE) 25 MG tablet Take 1 tablet (25 mg total) by mouth daily. 30 tablet 3 5 Active amLODIPine (NORVASC) 5 MG tablet Take 5 mg by mouth daily. Active ergocalciferol, vitamin D2, 62.5 mcg (2,500 unit) Cap Take by mouth. Activ e tolterodine (DETROL LA) 2 MG 24 hr capsule 025 Discontin ued(No longer taking) VITAMIN D2 1,250 mcg (50,000 unit) capsule TAKE 1 CAPSULES BY MOUTH ONCE WEEKLY 4 025 Discontin ued(No longer taking) metoprolol tartrate (LOPRESSOR) 50 MG tablet 1 tablet with food Orally Twice a day; Duration: 30 day(s) 025 Discontin ued(No longer taking) Active Problems Problem Noted Date Diagnosed Date Pericardial effusion 01/01/2025 Assessment & Plan (01/02/2025 3:53 PM EDT): - Outpatient echocardiogram revealed large circumferential pericardial effusion without tamponade physiology along with known heart failure history of LVEF of 45 to 50%, which is reportedly down from prior echocardiogram which was performed at outside medical facility at [facility]. -Recent admission at [facility] for pulmonary effusion status post drainage, unclear type of effusion however according to outpatient cardiology records on 12/17/2024 appears to be possibly hemorrhagic versus with patient reported to be heart failure induced., Was recommended to follow-up with pulmonology as well. -Cardiology was consulted in the ED, subsequently IR was consulted recommended pericardiocentesis in the AM. However, CT revealed loculated pleural effusion rather than pericardial effusion -CXR performed did reveal questionable pleural effusion on the left Plan: Hold Eliquis and aspirin at this time 1 liter of hemorrhagic fluid drained from left lung Cardiology consulted recommendations appreciated Continue telemetry monitoring Continue diuresis Will have to hold anticoagulation Assessment & Plan (01/01/2025 4:36 PM EDT): - Outpatient echocardiogram revealed large circumferential pericardial effusion without tamponade physiology along with known heart failure history of LVEF of 45 to 50%, which is reportedly down from prior echocardiogram which was performed at outside medical facility at [facility]. -Recent admission at [facility] for pulmonary effusion status post drainage, unclear type of effusion however according to outpatient cardiology records on 12/17/2024 appears to be possibly hemorrhagic versus with patient reported to be heart failure induced., Was recommended to follow-up with pulmonology as well. -Cardiology was consulted in the ED, subsequently IR was consulted recommended pericardiocentesis in the AM. -CXR performed did reveal questionable pleural effusion on the left Plan: Hold Eliquis and aspirin at this time IR consulted, plan for procedure in the a.m. Cardiology consulted recommendations appreciated Continue telemetry monitoring CT chest ordered and pending Spinal stenosis of lumbar region 01/01/2025 Failed back syndrome, lumbosacral 01/01/2025 Assessment & Plan (01/02/2025 3:53 PM EDT): Chronic lower back pain as well as neuropathy on gabapentin and tramadol PDMP checked Assessment & Plan (01/01/2025 4:36 PM EDT): Chronic lower back pain as well as neuropathy on gabapentin and tramadol PDMP checked History of DVT (deep vein thrombosis) 01/01/2025 Type 2 diabetes mellitus wit h kidney complication, without long-term current use of insulin 01/01/2025 Assessment & Plan (01/02/2025 3:53 PM EDT): Hold Farxiga, pending further evaluation and treatment in the hospital. Blood glucose 101, will continue monitoring blood glucose, will not initiate insulin sliding scale at this time. Assessment & Plan (01/01/2025 4:36 PM EDT): Jil Hernadez, pending further evaluation and treatment in the hospital. Blood glucose 101, will continue monitoring blood glucose, will not initiate insulin sliding scale at this time. Atrial flutter 08/27/2024 Assessment & Plan (10/16/2024 [...] patient repeats his echocardiogram 12/2024. 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 Per [facility] discharge, ischemic evaluation was recommended to [...] Acute on chronic systolic heart failure 08/28/19 Assessment & Plan (01/02/2025 3:53 PM EDT): - History of ischemic cardiomyopathy -Last echo performed as above, LVEF of 45 to 50%, noted to have LVEF of approximate 70% at [facility], and prior to that LVEF 25%. -Appears chronically heart failure with mid range ejection fraction, at this time does not appear to be fluid overloaded. Plan: Continue Entresto, furosemide, spironolactone, metoprolol and amlodipine Hold aspirin and Eliquis in the setting of hemothorax Assessment & Plan (01/01/2025 4:36 PM EDT): - History of ischemic cardiomyopathy -Last echo performed as above, LVEF of 45 to 50%, noted to have LVEF of approximate 70% at [facility], and prior to that LVEF 25%. -Appears chronically heart failure with mid range ejection fraction, at this time does not appear to be fluid overloaded. Plan: Continue Entresto, furosemide, spironolactone, metoprolol and amlodipine Hold aspirin and Eliquis in the setting of pericardial effusion pending pericardiocentesis Assessment & Plan (10/16/2024 9:31 AM EDT): [...] around 01/2024. Heart failure teaching points reviewed. Encounter for insertion of p rosthetic knee after prior removal of knee prosthesis 09/18/2015 Resolved Problems Problem Noted Date Diagnosed Date Resolved Date Benign prostatic hyperplasia 09/18/2015 01/01/2025 Encounters Date Type Department Care Team Description 01/05/2025 Home Care Visit [facility] [address] [place] [address] Federica Pike RN NON ADMIT HOME HEALTH VISIT 01/05/2025 Telephone [facility] [address] Floor, [address] [place] [address] Hood Breen MD 01/03/2025 Orders Only [facility] [address] [place] [address] Homehealth, Sandro Sanchez MD 01/02/2025 3:00 PM EDT - 01/02/2025 3:53 PM EDT Surgery [facility] Cardiovascular And Interventional Radiology [address] [place] [address] Briana Heath PA-C ULTRASOUND GUIDED THORACENTESIS IR 01/02/2025 Procedure Pass [facility] Cardiovascular And Interventional Radiology [address] [place] [address] 01/01/2025 2:20 PM EDT Ancillary Procedure [address] [address] Andres Priest MD 01/01/2025 1:31 PM EDT - 01/03/2025 2:14 PM EDT Hospital Encounter [facility] [address] [place] [address] Andres Priest MD McKenna-Weiss, Eli, MD Grachev, Maksim, DO Discharge Disposition: Home or Self Care 01/01/2025 10:05 AM EDT - 01/01/2025 1:30 PM EDT Hospital Encounter [facility] [place] [address] Harriet Yang PA-C Discharge Disposition: Home or Self Care 01/01/2025 Procedure Pass [facility] Ct Scan [address] [address] 12/17/2024 10:00 AM EDT Office Visit [facility] [address], [address] [place] [address] Lety Rahman PA-C, MPH Paroxysmal atrial fibrillation (Primary Dx) 12/02/2024 Telephone [facility] [address], [address] [place], [place] [id number] Hood Breen MD 10/16/2024 9:00 AM EDT Office Visit [facility] [address], [address] [place] [address] Harriet Yang PA-C Atrial flutter, unspecified type (Primary Dx); Benign essential hypertension; Acute on chronic systolic heart failure 08/27/2024 Procedure Pass [facility] [place] [address] from Last 3 Months Social History Tobacco [...] Orientation Straight 01/01/2025 1: 25 PM EDT Last Filed Vital Signs Vital Sign Reading Time Taken Comments Blood Pressure 112/61 01/03/2025 11:39 AM EDT Pulse 81 01/03/2025 11:39 AM EDT Temperature 36.8 C (98.2 F) 01/03/2025 11:39 AM EDT Respiratory Rate 16 01/03/2025 11:39 AM EDT Oxygen Saturation 95% 01/03/2025 11:39 AM EDT Inhaled Oxygen Concentration - - Weight 99.3 kg (219 lb) 01/01/2025 1:27 PM EDT Height 185.4 cm (6' 1 ) 01/01/2025 1:27 PM EDT Body Mass Index 28.89 01/01/2025 1:27 PM EDT Plan of Treatment Upcoming Encounters Date Type Department Care Team (Latest Contact Info) Description 01/15/2025 8:00 AM EDT Hospital Encounter Non-Invasive [place]iology [place] [address] [place] [address] Harriet Yang PA-C [address] [place] [phone] [email or web address] 02/11/2025 11:00 AM EST Office Visit [facility] [address], [address] [place] [address] Hood Breen MD [address] [place] [address], [address] [place] [address] [email or web address] Health Maintenance Due Date Last Done Comments Adult Td,Tdap Booster 1940 HEMOGLOBIN A1C 1940 DEPRESSION SCREENING 1952 LIPID PANEL 1958 ZOSTER VACCINES (1 of 2) 1990 PNEUMOCOCCAL VACCINES (50+ years) (2 of 2 - PCV) 03/08/2018 03/08/2017 INFLUENZA VACCINE (#1) 2024 , 12/20/2021, 12/16/2020, Additional history exists COVID-19 VACCINE ( season) 2024 02/02/2023, 07/03/2022, 10/06/2021, Additional history exists DIABETIC EYE EXAM 01/01/2025 BLOOD PRESSURE 06/16/2025 12/17/2024 CREATININE LEVEL 01/03/2026 01/03/2025, , 01/01/2025, Additional history exists POTASSIUM LEVEL 01/03/2026 01/03/2025, 12/09, 01/01/2025, Additional history exists RSV VACCINE Completed 01/23/2023 HEPATITIS A VACCINES [...] Associated Diagnosis Comments BASIC METABOLIC PANEL Routine 01/03/2025 6:40 AM EDT CBC Routine 01/03/2025 6:40 AM EDT XR CHEST PORTABLE STAT 01/02/2025 10: 56 AM EDT PH, PLEURAL FLUID Routine 01/02/2025 10: 50 AM EDT GLUCOSE (FLUID--NOT CSF) STAT 01/02/2025 10:50 AM EDT TOTAL PROTEIN (FLUID--NOT CSF) STAT 01/02/2025 10:50 AM EDT LDH (FLUID--NOT CSF) STAT 01/02/2025 10:50 AM EDT CELL COUNT/DIFFERENTIAL (FLUID--NOT CSF) STAT 01/02/2025 10:50 AM EDT ULTRASOUND GUIDED THORACENTESIS (IR) Routine 01/02/2025 10:50 AM EDT Pericardial effusion FLUID CULTURE/SMEAR (NOT CSF) STAT 01/02/2025 10:50 AM EDT LDH Routine 01/02/2025 6:21 AM EDT SEDIMENTATION RATE (ESR) Routine 01/02/2025 6:21 AM EDT C-REACTIVE PROTEIN Routine 01/02/2025 6: 21 AM EDT COMPREHENSIVE METABOLIC PANEL Routine 01/02/2025 6:21 AM EDT CBC AND DIFFERENTIAL Routine 01/02/2025 6:21 AM EDT PHOSPHORUS Routine 01/02/2025 6:21 AM EDT MAGNESIUM Routine 01/02/2025 6:21 AM EDT NON-WEATHER STRIP INSTALLER CYTOLOGY, NON CSF, NON URINE Routine 01/02/2025 12:[address] CHEST WITHOUT CONTRAST Routine 01/01/2025 4:47 PM EDT BASIC METABOLIC PANEL STAT 01/01/2025 2:36 PM EDT CBC AND DIFFERENTIAL STAT 01/01/2025 2:36 PM EDT ECG 12-LEAD STAT 01/01/2025 2:35 PM EDT XR CHEST PORTABLE Timed 01/01/2025 2:2 9 PM EDT US BEDSIDE Routine 01/01/2025 2:17 PM EDT TTE COMPREHENSIVE Routine 01/01/2025 11: 07 AM EDT Other cardiomyopathy from Last 3 Months Results * (ABNORMAL) CBC (01/03/2025 6:40 AM EDT) WBC 6.41 4.00 - 11.00 K/uL [facility] RBC 4.34(L) 4.50 - 5.90 M/uL [facility] HGB 12.6(L) 13.5 - 17.5 g/dL [facility] HCT 38.8(L) 41.0 - 53.0 % [facility] PLT 249 150 - 450 K/uL [facility] MCV 89.4 80.0 - 100.0 fL [facility] MCH 29.0 27.0 - 31.0 pg [facility] MCHC 32.5 32.0 - 36.0 g/dL [facility] RDW 14.4 11.5 - 14.5 % [facility] MPV 9.2 8.4 - 12.0 fL [facility] NRBC 0.00 0.00 /100 WBCs [facility] ABSOLUTE NRBC 0.00 0.00 K/uL [facility] Blood 01/03/2025 6:40 AM EDT 01/03/2025 6:56 AM EDT us Tessy Wagner MD LAB BLOOD ORDERABLES Final Result [facility] [address] [place] [address] * (ABNORMAL) Basic metabolic panel (01/03/2025 6:40 AM EDT) Only the most recent of2 resultswithin the time period is included. SODIUM 138 133 - 146 mmol/L [facility] CHLORIDE 100 96 - 108 mmol/L [facility] POTASSIUM 4.0 3.3 - 5.1 mmol/L [facility] CO2 27 21 - 35 mmol/L [facility] BUN 38(H) 6 - 19 mg/dL [facility] CREATININE 2.10(H) 0.5 - 1.5 mg/dL [facility] GLUCOSE 112(H) 70 - 99 mg/dL [facility] CALCIUM 8.2(L) 8.4 - 10.3 mg/dL [facility] EGFR 30(L) >59 mL/min/1.7 3m2 [facility] Comment:Estimated glomerular filtration rate calculated using the CKD-EPI refit equation. ANION GAP 15 10 - 20 mmol/L [facility] Blood 01/03/2025 6:40 AM EDT 01/03/2025 6:56 AM EDT us Tessy Wagner MD LAB BLOOD ORDERABLES Final Result Performing Organization Address City/State/[facility] Co de Phone Number [address] [address] * XR Chest Portable (01/02/2025 10:56 AM EDT) Anatomical Region Laterality Modality Chest Computed Radiogr aphy 01/02/2025 10:5 8 AM EDT Impressions 01/02/2025 11:02 AM EDT Status post thoracentesis. No pneumothorax. Narrative 01/02/2025 11:02 AM EDT XR CHEST PORTABLE Referring clinician's provided indication for this examination in Epic: Other Indication (Please use free text); post thoracentesis COMPARISON: Compared with relevant prior chest imaging FINDINGS: Devices/Tubes/Lines: None. Lungs and pleura: No pneumothorax. Mild reduction in size of the left pleural effusion. Lime Kiln Tender confluent airspace opacity at the left base. No other significant change. Heart/Mediastinum: Stable cardiomegaly mediastinal contour. Bones/Soft Tissues: No significant change Procedure Note Rafiq Pitts MD - 01/02/2025 XR CHEST PORTABLE Referring clinician's provided indication for this examination in Epic:Other Indication (Please use free text); post thoracentesis COMPARISON: Compared with relevant prior chest imaging FINDINGS: Devices/Tubes/Lines: None. Lungs and pleura: No pneumothorax. Mild reduction in size of the leftpleural effusion. L[employer] Kil[employer] Tender confluent airspace opacity at the left base.No other significant change. Heart/Mediastinum: Stable cardiomegaly mediastinal contour. Bones/Soft Tissues: No significant change IMPRESSION: Status post thoracentesis. No pneumothorax. Briana Heath PA-C IMG XR CHEST Final Res ult * PH, PLEURAL FLUID (01/02/2025 10:50 AM EDT) FLUID TYPE PLEURAL FLUID [facility] PLEURAL FLUID PH 7.37 7.35 - 7.50 [facility] Comment: The reference interval(s) and other method performance specifications are unavailable for this body fluid. Comparison of this result with the concentration in the blood, serum, or plasma is recommended. Interpretation: Pleural Fluid pH is useful to evaluate the prognosis of effusions associated with pneumonia. A pleural fluid pH greater than 7.3 suggests that resolution is possible with medical therapy alone. A pH less than 7.2 suggests that a more complicated effusion or empyema requiring surgical drainage has probably formed. This test was developed and its performance characteristics determined by [facility]. It has not been cleared or approved by the FDA. The laboratory is regulated under CLIA as qualified to perform high-complexity testing and has performed an Internal Validation in accordance with CAP requirements. This test is used for clinical purposes. It should not be regarded as investigational or for research. Other (Pleural fluid) 01/02/2025 10:50 AM EDT 01/02/2025 11:13 AM EDT us Tessy Wagner MD BODY FLUIDS AND STOOLS EARL WONG Final Result [facility] [address] [place] [address] * ULTRASOUND GUIDED THORACENTESIS (IR) (01/02/2025 10:50 AM EDT) Anatomical Region Laterality Modality Interventional R adiography Narrative 01/02/2025 11:17 AM EDT Impression: US guided diagnostic and therapeutic left thoracentesis yielding 1020 mL of pleural fluid. History: Patient is an 84 year old male with recurrent left pleural effusion. He notes he had a thoracentesis at another facility a few weeks ago yielding 2 qts of bloody fluid . He stopped his diuretics. Junior Mechanical Engineer: Briana Heaht PA-C Description of Procedure & Findings: Written and oral informed consent was obtained from the patient (or it sales representative) after explaining potential risks and benefits of the procedure as well as alternatives and right to refusal. Standard timeout procedure was performed. Multiple 2D real time images through the chest were acquired and a thoracentesis approach was determined. The left posterolateral thorax was prepped and draped in the usual sterile fashion. The skin and subcutaneous tissues were anesthetized with 1% lidocaine. Under ultrasound guidance, a 5 Fr One Step catheter was advanced into the effusion and 1020 mL of non-clotting, darkly serosanguinous fluid was removed. Specimens sent. Post procedure, no amount of fluid remained. There were no complications during the procedure. Images were saved documenting ultrasound guidance. Post procedural chest xray revealed no pneumothorax. The patient tolerated the procedure well and left the radiology department in good condition. Dr. Jeremy Martinez was the attending interventional radiologist for this encounter. us Andres Priest MD IMG IR Final Resul t * Fluid Culture/Gram Stain (Not CSF) (01/02/2025 10:50 AM EDT) Special Requests None 01/02/2025 10:50 AM EDT [facility] GRAM STAIN Moderate WBC'S , NO ORGANISMS SEEN 01/02/2025 12:56 PM EDT [facility] Fluid Culture/Smear NO GROWTH 48HRS 01/04/2025 11:24 AM EDT [facility] Other (Pleural fluid) 01/02/2025 10:50 AM EDT 01/02/2025 11:47 AM EDT Andres Priest MD MICROBIOLOGY - GENERAL ORDKenya WONG Final Result Performing Organization Address [facility] Co de Phone Number [address] [address] * (ABNORMAL) Cell count/differential (fluid--not CSF) (01/02/2025 10:50 AM EDT) FLUID NUCLEATED CELLS 2,446(H) 0 /uL [facility] FLUID RBC 237,000(H) 0 /uL [facility] Comment: REFERENCE RANGES: Total Red Blood Cells: Synovial - less than [address] Pleural/Peritoneal/Pericardial - less than [address] Specimen Source/Descripti on fld [facility] PATH REVIEW FINAL [facility] Comment: Other cells are mesothelial cells. Lymphocytes. Reviewed by Fiona Avila MD FLUID LYMPHS 43(H) 0 % [facility] FLUID NEUTS 2 % [facility] FLUID OTHER CELLS 55(H) 0 % [facility] Other (Pericardial fluid) 01/02/2025 10:50 AM EDT 01/02/2025 11:12 AM EDT Andres Priest MD BODY FLUIDS AND STOOLS EARL WONG Final Result Performing Organization Address [facility] Co de Phone Number [address] [address] * Total protein (fluid--not CSF) (01/02/2025 10:50 AM EDT) FLUID TOTAL PROTEIN 5.3 g/dL [facility] Comment: The reference interval(s) and other method performance specifications are unavailable for this body fluid. Comparison of this result with the concentration in the blood, serum, or plasma is recommended. This test was developed and its performance characteristics determined by [facility]. It has not been cleared or approved by the FDA. The laboratory is regulated under CLIA as qualified to perform high-complexity testing and has performed an Internal Validation in accordance with CAP requirements. This test is used for clinical purposes. It should not be regarded as investigational or for research. Other (Pericardial fluid) 01/02/2025 10:50 AM EDT 01/02/2025 11:12 AM EDT Andres Priest MD BODY FLUIDS AND STOOLS ORDE RABLES Final Result Performing Organization Address [facility] Co de Phone Number [address] [phone] * LDH (fluid--not CSF) (01/02/2025 10:50 AM EDT) FLUID LDH 273 U/L [facility] Comment: The reference interval(s) and other method performance specifications are unavailable for this body fluid. Comparison of this result with the concentration in the blood, serum, or plasma is recommended. This test was developed and its performance characteristics determined by [facility]. It has not been cleared or approved by the FDA. The laboratory is regulated under CLIA as qualified to perform high-complexity testing and has performed an Internal Validation in accordance with CAP requirements. This test is used for clinical purposes. It should not be regarded as investigational or for research. Other (Pericardial fluid) 01/02/2025 10:50 AM EDT 01/02/2025 11:12 AM EDT Andres Priest MD BODY FLUIDS AND STOOLS EARL WONG Final Result Performing Organization Address [facility] de Phone Number [address] [address] * Glucose (fluid--not CSF) (01/02/2025 10:50 AM EDT) FLUID GLUCOSE 92 mg/dL [facility] Comment: The reference interval(s) and other method performance specifications are unavailable for this body fluid. Comparison of this result with the concentration in the blood, serum, or plasma is recommended. This test was developed and its performance characteristics determined by [facility]. It has not been cleared or approved by the FDA. The laboratory is regulated under CLIA as qualified to perform high-complexity testing and has performed an Internal Validation in accordance with CAP requirements. This test is used for clinical purposes. It should not be regarded as investigational or for research. Other (Pericardial fluid) 01/02/2025 10:50 AM EDT 01/02/2025 11:12 AM EDT us Andres Priest MD BODY FLUIDS AND STOOLS ORDKenya WONG Final Result Performing Organization Address [facility]/ZIP Co de Phone Number [address] [address] * LDH (01/02/2025 6:21 AM EDT) LDH 248 118 - 273 U/L [facility] 01/02/2025 6:21 AM EDT 01/02/2025 6:30 AM EDT us Cal Chowdhury DO LAB BLOOD ORDERABLES Final Res ult Performing Organization Address [facility] Co de Phone Number [address] [address] * (ABNORMAL) Comprehensive metabolic panel (01/02/2025 6:21 AM EDT) SODIUM 141 133 - 146 mmol/L [facility] POTASSIUM 4.2 3.3 - 5.1 mmol/L [facility] CHLORIDE 103 96 - 108 mmol/L [facility] CO2 26 21 - 35 mmol/L [facility] BUN 26(H) 6 - 19 mg/dL [facility] CREATININE 1.40 0.5 - 1.5 mg/dL [facility] GLUCOSE 104(H) 70 - 99 mg/dL [facility] ALBUMIN 3.7(L) 3.9 - 4.8 g/dL [facility] TOTAL PROTEIN 7.8 6.5 - 8.0 g/dL [facility] CALCIUM 8.9 8.4 - 10.3 mg/dL [facility] ALKALINE PHOSPHATASE 89 39 - 117 U/L [facility] TOTAL BILIRUBIN 0.7 0.0 - 1.2 mg/dL [facility] AST 18 0 - 37 U/L [facility] ALT 11 0 - 40 U/L [facility] GLOBULIN 4.1 1 - 4.8 g/dL [facility] EGFR 50(L) >59 mL/min/1.7 3m2 [facility] Comment:Estimated glomerular filtration rate calculated using the CKD-EPI refit equation. ANION GAP 16 10 - 20 mmol/L [facility] Blood 01/02/2025 6:21 AM EDT 01/02/2025 6:30 AM EDT [employer] LAB BLOOD ORDERABLES Final Res ult Performing Organization Address [facility]/ZIP Co de Phone Number [address] [address] * (ABNORMAL) Sedimentation rate (ESR) (01/02/2025 6:21 AM EDT) ESR 73(H) 0 - 20 mm/h [facility] 01/02/2025 6:21 AM EDT 01/02/2025 6:30 AM EDT [employer] LAB BLOOD ORDERABLES Final Res ult Performing Organization Address City/[facility]/ZIP Co de Phone Number [address] [address] * (ABNORMAL) CBC and differential (01/02/2025 6:21 AM EDT) Only the most recent of2 resultswithin the time period is included. WBC 5.44 4.00 - 11.00 K/uL [facility] RBC 4.50 4.50 - 5.90 M/uL [facility] HGB 13.0(L) 13.5 - 17.5 g/dL [facility] HCT 40.3(L) 41.0 - 53.0 % [facility] PLT 248 150 - 450 K/uL [facility] MCV 89.6 80.0 - 100.0 fL [facility] MCH 28.9 27.0 - 31.0 pg [facility] MCHC 32.3 32.0 - 36.0 g/dL [facility] RDW 14.4 11.5 - 14.5 % [facility] MPV 9.2 8.4 - 12.0 fL [facility] NRBC 0.00 0.00 /100 WBCs [facility] ABSOLUTE NRBC 0.00 0.00 K/uL [facility] DIFF METHOD Auto [facility] NEUTS 61.5 48.0 - 76.0 % [facility] LYMPHS 21.9 18.0 - 41.0 % [facility] MONOS 11.4(H) 4.0 - 11.0 % [facility] EOS 3.9 0.0 - 5.0 % [facility] BASOS 0.9 0.0 - 1.5 % [facility] Granulocytes, immature (%) 0.4 0.0 - 0.9 % [facility] ABSOLUTE NEUTS 3.35 1.92 - 7.60 K/uL [facility] ABSOLUTE LYMPHS 1.19 0.72 - 4.10 K/uL [facility] ABSOLUTE MONOS 0.62 0.16 - 1.10 K/uL [facility] ABSOLUTE EOS 0.21 0.00 - 0.50 K/uL [facility] ABSOLUTE BASOS 0.05 0.00 - 0.15 K/uL [facility] Granulocytes, immature 0.02 0.00 - 0.09 K/uL [facility] Blood 01/02/2025 6:21 AM EDT 01/02/2025 6:30 AM EDT us Cal Chowdhury DO LAB BLOOD ORDERABLES Final Res ult [facility] [address] [place] [address] * (ABNORMAL) C-Reactive Protein (01/02/2025 6:21 AM EDT) C REACTIVE PROTEIN 20.6(H) 0.0 - 4.0 mg/L [facility] 01/02/2025 6:21 AM EDT 01/02/2025 6:30 AM EDT us Cal Margiev DO LAB BLOOD ORDERABLES Final Res ult Performing Organization Address [facility]/ZIP Co de Phone Number [address] [address] * Phosphorus (01/02/2025 6:21 AM EDT) PHOSPHORUS 3.7 2.7 - 4.5 mg/dL [facility] Blood 01/02/2025 6:21 AM EDT 01/02/2025 6:30 AM EDT us Cal Wilberchev DO LAB BLOOD ORDERABLES Final Res ult Performing Organization Address [facility] Co de Phone Number [address] [address] * Magnesium (01/02/2025 6:21 AM EDT) MAGNESIUM 2.1 1.6 - 2.6 mg/dL [facility] Blood 01/02/2025 6:21 AM EDT 01/02/2025 6:30 AM EDT us Cal Luciana DO LAB BLOOD ORDERABLES Final Res ult Performing Organization Address [facility] Co de Phone Number [address] [address] * Non-Bookkeeping Service Sales Agent Cytology (01/02/2025 12:00 AM EDT) 01/02/2025 01/02/2025 12: 53 PM EDT Narrative SEE NARRATIVE - 01/05/2025 9:30 AM EDT [address] [address] Oil Rag Washer: Yrn Rowland MD Non Bookkeeping Service Sales Agent Cytology Report FINAL DIAGNOSIS A. LEFT PLEURAL FLUID: SPECIMEN ADEQUACY: Satisfactory for evaluation. INTERPRETATION: NO MALIGNANT CELLS IDENTIFIED. Lymphocytic effusion with a few mesothelial cells Electronically Signed Out By: RONALDO Jeong MD(ASCP) By his/her signature above, the pathologist listed as making the Final Diagnosis certifies that he/she has personally reviewed this case and confirmed or corrected the diagnosis. CLINICAL HISTORY Patient presents with chest pain and pleural effusion. SPECIMEN SOURCE A: LEFT PLEURAL FLUID GROSS DESCRIPTION A. LEFT PLEURAL FLUID: Received fresh is 1050mL of serosanguineous fluid labeled with patient's name and date of . One (1) ThinPrep slide and one (1) cell block are prepared. Patient Name: INDU MORGAN : 1940 (Age: 84) Sex: M Institution: [facility] Location: [place] [address] Date of Collection: 01/02/2025 Date of Reported: 01/05/2025 09:30 Results to: Briana Plunkett MD Briana PLATA-Natalia CYTOLOGY ORDERABLES Final Result SEE NARRATIVE * CT CHEST WITHOUT CONTRAST (01/01/2025 4:47 PM EDT) Anatomical Region Laterality Modality Chest Computed Tomogra phy 01/01/2025 4:48 PM EDT Impressions 01/01/2025 4:58 PM EDT 1. Consolidation and rounded atelectasis throughout much of the left lower lobe. 2. Moderate loculated left pleural effusion and diffuse left pleural thickening. Narrative 01/01/2025 4:[address] CHEST WITHOUT CONTRAST Referring clinician's provided indication for this examination in Epic: * Dyspnea, chronic, unclear etiology; Short of breath, noncontrast mostly for operative planning for pericardiocentesis TECHNIQUE: Multidetector CT of the chest was performed without intravenous contrast using tailored dose modulation. COMPARISON: XR CHEST PORTABLE 14:22:04.000 FINDINGS: Devices/Tubes/Lines: None. Lungs: The central airways. There is consolidation and volume loss in the left lower lobe Pleura: There is moderate loculated left pleural effusion and diffuse left pleural thickening. Mediastinum: Aortic valvular calcification may be associated with aortic stenosis. Small hiatal hernia. Mild amount of coronary calcifications. Lymph Nodes: Normal. No enlarged supraclavicular, axillary, mediastinal, or hilar lymph nodes. Upper Abdomen: Normal. No abnormality detected in the visualized upper abdomen. Absence of intravenous contrast limits sensitivity for detecting solid organ findings. Chest Wall: Normal. No chest wall mass. Bones: No suspicious lytic or blastic lesions. Old healed rib fractures. Procedure Note Tonny Marsh MD - 01/01/2025 CT CHEST WITHOUT CONTRAST Referring clinician's provided indication for this examination in Epic: *Dyspnea, chronic, unclear etiology; Short of breath, noncontrast mostlyfor operative planning for pericardiocentesis TECHNIQUE: Multidetector CT of the chest was performed without intravenouscontrast using tailored dose modulation. COMPARISON: XR CHEST PORTABLE 14:22:04.000 FINDINGS: Devices/Tubes/Lines: None. Lungs: The central airways. There is consolidation and volume loss in theleft lower lobe Pleura: There is moderate loculated left pleural effusion and diffuse leftpleural thickening. Mediastinum: Aortic valvular calcification may be associated with aorticstenosis. Small hiatal hernia. Mild amount of coronary calcifications. Lymph Nodes: Normal. No enlarged supraclavicular, axillary, mediastinal,or hilar lymph nodes. Upper Abdomen: Normal. No abnormality detected in the visualized upperabdomen. Absence of intravenous contrast limits sensitivity for detectingsolid organ findings. Chest Wall: Normal. No chest wall mass. Bones: No suspicious lytic or blastic lesions. Old healed rib fractures. IMPRESSION: 1. Consolidation and rounded atelectasis throughout much of the leftlower lobe. 2. Moderate loculated left pleural effusion and diffuse left pleuralthickening. Andres Priest MD IMG CT CHEST Final Resul t * ECG 12-LEAD (01/01/2025 2:35 PM EDT) Ventricular Rate EKG/MIN 65 BPM [facility] Atrial Rate 65 BPM [facility] GA Interval 174 ms [facility] QRS Duration 100 ms [facility] QT Interval 420 ms [facility] QTC Interval 436 ms [facility] P [place] 36 degrees [facility] R Wave [place] 16 degrees [facility] T Wave [place] 35 degrees [facility] 01/01/2025 2:35 PM EDT 01/02/2025 2:53 PM EDT Narrative [facility] - 01/02/2025 2:53 PM EDT Normal sinus rhythm Normal ECG No previous ECGs available Confirmed by Hood Breen ([id number]) on 01/02/2025 2:53:33 PM Andres Priest MD ECG ORDERABLES Final Resul t [facility] * XR Chest Portable (01/01/2025 2:29 PM EDT) Anatomical Region Laterality Modality Chest Computed Radiogr aphy 01/01/2025 3:33 PM EDT Impressions 01/01/2025 3:35 PM EDT Small left pleural effusion. Left lower lobe consolidation, atelectasis versus pneumonia. Narrative 01/01/2025 3:35 PM EDT XR CHEST PORTABLE Referring clinician's provided indication for this examination in Epic: Pericardial Effusion; Pleural Effusion COMPARISON: None FINDINGS: Devices/Tubes/Lines: None. Lungs: Left lower lobe consolidation, atelectasis versus pneumonia. Pleura: Small left pleural effusion. No pneumothorax. Heart/Mediastinum: Mild cardiac silhouette enlargement partially obscured by the consolidation of the left lower lobe. Bones/Soft Tissues: Degenerative changes of the shoulders and spine. No acute osseous abnormality. Procedure Note Linnette Michelle MD, PhD - 09/25/2025 XR CHEST PORTABLE Referring clinician's provided indication for this examination in Epic:Pericardial Effusion; Pleural Effusion COMPARISON: None FINDINGS: Devices/Tubes/Lines: None. Lungs: Left lower lobe consolidation, atelectasis versus pneumonia. Pleura: Small left pleural effusion. No pneumothorax. Heart/Mediastinum: Mild cardiac silhouette enlargement partially obscuredby the consolidation of the left lower lobe. Bones/Soft Tissues: Degenerative changes of the shoulders and spine. Noacute osseous abnormality. IMPRESSION: Small left pleural effusion. Left lower lobe consolidation, atelectasisversus pneumonia. Andres Priest MD IMG XR CHEST Final Resul t * US BEDSIDE (01/01/2025 2:17 PM EDT) Anatomical Region Laterality Modality Ultrasound Narrative 01/01/2025 2:17 PM EDT Andres Priest MD 01/01/2025 3:09 PM Bedside Ultrasound Date/Time: 01/01/2025 2:17 PM Performed by: Andres Priest MD Authorized by: Andres Priest MD Exam Type: Cardiac Transthoracic Echocardiogram and Thoracic Cardiac Transthoracic Echocardiogram Exam Findings & Impression: Indications: patient with shortness of breath Views: apical four, parasternal long, parasternal short and subxiphoid Pericardial Effusion: the pericardial space was visualized and was positive for a pericardial effusion LV Function: the heart was visualized with depressed LV function RV Size: the heart was visualized with a normal R ventricle size Overall Impression: positive Thoracic Exam Findings & Impression: Indications: patient with shortness of breath Right Lung Pleural Effusion: the R chest was visualized and was positive for effusion Left Lung Pleural Effusion: the L chest was visualized and was negative for effusion Right Lung B-Lines: the R chest was visualized and no or few B lines were seen Left Lung B-Lines: the L chest was visualized and no or few B lines were seen Right Lung Sliding: the R chest was evaluated and lung sliding was visualized Left Lung Sliding: the L chest was visualized and lung sliding was visualized Overall Impression: positive Images: Images Saved: Yes Accession Number: [id number] us Andres Priest MD IMG POINT OF CARE EXAMS Fin al Result * TTE COMPREHENSIVE (01/01/2025 11:07 AM EDT) Height 185 cm Weight 99 kg Systolic BP 142 mmHg Diastolic BP 92 mmHg Interventricular Septum Thickness 7 6 - 11 mm Left Ventricle Internal Diameter End Diastole 43 42 - 58 mm Left Ventricle Internal Diameter End Systole 36 <40 mm Left Ventricular Outflow Tract Diameter 24.0 mm Left Ventricular Posterior Wall Thickness 9 6 - 11 mm Ejection Fraction 45 50 - 75 Percent Left Atrium Dimension Anterior-Posterior 31 15 - 40 mm Aortic Valve Regurgitation Pressure Half Time 584 ms Aortic Valve Peak Velocity 2.4 m/s Aortic Valve Peak Gradient 22 mmHg Aortic Valve Mean Gradient 13 mmHg Aortic Valve Time Velocity Integral 496.0 mm Aortic Arch Diameter 25 mm Aortic Sinus Diameter 32 <40 mm Ascending Aorta Diameter 36 <36 mm Inferior Vena Cava Diameter 18 <21 mm Mitral Valve Deceleration Time 236 ms Left Ventricle A Wave Speed 89.6 cm/s Left Ventricle E Wave Speed 38.2 cm/s Pulmonary Valve Peak Velocity 1.0 m/s Pulmonary Valve Peak Gradient 4 mmHg Right Ventricle Basal Diameter 45 25 - 41 mm Tricuspid Valve Peak Velocity 1.7 m/s Raw LV EF% 30 % Relative Wall Thickness 0.42 0.22 - 0.42 MV E/A ratio 0.4 Aortic Valve Prosthetic Peak Gradient 22 mmHg Aortic Valve Prosthetic Mean Gradient 13 mmHg Aorta Sinus Index by Height 1.73 cm/m Aorta Sinus CSA index by Height 4.35 cm2/m Asc Aorta CSA Index by Height 5.50 cm2/m Right Ventricle to Right Atrium Pressure Gradient 12 mmHg Right Ventricle Peak Systolic Pressure (Assuming RAP 10) 22 mmHg MGB CV ECHO TV RVSP (ASSUMING RAP OF 5) 17 mmHg RVSP (Exclusive of RAP) 12 mmHg Pulmonic Valve Prosthetic Peak Gradient 4 mmHg Body Surface Area 2.24 m2 Left Atrial Volume Index 24 16 - 34 mL/m2 Right Ventricle Peak Systolic Pressure 15 mmHg Right Ventricle TAPSE 21 >=17 mm Right Ventricle Pulse Doppler S Wave 16.8 >=9.5 cm/s Left Ventricle indexed to BSA 47.0 g/m2 Left Atrial Volume 53 mL Left Atrial Volume Index by Height 29 mL/m Right Atrium Area 16 cm2 Right Atrium Area index 7 cm2/m2 Aortic Valve Sinus Index by BSA 14 mm/m2 Ascending Aorta Index 16 mm/m2 Right Atrium Pressure Estimated 3 mmHg Ascending Aorta Index 16 mm Aortic Sinus Index 14 mm Ascending Aorta Diameter 16 mm Aortic Valve Sinus Index 1 14 20 - 32 mm AO ASC DIAM BSA INDEX 16.07 Anatomical Region Laterality Modality Heart Ultrasound Narrative 01/01/2025 12:24 PM EDT Images from the original result were not included. The most notable finding from this study is a large circumferential pericardial effusion. There is no evidence of tamponade physiology. Normal LV size and wall thickness. LV systolic function is mildly reduced with EF 45 to 50%. There is mild global hypokinesis without clear regional variation. The right ventricle is mildly dilated, but has preserved systolic function. The aortic valve is trileaflet. There is mild aortic stenosis (PV 2.2 m/s, MG 10 mmHg, KILEY 1.7 cm ). Comparison is made to the prior study report dated 11/05/2023. LVEF has declined. The large pericardial effusion is new. Fortunately, there is no evidence of tamponade physiology. Patient will be recommended to present to [facility] for clinical evaluation. Left Ventricle The left ventricle is normal in size. There is normal wall thickness. There is mildly reduced left ventricular systolic function. The LV ejection fraction is 45% (calculated via biplane measurement). There are no wall motion abnormalities. LV diastolic function parameters are indeterminate in total. Right Ventricle The right ventricle is mildly dilated. The RV basal dimension is 45 mm. There is normal right ventricular systolic function. TAPSE is 21 mm. RV S' wave is 16.8 cm/s. Left Atrium The left atrium is normal in size. The left atrial volume is 53 mL. There are normal flow patterns in the pulmonary vein. Right Atrium The right atrium is normal in size. The right atrial area is 16 cm2. The IVC is normal in size with normal inspiratory collapse. This is consistent with normal RA pressure. The IVC diameter is 18 mm (normal: <= 21 mm). Hepatic veins are normal in size. Mitral Valve There is mitral valve thickening. There is mitral annular calcification. There is no mitral stenosis. There is trace mitral regurgitation. Tricuspid Valve The tricuspid valve appears normal. There is no tricuspid stenosis. There is trace to mild tricuspid regurgitation. The RV systolic pressure was calculated at 15 mmHg (using TR peak velocity of 1.7 m/s and assuming an RA pressure of 3 mmHg). Aortic Valve The aortic valve is tricuspid. There is mild calcific aortic stenosis. The aortic valve peak velocity is 2.4 m/s. The peak and mean aortic valve gradients are 22 mmHg and 13 mmHg respectively. There is trace aortic regurgitation. The regurgitation pressure half time is 584 ms. The visualized portions of the thoracic aorta appear normal in size. Pulmonic Valve The pulmonic valve appears normal. Pericardium There is a large circumferential pericardial effusion. There is no echocardiographic evidence of tamponade. General Findings The image quality was adequate. Technique(s) used in the evaluation: Color flow Doppler and Spectral Doppler. The predominant rhythm during the study was sinus. Comparison Findings Compared to prior study on 09/06/2023, IAS/IVS The interatrial septum appears normal. There is no evidence of patent foramen ovale (PFO). The interventricular septum appears normal. There is no evidence of a ventricular septal defect. Harriet Yang PA-C CV ECHO ORDERABLES Final Res ult from Last 3 Months Insurance [place] [id number] [facility] MEDICARE REPLACEMENT [place] [id number] MEDICARE PART A & B MEDICARE REPLACEMENT MEDICARE PART A & B MEDICARE PART A & B MEDICARE PART A & B MEDICARE REPLACEMENT MEDICARE PART A & B MEDICARE PART A & B MEDICARE REPLACEMENT MEDICARE PART A & B MEDICARE REPLACEMENT MEDICARE PART A & B [facility] MEDICARE REPLACEMENT Advance Directives For more information, please contact: [phone] (9AM - 5PM [place], Sunday-Sunday) * Full Code (Latest Code Status on File) Date Activated Date Inactivated Comments 01/01/2025 4:29 PM Question Answer Comments Code Status Confirmed With: Patient Code Status Communicated To: Inpatient Attending Care Teams Emergency Planning And Response Manager Relationship Specialty Start Date End Date Kane Plunkett MD [address] [place] [id number] PCP - General Internal Medicine 10/16/24 Additional Source Comments The information contained in this document represents components of the legal health record. It is not the complete legal health record.[facility]
--- OUTSIDE RECORDS SUMMARY | 2025-01-13 13:13 | XMS_ITS | Patient Health Record ---
Author Organization [facility] brijesh Mic[place] Address [address] [facility] [place] [address] Care Team Providers Care Mattress Weaver Name Role Phone Kane Plunkett Primary Care Provider [phone] Michela Hirsch Unavailable [phone] Allergies No Known Allergies Results Component Value [...] Problem Acquired hammer toe of right foot (0805262739924711 ) Other hammer toe(s) (acquired), right foot (M20.41) Active confirmed Response to treatment, Improvemen t Problem Acquired hammer toe of left foot (3752495430150472 ) Other hammer toe(s) (acquired), left foot (M20.42) Active confirmed Response to treatment, Improvemen t Problem Polyneuropathy due to type 2 diabetes mellitus (134258979) Type 2 diabetes mellitus with diabetic polyneuropathy (E11.42) Active confirmed Vital Signs Blood pressure diastolic 65 mm Hg 10/23/2024 Height 5 ft 10 in in 10/23/2024 Blood pressure systolic 128 mm Hg 10/23/2024 Weight 218 lbs 10/23/2024 BMI 31.28 kg/m2 10/23/2024 Procedures Procedure Date Ordered Date Performed Result Body Sit e 06093-FOLGTIF NAIL, 6 OR MORE 03/26/2024 N/A 60683-MFOC SKIN LESIONS, OVER 4 03/26/2024 N/A 74026-TDMLNBN NAIL, 6 OR MORE 07/31/2024 N/A 58583-PPDQ SKIN LESIONS, OVER 4 07/31/2024 N/A Encounters Encounter Location Date Provider Diagnosis [address] [address] 03/26/2024 Michela Hirsch Other hammer toe(s) (acquired), right foot M20.41 ; Other hammer toe(s) (acquired), left foot M20.42 ; Type 2 diabetes mellitus with diabetic polyneuropathy E11.42 ; Tinea unguium B35.1 and Tinea pedis of both feet B35.[address] [address] 07/31/2024 Michela Hirsch Type 2 diabetes mellitus with diabetic polyneuropathy E11.42 ; Tinea unguium B35.1 ; Other hammer toe(s) (acquired), right foot M20.41 and Other hammer toe(s) (acquired), left foot M20.[address] [address] 10/23/2024 Michela Hirsch Type 2 diabetes mellitus with diabetic polyneuropathy E11.42 and Tinea unguium B35.[address] [address] 03/27/2024 Michela Ambroseaker [address] [address] 11/04/2024 Michela Hirsch Tinea pedis of both [...] Treatment Pending Test Test Name Order Date 98800-LUEKXHV NAIL, 6 OR MORE 05/04/2014 87324-INJQWYU NAIL, 6 OR MORE 07/22/2014 64496-WCEPCHJ NAIL, 6 OR MORE 10/21/2014 00871-RQAEUKN NAIL, 6 OR MORE 12/30/2014 97357-DNMFAGH NAIL, 6 OR MORE 03/03/2015 75682-LFNTIGZ NAIL, 6 OR MORE 06/03/2015 44578-UFPBYWF NAIL, 6 OR MORE 08/16/2015 05423-ILYXUNC NAIL, 6 OR MORE 11/08/2015 04386-XITBJOX NAIL, 6 OR MORE 01/31/2016 05044-LLFOLHM NAIL, 6 OR MORE 04/17/2016 64529-UKBDRLU NAIL, 6 OR MORE 06/26/2016 91796-XQVPQNA NAIL, 6 OR MORE 09/18/2016 83131-OXSLLMV NAIL, 6 OR MORE 11/27/2016 86250-VRCRCCU NAIL, 6 OR MORE 01/29/2017 40794-WOJHXVI NAIL, 6 OR MORE 04/11/2017 45911-QFHMZIQ NAIL, 6 OR MORE 06/20/2017 42523-OQWBKVU NAIL, 6 OR MORE 08/29/2017 51404-ONNBUDH NAIL, 6 OR MORE 11/19/2017 52501-BFZVRHW NAIL, 6 OR MORE 02/13/2018 15370-MTIMHFK NAIL, 6 OR MORE 03/26/2024 45658-ZYXOAEB NAIL, 6 OR MORE 07/31/2024 19711-Elxslywp Plate 12/30/2014 87279-IWUX SKIN LESIONS, OVER 4 10/01/19 19 63494-BCOW SKIN LESIONS, OVER 4 08/01/19 25 54629-ZORW SKIN LESIONS, OVER 4 03/26/20 24 56951-ZXRZ SKIN LESIONS, OVER 4 05/08/19 19 21897-LBKH SKIN LESIONS, OVER 4 07/11/19 19 87719-OOYZ SKIN LESIONS, OVER 4 02/14/20 18 62038-QDKU SKIN LESIONS, OVER 4 11/20/19 18 21582-UXUJ SKIN LESIONS, OVER 4 12/26/19 19 71948-BRJV SKIN LESIONS, OVER 4 03/24/20 19 55376-ULHH SKIN LESIONS, OVER 4 06/16/19 20 19086-AVCR SKIN LESIONS, OVER 4 08/17/19 21 20530-XZMU SKIN LESIONS, OVER 4 10/26/19 98141-YZLW SKIN LESIONS, OVER 4 12/28/19 21 78806-LXUR SKIN LESIONS, OVER 4 02/29/20 21 68884-GFIF SKIN LESIONS, OVER 4 05/09/19 22 48094-MUUA SKIN LESIONS, OVER 4 08/30/19 18 56007-TNQG SKIN LESIONS, OVER 4 06/21/19 18 37017-CATF SKIN LESIONS, OVER 4 04/11/19 18 32116-SZEC SKIN LESIONS, OVER 4 01/30/20 17 80389-BXVW SKIN LESIONS, OVER 4 11/28/19 17 45032-DDAD SKIN LESIONS, OVER 4 06/27/19 17 57203-HWXE SKIN LESIONS, OVER 4 09/19/19 17 45880-NDDK SKIN LESIONS, OVER 4 04/17/19 17 33790-WUPJ SKIN LESIONS, OVER 4 01/31/20 16 25345-YKTM SKIN LESIONS, OVER 4 11/08/19 16 42040-ITVJ SKIN LESIONS, OVER 4 08/16/19 16 39299-VNCV SKIN LESIONS, OVER 4 06/03/19 16 32963-WWFW SKIN LESIONS, OVER 4 03/03/20 15 25252-ICAM SKIN LESIONS, OVER 4 12/31/19 15 28820-HMOP SKIN LESIONS, OVER 4 10/22/19 15 74580-SWKL SKIN LESIONS, OVER 4 07/23/19 15 22073-KSJA SKIN LESIONS, OVER 4 05/04/19 15 09488-Qzen. Subungual Hematoma 4 22127-QPIOOFRQ OF HEMATOMA/FLUID 019 94986-MUYPUVQY OF HEMATOMA/FLUID 022 36330-SWATIQRZ OF HEMATOMA/FLUID 023 56166-BUXNEQZN OF HEMATOMA/FLUID 021 00776-YZJKOFRZ OF HEMATOMA/FLUID 019 HEMOGLOBIN A1C (GLYCOHEMOGLOBIN) 024 Next Appt Details Provider Name:iMchela Ceballos nuris, 01/22/2025 02:45:00 PM, [address] [place], [address], Insurance Providers Payer Name Payer Address Payer Phone Subscriber Number Group Number Insured Name Patient Relationship to Insured Coverage Start Date Coverage End Date [employer] Medicare [id number] [address] [address] [place] [address] [id number] Aaron Huston Self - patient is the insured Medical (General) History Medical History History ICD Code Arthritis Back,Hip,and Knee pain type II diabetes High blood pressure Neuropathy Chicken pox Surgical History Surgery Date(Month/Year) lumbar surgery 06/20/2013 cervical 11/29/2009 knee surgery, left 09/15/2015 gastric sleeve 03/08/17 cataract surgery- Bilateral 10/2017 Hospitalization History Reason Date(Month/Year) Heart attack- [facility] 08/2023
== END 2025-01-13 11:15 | disposition home or self-care (01) ==
LOC: HO.HPS 10:48
PROVIDERS: PCP Internal Medicine; Visit Provider Internal Medicine Pulmonary Disease
DX: J90 Pleural effusion, not elsewhere classified (principal)
CPT/HCPCS: 99213

== ENCOUNTER → 2025-01-13 10:47 | Outpatient (BNVA) | payer MEDICARE, SELFPAY | PROVIDERS: PCP Internal Medicine; Visit Provider Internal Medicine Pulmonary Disease | DX: E11.22 Type 2 diabetes mellitus with diabetic chronic kidney disease (principal); I50.9 Heart failure, unspecified; N18.30 Chronic kidney disease, stage 3 unspecified; J90 Pleural effusion, not elsewhere classified | CPT/HCPCS: 99212 ==

== ENCOUNTER 2025-01-13 11:25 | Outpatient (AMB) | payer MEDICARE, SELFPAY ==
--- NOTE | 2025-01-13 11:36 | HO.NEPHOV ---
Vital Signs 01/13/25 11:37 Height 5 ft 11 in Weight 218 lb BMI 30.4 BP 104/56 L Blood Pressure Location Rt brachial Position Sitting Pulse 73 Pulse Source Pulse Oximeter Pulse Oximetry (%) 94 Oxygen Delivery Method Room Air Intake Visit Reasons: Enrrique F/U confirmed Industrial/Organizational Psychologist Required: No Accompanied by: Spouse Allergies cephalexin (From KEFLEX) Allergy (Unknown, Verified 01/13/25 11:38) UNKNOWN metformin (METFORMIN) Allergy (Unknown, Verified 01/13/25 11:38) SHAKY , swelling silodosin (From RAPAFLO) Allergy (Unknown, Verified 01/13/25 11:38) UNKNOWN tamsulosin (From FLOMAX) Allergy (Unknown, Verified 01/13/25 11:38) UNKNOWN Pt states no known allergy to Allergy (Mild, Uncoded 01/01/25 06:25) Unknown Rapaflo Allergy (Unknown, Uncoded 01/01/25 06:25) hives Medication List - Last Reconciled 01/13/25 by Franklyn Pearl MD amlodipine 5 mg PO DAILY apixaban (Eliquis) 2.5 mg PO BID aspirin 81 mg PO DAILY blood sugar diagnostic (Accu-Chek Guide test strips) As directed- daily blood sugar diagnostic (OneTouch Ultra Test strips) As directed blood-glucose meter (Accu-Chek Guide Me Glucose Meter) As directed- daily ciclopirox 0.77% 1 appl topical BID cyclosporine 0.05% (Restasis) 1 drp ophthalmic (eye) Q12H diazepam 10 mg (2 x 5 mg) PO DAILY 30 days Farxiga (dapagliflozin propanediol) 10 mg PO QAM NS furosemide 20 mg PO DAILY gabapentin 200 mg (2 x 100 mg) PO TID 90 days lancets (Accu-Chek Softclix Lancets) As directed- daily lancets (OneTouch UltraSoft 2 Lancet) As directed metoprolol succinate ER 100 mg (2 x 50 mg) PO DAILY sacubitril-valsartan 97-103 mg (Entresto) 1 tab PO BID spironolactone 25 mg PO DAILY tolterodine ER 4 mg PO BID tramadol 50 mg PO Q8H 30 days triamcinolone acetonide 0.025% 1 appl topical BID vitamins A,C,P-ugqs-nkrqnm 2,148 mcg-113 mg-45 mg-17.4mg (PreserVision AREDS) 1 tab PO BID HPI Comments Details: The patient is an 84-year-old male referred for evaluation of chronic kidney disease. He has a longstanding history of diabetes mellitus. History of congestive heart failure status post MT. He has multiple somatic complaints. He reports a decline in balance and leg strength since the spring, with symptoms worsening over time, leading to difficulty walking and increased fatigue. He experiences dyspnea with minimal exertion, such as walking to the mailbox or climbing stairs, and reports a heavy sensation in his lungs. The patient has a history of heart failure, He underwent cardioversion for atrial fibrillation and has been hospitalized for cardiac care. The patient has a longstanding history of type 2 diabetes mellitus, which has contributed to his chronic kidney disease and peripheral neuropathy. He reports dizziness and neuropathic symptoms, which are attributed to diabetes. The patient has a history of prostate surgery complications, including a staph infection and prolonged catheter use, which have resolved. He also reports a history of hypertension, which is currently being managed with medication adjustments. 11/21/24 The patient is an 84-year-old male presenting with concerns regarding his kidney function and overall health status following a recent hospitalization. He was hospitalized for five days due to pleural effusion, during which fluid was removed from his lungs. The fluid analysis showed no evidence of malignancy, which was a significant concern initially. The patient's kidney function is currently at 34%, which is stable compared to previous levels fluctuating between 34% and 40%. He has a history of chronic kidney disease and is on multiple medications, including furosemide, amlodipine, Entresto, and metoprolol, to manage his condition and associated hypertension. The patient reports urinary incontinence, which he attributes to complications from previous prostate surgery that damaged his sphincter muscle. He has experienced episodes of urinary leakage and has been managing this with the use of a leg bag and night bag. His past medical history includes a significant staph infection following a surgical procedure, which led to hospitalization and subsequent pneumonia. He also underwent hernia repair and has a history of weight loss, having lost approximately 80 pounds through a structured program, which enabled him to undergo knee replacement surgery. Recent imaging showed a simple renal cyst, which does not require intervention. The patient's heart failure with reduced ejection fraction is being managed with Entresto, and improvement in heart function is expected to benefit his renal function over time. 12/18/24 Doing better Off KCL Aldactone has been added 01/13/25 - The patient is an 84-year-old male presenting with coronary artery disease and heart valve disorder. - Coronary artery disease: History of coronary artery disease with potential stent placement after nuclear stress test. - Heart valve disorder: Symptoms suggestive of heart valve disorder, awaiting cardiology evaluation. - Chronic kidney disease: Managed without dialysis, associated pruritus noted. - Pruritus: [facility] Medical History Hospital discharge follow-up Empyema of left pleural space CKD (chronic kidney disease) stage 3, GFR 30-59 ml/min NSTEMI (non-ST elevated myocardial infarction) Failed total left knee replacement HFrEF (heart failure with reduced ejection fraction) GERD (gastroesophageal reflux disease) Chronic renal failure Chronic pain syndrome Surgical History H/O gastric bypass Previous back surgery H/O inguinal hernia repair Family History Father Prostate cancer Bone cancer Mother BP (high blood pressure) Social History Household Members: Spouse Housing: House Do you presently have visiting nurse or other home services: No Alcohol intake: current Alcohol intake frequency: does not drink Comment: pt refuse bed alarm Patient Tobacco Use Status: Never used Tobacco service: No Current occupational status: retired Cognitive needs: No Hearing needs: No Vision needs: No Physical Exam Vital Signs: Last Vital Signs Pulse 73 01/13/25 11:37 BP 104/56 L 01/13/25 11:37 Pulse Ox 94 01/13/25 11:37 Oxygen Delivery Method Room Air 01/13/25 11:37 BMI result Body Mass Index 30.4 Comfortable Neck supple no JVD. Lungs decreased air entry in left base Heart S1-S2 heard no gallop or rub. Abdomen soft nontender. Neuro alert awake oriented. No asterixis. Extremities no edema. Results Reviewed Nephrology Results: Hgb, (14.0-18.0) 13.1 g/dl L 12/16/24 WBC, (4.8-10.8) 6.2 X10*3/uL 12/16/24 Plt Count, (160-400) 301 X10*3/uL 12/16/24 Sodium, (135-145) 142 mmol/L 12/16/24 Potassium, (3.3-5.1) 4.3 mmol/L 12/16/24 Chloride, (96-108) 107 mmol/L 12/16/24 Carbon Dioxide, (22-29) 28 mmol/L 12/16/24 BUN, (9-16) 27 mg/dL H 12/16/24 Creatinine, (0.5-1.4) 1.82 mg/dL H 12/16/24 Calcium, (8.4-10.2) 8.3 mg/dL L 12/16/24 PTH Intact, (8.7-77.1) 194.4 pg/mL H 12/16/24 Renal US 11/16/24 Assessment & Plan Assessment & Plan (1) Chronic renal failure: Code(s): N18.9 - Chronic kidney disease, unspecified Category: Medical (2) CHF (congestive heart failure): Code(s): I50.9 - Heart failure, unspecified Category: Medical Plan 84-year-old man with stage III CKD in the setting of longstanding diabetes mellitus and congestive heart failure. Renal function is close to baseline At the present time fluid status seems acceptable. No evidence of overt fluid overload. No signs or symptoms of uremia. 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 No evidence of Obstructive uropathy or active glomerular nephritis or interstitial disease at this time. Recommendations Optimize fluid status Optimize blood pressure. Continue amlodipine 5 mg once a day. Continue with the Entresto. Continue to avoid nephrotoxic agents including NSAIDs. Encouraged him to stay on a low-sodium diet. Await cardiac work up NO changes made today Orders: Orders Basic Metabolic Panel 1 Month N18.9 - Chronic kidney disease, unspecified Complete Blood Count no Diff 1 Month N18.9 - Chronic kidney disease, unspecified Medications: New hydroxyzine HCl 10 mg PO BEDTIME PRN 30 tabs 0RF itching Coding Level of Care Code Est Pt Level 4 (20003) Diagnoses Chronic renal failure N18.9 CHF (congestive heart failure) I50.9
[2025-01-13 11:37] VITALS: BP 104/56; PULSE 73; O2SAT 94; BMI 30.4
== END 2025-01-13 13:18 | disposition home or self-care (01) ==
LOC: HO.HKA 11:26
PROVIDERS: PCP Internal Medicine; Visit Provider Internal Medicine Hypertension Specialist
DX: N18.9 Chronic kidney disease, unspecified (principal); I50.9 Heart failure, unspecified
CPT/HCPCS: 99214

== ENCOUNTER 2025-02-17 09:42 | Outpatient (AMB) | payer MEDICARE, SELFPAY ==
--- NOTE | 2025-02-17 09:47 | HO.NEPHOV ---
Vital Signs 02/17/25 09:48 Height 5 ft 11 in Weight 226 lb BMI 31.5 BP 122/62 Blood Pressure Location Rt brachial Position Sitting Pulse 56 Pulse Source Pulse Oximeter Pulse Oximetry (%) 96 Oxygen Delivery Method Room Air Intake Visit Reasons: 3 MO FU Director Of Strategic Sales Required: No Accompanied by: Spouse Allergies cephalexin (From KEFLEX) Allergy (Unknown, Verified 02/17/25 09:50) UNKNOWN metformin (METFORMIN) Allergy (Unknown, Verified 02/17/25 09:50) SHAKY , swelling silodosin (From RAPAFLO) Allergy (Unknown, Verified 02/17/25 09:50) UNKNOWN tamsulosin (From FLOMAX) Allergy (Unknown, Verified 02/17/25 09:50) UNKNOWN Pt states no known allergy to Allergy (Mild, Uncoded 01/01/25 06:25) Unknown Rapaflo Allergy (Unknown, Uncoded 01/01/25 06:25) hives Medication List - Last Reconciled 02/17/25 by Franklyn Pearl MD amlodipine 5 mg PO DAILY apixaban (Eliquis) 2.5 mg PO BID aspirin 81 mg PO DAILY blood sugar diagnostic (Accu-Chek Guide test strips) USE ONCE DAILY DIRECTED blood sugar diagnostic (OneTouch Ultra Test strips) As directed blood-glucose meter (Accu-Chek Guide Me Glucose Meter) As directed- daily ciclopirox 0.77% 1 appl topical BID cyclosporine 0.05% (Restasis) 1 drp ophthalmic (eye) Q12H diazepam 10 mg (2 x 5 mg) PO DAILY 30 days Farxiga (dapagliflozin propanediol) 10 mg PO QAM NS furosemide 40 mg PO DAILY gabapentin 200 mg (2 x 100 mg) PO TID 90 days hydroxyzine HCl 10 mg PO BEDTIME PRN lancets (Accu-Chek Softclix Lancets) As directed- daily lancets (OneTouch UltraSoft 2 Lancet) As directed metoprolol succinate ER 100 mg (2 x 50 mg) PO DAILY potassium chloride ER 10 mEq PO DAILY sacubitril-valsartan 97-103 mg (Entresto) 1 tab PO BID spironolactone 25 mg PO DAILY tolterodine ER 4 mg PO BID tramadol 50 mg PO Q8H 30 days triamcinolone acetonide 0.025% 1 appl topical BID vitamins A,C,L-fdjy-hsndas 2,148 mcg-113 mg-45 mg-17.4mg (PreserVision AREDS) 1 tab PO BID HPI Comments Details: The patient is an 84-year-old male referred for evaluation of chronic kidney disease. He has a longstanding history of diabetes mellitus. History of congestive heart failure status post MA. He has multiple somatic complaints. He reports a decline in balance and leg strength since the spring, with symptoms worsening over time, leading to difficulty walking and increased fatigue. He experiences dyspnea with minimal exertion, such as walking to the mailbox or climbing stairs, and reports a heavy sensation in his lungs. The patient has a history of heart failure, He underwent cardioversion for atrial fibrillation and has been hospitalized for cardiac care. The patient has a longstanding history of type 2 diabetes mellitus, which has contributed to his chronic kidney disease and peripheral neuropathy. He reports dizziness and neuropathic symptoms, which are attributed to diabetes. The patient has a history of prostate surgery complications, including a staph infection and prolonged catheter use, which have resolved. He also reports a history of hypertension, which is currently being managed with medication adjustments. 11/21/24 The patient is an 84-year-old male presenting with concerns regarding his kidney function and overall health status following a recent hospitalization. He was hospitalized for five days due to pleural effusion, during which fluid was removed from his lungs. The fluid analysis showed no evidence of malignancy, which was a significant concern initially. The patient's kidney function is currently at 34%, which is stable compared to previous levels fluctuating between 34% and 40%. He has a history of chronic kidney disease and is on multiple medications, including furosemide, amlodipine, Entresto, and metoprolol, to manage his condition and associated hypertension. The patient reports urinary incontinence, which he attributes to complications from previous prostate surgery that damaged his sphincter muscle. He has experienced episodes of urinary leakage and has been managing this with the use of a leg bag and night bag. His past medical history includes a significant staph infection following a surgical procedure, which led to hospitalization and subsequent pneumonia. He also underwent hernia repair and has a history of weight loss, having lost approximately 80 pounds through a structured program, which enabled him to undergo knee replacement surgery. Recent imaging showed a simple renal cyst, which does not require intervention. The patient's heart failure with reduced ejection fraction is being managed with Entresto, and improvement in heart function is expected to benefit his renal function over time. 12/18/24 Doing better Off KCL Aldactone has been added 01/13/25 - The patient is an 84-year-old male presenting with coronary artery disease and heart valve disorder. - Coronary artery disease: History of coronary artery disease with potential stent placement after nuclear stress test. - Heart valve disorder: Symptoms suggestive of heart valve disorder, awaiting cardiology evaluation. - Chronic kidney disease: Managed without dialysis, associated pruritus noted. - Pruritus: 02/17/25 The patient is an 84-year-old male presenting with the management of multiple chronic conditions, including aortic stenosis, hypertension, and peripheral edema. The patient has a history of mild aortic stenosis, as confirmed by a nuclear stress test reviewed by his solar project coordination specialist. The solar project coordination specialist advised that surgical intervention is not necessary until the condition becomes severe, and the patient's heart function has improved with medication. Hypertension is being managed with medications, including Farxiga, which the patient reports causes dizziness when taken at certain times of the day. The patient is adjusting the timing of his medication to mitigate these side effects. Peripheral edema is being managed with furosemide, which was recently increased to 40 mg in the morning to help reduce fluid retention. The patient reports wearing protective garments due to increased urination caused by the diuretic effect of the medication. The patient also experiences balance issues, which he attributes to the side effects of his medications, including tramadol and gabapentin, prescribed for neuropathy and back pain. He has been advised to reduce the dosage of tramadol gradually to alleviate these symptoms. The patient has a significant surgical history, including multiple back surgeries, knee replacements, and prostate surgery, which resulted in a prolonged hospital stay due to infection. [facility] Medical History Hospital discharge follow-up Empyema of left pleural space CKD (chronic kidney disease) stage 3, GFR 30-59 ml/min NSTEMI (non-ST elevated myocardial infarction) Failed total left knee replacement HFrEF (heart failure with reduced ejection fraction) GERD (gastroesophageal reflux disease) Chronic renal failure Chronic pain syndrome Surgical History H/O gastric bypass Previous back surgery H/O inguinal hernia repair Family History Father Prostate cancer Bone cancer Mother BP (high blood pressure) Social History Household Members: Spouse Housing: House Do you presently have visiting nurse or other home services: No Alcohol intake: current Alcohol intake frequency: does not drink Comment: pt refuse bed alarm Patient Tobacco Use Status: Never used Tobacco service: No Current occupational status: retired Cognitive needs: No Hearing needs: No Vision needs: No Physical Exam Vital Signs: Last Vital Signs Pulse 56 02/17/25 09:48 BP 122/62 02/17/25 09:48 Pulse Ox 96 02/17/25 09:48 Oxygen Delivery Method Room Air 02/17/25 09:48 BMI result Body Mass Index 31.5 Results Reviewed Nephrology Results: Hgb, (14.0-18.0) 13.1 g/dl L 12/16/24 WBC, (4.8-10.8) 6.2 X10*3/uL 12/16/24 Plt Count, (160-400) 301 X10*3/uL 12/16/24 Sodium, (135-145) 142 mmol/L 12/16/24 Potassium, (3.3-5.1) 4.3 mmol/L 12/16/24 Chloride, (96-108) 107 mmol/L 12/16/24 Carbon Dioxide, (22-29) 28 mmol/L 12/16/24 BUN, (9-16) 27 mg/dL H 12/16/24 Creatinine, (0.5-1.4) 1.82 mg/dL H 12/16/24 Calcium, (8.4-10.2) 8.3 mg/dL L 12/16/24 PTH Intact, (8.7-77.1) 194.4 pg/mL H 12/16/24 Renal US 11/16/24 Assessment & Plan Assessment & Plan (1) Chronic renal failure: Code(s): N18.9 - Chronic kidney disease, unspecified Category: Medical (2) CHF (congestive heart failure): Code(s): I50.9 - Heart failure, unspecified Category: Medical Plan 84-year-old man with stage III CKD in the setting of longstanding diabetes mellitus and congestive heart failure. Renal function is close to baseline At the present time fluid status seems acceptable. No evidence of overt fluid overload. No signs or symptoms of uremia. 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 No evidence of Obstructive uropathy or active glomerular nephritis or interstitial disease at this time. Recommendations Optimize fluid status Optimize blood pressure. Continue amlodipine 5 mg once a day. Continue with the Entresto. Continue to avoid nephrotoxic agents including NSAIDs. Encouraged him to stay on a low-sodium diet. Encouraged to taper Tramadol to BID or even QD Orders: Orders Basic Metabolic Panel 2 Months N18.9 - Chronic kidney disease, unspecified Complete Blood Count no Diff 2 Months N18.9 - Chronic kidney disease, unspecified Coding Level of Care Code Est Pt Level 4 (36749) Diagnoses Chronic renal failure N18.9 CHF (congestive heart failure) I50.9
[2025-02-17 09:48] VITALS: BP 122/62; PULSE 56; O2SAT 96; BMI 31.5
--- OUTSIDE RECORDS SUMMARY | 2025-02-17 10:53 | XMS_ITS | Encounter Summary ---
Author Organization [facility] Address [address] [facility] [address] [place] [address] Phone Care Team Providers Care Liquid Fertilizer Servicer Name Role Phone Donald Mayberry MD Primary Care Provider +1- [phone] Kane Plunkett MD Primary Care Provid er Encounter Details Date Type Department Care Team (Late st Contact Info) Description 08/27/2024 Procedure Pass [facility] [address] [place] [address] Social History Tobacco Use Types [...] Care Team (Late st Contact Info) Description 05/14/2025 10:00 AM EST Office Visit [facility] [address] [facility] 3rd Floor, [address] [place] [address] Harriet Yang PA-C [address] [place] [address] [email or web address] 08/18/2025 10:00 AM EDT Office Visit [facility] [address] [facility] [address] [facility], [address] [place] [address] Harriet Yang PA-C [address] [place] [address] documented as of this encounter Visit Diagnoses Not on filedocumented in this encounter Care Teams Liquid Fertilizer Servicer Relationship Specialty Start Date End Date Donald Mayberry MD [address] [place] [address] PCP - General Internal Medicine 08/07/23 10/15/24 Kane Plunkett MD [address] [place] [phone] PCP - General Internal Medicine 10/16/24 documented as of this encounter Additional Source Comments The information contained in this document represents components of the legal health record. It is not the complete legal health record.[facility]
--- OUTSIDE RECORDS SUMMARY | 2025-02-17 10:53 | XMS_ITS | Encounter Summary ---
Author Organization [facility] Address [address] [facility] [address] [place] [address] Phone Care Team Providers Care Oracle Soa Consultant Name Role Phone Donald Mayberry MD Primary Care Provider +1- [phone] Kane Plunkett MD Primary Care Provid er Encounter Details Date Type Department Care Team (Late st Contact Info) Description 10/18/2023 Procedure Pass Echo Lab [address] [place] [address] Social History Tobacco Use Types [...] Description 05/14/2025 10:00 AM EST Office Visit [facility] [address] [facility] 3rd Floor, [address] [place], [place] [phone] Harriet Yang PA-C [address] [place] [address] 08/18/2025 10:00 AM EDT Office Visit [facility] [address] Floor, [address] [place] [address] Harriet Yang PA-C [address] [place] [address] documented as of this encounter Visit Diagnoses Not on filedocumented in this encounter Care Teams Oracle Soa Consultant Relationship Specialty Start Date End Date Donald Mayberry MD [address] [place] [address] PCP - General Internal Medicine 08/07/23 10/15/24 Kane Plunkett MD [address] [place] [address] PCP - General Internal Medicine 10/16/24 documented as of this encounter Additional Source Comments The information contained in this document represents components of the legal health record. It is not the complete legal health record.[facility]
--- OUTSIDE RECORDS SUMMARY | 2025-02-17 10:53 | XMS_ITS | Encounter Summary ---
Author Organization [facility] Address [address] [place] [address] Phone Care Team Providers Care Ship Runner Name Role Phone Kane Plunkett MD Primary Care Provid er Encounter Details Date Type Department Care Team (Late st Contact Info) Description 01/01/2025 Procedure Pass [facility], Ct Scan - [address] [phone] Social History Tobacco Use Types Packs/Day Years [...] Indicated 01/01/2025 1:25 PM EDT Cherelle Alaniz, RN * [facility] Suicide Severity Rating Scale (Screener/Recent Self-Report) Question Answer Date of Assessment Author 1. Wish to be (Past 1 Month) No 025 1:25 PM EDT Cherelle Thomas, RN 2. Non-Specific Active Suici dann Thoughts (Past 1 Month) No 01/01/2025 1:25 PM EDT Cherelle Thomas, RN 6. Suicidal Behavior (Lifetime) No 1:25 PM EDT Cherelle Thomas, RN documented as of this encounter Plan of Treatment Upcoming Encounters Date Type Department Care Team (Late st Contact Info) Description 05/14/2025 10:00 AM EST Office Visit [facility] [address] [place] [address] 3rd Floor, [address] [place] [address] Harriet Yang PA-C [address] [place] [address] 08/18/2025 10:00 AM EDT Office [facility], [address] [place] [address] Harriet Yang PA-C [address] [place] [address] documented as of this encounter Visit Diagnoses Not on filedocumented in this encounter Care Teams Ship Runner Relationship Specialty Start Date End Date Kane Plunkett MD [address] [place] [phone] PCP - General Internal Medicine 10/16/24 documented as of this encounter Additional Source Comments The information contained in this document represents components of the legal health record. It is not the complete legal health record.[facility]
--- OUTSIDE RECORDS SUMMARY | 2025-02-17 10:53 | XMS_ITS | Encounter Summary ---
Author Organization [facility] Address [address] [facility] [place] [address] Phone Care Team Providers Care Case Mgr Name Role Phone Kane Plunkett MD Primary Care Provid er Encounter Details Date Type Department Care Team (Late st Contact Info) Description 01/02/2025 Procedure Pass [facility] [address] [place], [place] [phone] Social History Tobacco Use Types Packs/Day Years [...] have reliable internet access at home? Ye mohan 01/02/2025 Do you have a device (e.g., [...] Description 05/14/2025 10:00 AM EST Office Visit [facility] [address] Floor, [address] [place] [address] Harriet Yang PA-C [address] [place] [address] [email or web address] 08/18/2025 10:00 AM EDT Office Visit [facility] [address] Floor, [address] [place] [address] Harriet Yang PA-C [address] [place] [address] documented as of this encounter Visit Diagnoses Not on filedocumented in this encounter Care Teams Case Mgr Relationship Specialty Start Date End Date Kane Plunkett MD [address] [place] [address] PCP - General Internal Medicine 10/16/24 documented as of this encounter Additional Source Comments The information contained in this document represents components of the legal health record. It is not the complete legal health record.[facility]
--- OUTSIDE RECORDS SUMMARY | 2025-02-17 10:53 | XMS_ITS | Encounter Summary ---
Author Organization [facility] Address [address] [facility] [address] [place] [address] Phone Care Team Providers Care Skiagrapher Name Role Phone Kane Plunkett MD Primary Care Provid er Reason for Referral * MRI/CAT Scan - New Request Specialty Diagnoses / Procedures Referred By Apurva shaw Referred To Contact Radiology Diagnoses Atrial flutter, unspecified type Procedures NC Myocardial Perfusion Pharmacologic Stress Multiple NC Myocardial Perfusion Exercise Multiple Harriet Yang PA-C [address] [place] [address] Phone: tel: fax: mailto: Referral ID Status Reason Start Date Expiration Date V isits Requested Visits Authorized [id number] New Request 10/16/2024 1 1 Encounter Details Date Type Department Care Team (Latest Contact Info) Description 01/15/2025 Ancillary Orders [facility] [address] [facility] 3rd Floor, [address] [place] [address] Harriet Yang PA-C [address] [place] [address] [email or web address] Atrial flutter, unspecified type (Primary Dx); Benign essential hypertension; Acute on chronic systolic heart failure Social History Tobacco Use Types Packs/Day Years [...] Description 05/14/2025 10:00 AM EST Office Visit [facility] [address], [address] [place] [address] Harriet Yang PA-C [address] [place] [address] 08/18/2025 10:00 AM EDT Office Visit [facility] [address], [address] [place] [address] Harriet Yang PA-C [address] [place] [address] documented as of this encounter Results * NC Myocardial Perfusion Pharmacologic Stress Multiple (01/15/2025 9:24 AM EDT) Max Predicted Heart Rate 136 bpm Stress/rest perfusion ratio 1.10 Nuc Stress EF 55 % SNMDIAVOL 126.0 mL SNMSYSVOL 57.0 mL Nuc Rest EF 53 % RNMDIAVOL 119.0 mL RNMSYSVOL 56.0 mL Anatomical Region Laterality Modality Heart, Vascular Ultrasound Narrative 01/16/2025 8:39 AM EDT Normal study. There is no evidence of myocardial infarction or ischemia. Normal LV size and function with no regional wall motion abnormalities. Very low likelihood of hemodynamically significant coronary artery disease. Low risk study for myocardial events or cardiac in the next two years. ECG STRESS REPORT: SITTING REGADENOSON STUDY BMI: 28.89 Aaron Morgan received 0.4 mg of Regadenoson while sitting on a chair. Regadenoson was given IV push over 10 seconds as per protocol by Bozena Watts (KESHA), immediately followed by injection of Tc99m Sestamibi by Nilson Leyva, the nuclear powerplant mechanic helper. Test was performed as a pharmacological test due to inability to exercise on a JEWELL protocol to achieve target heart rate. 1. EKG - Baseline EKG showed sinus bradycardia. After injection of Regadenoson, there were no EKG changes meeting criteria for ischemia. 2. SYMPTOMS - Patient reported mild shortness of breath after injection of Regadenoson which resolved three minutes into the recovery period. 3. PHYSIOLOGY - Resting heart rate was 54 bpm. After Regadenoson injection, heart rate 81 bpm (59% MPHR). 4. ARRHYTHMIAS - Few isolated PACs and PVCs. Conclusion - No EKG evidence of ischemia or chest pain reported during pharmacologic portion of testing. Nuclear images pending and will be reported separately. See attached stress report for full details. Bozena Watts NP NUCLEAR REPORT: TYPE OF STUDY: Myocardial Perfusion Imaging after a Sitting Regadenoson protocol with gated SPECT. PROTOCOL USED: One day Regadenoson rest-stress protocol in the supine position. Images were obtained in gated tomographic technique. Images were processed in SPECT format, reconstructed tomographically and compared [id number] in short axis, horizontal long axis and vertical long axis. DOSE: Technetium 99m Sestamibi 7.2 mCi injected intravenously in the right arm antecubital vein at rest on 01/15/2025 with post injection scan time of 60 minutes. Technetium 99m Sestamibi 21.2 mCi injected intravenously in the right arm antecubital vein after Regadenoson infusion on 01/15/2025 with post injection scan time of 40 minutes. Overall image quality is good. Diaphragmatic attenuation is present. No motion artifact is present. Stress Function Defect Left ventricular global function is normal during stress. Stress ejection fraction is 55%. The stress end diastolic cavity size is normal. Stress end diastolic size: 126.0 mL. The stress end systolic cavity size is normal. Stress end systolic size: 57.0 mL. Rest Function Defect Left ventricular global function is normal at rest. Resting ejection fraction was 53%. The rest end diastolic cavity size is normal. Rest end diastolic size: 119.0 ml. The rest end systolic cavity size is normal. Rest end systolic size: 56.0 mL. Nuclear Prior Study There is no prior study available for comparison. Nuclear Ancillary Finding There is no evidence of transient ischemic dilation (TID). The TID ratio is 1.10, which is normal. Perfusion Scoring Resting Summed Score: 0 Percent Normal: 0.00% The left ventricular perfusion is normal. SUPINE IMAGING REST Perfusion Scoring Stress Summed Score: 0 Percent Normal: 0.00% The left ventricular perfusion is normal. Perfusion Scores: SRS Score: 0 Percentage Abnormal: 0.00% Perfusion Scores: SSS Score: 0 Percentage Abnormal: 0.00% Perfusion Scores: SDS Score: 0 Percentage Abnormal: 0.00% Procedure Note Og Garcia MD - 01/16/2025 Normal study. There is no evidence of myocardial infarction or ischemia. Normal LV size and function with no regional wall motion abnormalities. Very low likelihood of hemodynamically significant coronary arterydisease. Low risk study for myocardial events or cardiac in the next twoyears. Harriet Yang PA-C CV NM CARDIAC Final Result documented in this encounter Visit Diagnoses Diagnosis Atrial flutter, unspecified type- Primary Atrial flutter, unspecified type- Primary Benign essential hypertension Essential hypertension, benign Acute on chronic systolic heart failure documented in this encounter Care Teams Skiagrapher Relationship Specialty Start Date End Date Kane Plunkett MD [address] [place] [address] PCP - General Internal Medicine 10/16/24 documented as of this encounter Additional Source Comments The information contained in this document represents components of the legal health record. It is not the complete legal health record.[facility]
--- OUTSIDE RECORDS SUMMARY | 2025-02-17 10:53 | XMS_ITS | Encounter Summary ---
Author Organization [facility] Address [address] [place] [phone] Phone Care Team Providers Care Branch Office Administrator Name Role Phone Donald Mayberry MD Primary Care Provider [phone] Kane Plunkett MD Primary Care Provid er Encounter Details Date Type Department Care Team (Late st Contact Info) Description 07/25/2023 Procedure Pass Echo Lab [address] [place] [address] Social History Tobacco Use Types [...] Description 05/14/2025 10:00 AM EST Office Visit [facility] [address] [facility] [address] [facility] [address]rd Floor, [address] [place], [place] [id number] Harriet Yang PA-C [address] [place] [phone] 08/18/2025 10:00 AM EDT Office Visit [facility] [address], [address] [place] [address] Harriet Yang PA-C [address] [place] [address] documented as of this encounter Visit Diagnoses Not on filedocumented in this encounter Care Teams Branch Office Administrator Relationship Specialty Start Date End Date Donald Mayberry MD [address] [place] [phone] PCP - General Internal Medicine 08/07/23 10/15/24 Kane Plunkett MD [address] [place] [phone] PCP - General Internal Medicine 10/16/24 documented as of this encounter Additional Source Comments The information contained in this document represents components of the legal health record. It is not the complete legal health record.[facility]
--- OUTSIDE RECORDS SUMMARY | 2025-02-17 10:54 | XMS_ITS | Clinical Summary ---
Author Organization [facility] Address [address] [facility] [address] [place] [phone] Phone Care Team Providers Care Home Service Advisor Name Role Phone Kane Plunkett MD Primary [...] mouth 2 (two) times a day. Active ONETOUCH ULTRASOFT lancets TEST BLOOD SUGAR EVERY DAY 4 Active gabapentin (NEURONTIN) 100 MG capsule Take 200 mg by mouth 3 (three) times a day. Active diazePAM (VALIUM) 5 MG tablet Take [...] unit) Cap Take by mouth. Activ e furosemide (LASIX) 40 MG tabletIndicatio ns:Cardiomyopat hy, unspecified type Take 1 tablet (40 mg total) by mouth daily. 30 tablet 11 5 Active hydrOXYzine HCL (ATARAX) 10 MG tablet Take 10 mg by mouth every 4 (four) hours as needed. Active potassium chloride (KLOR-CON) 10 MEQ ER tablet Take 10 mEq by mouth. 4 025 Discontin ued(No longer taking) furosemide (LASIX) 20 MG tablet Take 20 mg by mouth daily. 4 025 Discontin ued(Reord er) Active Problems Problem Noted Date Diagnosed Date Pleural effusion 01/01/2025 Assessment & Plan (01/26/2025 5:06 PM EDT): S/p thoracentesis x2. Pt was admitted to [facility] and had 1 liter removed from left pleural space. Pt reported noncompliance with furosemide. Pt to increase furosemide to 40mg daily and follow-up as scheduled on 02/11/25. Pt follows regularly with pulmonology and nephrology. Assessment & Plan (01/02/2025 3:53 PM EDT): - Outpatient echocardiogram revealed large circumferential pericardial effusion without tamponade physiology along with known heart failure history of LVEF of 45 to 50%, which is reportedly down from prior echocardiogram which was performed at outside medical facility at [facility]. -Recent admission at [facility] for pulmonary effusion status post drainage, unclear [...] was performed at outside medical facility at [facility]. -Recent admission at [facility] for pulmonary effusion status post drainage, unclear [...] & Plan (01/02/2025 3:53 PM EDT): Hold Ferminga, pending further evaluation and treatment in the hospital. Blood glucose 101, will continue monitoring blood glucose, will not initiate insulin sliding scale at this time. Assessment & Plan (01/01/2025 4:36 PM EDT): Hold Farxiga, pending further evaluation and treatment in the hospital. Blood glucose 101, will continue monitoring blood glucose, will not initiate insulin sliding scale at this time. Atrial flutter 08/27/2024 Assessment & Plan (01/26/2025 5:00 PM EDT): Atrial flutter with RVR found in 07/2023 now status post cardioversion and has been maintaining sinus rhythm. Has been anticoagulated with Eliquis 2.5 mg twice daily (adequate dosing due to age over 80 and creatinine 1.8). He denies any bleeding issues. No changes in management. Plan: Continue Eliquis Assessment & Plan (10/16/2024 9:24 AM EDT): [...] Benign essential hypertension 08/27/2024 Assessment & Plan (01/26/2025 5:04 PM EDT): Pt is currently on amlodipine in addition to GDMT medications for HFrEF. No changes in management at this time. Plan: Continue amlodipine Assessment & Plan (10/16/2024 9:38 AM EDT): [...] modifications ongoing. Cardiomyopathy 08/27/2024 Assessment & Plan (01/26/2025 5:03 PM EDT): EF reduced at 45-50%. A hospital discharge note indicated that the pt was noncompliant with his furosemide due to incontinence. Pt recently require two separate thoracenteses. We discussed compliance with furosemide and will increase to 40mg daily per Dr. Breen. I recommended the pt restart the potassium supplementation with the increased dose. Repeat BMP and pro-BNP a few days before appt on 02/11/25. Spouse reports understanding of medication changes. Will continue other HF medications at their current dose. Plan: Continue Entresto Increase furosemide to 40mg daily Restart potassium chloride 10mEq daily Continue Farxiga Continue metoprolol Continue spironolactone Repeat BMP and pro-BNP Follow-up on 02/11/25 Assessment & Plan (10/16/2024 9:37 AM EDT): [...] patient repeats his echocardiogram 12/2024. 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 Per [facility] discharge, ischemic evaluation was recommended to [...] to have LVEF of approximate 70% at [facility], and prior to that LVEF 25%. -Appears [...] to have LVEF of approximate 70% at [facility], and prior to that LVEF 25%. -Appears [...] Encounters Date Type Department Care Team Description 02/11/2025 11:00 AM EST Office Visit [facility] [address] [place] [address] Dr 3[address] Floor, [address] [place] [address] Hood Breen MD Cardiomyopathy, unspecified type (Primary Dx); Benign essential hypertension; Pleural effusion 01/26/2025 4:00 PM EDT Telemedicine - audio only [facility] [address], [address] [place] [address] Leyda Jones DNP Cardiomyopathy, unspecified type (Primary Dx); Atrial flutter, unspecified type; Benign essential hypertension; Pleural effusion 01/23/2025 Telephone [facility] [address], [address] [place] [address] Hood Breen MD 01/15/2025 7:23 AM EDT - 01/15/2025 11:59 PM EDT Hospital Encounter Non-Invasive Cardiology [address] [place] [address] Harriet Yang PA-C Discharge Disposition: Home or Self Care 01/15/2025 Ancillary Orders [facility] [address], [address] [place] [address] Harriet Yang PA-C Atrial flutter, unspecified type (Primary Dx); Benign essential hypertension; Acute on chronic systolic heart failure 01/05/2025 Home Care Visit [facility] [address] [place] [address] Federica Pike RN NON ADMIT HOME HEALTH VISIT 01/05/2025 [facility] [address], [address] [place] [address] Hood Breen MD 01/03/2025 Orders Only [facility] [address] [place] [address] Homehealth, Interface ProviderMD 01/02/2025 3:00 PM EDT - 01/02/2025 3:53 PM EDT Surgery [facility] Cardiovascular And Interventional Radiology [address] [place] [address] Briana Heath PA-C ULTRASOUND GUIDED THORACENTESIS IR 01/02/2025 Procedure Pass [facility] Cardiovascular And Interventional Radiology [address] [place] [address] 01/01/2025 2:20 PM EDT Ancillary Procedure [facility] [address] [place] [address] Andres Priest MD 01/01/2025 1:31 PM EDT - 01/03/2025 2:14 PM EDT Hospital Encounter [facility] [address] [place] [address] Andres Priest MD McKenna-Weiss, MD Luciana Still Maksim, DO Discharge Disposition: Home or Self Care 01/01/2025 10:05 AM EDT - 01/01/2025 1:30 PM EDT Hospital Encounter Echo Lab [address] [place] [address] Harriet Yang PADevorahC Discharge Disposition: Home or Self Care 01/01/2025 Procedure Pass [facility], Ct Scan - [facility] [address] [place] [address] 12/17/2024 10:00 AM EDT Office Visit [facility] [address] Floor, [address] [place] [address] Lety Rahman PA-C, MPH Paroxysmal atrial fibrillation (Primary Dx) 12/02/2024 Telephone [facility] [address] Floor, [address] [place] [address] Hood Breen MD 08/27/2024 Procedure Pass [facility] [address] [place] [address] from Last 3 Months Social History Tobacco [...] your housing situation today? I have ella garcia 01/02/2025 How many times have you move [...] Sign Reading Time Taken Comments Blood Pressure 122/66 02/11/2025 11:13 AM EST Pulse 55 02/11/2025 11:13 AM EST Temperature 36.8 C (98.2 F) 01/03/2025 11:39 AM EDT Respiratory Rate 16 01/03/2025 11:39 AM EDT Oxygen Saturation 93% 02/11/2025 11:13 AM EST Inhaled Oxygen Concentration - - Weight 100.2 kg (221 lb) 02/11/2025 11:13 AM EST Height 185.4 cm (6' 0.99 ) 02/11/2025 11:[address] Body Mass Index 29.16 02/11/2025 11:13 AM EST Plan of Treatment Upcoming Encounters Date Type Department Care Team (Late st Contact Info) Description 05/14/2025 10:00 AM EST Office Visit [facility] [address], [address] [place] [address] Harriet Yang PA-C [address] [place] [phone] 08/18/2025 10:00 AM EDT Office Visit [facility] [address], [address] [place] [address] Harriet Yang PA-C [address] [place] [address] Health Maintenance Due Date Last Done Comments [...] exists DIABETIC EYE EXAM 01/01/2025 BLOOD PRESSURE 08/11/2025 02/11/2025 CREATININE LEVEL 01/03/2026 01/03/2025, , 01/01/2025, Additional history exists POTASSIUM LEVEL 01/03/2026 01/03/2025, 12/09, 01/01/2025, Additional history exists RSV VACCINE Completed 01/23/2023 HEPATITIS A VACCINES Aged Out No long er eligible based on patient's age to complete this topic HIB VACCINES Aged Out No longer eligi ble based on patient's age to complete this topic IPV VACCINES Aged Out No longer eligi ble based on patient's age to complete this topic MENINGOCOCCAL VACCINES (ACWY) Aged Out No longer eligible based on patient's age to complete this topic MENINGOCOCCAL VACCINES (B) Aged Out N o longer eligible based on patient's age to complete this topic Medical Devices Not on file Procedures Procedure Name Priority Date/Time Associated Diagnosis Comments NC MYOCARDIAL PERFUSION PHARMACOLOGIC STRESS MULTIPLE Routine 01/15/2025 9:24 AM EDT Atrial flutter, unspecified type BASIC METABOLIC PANEL (BMP) Routine 01/03/2025 6:40 AM EDT CBC Routine 01/03/2025 6:40 AM EDT XR CHEST PORTABLE STAT 01/02/2025 10: 56 AM EDT PH, PLEURAL FLUID Routine 01/02/2025 10: 50 AM EDT GLUCOSE (FLUID--NOT CSF) STAT 01/02/2025 10:50 AM EDT TOTAL PROTEIN, FLUID (NOT CSF) STAT 01/02/2025 10:50 AM EDT LDH (FLUID--NOT CSF) STAT 01/02/2025 10:50 AM EDT HC CELL COUNT MISC BODY FLUIDS W/DIFFERENTIAL COUNT STAT 01/02/2025 10:50 AM EDT ULTRASOUND GUIDED THORACENTESIS (IR) Routine 01/02/2025 10:50 AM EDT Pericardial effusion FLUID CULTURE/SMEAR (NOT CSF) STAT 01/02/2025 10:50 AM EDT LDH Routine 01/02/2025 6:21 AM EDT SEDIMENTATION RATE (ESR) Routine 01/02/2025 6:21 AM EDT C-REACTIVE PROTEIN (CRP) Routine 01/02/2025 6:21 AM EDT COMPREHENSIVE METABOLIC PANEL (CMP) Routine 01/02/2025 6:21 AM EDT CBC AND DIFFERENTIAL Routine 01/02/2025 6:21 AM EDT PHOSPHORUS Routine 01/02/2025 6:21 AM EDT MAGNESIUM Routine 01/02/2025 6:21 AM EDT NON-RAIL PROJECT ENGINEER CYTOLOGY, NON CSF, NON URINE Routine 01/02/2025 12:[address] CHEST WITHOUT CONTRAST Routine 01/01/2025 4:47 PM EDT BASIC METABOLIC PANEL (BMP) STAT 01/01/2025 2:36 PM EDT CBC AND DIFFERENTIAL STAT 01/01/2025 2:36 PM EDT ECG 12-LEAD STAT 01/01/2025 2:35 PM EDT XR CHEST PORTABLE Timed 01/01/2025 2:2 9 PM EDT US BEDSIDE Routine 01/01/2025 2:17 PM EDT TTE COMPREHENSIVE Routine 01/01/2025 11: 07 AM EDT Other cardiomyopathy from Last 3 Months Results * NC Myocardial Perfusion Pharmacologic Stress [...] STRESS REPORT: SITTING REGADENOSON STUDY BMI: 28.89 Indu Morgan received 0.4 mg of Regadenoson while sitting on a chair. Regadenoson was given IV push over 10 seconds as per protocol by Bozena Watts (KESHA), immediately followed by injection of [id number] Sestamibi by Nilson Leyva, the nuclear reactor engineer. Test was performed as a pharmacological test [...] in SPECT format, reconstructed tomographically and compared [id number] in short axis, horizontal long axis and [...] events or cardiac in the next twoyears. us Harriet Yang PA-C CV NM CARDIAC Final Result * (ABNORMAL) CBC (01/03/2025 6:40 AM EDT) WBC 6.41 4.00 - 11.00 K/uL [facility] RBC 4.34(L) 4.50 - 5.90 M/uL [facility] HGB 12.6(L) 13.5 - 17.5 g/dL [facility] HCT 38.8(L) 41.0 - 53.0 % [facility] PLT 249 150 - 450 K/uL [facility] MCV 89.4 80.0 - 100.0 fL [facility] MCH 29.0 27.0 - 31.0 pg [facility] MCHC 32.5 32.0 - 36.0 g/dL [facility] RDW 14.4 11.5 - 14.5 % [facility] MPV 9.2 8.4 - 12.0 fL [facility] NRBC 0.00 0.00 /100 WBCs [facility] ABSOLUTE NRBC 0.00 0.00 K/uL [facility] Blood 01/03/2025 6:40 AM EDT 01/03/2025 6:56 AM EDT Tessy Wagner MD LAB BLOOD BKR ORDERABLES Fi nal Result [facility] [address] [place], [place] [id number] * (ABNORMAL) Basic metabolic panel (01/03/2025 6:40 AM EDT) Only the most recent of2 resultswithin the time period is included. SODIUM 138 133 - 146 mmol/L [facility] CHLORIDE 100 96 - 108 mmol/L [facility] POTASSIUM 4.0 3.3 - 5.1 mmol/L [facility] CO2 27 21 - 35 mmol/L [facility] BUN 38(H) 6 - 19 mg/dL [facility] CREATININE 2.10(H) 0.5 - 1.5 mg/dL [facility] GLUCOSE 112(H) 70 - 99 mg/dL [facility] CALCIUM 8.2(L) 8.4 - 10.3 mg/dL [facility] EGFR 30(L) >59 mL/min/1.7 3m2 [facility] Comment:Estimated glomerular filtration rate calculated using the CKD-EPI refit equation. ANION GAP 15 10 - 20 mmol/L [facility] Blood 01/03/2025 6:40 AM EDT 01/03/2025 6:56 AM EDT us Tessy Wagner MD LAB BLOOD BKR ORDERABLES Fi nal Result [facility] [address] [place] [address] * XR Chest Portable (01/02/2025 10:56 AM EDT) Anatomical Region Laterality Modality Chest Computed Radiogr aphy 01/02/2025 10:5 8 AM EDT Impressions 01/02/2025 11:02 AM EDT Status post thoracentesis. No pneumothorax. Narrative 01/02/2025 11:02 AM EDT XR CHEST PORTABLE Referring clinician's provided indication for this examination in [facility]: Other Indication (Please use free text); post thoracentesis COMPARISON: Compared with relevant prior chest imaging FINDINGS: Devices/Tubes/Lines: None. Lungs and pleura: No pneumothorax. Mild reduction in size of the left pleural effusion. Battery Builder confluent airspace opacity at the left base. No other significant change. Heart/Mediastinum: Stable cardiomegaly mediastinal contour. Bones/Soft Tissues: No significant change Procedure Note Rafiq Pitts MD - 01/02/2025 XR CHEST PORTABLE Referring clinician's provided indication for this examination in [facility]:Other Indication (Please use free text); post thoracentesis COMPARISON: Compared with relevant prior chest imaging FINDINGS: Devices/Tubes/Lines: None. Lungs and pleura: No pneumothorax. Mild reduction in size of the leftpleural effusion. Battery Builder confluent airspace opacity at the left base.No other significant change. Heart/Mediastinum: Stable cardiomegaly mediastinal contour. Bones/Soft Tissues: No significant change IMPRESSION: Status post thoracentesis. No pneumothorax. us Briana Heath PA-C IMG XR CHEST Final Res ult * PH, PLEURAL FLUID (01/02/2025 10:50 AM EDT) FLUID TYPE PLEURAL FLUID [facility] PLEURAL FLUID PH 7.37 7.35 - 7.50 [facility] Comment: The reference interval(s) and other method [...] developed and its performance characteristics determined by [facility] laboratory. It has not been cleared or approved by the FDA. The laboratory is regulated under CLIA as qualified to perform high-complexity testing and has performed an Internal Validation in accordance with CAP requirements. This test is used for clinical purposes. It should not be regarded as investigational or for research. Other (Pleural fluid) 01/02/2025 10:50 AM EDT 01/02/2025 11:13 AM EDT Tessy Wagner MD BODY FLUIDS AND STOOLS EARL WONG Final Result [facility] [address] [place] [address] * ULTRASOUND GUIDED THORACENTESIS (IR) (01/02/2025 10:50 [...] bloody fluid . He stopped his diuretics. Grades 9 Through 12 Teacher: Briana Heath PA-C Description of Procedure & Findings: Written and oral informed consent was obtained from the patient (or new accounts representative) after explaining potential risks and benefits [...] the attending interventional radiologist for this encounter. Andres Priest MD IMG IR Final Resul t * Fluid Culture/Gram Stain (Not CSF) (01/02/2025 10:50 AM EDT) Pathologist [facility] Special Requests None 01/02/2025 10:50 AM EDT [facility] GRAM STAIN Moderate WBC'S , NO ORGANISMS SEEN 01/02/2025 12:56 PM EDT [facility] Fluid Culture/Smear NO GROWTH 48HRS 01/04/2025 11:24 AM EDT [facility] Other (Pleural fluid) 01/02/2025 10:50 AM EDT 01/02/2025 11:47 AM EDT Andres Priest MD LAB MICROBIOLOGY CULTURE OR DERABLES Final Result [facility] [address] [place], [place] [id number] * (ABNORMAL) Cell count/differential (fluid--not CSF) (01/02/2025 10:50 AM EDT) FLUID NUCLEATED CELLS 2,446(H) 0 /uL [facility] FLUID RBC 237,000(H) 0 /uL [facility] Comment: REFERENCE RANGES: Total Red Blood Cells: Synovial - less than [id number] Pleural/Peritoneal/Pericardial - less than [id number] Specimen Source/Descripti on fld [facility] PATH REVIEW FINAL [facility] Comment: Other cells are mesothelial cells. Lymphocytes. Reviewed by Fiona Avila MD FLUID LYMPHS 43(H) 0 % [facility] FLUID NEUTS 2 % [facility] FLUID OTHER CELLS 55(H) 0 % [facility] Other (Pericardial fluid) 01/02/2025 10:50 AM EDT 01/02/2025 11:12 AM EDT Andres Priest MD LAB BODY FLUIDS AND STOOL O RDERABLES Final Result Performing Organization Address [facility] Co de Phone Number [address] [address] * Total protein (fluid--not CSF) (01/02/2025 10:50 AM EDT) FLUID TOTAL PROTEIN 5.3 g/dL [facility] Comment: The reference interval(s) and other method performance specifications are unavailable for this body fluid. Comparison of this result with the concentration in the blood, serum, or plasma is recommended. This test was developed and its performance characteristics determined by [facility] laboratory. It has not been cleared [...] 01/02/2025 11:12 AM EDT Andres Priest MD LAB BODY FLUIDS AND STOOL O RDERABLES Final Result Performing Organization Address [facility] Co de Phone Number [address] [address] * LDH (fluid--not CSF) (01/02/2025 10:50 AM EDT) FLUID LDH 273 U/L [facility] Comment: The reference interval(s) and other method performance specifications are unavailable for this body fluid. Comparison of this result with the concentration in the blood, serum, or plasma is recommended. This test was developed and its performance characteristics determined by [facility] laboratory. It has not been cleared [...] 01/02/2025 11:12 AM EDT Andres Priest MD LAB BODY FLUIDS AND STOOL O RDERABLES Final Result Performing Organization Address [facility] de Phone Number [address] [address] * Glucose (fluid--not CSF) (01/02/2025 10:50 AM EDT) FLUID GLUCOSE 92 mg/dL [facility] Comment: The reference interval(s) and other method performance specifications are unavailable for this body fluid. Comparison of this result with the concentration in the blood, serum, or plasma is recommended. This test was developed and its performance characteristics determined by [facility] laboratory. It has not been cleared [...] 01/02/2025 11:12 AM EDT Andres Priest MD LAB BODY FLUIDS AND STOOL O RDERABLES Final Result Performing Organization Address [facility] Co de Phone Number [address] [address] * LDH (01/02/2025 6:21 AM EDT) LDH 248 118 - 273 U/L [facility] 01/02/2025 6:21 AM EDT 01/02/2025 6:30 AM EDT us Cal Chowdhury DO LAB BLOOD BKR ORDERABLES Final Result [address] [address] * (ABNORMAL) Comprehensive metabolic panel (01/02/2025 6:21 AM EDT) SODIUM 141 133 - 146 mmol/L [facility] POTASSIUM 4.2 3.3 - 5.1 mmol/L [facility] CHLORIDE 103 96 - 108 mmol/L [facility] CO2 26 21 - 35 mmol/L [facility] BUN 26(H) 6 - 19 mg/dL [facility] CREATININE 1.40 0.5 - 1.5 mg/dL [facility] GLUCOSE 104(H) 70 - 99 mg/dL [facility] ALBUMIN 3.7(L) 3.9 - 4.8 g/dL [facility] TOTAL PROTEIN 7.8 6.5 - 8.0 g/dL [facility] CALCIUM 8.9 8.4 - 10.3 mg/dL [facility] ALKALINE PHOSPHATASE 89 39 - 117 U/L [facility] TOTAL BILIRUBIN 0.7 0.0 - 1.2 mg/dL [facility] AST 18 0 - 37 U/L [facility] ALT 11 0 - 40 U/L [facility] GLOBULIN 4.1 1 - 4.8 g/dL [facility] EGFR 50(L) >59 mL/min/1.7 3m2 [facility] Comment:Estimated glomerular filtration rate calculated using the CKD-EPI refit equation. ANION GAP 16 10 - 20 mmol/L [facility] Blood 01/02/2025 6:21 AM EDT 01/02/2025 6:30 AM EDT us Cal Hansonv DO LAB BLOOD BKR ORDERABLES Final Result [facility] [address] [place] [address] * (ABNORMAL) Sedimentation rate (ESR) (01/02/2025 6:21 AM EDT) ESR 73(H) 0 - 20 mm/h [facility] 01/02/2025 6:21 AM EDT 01/02/2025 6:30 AM EDT Cal Margiekarol DO LAB BLOOD BKR ORDERABLES Final Result [address] [address] * (ABNORMAL) CBC and differential (01/02/2025 6:21 AM EDT) Only the most recent of2 resultswithin the time period is included. WBC 5.44 4.00 - 11.00 K/uL [facility] RBC 4.50 4.50 - 5.90 M/uL [facility] HGB 13.0(L) 13.5 - 17.5 g/dL [facility] HCT 40.3(L) 41.0 - 53.0 % [facility] PLT 248 150 - 450 K/uL [facility] MCV 89.6 80.0 - 100.0 fL [facility] MCH 28.9 27.0 - 31.0 pg [facility] MCHC 32.3 32.0 - 36.0 g/dL [facility] RDW 14.4 11.5 - 14.5 % [facility] MPV 9.2 8.4 - 12.0 [facility] NRBC 0.00 0.00 /100 WBCs [facility] ABSOLUTE NRBC 0.00 0.00 K/uL [facility] DIFF METHOD Auto [facility] NEUTS 61.5 48.0 - 76.0 % [facility] LYMPHS 21.9 18.0 - 41.0 % [facility] MONOS 11.4(H) 4.0 - 11.0 % [facility] EOS 3.9 0.0 - 5.0 % [facility] BASOS 0.9 0.0 - 1.5 % [facility] Granulocytes, immature (%) 0.4 0.0 - 0.9 % [facility] ABSOLUTE NEUTS 3.35 1.92 - 7.60 K/uL [facility] ABSOLUTE LYMPHS 1.19 0.72 - 4.10 K/uL [facility] ABSOLUTE MONOS 0.62 0.16 - 1.10 K/uL [facility] ABSOLUTE EOS 0.21 0.00 - 0.50 K/uL [facility] ABSOLUTE BASOS 0.05 0.00 - 0.15 K/uL [facility] Granulocytes, immature 0.02 0.00 - 0.09 K/uL [facility] Blood 01/02/2025 6:21 AM EDT 01/02/2025 6:30 AM EDT us [facility] LAB BLOOD BKR ORDERABLES Final Result Performing Organization Address City/[facility]/ZIP Co de Phone Number [address] [address] * (ABNORMAL) C-Reactive Protein (01/02/2025 6:21 AM EDT) C REACTIVE PROTEIN 20.6(H) 0.0 - 4.0 mg/L [facility] 01/02/2025 6:21 AM EDT 01/02/2025 6:30 AM EDT us [facility] LAB BLOOD BKR ORDERABLES Final Result [address] [address] * Phosphorus (01/02/2025 6:21 AM EDT) PHOSPHORUS 3.7 2.7 - 4.5 mg/dL [facility] [facility] Blood 01/02/2025 6:21 AM EDT 01/02/2025 6:30 AM EDT us Cal Grachev DO LAB BLOOD BKR ORDERABLES Final Result Performing Organization Address City/[facility]/ZIP Co de Phone Number [address] [address] * Magnesium (01/02/2025 6:21 AM EDT) MAGNESIUM 2.1 1.6 - 2.6 mg/dL [facility] Blood 01/02/2025 6:21 AM EDT 01/02/2025 6:30 AM EDT Cal Wilberchev DO LAB BLOOD BKR ORDERABLES Final Result Performing Organization Address [facility] Co de Phone Number [address] [address] * Non-Transit Mix Operator Cytology (01/02/2025 12:00 AM EDT) Report [address] [address] Drop Pit Worker: Yrn Rowland MD Non Transit Mix Operator Cytology Report FINAL DIAGNOSIS A. LEFT PLEURAL [...] : 1940 (Age: 84) Sex: M Institution: [facility] Location: [place] [address] Date of Collection: 01/02/2025 Date of Reported: 01/05/2025 09:30 Results to: Briana Plunkett MD [facility] Clinical History Patient presents with chest pain and pleural effusion. [facility] Final Diagnosis A. LEFT PLEURAL FLUID: SPECIMEN ADEQUACY: Satisfactory for evaluation. INTERPRETATION: NO MALIGNANT CELLS IDENTIFIED. Lymphocytic effusion with a few mesothelial cells [facility] Gross Description A. LEFT PLEURAL FLUID: Received fresh is 1050mL of serosanguineous fluid labeled with patient's name and date of . One (1) ThinPrep slide and one (1) cell block are prepared. [facility] Conversion Type (Pleura) 01/02/2025 01/02/2025 12:53 PM EDT Briana Heath PA-C CYTOLOGY ORDERABLES Edite d Result - Final Performing Organization Address City/State/[facility] Co de Phone Number [address] [address] * CT CHEST WITHOUT CONTRAST (01/01/2025 4:47 [...] left pleural effusion and diffuse left pleuralthickening. us Andres Priest MD IMG CT CHEST Final Resul t * ECG 12-LEAD (01/01/2025 2:35 PM EDT) Ventricular Rate EKG/MIN 65 BPM [facility] Atrial Rate 65 BPM [facility] AK Interval 174 ms [facility] QRS Duration 100 ms [facility] QT Interval 420 ms [facility] QTC Interval 436 ms [facility] P [place] 36 degrees [facility] R Wave [place] 16 degrees [facility] T Wave [place] 35 degrees [facility] 01/01/2025 2:35 PM EDT 01/02/2025 2:53 PM EDT Narrative [facility] - 01/02/2025 2:53 PM EDT Normal sinus rhythm Normal ECG No previous ECGs available Confirmed by Hood Brene ([id number]) on 01/02/2025 2:53:33 PM us Andres Priest MD ECG ORDERABLES Final Resul t [facility] * XR Chest Portable (01/01/2025 2:29 PM EDT) Anatomical Region Laterality Modality Chest Computed Radiogr aphy 01/01/2025 3:33 PM EDT Impressions 01/01/2025 3:35 PM EDT Small left pleural effusion. Left lower lobe consolidation, atelectasis versus pneumonia. Narrative 01/01/2025 3:35 PM EDT XR CHEST PORTABLE Referring clinician's provided indication for this examination in [facility]: Pericardial Effusion; Pleural Effusion COMPARISON: None FINDINGS: Devices/Tubes/Lines: None. Lungs: Left lower lobe consolidation, atelectasis versus pneumonia. Pleura: Small left pleural effusion. No pneumothorax. Heart/Mediastinum: Mild cardiac silhouette enlargement partially obscured by the consolidation of the left lower lobe. Bones/Soft Tissues: Degenerative changes of the shoulders and spine. No acute osseous abnormality. Procedure Note Linnette Michelle MD, PhD - 01/01/2025 XR CHEST PORTABLE Referring clinician's provided indication for this examination in [facility]:Pericardial Effusion; Pleural Effusion COMPARISON: None FINDINGS: Devices/Tubes/Lines: [...] positive Images: Images Saved: Yes Accession Number: [id number] Andres Priest MD IMG POINT OF CARE [...] Patient will be recommended to present to [facility] for clinical evaluation. Left Ventricle The left [...] no evidence of a ventricular septal defect. us Harriet Yang PA-C CV ECHO ORDERABLES Final Res ult from Last 3 Months Insurance MEDICARE PART A & B [facility] MEDICARE REPLACEMENT MEDICARE PART A & B Member Subscriber Plan / Payer (Ef fective 1986-) Name:Indu Morgan Member ID:[id number] Relation to Subscriber:Self Name:Indu Morgan Subscriber ID:[id number] Payer ID:[id number] Group ID:Not on file Type:Medicare Address: [employer] [address] MEDICARE REPLACEMENT MEDICARE PART A & B MEDICARE PART A & B MEDICARE PART A & B MEDICARE REPLACEMENT MEDICARE PART A & B MEDICARE PART A & B MEDICARE REPLACEMENT MEDICARE PART A & B MEDICARE REPLACEMENT [place] [id number] MEDICARE PART A & B Member Subscriber Plan / Payer (Ef fective 1986-Present) Name:Indu Morgan Member ID:[id number] Relation to Subscriber:Self Name:Indu Morgan Subscriber ID:[id number] Payer ID:[id number] Group ID:Not on file Type:Medicare Address: [facility] [employer] [facility] [address] [place] [id number] [facility] MEDICARE REPLACEMENT [place] [id number] Advance Directives For more information, please contact: [phone] (9AM - 5PM [facility], Sunday-Sunday) * Full Code (Latest Code Status on File) Date Activated Date Inactivated Comments 01/01/2025 4:29 PM Question Answer Comments Code Status Confirmed With: Patient Code Status Communicated To: Inpatient Attending Care Teams Home Service Advisor Relationship Specialty Start Date End Date Kane Plunkett MD [address] [place] [address] PCP - General Internal Medicine 10/16/24 Additional Source Comments The information contained in this document represents components of the legal health record. It is not the complete legal health record.[facility]
--- OUTSIDE RECORDS SUMMARY | 2025-02-17 10:54 | XMS_ITS | Patient Health Record ---
Author Organization [facility] brijesh Michele Address [address] [facility] [place] [address] Care Team Providers Care Chief Revenue Officer Name Role Phone Kane Plunkett Primary Care Provider Michela Hirsch [phone] Allergies No Known Allergies Results Component Value Reference Range Notes HEMOGLOBIN A1C (GLYCOHEMOGLO BIN) Reviewed date:07/31/2024 11:03:22 AM Interpretation: Performing Lab: Notes/Report: HEMOGLOBIN A1C % (HH) 5.9 HEMOGLOBIN A1C (GLYCOHEMOGLO BIN) Reviewed date:01/22/2025 02:17:23 PM Interpretation: Performing Lab: Notes/Report: HEMOGLOBIN A1C % (HH) 5.7 Reason For Referral No Information Medications Medication SIG (Take, Route, Frequency, Duration) Notes Start Date End Date Status amLODIPine Besylate 5 MG 1 tablet Orally Once a day Active Vitamin B1 Not-Takin g Eye Lubricant Not-Ta nickie Centrum Active Cephalexin Not-Takin g glipiZIDE Not-Taking NIFEdipine 60mg Not- Taking Entresto Not-Taking Potassium 1 tab Oral; Duration : 14 days Not-Taking hydrOXYzine HCl 10 MG TAKE ONE TABLET BY MOUTH DAILY AT BEDTIME NEEDED FOR ITCHING Oral; Duration: 30 Days Active Spironolactone 25 MG Oral; Duration: 90 Days Active Extra Depth Orthopedic Shoes (1 Pair) with Customized Heat Molded Multidensity Innersoles (3 Pair) as directed Dx: NIDDM/Polyneuropathy (E11.42), Hammertoe Foot Deformity (M20.41,M20.42), Preulcerative Skin Lesion(s) (L85.1 03/26/2024 Active Ciclopirox Olamine 0.77 % 1 application Externally Twice a day to skin of feet including between the toes; Duration: 30 days Active Furosemide 20 MG 2 mL Orally Once a day Active metFORMIN HCl Not-Ta nickie OxyCONTIN Not-Taking Enulose Not-Taking oxyCODONE HCl Not-Ta nickie Aspir-81 Not-Taking Clobetasol Propionate Not-Taking Farxiga 10 MG 1 tablet Orally Once a day; Duration: 30 day(s) Active Omeprazole Not-Takin g Vitamin B Complex No t-Taking Restasis Active Extra Depth Orthopedic Shoes (1 Pair) with Customized Heat Molded Multidensity Innersoles (3 Pair) as directed Dx: NIDDM/Polyneuropathy (E11.42), Hammertoe Foot Deformity (M20.41,M20.42), Preulcerative Skin Lesion(s) (L85.1 06/16/2019 Active Vitamin B 12 Not-Alexandre ing PreserVision AREDS A ctive traMADol HCl 50 MG Orally A ctive zzzExtra Depth Orthopedic Shoes (1 Pair) with Customized Heat Molded Multidensity Innersoles (3 Pair) . . . Dx: NIDDM (E11.9), Hammertoe Foot Deformity (M20.41,M20.42), Preulcerative Skin Lesion(s) (L85.1); Duration: . 06/03/2015 Not-Taking Detrol LA 4 MG 1 capsule Orally Onc e a day Active Gabapentin 100 MG Orally Ac tive CeleBREX 200 MG Orally Acti ve Centrum Silver Activ e Metoprolol Tartrate 50 MG 1 tablet with food Orally Twice a day; Duration: 30 day(s) Active Eliquis 2.5 MG as directed Orally Active Valium Not-Taking diazePAM Not-Taking Nifedical XL 60 MG 1 tablet Orally Once a day Not-Taking Enalapril Maleate 20 MG 1 tablet Orally Twice a day Not-Taking Pantoprazole Sodium Not-Taking Extra Depth Orthopedic Shoes (1 Pair) with Customized Heat Molded Multidensity Innersoles (3 Pair) as directed Dx: NIDDM/Polyneuropathy (E11.42), Hammertoe Foot Deformity (M20.41,M20.42), Preulcerative Skin Lesion(s) (L85.1 06/20/2017 Not-Taking Extra-Depth Diabetic Shoes with 3 Pair Custom heat-molded multi-density innersoles . for 1 year . Dx:Niddm with neuropathy, foot deformity and preulcerative skin lesions; Duration: . 05/04/2014 Not-Taking Vitamin D3 Not-Takin g Extra Depth Orthopedic Shoes (1 Pair) with Customized Heat Molded Multidensity Innersoles (3 Pair) as directed Dx: NIDDM/Polyneuropathy (E11.42), Hammertoe Foot Deformity (M20.41,M20.42), Preulcerative Skin Lesion(s) (L85.1 06/26/2016 Not-Taking Immunizations Vaccine Route Administration Date Status Comme nts Influenza Unknown 01/10/2016 Administered Influenza Unknown 12/18/2016 Administered Influenza Unknown 01/07/2018 Administered Influenza Unknown 12/08/2021 Administered Influenza Unknown 12/08/2022 Administered Influenza Unknown 01/08/2024 Administered Influenza Unknown 12/08/2024 Administered Pneumococcal Unknown 02/07/2017 Administered Flu vaccine [...] Problem Acquired hammer toe of right foot (1896876032723654 ) Other hammer toe(s) (acquired), right foot (M20.41) Active confirmed Response to treatment, Improvemen t Problem Acquired hammer toe of left foot (8404274051502845 ) Other hammer toe(s) (acquired), left foot (M20.42) Active confirmed Response to treatment, Improvemen t Problem Polyneuropathy due to type 2 diabetes mellitus (958343795) Type 2 diabetes mellitus with diabetic polyneuropathy (E11.42) Active confirmed Vital Signs Blood pressure diastolic 65 mm Hg 01/22/2025 Height 5 ft 10 in in 01/22/2025 Blood pressure systolic 128 mm Hg 01/22/2025 Weight 218 lbs 01/22/2025 BMI 31.28 kg/m2 01/22/2025 Procedures Procedure Date Ordered Date Performed Result Body Sit e 68593-CCIURTS NAIL, 6 OR MORE 03/26/2024 N/A 69228-FTHC SKIN LESIONS, OVER 4 03/26/2024 N/A 61631-OHUXMKA NAIL, 6 OR MORE 07/31/2024 N/A 75151-SFWE SKIN LESIONS, OVER 4 07/31/2024 N/A Encounters Encounter Location Date Provider Diagnosis [address] [address] 03/26/2024 Michela Hirsch Other hammer toe(s) (acquired), right foot M20.41 ; Other hammer toe(s) (acquired), left foot M20.42 ; Type 2 diabetes mellitus with diabetic polyneuropathy E11.42 ; Tinea unguium B35.1 and Tinea pedis of both feet B35.[address] [address] 07/31/2024 Michela Hirsch Type 2 diabetes mellitus with diabetic polyneuropathy E11.42 ; Tinea unguium B35.1 ; Other hammer toe(s) (acquired), right foot M20.41 and Other hammer toe(s) (acquired), left foot M20.[address] [address] 10/23/2024 Michela Hirsch Type 2 diabetes mellitus with diabetic polyneuropathy E11.42 and Tinea unguium B35.[address] [address] 01/22/2025 Michela Hirsch Type 2 diabetes mellitus with diabetic polyneuropathy E11.42 and Tinea unguium B35.[address] [address] 03/27/2024 Michela Hirsch [address] [address] 11/04/2024 Michela Hirsch Tinea pedis of both [...] pedis of both feet (ICD-10 - B35.3) 01/22/2025 Type 2 diabetes mellitus with diabetic polyneuropathy (ICD-10 - E11.42) 01/22/2025 Tinea unguium (ICD-10 - B35.1) 03/26/2024 Type 2 diabetes mellitus with diabetic polyneuropathy (ICD-10 - E11.42) 07/31/2024 Other hammer toe(s) (acquired), right foot (ICD-10 - M20.41) Response to treatment,Impro vement 07/31/2024 Other hammer toe(s) (acquired), left foot (ICD-10 - M20.42) Response to treatment,Impro vement 03/26/2024 Tinea unguium (ICD-10 - B35.1) 03/26/2024 Tinea pedis of both feet (ICD-10 - B35.3) Plan Of Treatment Pending Test Test Name Order Date 16275-DCTHHUA NAIL, 6 OR MORE 05/04/2014 84383-YJPMZGQ NAIL, 6 OR MORE 07/22/2014 66263-YYFHWRF NAIL, 6 OR MORE 10/21/2014 28607-NTFAKFZ NAIL, 6 OR MORE 12/30/2014 81634-OPOTLZR NAIL, 6 OR MORE 03/03/2015 51550-TSKPXMQ NAIL, 6 OR MORE 06/03/2015 43521-KWEQGGX NAIL, 6 OR MORE 08/16/2015 04784-CVTYPMO NAIL, 6 OR MORE 11/08/2015 13078-YJTIFNA NAIL, 6 OR MORE 01/31/2016 47320-WBUBMSU NAIL, 6 OR MORE 04/17/2016 74423-OGHXYAM NAIL, 6 OR MORE 06/26/2016 16783-DKNVPAG NAIL, 6 OR MORE 09/18/2016 02191-MURSMZJ NAIL, 6 OR MORE 11/27/2016 35216-KWOWGFP NAIL, 6 OR MORE 01/29/2017 33267-LBKMVTY NAIL, 6 OR MORE 04/11/2017 63313-QKEVIGM NAIL, 6 OR MORE 06/20/2017 10058-MTJZVTB NAIL, 6 OR MORE 08/29/2017 54186-JAEQQHD NAIL, 6 OR MORE 11/19/2017 78210-OKRXWRQ NAIL, 6 OR MORE 02/13/2018 51873-ZIVAYDR NAIL, 6 OR MORE 03/26/2024 49132-LWVSRUE NAIL, 6 OR MORE 07/31/2024 74424-Nenxradf Plate 12/30/2014 51223-HUQL SKIN LESIONS, OVER 4 10/01/19 19 15561-YFIA SKIN LESIONS, OVER 4 08/01/19 25 10460-ESKP SKIN LESIONS, OVER 4 03/26/20 24 09301-ZLPB SKIN LESIONS, OVER 4 05/08/19 19 60813-HOSJ SKIN LESIONS, OVER 4 07/11/19 19 60440-FVNQ SKIN LESIONS, OVER 4 02/14/20 18 05278-JXRE SKIN LESIONS, OVER 4 11/20/19 18 48548-WLCF SKIN LESIONS, OVER 4 12/26/19 19 19181-OHDD SKIN LESIONS, OVER 4 03/24/20 19 50608-HOZL SKIN LESIONS, OVER 4 06/16/19 20 14149-MFDY SKIN LESIONS, OVER 4 08/17/19 21 79871-TXUA SKIN LESIONS, OVER 4 10/26/19 21 47863-IWFM SKIN LESIONS, OVER 4 12/28/19 21 80369-KJIT SKIN LESIONS, OVER 4 02/29/20 21 56993-NCAR SKIN LESIONS, OVER 4 05/09/19 22 71766-DAVF SKIN LESIONS, OVER 4 08/30/19 18 12510-RBJN SKIN LESIONS, OVER 4 06/21/19 18 60184-DNJN SKIN LESIONS, OVER 4 04/11/19 18 16612-DBZS SKIN LESIONS, OVER 4 01/30/20 17 39970-JMAO SKIN LESIONS, OVER 4 11/28/19 17 85574-SGQT SKIN LESIONS, OVER 4 06/27/19 17 47627-ZSOT SKIN LESIONS, OVER 4 09/19/19 17 12365-CXQP SKIN LESIONS, OVER 4 04/17/19 17 70874-KDZN SKIN LESIONS, OVER 4 01/31/20 16 68712-DUHY SKIN LESIONS, OVER 4 11/08/19 16 61472-PGSR SKIN LESIONS, OVER 4 08/16/19 16 16628-MPLY SKIN LESIONS, OVER 4 06/03/19 16 28776-NRRI SKIN LESIONS, OVER 4 03/03/20 15 90476-XKAQ SKIN LESIONS, OVER 4 12/31/19 15 29555-VCYF SKIN LESIONS, OVER 4 10/22/19 15 71604-EWKA SKIN LESIONS, OVER 4 07/23/19 15 51440-QZBJ SKIN LESIONS, OVER 4 05/04/19 15 50727-Sofh. Subungual Hematoma 4 13656-EYHMGADH OF HEMATOMA/FLUID 019 06358-UMMIMPIZ OF HEMATOMA/FLUID 022 19162-XDNNHLVZ OF HEMATOMA/FLUID 023 08361-HVIQPEJK OF HEMATOMA/FLUID 021 56717-BWFDYCDK OF HEMATOMA/FLUID 019 HEMOGLOBIN A1C (GLYCOHEMOGLOBIN) 024 Next Appt Details Provider Name:Michela Ceballos nuris, 04/30/2025 09:00:00 AM, [address] [place], [address], Insurance Providers Payer Name Payer Address Payer Phone Subscriber Number Group Number Insured Name Patient Relationship to Insured Coverage Start Date Coverage End Date [employer] Medicare Adv-00973 [address] [address] [place] [address] [phone] [id number] [facility] capri Aaron Self - patient is the insured Medical (General) History Medical History History ICD Code Arthritis Back,Hip,and Knee pain type II diabetes High blood pressure Neuropathy Chicken pox Surgical History Surgery Date(Month/Year) lumbar surgery 06/20/2013 cervical 11/29/2009 knee surgery, left 09/15/2015 gastric sleeve 03/08/17 cataract surgery- Bilateral 10/2017 Hospitalization History Reason Date(Month/Year) Heart attack- [facility] 08/2023
== END 2025-02-17 10:10 | disposition home or self-care (01) ==
LOC: HO.HKA 09:43
PROVIDERS: PCP Internal Medicine; Visit Provider Internal Medicine Hypertension Specialist
DX: N18.9 Chronic kidney disease, unspecified (principal); I50.9 Heart failure, unspecified
CPT/HCPCS: 99214

== ENCOUNTER → 2025-02-17 09:42 | Outpatient (BNVA) | payer MEDICARE, SELFPAY | PROVIDERS: PCP Internal Medicine; Visit Provider Internal Medicine Hypertension Specialist | DX: I13.0 Hypertensive heart and chronic kidney disease with heart failure and stage 1 through stage 4 chronic kidney disease, or unspecified chronic kidney disease (principal); E11.22 Type 2 diabetes mellitus with diabetic chronic kidney disease; N18.30 Chronic kidney disease, stage 3 unspecified; I50.9 Heart failure, unspecified; Z79.84 Long term (current) use of oral hypoglycemic drugs; Z79.01 Long term (current) use of anticoagulants; Z79.82 Long term (current) use of aspirin | CPT/HCPCS: 99212 ==